=== PATIENT | male | born 1950 | race African-American/Black ===

== ENCOUNTER 2018-08-09 10:52 | Inpatient (IN) | payer OTHER ==
[2018-08-09] VITALS (13 sets, daily range): BP systolic 135–243; BP diastolic 72–133
[~2018-08-09] VITALS: Ht 188 cm; Wt 101.2 kg
[2018-08-09] MEDS ORDERED: POTA20TA4 PO (11:49)
[2018-08-09] MEDS ORDERED: FURO-68 PO (11:50)
[2018-08-09] MEDS ORDERED: CARV25TA PO (11:51)
[2018-08-09] MEDS ORDERED: HYDR100T24 PO (11:52)
[2018-08-09] MEDS ORDERED: CHOL10003 PO (11:54)
[2018-08-09] MEDS ORDERED: ALLO300T PO (11:54)
[2018-08-09] MEDS ORDERED: LOSA100T14 PO (11:54)
[2018-08-09] MEDS ORDERED: ASPI325T8 PO (11:54)
[2018-08-09] MEDS: LABETALOL HCL 200 MG TABLET PO SCH ×2 (12:36→22:27)
[2018-08-09] MEDS: hydrALAZINE 20 MG/ML VIAL. IVP PRN ×2 (12:37→16:56)
[2018-08-09] MEDS ORDERED: HEPARIN 25,000UTS/500ML PREMIX 500 ML IV PRN ×2 (13:15→13:30)
--- NOTE | 2018-08-09 13:21 | PDOC2 ---
CONSULT Date of Consult Date of Consult DATE: 08/09/18 TIME: 13:21 Reason for Consult Reason for Consult: Elevated troponin level Referring Physician Referring Physician: Dr. Langley Identification/Chief Complaint Chief Complaint Chest pain Source Source: Chart review, Patient History of Present Illness Reason for Visit: 68-year-old pleasant -[place] male was initially seen at [facility] ED for left-sided chest heaviness associated with shortness of breath worse with exertion and transfer to [facility] for elevated troponin level. He denied any palpitations or syncope. He denied any previous history of coronary artery disease. He has chronic renal insufficiency and follows with Dr. Joseph. Past Medical History Past Medical History Hypertension Hyperlipidemia Chronic kidney disease Past Surgical History Past Surgical History: No pertinent history Family History Family History Hypertension and hyperlipidemia Social History Social History Patient denied any smoking alcohol or drug use Current Medications Current Medications Current Medications Labetalol HCl (Trandate) 200 mg BID PO Last administered on 08/09/18at 12:36; Start 08/09/18 at 12:00 Hydralazine HCl (Apresoline) 100 mg 1X ONCE PO Last administered on 08/09/18at 12:36; Start 08/09/18 at 12:15; Stop 08/09/18 at 12:20; Status DC Hydralazine HCl (Apresoline Inj) 10 mg PRN Q4HRS PRN IVP ELEVATED BP, SEE COMMENTS Last administered on 08/09/18at 12:37; Start 08/09/18 at 12:15 Nicardipine HCl 50 mg/Sodium Chloride 250 ml @ 25 mls/hr CONT PRN IV SEE I/O RECORD; Start 08/09/18 at 12:15 Heparin Sodium/ Dextrose 500 ml @ 0 mls/hr CONT PRN IV SEE I/O RECORD; Start 08/09/18 at 13:15; Status UNV Active Scripts Active Reported Losartan Potassium 100 Mg Tablet 100 Mg PO DAILY Vitamin D3 (Cholecalciferol (Vitamin D3)) 1,000 Unit Tablet 2,000 Unit PO DAILY Aspirin 325 Mg Tablet 1 Tab PO DAILY Allopurinol 300 Mg Tablet 300 Mg PO DAILY Hydralazine Hcl 100 Mg Tablet 100 Mg PO DAILY PRN Coreg (Carvedilol) 25 Mg Tablet 50 Mg PO DAILY Lasix (Furosemide) 40 Mg Tablet 40 Mg PO DAILY Klor-Con M20 (Potassium Chloride) 20 Meq Tab.er.prt 80 Meq PO DAILY Allergies Allergies: Coded Allergies: No Known Drug Allergies (Unverified , 08/09/18) ROS PSYCHOLOGICAL ROS: No: Hallucinations Eyes: No Loss of vision HEENT: No: Epistaxis Respiratory: YES: Shortness of breath; No: Hemoptysis Cardiovascular: yes Chest Pain Gastrointestinal: No Vomiting, No Diarrhea Genitourinary: No Hematuria Neurological: No Seizures Skin: No Rash Physical Exam General: Alert, Oriented X3 HEENT: Atraumatic, PERRLA Lungs: Other (bilateral basal crepitations) Heart: Regular rate Abdomen: Soft, No tenderness Extremities: Other (2+ RLE, 1+ LLE) Neuro: Normal gait, Normal speech Psych/Mental Status: Mood NL Vitals VITALS Vital Signs Date Time Temp Pulse Resp B/P (MAP) Pulse Ox O2 Delivery O2 Flow Rate FiO2 08/09/18 13:03 95 18 205/105 (138) 98 Nasal Cannula 4.0 08/09/18 12:00 98.8 98.8 Assessment/Plan Assessment/Plan 1. Non-STEMI in a patient with multiple cardiovascular risk factors. Continue heparin infusion per protocol. Plan for cardiac catheterization and possible angioplasty if okay from nephrology standpoint. Risks and benefits were explained and he is agreeable. 2. Congestive heart failure most probably acute on chronic diastolic. Diuretics per nephrology team. Check 2-D echo to assess LV systolic function. Asymmetric lower extremity edema could be secondary to component of underlying venous insufficiency. We will evaluate this as an outpatient. 3. Accelerated hypertension: Resume home medications and change Coreg to labetalol for better blood pressure control. Check renal arterial duplex scan to rule out renovascular hypertension. 4. Chronic kidney disease: Consult nephrology team Thank you for your consultation SHEFALI HU MD Aug 09, 2018 13:21
--- NOTE | 2018-08-09 13:28 | PDOC1 ---
History and Physical Date of Admission Date of Admission DATE: 08/09/18 TIME: 13:24 Identification/Chief Complaint Chief Complaint Chest pain Source Source: Caregiver, Chart review, Patient History of Present Illness History of Present Illness 68-year-old -Chinese male, history of hypertension, dyslipidemia on Coreg atorvastatin Lasix with KCl takes aspirin 325 once a day lisinopril HCTZ 100/12.5 at home, chest pain intermittent left-sided associated with SOA, no diaphoresis no pre syncopal symptoms, maybe lasting minutes.. No identifiable precipitating or alleviating factor. With time, got better. Blood pressure on the high side 200s systolic at [facility]. Transferred here because of N STEMI with troponin of 1.4 peak, blood pressure 245 on nitro drip and heparin drip. Cardiology aware plan for catheter tomorrow History of CK D stage II creat 2.3, follows with Dr. Joseph Hemoglobin 14, WBC 6, platelets 179 Past Medical History Cardiovascular: HTN, Hyperlipidemia Past Surgical History Past Surgical History: No pertinent history Family History Family History: Heart Disease, High Cholestrol, Hypertension Social History Smoke: No ALCOHOL: none Drugs: None Current Medications Current Medications Current Medications Labetalol HCl (Trandate) 200 mg BID PO Last administered on 08/09/18at 12:36; Start 08/09/18 at 12:00 Hydralazine HCl (Apresoline) 100 mg 1X ONCE PO Last administered on 08/09/18at 12:36; Start 08/09/18 at 12:15; Stop 08/09/18 at 12:20; Status DC Hydralazine HCl (Apresoline Inj) 10 mg PRN Q4HRS PRN IVP ELEVATED BP, SEE COMMENTS Last administered on 08/09/18at 12:37; Start 08/09/18 at 12:15 Nicardipine HCl 50 mg/Sodium Chloride 250 ml @ 25 mls/hr CONT PRN IV SEE I/O RECORD; Start 08/09/18 at 12:15 Heparin Sodium/ Dextrose 500 ml @ 0 mls/hr CONT PRN IV SEE I/O RECORD; Start 08/09/18 at 13:15; Status UNV Heparin Sodium/ Dextrose 500 ml @ 0 mls/hr CONT PRN IV SEE I/O RECORD; Start 08/09/18 at 13:30 Heparin Sodium (Porcine) (Heparin Sodium) 2,550 unit PRN Q6HRS PRN IV FOR UFH LEVEL LESS THAN 0.2; Start 08/09/18 at 13:30 Active Scripts Active Reported Losartan Potassium 100 Mg Tablet 100 Mg PO DAILY Vitamin D3 (Cholecalciferol (Vitamin D3)) 1,000 Unit Tablet 2,000 Unit PO DAILY Aspirin 325 Mg Tablet 1 Tab PO DAILY Allopurinol 300 Mg Tablet 300 Mg PO DAILY Hydralazine Hcl 100 Mg Tablet 100 Mg PO DAILY PRN Coreg (Carvedilol) 25 Mg Tablet 50 Mg PO DAILY Lasix (Furosemide) 40 Mg Tablet 40 Mg PO DAILY Klor-Con M20 (Potassium Chloride) 20 Meq Tab.er.prt 80 Meq PO DAILY Allergies Allergies: Coded Allergies: No Known Drug Allergies (Unverified , 08/09/18) ROS Review of System As per history of present illness, the rest of ROS 14 point negative Physical Exam General: Alert, Oriented X3, Cooperative, No acute distress HEENT: Atraumatic, PERRLA, EOMI Lungs: Clear to auscultation, Normal air movement Heart: S1S2, RRR, no thrills, no rubs, no gallops, no murmurs Cardiovascular: S1 Abdomen: Normal bowel sounds, Soft, No tenderness, No hepatosplenomegaly, No masses Male Genitals Exam: normal genitalia, normal prostate Rectal Exam: not examined PELVIC: Nml ext genitalia Extremities: No clubbing, No cyanosis, No edema, Normal pulses, No tenderness/swelling Skin: No rashes, No breakdown, No significant lesion Neuro: Normal gait, Normal speech, Strength at 5/5 X4 ext, Normal tone, Sensation intact, Cranial nerves 3-12 NL, Reflexes 2+ Psych/Mental Status: Mental status NL, Mood NL Vitals Vitals Vital Signs Date Time Temp Pulse Resp B/P (MAP) Pulse Ox O2 Delivery O2 Flow Rate FiO2 08/09/18 13:03 95 18 205/105 (138) 98 Nasal Cannula 4.0 08/09/18 12:00 98.8 98.8 VTE Prophylaxis Ordered VTE Prophylaxis Devices: Yes VTE Pharmacological Prophylaxi: Yes Assessment/Plan Assessment/Plan NSTEMI AK I CK D - creat 2.3 Chest pain Dyslipidemia on a statin Hypertension on meds PLAN: Nothing by mouth post midnight, [facility] tomorrow Cards consult Consult renal regarding the creatinine 2.3 and CK D-follows Dr. Jake Sandoval to reconcile her continue all home meds Stool softener ICU care/CVC care PIERO protocol Discussed with him-full code Discussed with CHIEF NURSE MARC QUIROGA MD Aug 09, 2018 13:28
[2018-08-09] MEDS ORDERED: MORPHINE SULFATE 2 MG/ML VIAL. IV PRN (13:30)
[2018-08-09] MEDS ORDERED: PROCHLORPERAZINE 25 MG SUPP.RECT. PR PRN (13:30)
[2018-08-09] MEDS ORDERED: CALCIUM CARBONATE 500 MG TAB.CHEW PO PRN (13:30)
[2018-08-09] MEDS ORDERED: HEPARIN for IV BOLUS 10,000 UNIT/10 ML VIAL. IV PRN (13:30)
[2018-08-09] MEDS ORDERED: ONDANSETRON PF 4 MG/2 ML VIAL. IV PRN (13:30)
[2018-08-09] MEDS ORDERED: ACETAMINOPHEN 325 MG TABLET. PO PRN (13:30)
[2018-08-09] MEDS ORDERED: MAGNESIUM HYDROXIDE 2,400 MG/30 ML ORAL.SUSP. PO PRN (13:30)
[2018-08-09] MEDS ORDERED: BISACODYL 10 MG SUPP.RECT. PR PRN (13:30)
[2018-08-09] MEDS ORDERED: oxyCODONE IR 5 MG TABLET PO PRN (13:30)
[2018-08-09] MEDS ORDERED: PROCHLORPERAZINE 10 MG/2 ML VIAL. IV PRN (13:30)
--- NOTE | 2018-08-09 19:45 | NUR ---
Patient and educated on Cardia Catheterization--reason needed, procedure, medications before/after, Moderate Sedation, Angioplasty, Rotational Arterectomy, TR band vs Angio-Seal, activity post procedure, diet (NPO after midnight), and S/Sx to look for bleeding. After explanation and all questions answered, patient and verbalized understanding of above. Consents signed for Cardiac Catheterization and possible Percutaneous Transluminal Coronary Angioplasty and Possible Coronary Stent and Possible Rotational Atherectomy, Anesthesia-Moderated Sedation, HIV Antibody Blood Test, and Blood Transfusion; See consents.
[2018-08-09] MEDS: DOCUSATE SODIUM 100 MG CAPSULE. PO SCH (21:00)
[2018-08-10] VITALS (25 sets, daily range): BP systolic 146–194; BP diastolic 66–112
--- NOTE | 2018-08-10 01:20 | NUR ---
UFH drawn at 0030 resulted 0.30; per Heparin protocol (cardiac) no change in dose and repeat UFH in 6HRS. Heparin continued at 11UNITS/KG/MIN and UFH reordered for 0630.
[2018-08-10] MEDS: hydrALAZINE 20 MG/ML VIAL. IVP PRN ×3 (03:11→18:21)
[2018-08-10] MEDS: DOCUSATE SODIUM 100 MG CAPSULE. PO SCH ×2 (08:12→21:15)
[2018-08-10] MEDS: ALLOPURINOL 300 MG TABLET. PO SCH (08:12)
[2018-08-10] MEDS: FUROSEMIDE 40 MG TABLET. PO SCH (08:12)
[2018-08-10] MEDS: CHOLECALCIFEROL (VITAMIN D3) 1,000 UNIT TABLET PO SCH (08:12)
[2018-08-10] MEDS: LABETALOL HCL 200 MG TABLET PO SCH ×2 (08:13→21:16)
[2018-08-10 08:27] LABS: BASO # 0.1 x10^3/uL (0.0-0.2); BASO % 1 % (0-3); EOS # 0.1 x10^3/uL (0.0-0.7); EOS % 1 % (0-3); HEMATOCRIT 37.2 % (39.0-53.0); HEMOGLOBIN 12.2 g/dL (13.0-17.5); LYMPH # 0.6 x10^3/uL (1.0-4.8); LYMPH % 11 % (24-48); MEAN CORPUSCULAR HEMOGLOBIN 29 pg (25-35); MEAN CORPUSCULAR HGB CONC 33 g/dL (31-37); MEAN CORPUSCULAR VOLUME 88 fL (79-100); MONO # 0.6 x10^3/uL (0.0-1.1); MONO % 10 % (0-9); NEUT # 4.6 x10^3uL (1.8-7.7); NEUT % 77 % (31-73); PLATELET COUNT 154 x10^3/uL (140-400); RED BLOOD COUNT 4.24 x10^6/uL (4.30-5.70); RED CELL DISTRIBUTION WIDTH 16.2 % (11.5-14.5)
[2018-08-10 08:42] LABS: PROTHROMBIN TIME PATIENT 13.9 SEC (11.7-14.0)
[2018-08-10] MEDS ORDERED: POTASSIUM CHLORIDE 20 MEQ TABLET.ER. PO SCH (09:00)
[2018-08-10] MEDS ORDERED: CARVEDILOL 50 MG PO SCH (09:00)
--- NOTE | 2018-08-10 09:17 | RAD ---
Examination: RENAL BILAT RENAL DUPLEX CO History: Hypertension Comparison/Correlation: None Findings: Bilateral duplex renal ultrasound exam was performed. Color and spectral Doppler imaging was utilized. Right renal artery flow velocity is 43 cm/s at the middle and distal aspect. The proximal aspect of the right renal artery is not visualized. Resistive index ranges from 0.6, 0.7. Right renal length is 10 cm. Left renal artery flow velocity ranges from 40 cm/s distally to 56 cm/s at the midportion. Proximal left main renal artery was not visualized. Resistive index is 0.6. Left renal length is 10.3 cm. Abdominal aortic flow velocity is 82 cm/s. Right renal artery to aorta flow velocity ratio is 0.5 and left main renal artery to aorta flow velocity ratio is 0.6. These are well within normal range. Impression: No hemodynamic main renal arterial stenosis. Electronically signed by: German Bueno MD (08/10/2018 9:14 AM) [id number]
--- NOTE | 2018-08-10 09:58 | PDOC ---
PROGRESS NOTES Chief Complaint Chief Complaint NSTEMI ALE CK D - creat 2.3 Chest pain Dyslipidemia on a statin Hypertension acute CHF, diastolic History of Present Illness History of Present Illness Mr Roldan is a 68-year-old [place] -[place] male was initially seen at [facility] ED for left-sided chest heaviness associated with shortness of breath worse with exertion and transfer to [facility] for elevated troponin level. He denied any palpitations or syncope. This morning he c/o headache after NTG yesterday and still has some CP. BP has been elevated all night, requiring prn hydralazine Plan: Add short acting nitrate, likely will need imdur Cardiac cath today. Vitals Vitals Vital Signs Date Time Temp Pulse Resp B/P (MAP) Pulse Ox O2 Delivery O2 Flow Rate FiO2 08/10/18 09:00 70 13 166/82 (110) 99 Nasal Cannula 2.0 08/10/18 08:00 98.0 98.0 Physical Exam General: Alert, Oriented X3 Heart: Regular rate Abdomen: Soft, No tenderness Extremities: Other (2+ RLE, 1+ LLE) Skin: No rashes, No breakdown, No significant lesion Labs LABS Laboratory Tests Test 08/09/18 18:05 08/10/18 00:30 08/10/18 07:00 Heparin Anti-Xa Act, Unfractionated 0.57 IU/mL (0.30-0.70) 0.30 IU/mL (0.30-0.70) 0.32 IU/mL (0.30-0.70) Troponin I Quantitative 1.120 ng/mL (0.000-0.055) White Blood Count 6.0 x10^3/uL (4.0-11.0) Red Blood Count 4.24 x10^6/uL (4.30-5.70) Hemoglobin 12.2 g/dL (13.0-17.5) Hematocrit 37.2 % (39.0-53.0) Mean Corpuscular Volume 88 fL (79-100) Mean Corpuscular Hemoglobin 29 pg (25-35) Mean Corpuscular Hemoglobin Concent 33 g/dL (31-37) Red Cell Distribution Width 16.2 % (11.5-14.5) Platelet Count 154 x10^3/uL (140-400) Neutrophils (%) (Auto) 77 % (31-73) Lymphocytes (%) (Auto) 11 % (24-48) Monocytes (%) (Auto) 10 % (0-9) Eosinophils (%) (Auto) 1 % (0-3) Basophils (%) (Auto) 1 % (0-3) Neutrophils # (Auto) 4.6 x10^3uL (1.8-7.7) Lymphocytes # (Auto) 0.6 x10^3/uL (1.0-4.8) Monocytes # (Auto) 0.6 x10^3/uL (0.0-1.1) Eosinophils # (Auto) 0.1 x10^3/uL (0.0-0.7) Basophils # (Auto) 0.1 x10^3/uL (0.0-0.2) Prothrombin Time 13.9 SEC (11.7-14.0) Prothromb Time International Ratio 1.1 (0.8-1.1) Assessment and Plan Assessmemt and Plan Problems Medical Problems: (1) Acute kidney injury superimposed on chronic kidney disease Status: Acute (2) Acute on chronic diastolic CHF (congestive heart failure) Status: Acute (3) Hypertension, accelerated Status: Acute (4) NSTEMI (non-ST elevated myocardial infarction) Status: Acute Comment Review of Relevant I have reviewed the following items ramiro (where applicable) has been applied. Labs Laboratory Tests Test 08/09/18 18:05 08/10/18 00:30 08/10/18 07:00 Heparin Anti-Xa Act, Unfractionated 0.57 IU/mL (0.30-0.70) 0.30 IU/mL (0.30-0.70) 0.32 IU/mL (0.30-0.70) Troponin I Quantitative 1.120 ng/mL (0.000-0.055) White Blood Count 6.0 x10^3/uL (4.0-11.0) Red Blood Count 4.24 x10^6/uL (4.30-5.70) Hemoglobin 12.2 g/dL (13.0-17.5) Hematocrit 37.2 % (39.0-53.0) Mean Corpuscular Volume 88 fL (79-100) Mean Corpuscular Hemoglobin 29 pg (25-35) Mean Corpuscular Hemoglobin Concent 33 g/dL (31-37) Red Cell Distribution Width 16.2 % (11.5-14.5) Platelet Count 154 x10^3/uL (140-400) Neutrophils (%) (Auto) 77 % (31-73) Lymphocytes (%) (Auto) 11 % (24-48) Monocytes (%) (Auto) 10 % (0-9) Eosinophils (%) (Auto) 1 % (0-3) Basophils (%) (Auto) 1 % (0-3) Neutrophils # (Auto) 4.6 x10^3uL (1.8-7.7) Lymphocytes # (Auto) 0.6 x10^3/uL (1.0-4.8) Monocytes # (Auto) 0.6 x10^3/uL (0.0-1.1) Eosinophils # (Auto) 0.1 x10^3/uL (0.0-0.7) Basophils # (Auto) 0.1 x10^3/uL (0.0-0.2) Prothrombin Time 13.9 SEC (11.7-14.0) Prothromb Time International Ratio 1.1 (0.8-1.1) Laboratory Tests Test 08/09/18 18:05 08/10/18 00:30 08/10/18 07:00 Heparin Anti-Xa Act, Unfractionated 0.57 IU/mL (0.30-0.70) 0.30 IU/mL (0.30-0.70) 0.32 IU/mL (0.30-0.70) Troponin I Quantitative 1.120 ng/mL (0.000-0.055) White Blood Count 6.0 x10^3/uL (4.0-11.0) Red Blood Count 4.24 x10^6/uL (4.30-5.70) Hemoglobin 12.2 g/dL (13.0-17.5) Hematocrit 37.2 % (39.0-53.0) Mean Corpuscular Volume 88 fL (79-100) Mean Corpuscular Hemoglobin 29 pg (25-35) Mean Corpuscular Hemoglobin Concent 33 g/dL (31-37) Red Cell Distribution Width 16.2 % (11.5-14.5) Platelet Count 154 x10^3/uL (140-400) Neutrophils (%) (Auto) 77 % (31-73) Lymphocytes (%) (Auto) 11 % (24-48) Monocytes (%) (Auto) 10 % (0-9) Eosinophils (%) (Auto) 1 % (0-3) Basophils (%) (Auto) 1 % (0-3) Neutrophils # (Auto) 4.6 x10^3uL (1.8-7.7) Lymphocytes # (Auto) 0.6 x10^3/uL (1.0-4.8) Monocytes # (Auto) 0.6 x10^3/uL (0.0-1.1) Eosinophils # (Auto) 0.1 x10^3/uL (0.0-0.7) Basophils # (Auto) 0.1 x10^3/uL (0.0-0.2) Prothrombin Time 13.9 SEC (11.7-14.0) Prothromb Time International Ratio 1.1 (0.8-1.1) Medications Current Medications Labetalol HCl (Trandate) 200 mg BID PO Last administered on 08/10/18at 08:13; Start 08/09/18 at 12:00 Hydralazine HCl (Apresoline) 100 mg 1X ONCE PO Last administered on 08/09/18at 12:36; Start 08/09/18 at 12:15; Stop 08/09/18 at 12:20; Status DC Hydralazine HCl (Apresoline Inj) 10 mg PRN Q4HRS PRN IVP ELEVATED BP, SEE COMMENTS Last administered on 08/10/18at 03:11; Start 08/09/18 at 12:15 Nicardipine HCl 50 mg/Sodium Chloride 250 ml @ 25 mls/hr CONT PRN IV SEE I/O RECORD; Start 08/09/18 at 12:15 Heparin Sodium/ Dextrose 500 ml @ 0 mls/hr CONT PRN IV SEE I/O RECORD; Start 08/09/18 at 13:15; Status UNV Heparin Sodium/ Dextrose 500 ml @ 0 mls/hr CONT PRN IV SEE I/O RECORD; Start 08/09/18 at 13:30 Heparin Sodium (Porcine) (Heparin Sodium) 2,550 unit PRN Q6HRS PRN IV FOR UFH LEVEL LESS THAN 0.2; Start 08/09/18 at 13:30 Ondansetron HCl (Zofran) 4 mg PRN Q6HRS PRN IV NAUSEA/VOMITING, 1ST CHOICE IV; Start 08/09/18 at 13:30 Prochlorperazine Edisylate (Compazine) 10 mg PRN Q6HRS PRN IV NAUSEA/VOMITING, 2ND CHOICE IV; Start 08/09/18 at 13:30 Prochlorperazine (Compazine) 25 mg PRN Q12HR PRN ID NAUSEA/VOMITING; Start 08/09/18 at 13:30 Calcium Carbonate/ Glycine (Tums) 500 mg PRN Q3HRS PRN PO UPSET STOMACH; Start 08/09/18 at 13:30 Oxycodone HCl (Roxicodone) 5 mg PRN Q3HRS PRN PO BREAKTHROUGH PAIN; Start 08/09/18 at 13:30 Morphine Sulfate (Morphine Sulfate) 2 mg PRN Q2HR PRN IV PAIN; Start 08/09/18 at 13:30 Acetaminophen (Tylenol) 650 mg PRN Q6HRS PRN PO Headaches, Temp > 101.5F; Sta rt 08/09/18 at 13:30 Docusate Sodium (Colace) 100 mg BID PO Last administered on 08/10/18at 08:12; Start 08/09/18 at 21:00 Magnesium Hydroxide (Milk Of Magnesia) 2,400 mg PRN Q12HR PRN PO CONSTIPATION; Start 08/09/18 at 13:30 Bisacodyl (Dulcolax Supp) 10 mg PRN DAILY PRN ID CONSTIPATION; Start 08/09/18 at 13:30 Allopurinol (Zyloprim) 300 mg DAILY PO Last administered on 08/10/18at 08:12; Start 08/10/18 at 09:00 Vitamin D (Vitamin D3) 2,000 unit DAILY PO Last administered on 08/10/18at 08:12; Start 08/10/18 at 09:00 Furosemide (Lasix) 40 mg DAILY PO Last administered on 08/10/18at 08:12; Start 08/10/18 at 09:00 Potassium Chloride (Klor-Con) 80 meq DAILY PO ; Start 08/10/18 at 09:00; Stop 08/10/18 at 09:00; Status DC Non-Formulary Medication (Carvedilol (Coreg)) 50 mg DAILY PO ; Start 08/10/18 at 09:00; Stop 08/10/18 at 09:00; Status DC Hydralazine HCl (Apresoline) 50 mg BID PO Last administered on 08/10/18at 08:13; Start 08/09/18 at 21:00 Sodium Chloride 1,000 ml @ 100 mls/hr Q10H IV ; Start 08/10/18 at 10:00 Active Scripts Active Reported Losartan Potassium 100 Mg Tablet 100 Mg PO DAILY Vitamin D3 (Cholecalciferol (Vitamin D3)) 1,000 Unit Tablet 2,000 Unit PO DAILY Aspirin 325 Mg Tablet 1 Tab PO DAILY Allopurinol 300 Mg Tablet 300 Mg PO DAILY Hydralazine Hcl 100 Mg Tablet 100 Mg PO DAILY PRN Coreg (Carvedilol) 25 Mg Tablet 50 Mg PO DAILY Lasix (Furosemide) 40 Mg Tablet 40 Mg PO DAILY Klor-Con M20 (Potassium Chloride) 20 Meq Tab.er.prt 80 Meq PO DAILY Vitals/I & O Vital Sign - Last 24 Hours 08/09/18 08/09/18 08/09/18 08/09/18 12:00 12:00 12:36 12:36 Temp 98.8 98.8 Pulse 102 102 102 Resp 18 B/P (MAP) 243/133 (169) 243/133 243/133 Pulse Ox 100 O2 Delivery Nasal Cannula Nasal Cannula O2 Flow Rate 2.0 2.0 08/09/18 08/09/18 08/09/18 08/09/18 12:37 13:03 14:00 15:00 Pulse 102 95 75 81 Resp 18 16 16 B/P (MAP) 243/133 205/105 (138) 135/72 (93) 145/75 (98) Pulse Ox 98 98 98 O2 Delivery Nasal Cannula Nasal Cannula Nasal Cannula O2 Flow Rate 4.0 4.0 4.0 08/09/18 08/09/18 08/09/18 08/09/18 16:00 16:00 16:56 17:00 Pulse 62 79 88 Resp 18 20 B/P (MAP) 151/81 (104) 184/100 167/88 (114) Pulse Ox 99 99 O2 Delivery Nasal Cannula Nasal Cannula Nasal Cannula O2 Flow Rate 4.0 4.0 4.0 08/09/18 08/09/18 08/09/1819 18:00 19:00 20:00 20:00 Temp 98.4 98.4 Pulse 82 86 84 Resp 20 20 20 B/P (MAP) 155/88 (110) 163/79 (107) 164/92 (116) Pulse Ox 97 98 98 O2 Delivery Nasal Cannula Nasal Cannula Nasal Cannula Nasal Cannula O2 Flow Rate 4.0 4.0 4.0 3.0 08/09/18 08/09/18 08/09/18 08/09/18 21:00 22:00 22:27 22:28 Pulse 68 73 77 77 Resp 18 16 B/P (MAP) 162/90 (114) 174/101 (125) 182/98 182/98 Pulse Ox 99 100 O2 Delivery Nasal Cannula Nasal Cannula O2 Flow Rate 3.0 3.0 08/09/18 08/09/18 08/09/18 08/10/18 23:00 23:59 23:59 01:00 Temp 98.6 98.6 Pulse 72 70 60 Resp 18 14 14 B/P (MAP) 172/85 (114) 143/80 (101) 160/80 (106) Pulse Ox 100 100 100 O2 Delivery Nasal Cannula Nasal Cannula Nasal Cannula Nasal Cannula O2 Flow Rate 3.0 3.0 3.0 3.0 08/10/18 08/10/18 08/10/18 08/10/18 02:00 03:00 03:11 03:35 Pulse 67 70 70 70 Resp 14 14 16 B/P (MAP) 160/84 (109) 169/93 (118) 169/93 146/77 (100) Pulse Ox 99 99 99 O2 Delivery Nasal Cannula Nasal Cannula Nasal Cannula O2 Flow Rate 3.0 3.0 2.0 08/10/18 08/10/18 08/10/18 08/10/18 03:47 04:00 05:00 06:00 Temp 98.6 98.6 Pulse 64 66 64 Resp 16 B/P (MAP) 151/77 (101) 162/85 (110) 171/83 (112) Pulse Ox 98 99 100 O2 Delivery Nasal Cannula Nasal Cannula Nasal Cannula Nasal Cannula O2 Flow Rate 2.0 2.0 2.0 2.0 08/10/18 08/10/18 08/10/18 08/10/18 07:00 08:00 08:13 08:13 Temp 98.0 98.0 Pulse 76 72 70 70 Resp 20 24 B/P (MAP) 181/91 (121) 186/99 (128) 186/99 186/99 Pulse Ox 98 97 O2 Delivery Nasal Cannula Nasal Cannula O2 Flow Rate 2.0 2.0 08/10/18 09:00 Pulse 70 Resp 13 B/P (MAP) 166/82 (110) Pulse Ox 99 O2 Delivery Nasal Cannula O2 Flow Rate 2.0 Intake and Output 08/09/18 08/09/18 08/10/18 14:59 22:59 06:59 Intake Total 150 ml 400 ml 1038 ml Output Total 250 ml 700 ml 300 ml Balance -100 ml -300 ml 738 ml TONIE LEWIS MD Aug 10, 2018 09:58
--- NOTE | 2018-08-10 10:02 | PDOC2 ---
CONSULT Date of Consult Date of Consult DATE: 08/10/18 TIME: 09:35 Reason for Consult Reason for Consult: CKD 3 Source Source: Chart review, Patient History of Present Illness Reason for Visit: 68-year-old -[place] male, history of hypertension, on Coreg, Lasix with KCl takes ,lisinopril HCTZ 100/12.5 at home, admitted with chest pain intermittent left-sided associated with SOA,no pre syncopal symptoms lasting minutes.. No identifiable precipitating or alleviating factor. Blood pressure 200s systolic at [facility]. Transferred here because of N STEMI with troponin of 1.4 peak, blood pressure 245 was on nitro drip and heparin drip. Cardiology planning Cardiac cath Cr at [place] 2.3, follows with Dr. Santos Past Medical History Cardiovascular: HTN, Hyperlipidemia Past Surgical History Past Surgical History: No pertinent history Family History Family History: Heart Disease, High Cholestrol, Hypertension Social History No ALCOHOL: none Drugs: None Current Problem List Problem List Problems Medical Problems: (1) Acute kidney injury superimposed on chronic kidney disease Status: Acute (2) Acute on chronic diastolic CHF (congestive heart failure) Status: Acute (3) Hypertension, accelerated Status: Acute (4) NSTEMI (non-ST elevated myocardial infarction) Status: Acute Current Medications Current Medications Current Medications Labetalol HCl (Trandate) 200 mg BID PO Last administered on 08/10/18at 08:13; Start 08/09/18 at 12:00 Hydralazine HCl (Apresoline) 100 mg 1X ONCE PO Last administered on 08/09/18at 12:36; Start 08/09/18 at 12:15; Stop 08/09/18 at 12:20; Status DC Hydralazine HCl (Apresoline Inj) 10 mg PRN Q4HRS PRN IVP ELEVATED BP, SEE COMMENTS Last administered on 08/10/18at 03:11; Start 08/09/18 at 12:15 Nicardipine HCl 50 mg/Sodium Chloride 250 ml @ 25 mls/hr CONT PRN IV SEE I/O RECORD; Start 08/09/18 at 12:15 Heparin Sodium/ Dextrose 500 ml @ 0 mls/hr CONT PRN IV SEE I/O RECORD; Start 08/09/18 at 13:15; Status UNV Heparin Sodium/ Dextrose 500 ml @ 0 mls/hr CONT PRN IV SEE I/O RECORD; Start 08/09/18 at 13:30 Heparin Sodium (Porcine) (Heparin Sodium) 2,550 unit PRN Q6HRS PRN IV FOR UFH LEVEL LESS THAN 0.2; Start 08/09/18 at 13:30 Ondansetron HCl (Zofran) 4 mg PRN Q6HRS PRN IV NAUSEA/VOMITING, 1ST CHOICE IV; Start 08/09/18 at 13:30 Prochlorperazine Edisylate (Compazine) 10 mg PRN Q6HRS PRN IV NAUSEA/VOMITING, 2ND CHOICE IV; Start 08/09/18 at 13:30 Prochlorperazine (Compazine) 25 mg PRN Q12HR PRN FL NAUSEA/VOMITING; Start 08/09/18 at 13:30 Calcium Carbonate/ Glycine (Tums) 500 mg PRN Q3HRS PRN PO UPSET STOMACH; Start 08/09/18 at 13:30 Oxycodone HCl (Roxicodone) 5 mg PRN Q3HRS PRN PO BREAKTHROUGH PAIN; Start 08/09/18 at 13:30 Morphine Sulfate (Morphine Sulfate) 2 mg PRN Q2HR PRN IV PAIN; Start 08/09/18 at 13:30 Acetaminophen (Tylenol) 650 mg PRN Q6HRS PRN PO Headaches, Temp > 101.5F; Start 08/09/18 at 13:30 Docusate Sodium (Colace) 100 mg BID PO Last administered on 08/10/18at 08:12; Start 08/09/18 at 21:00 Magnesium Hydroxide (Milk Of Magnesia) 2,400 mg PRN Q12HR PRN PO CONSTIPATION; Start 08/09/18 at 13:30 Bisacodyl (Dulcolax Supp) 10 mg PRN DAILY PRN FL CONSTIPATION; Start 08/09/18 at 13:30 Allopurinol (Zyloprim) 300 mg DAILY PO Last administered on 08/10/18at 08:12; Start 08/10/18 at 09:00 Vitamin D (Vitamin D3) 2,000 unit DAILY PO Last administered on 08/10/18at 08: 12; Start 08/10/18 at 09:00 Furosemide (Lasix) 40 mg DAILY PO Last administered on 08/10/18at 08:12; Start 08/10/18 at 09:00 Potassium Chloride (Klor-Con) 80 meq DAILY PO ; Start 08/10/18 at 09:00; Stop 08/10/18 at 09:00; Status DC Non-Formulary Medication (Carvedilol (Coreg)) 50 mg DAILY PO ; Start 08/10/18 at 09:00; Stop 08/10/18 at 09:00; Status DC Hydralazine HCl (Apresoline) 50 mg BID PO Last administered on 08/10/18at 08:13; Start 08/09/18 at 21:00 Active Scripts Active Reported Losartan Potassium 100 Mg Tablet 100 Mg PO DAILY Vitamin D3 (Cholecalciferol (Vitamin D3)) 1,000 Unit Tablet 2,000 Unit PO DAILY Aspirin 325 Mg Tablet 1 Tab PO DAILY Allopurinol 300 Mg Tablet 300 Mg PO DAILY Hydralazine Hcl 100 Mg Tablet 100 Mg PO DAILY PRN Coreg (Carvedilol) 25 Mg Tablet 50 Mg PO DAILY Lasix (Furosemide) 40 Mg Tablet 40 Mg PO DAILY Klor-Con M20 (Potassium Chloride) 20 Meq Tab.er.prt 80 Meq PO DAILY Allergies Allergies: Coded Allergies: No Known Drug Allergies (Unverified , 08/09/18) ROS Review of System Per HPI Physical Exam Physical Exam General: No acute distress HEENT: OM Moist Lungs: Clear to auscultation,Non labored Cardiovascular: RRR Abdomen: NT Extremities: No edema, Skin: No rashes, Neuro: Grossly Normal Psych/Mental Status: Mental status NL, Mood NL No Muse Vital Signs Vital Signs Date Time Temp Pulse Resp B/P (MAP) Pulse Ox O2 Delivery O2 Flow Rate FiO2 08/10/18 08:13 70 186/99 08/10/18 06:00 100 Nasal Cannula 2.0 08/10/18 04:00 98.6 16 98.6 Assessment & Plan CKD Stage 3 - baseline Cr 1.5-1.9 , on 03/25/18 1.9 Most Recent 08/09 at [place] was 2.[address] santos Non-STEMI - Plan for cardiac catheterization and possible angioplasty Increased risk of MIKE, weigh the risk and benefit - defer to cardiology Discussed with Pt and IVF for MIKE prophylaxis over night (NS 1ml/Kg/hr 12 hrs prior and post procedure , cautiously as Hx of CHF) Hold Diuretics a day before and after , currently CHF appears to be compensated clinically Discussed last evening with RN Congestive heart failure most probably acute on chronic diastolic. Accelerated hypertension: Cardiology managing Discussed with Pt, and RN Labs Labs Laboratory Tests Test 08/09/18 18:05 08/10/18 00:30 08/10/18 07:00 Heparin Anti-Xa Act, Unfractionated 0.57 IU/mL (0.30-0.70) 0.30 IU/mL (0.30-0.70) 0.32 IU/mL (0.30-0.70) Troponin I Quantitative 1.120 ng/mL (0.000-0.055) White Blood Count 6.0 x10^3/uL (4.0-11.0) Red Blood Count 4.24 x10^6/uL (4.30-5.70) Hemoglobin 12.2 g/dL (13.0-17.5) Hematocrit 37.2 % (39.0-53.0) Mean Corpuscular Volume 88 fL (79-100) Mean Corpuscular Hemoglobin 29 pg (25-35) Mean Corpuscular Hemoglobin Concent 33 g/dL (31-37) Red Cell Distribution Width 16.2 % (11.5-14.5) Platelet Count 154 x10^3/uL (140-400) Neutrophils (%) (Auto) 77 % (31-73) Lymphocytes (%) (Auto) 11 % (24-48) Monocytes (%) (Auto) 10 % (0-9) Eosinophils (%) (Auto) 1 % (0-3) Basophils (%) (Auto) 1 % (0-3) Neutrophils # (Auto) 4.6 x10^3uL (1.8-7.7) Lymphocytes # (Auto) 0.6 x10^3/uL (1.0-4.8) Monocytes # (Auto) 0.6 x10^3/uL (0.0-1.1) Eosinophils # (Auto) 0.1 x10^3/uL (0.0-0.7) Basophils # (Auto) 0.1 x10^3/uL (0.0-0.2) Prothrombin Time 13.9 SEC (11.7-14.0) Prothromb Time International Ratio 1.1 (0.8-1.1) Laboratory Tests Test 08/09/18 18:05 08/10/18 00:30 08/10/18 07:00 Heparin Anti-Xa Act, Unfractionated 0.57 IU/mL (0.30-0.70) 0.30 IU/mL (0.30-0.70) 0.32 IU/mL (0.30-0.70) Troponin I Quantitative 1.120 ng/mL (0.000-0.055) White Blood Count 6.0 x10^3/uL (4.0-11.0) Red Blood Count 4.24 x10^6/uL (4.30-5.70) Hemoglobin 12.2 g/dL (13.0-17.5) Hematocrit 37.2 % (39.0-53.0) Mean Corpuscular Volume 88 fL (79-100) Mean Corpuscular Hemoglobin 29 pg (25-35) Mean Corpuscular Hemoglobin Concent 33 g/dL (31-37) Red Cell Distribution Width 16.2 % (11.5-14.5) Platelet Count 154 x10^3/uL (140-400) Neutrophils (%) (Auto) 77 % (31-73) Lymphocytes (%) (Auto) 11 % (24-48) Monocytes (%) (Auto) 10 % (0-9) Eosinophils (%) (Auto) 1 % (0-3) Basophils (%) (Auto) 1 % (0-3) Neutrophils # (Auto) 4.6 x10^3uL (1.8-7.7) Lymphocytes # (Auto) 0.6 x10^3/uL (1.0-4.8) Monocytes # (Auto) 0.6 x10^3/uL (0.0-1.1) Eosinophils # (Auto) 0.1 x10^3/uL (0.0-0.7) Basophils # (Auto) 0.1 x10^3/uL (0.0-0.2) Prothrombin Time 13.9 SEC (11.7-14.0) Prothromb Time International Ratio 1.1 (0.8-1.1) Review All relevant outside records, renal labs, imaging studies, telemetry/EKG's were reviewed. ANTHONY AGUERO MD Aug 10, 2018 10:02
[2018-08-10] MEDS: IV NORMAL SALINE 1000ML BAG 1,000 ML IV SCH (10:06)
[2018-08-10] MEDS: ISOSORBIDE DINITRATE 10 MG TABLET. PO SCH ×3 (10:15→21:15)
[2018-08-10 10:18] LABS: CALCIUM 8.1 mg/dL (8.5-10.1); CREATININE 2.3 mg/dL (0.7-1.3); GFR 34.5; POTASSIUM 3.6 mmol/L (3.5-5.1)
[2018-08-10] MEDS: LABETALOL 20 MG/4 ML DISP.SYRIN. IVP PRN ×2 (11:06→14:26)
[2018-08-10] MEDS ORDERED: IODIXANOL 320 MG/ML 100 ML VIAL. ONE ×2 (11:40→12:22)
[2018-08-10] MEDS ORDERED: MIDAZOLAM HCL/PF 5 MG/5 ML VIAL. ONE (11:41)
[2018-08-10] MEDS ORDERED: VERAPAMIL 5 MG/2 ML VIAL. ONE (11:41)
[2018-08-10] MEDS ORDERED: HEPARIN for IV BOLUS 10,000 UNIT/10 ML VIAL. ONE (11:41)
[2018-08-10] MEDS ORDERED: fentaNYL PF VIAL 100 MCG/2 ML VIAL ONE (11:41)
[2018-08-10] MEDS ORDERED: NITROGLYCERIN 200 MCG/2 ML SYRINGE FOR CATH/VASC LAB. ONE (11:41)
[2018-08-10] MEDS ORDERED: LIDOCAINE 1% PF 2 ML VIAL. ONE (11:42)
[2018-08-10] MEDS ORDERED: HEPARIN for IV BOLUS 10,000 UNIT/10 ML VIAL. IART ONE (12:00)
[2018-08-10] MEDS ORDERED: NITROGLYCERIN 200 MCG/2 ML SYRINGE FOR CATH/VASC LAB. IART ONE (12:00)
[2018-08-10] MEDS ORDERED: fentaNYL PF VIAL 100 MCG/2 ML VIAL IV ONE (12:00)
[2018-08-10] MEDS ORDERED: VERAPAMIL 5 MG/2 ML VIAL. IART ONE (12:00)
[2018-08-10] MEDS ORDERED: IODIXANOL 320 MG/ML 100 ML VIAL. IART ONE (12:00)
[2018-08-10] MEDS ORDERED: LIDOCAINE 1% PF 2 ML VIAL. INJ ONE (12:00)
[2018-08-10] MEDS ORDERED: BIVALIRUDIN 250 MG VIAL. IV ONE ×2 (12:09→12:15)
[2018-08-10] MEDS ORDERED: CLOPIDOGREL BISULFATE 75 MG TABLET PO ONE (12:30)
[2018-08-10] MEDS ORDERED: MIDAZOLAM HCL/PF 5 MG/5 ML VIAL. IV ONE (12:45)
[2018-08-10] MEDS ORDERED: IV 1/2 NORMAL SALINE 1,000 ML IV SCH (12:50)
--- NOTE | 2018-08-10 12:50 | PDOC ---
MODERATE SEDATION ASSESSMENT RISKS/ALTERNATIVES Risks/Alternatives Risks and alternatives of this type of sedation and procedure discussed with: RISK/ALTERNATIVES: Patient H & P ON CHART H & P H & P on chart and reviewed for co-morbid conditions and appropriate labs. H&P ON CHART: Yes STATUS PREG STATUS ASSESSED: N/A MEDS/ALLERGIES REVIEWED Meds/Allergies Reviewed Medications and Allergies including time and route of recently administered narcotics and sedatives. MEDS/ALLERGIES REVIEWED: Yes ASA RATING ASA RATING: III AIRWAY ASSESSMENT Airway Assessment Airway patency, oral function limitations, presence of caps, crowns, dentures, partials, and ability to extend neck assessed. AIRWAY ASSESSMENT: Yes MALLAMPATI SCORE MALLAMPATI SCORE: II PRE-SEDATION ASSESSMENT PRE-SEDATION ASSESSMENT: Yes SHEFALI HU MD Aug 10, 2018 12:50
[2018-08-10] MEDS ORDERED: NITROGLYCERIN SUBLINGUAL 0.4 MG BOTTLE OF 25. SL PRN (13:00)
--- NOTE | 2018-08-10 13:35 | CARD ---
MR#: [id number] Date of Study: 08/10/2018 Ordering Physician: SHEFALI HU, Referring Physician: MARC QUIROGA Tech: Candi Quirozrachelzaria APPROVED REPORT EXAM: Two-dimensional and M-mode echocardiogram with Doppler and color Doppler. Other Information Quality : GoodHR: 83bpm INDICATION Dyspnea Non STEMI RISK FACTORS Hypertension 2D DIMENSIONS RVDd3.5 (2.9-3.5cm)Left Atrium(2D)4.9 (1.6-4.0cm) IVSd1.6 (0.7-1.1cm)Aortic Root(2D)3.1 (2.0-3.7cm) LVDd5.9 (3.9-5.9cm)LVOT Diameter2.2 (1.8-2.4cm) PWd1.4 (0.7-1.1cm)LVDs4.4 (2.5-4.0cm) FS (%) 25.4 %SV84.3 ml LVEF(%)49.4 (>50%) Aortic Valve AoV Peak Mina.139.4cm/sAoV VTI24.8cm AO Peak GR.7.8mmHgLVOT VTI 15.38cm AO Mean GR.5mmHg Mitral Valve MV E Syzdazsy70.6cm/sMV DECEL [id number] MV A Pibyxclp08.2cm/sE/A Ratio1.7 TDI Lateral E' P. V3.90cm/sMedial E' P. V5.19cm/s E/Lateral E'21.7E/Medial E'16.3 Tricuspid Valve TR P. Eamadsus525kp/sRAP [id number] TR Peak Gr.43mmHg Pulmonary Vein S1 Xvruzrsq79.8cm/sS2 Zvlaqplg14.71cm/s D2 Rdszyinb23.7cm/sPVa fnerordi624teds LEFT VENTRICLE The left ventricle is normal size. There is moderate concentric left ventricular hypertrophy. The sys tolic function is moderately impaired. EF 40% Septal motion consistent with conduction abnormality. T here is otherwise global hypokinesis. Transmitral Doppler flow pattern is Grade II-pseudonormal filli ng dynamics. RIGHT VENTRICLE The right ventricle is mildly dilated. There is normal right ventricular wall thickness. The right ve ntricular systolic function is normal. ATRIA The left atrium size is normal. The right atrium size is normal. The interatrial septum is intact wit h no evidence for an atrial septal defect or patent foramen ovale as noted on 2-D or Doppler imaging. AORTIC VALVE The aortic valve is normal in structure and function. Doppler and Color Flow revealed no significant aortic regurgitation. There is no significant aortic valvular stenosis. MITRAL VALVE The mitral valve is thickened but opens well. There is no evidence of mitral valve prolapse. There is no mitral valve stenosis. Doppler and Color-flow revealed trace mitral regurgitation. TRICUSPID VALVE The tricuspid valve is normal in structure and function. Doppler and Color Flow revealed trace tricus pid regurgitation with an estimated PAP of 46 mmHg. There is no tricuspid valve stenosis. PULMONIC VALVE Doppler and Color Flow revealed trace pulmonic valvular regurgitation. There is no pulmonic valvular stenosis. GREAT VESSELS The aortic root is normal in size. The IVC is dilated and collapses >50% with inspiration. PERICARDIAL EFFUSION There is small left pleural effusion. There is no evidence of significant pericardial effusion. Critical Notification Critical Value: No <Conclusion> The systolic function is moderately impaired. EF 40% Septal motion consistent with conduction abnormality. There is otherwise global hypokinesis. Doppler and Color Flow revealed trace tricuspid regurgitation with an estimated PAP of 46 mmHg. Signed by : Harshal Caraballo, Electronically Approved : 08/10/2018 13:34:45
--- NOTE | 2018-08-10 13:39 | CARD ---
MR#: [id number] Date of Study: 08/10/2018 Ordering Physician: SHEFALI HU, Referring Physician: MARC QUIROGA Tech: LUDIN CRUZ RTR APPROVED REPORT Technologist: LUDIN CRUZ RTR Nurse: Melinda Whittington R.N. Procedure(s) performed: 1. Left heart catheterization and selective coronary angiography via right t ransradial approach 2. Successful PCI/drug eluting stent placement to the left anterior descending artery Moderate sedation: 66 mins Fluoro time: 9.2 mins Dose:97.2 GYCM2 Contrast: 170ml INDICATION The indication(s) include : non-STEMI . [facility] Clinical Frailty Scale [facility] Clinical Frailty Scale: Mildly Frail Heart Failure Heart Failure: No If Yes, Newly Diagnosed: Yes If Yes, HF Type: Diastolic If Yes, NYHA Class: Class III PROCEDURE NARRATIVE After explaining the risks, benefits and alternative options, informed consent was obtained from fareed ent. Patient was brought to the cardiac File Clerk and right wrist was prepped and draped in the usual fashion after confirming a positive modified Rob's test. Arterial access was obtained in the righ t radial artery and a 6 Persian sheath was inserted. 6 Persian Kenneth catheter was used to perform mir ective angiography of the left and right coronary arteries. 6 Persian pigtail catheter was used to ob tain LVEDP and transaortic gradients. Left ventriculography was not performed due to elevated creatin ine level. The following findings were noted. FINDINGS 1. Hemodynamics: Left ventricular end-diastolic pressure of 21 mmHg. No pullback gradient across th e aortic valve. 2. Coronary angiography: a. The left main coronary artery arose from the left sinus of Valsalva, gave rise to the left anteri or descending and left circumflex arteries and did not show any significant stenosis. b. The left anterior descending artery showed 90% stenosis in the proximal to midsegment with aneury smal dilatation just prior to the stenosis. c. The left circumflex artery showed 30% stenosis in the proximal segment of obtuse marginal branch. d. The right coronary artery was a large and dominant vessel arising from the right sinus of Valsalv a that did not show any significant stenosis. INTERVENTION The left main coronary artery was engaged with 6F XB 3.5 guide catheter. The stenosis in the proximal to midsegment of the left anterior descending artery was crossed with a 0.014 inch [place] Pro water g uidewire. This was predilated with a 3.0 x 15 mm trek balloon following which this was successfully t reated with 3.5 x 30 mm resolute rosio drug-eluting stent. Follow-up angiography showed resolution of the stenosis to 0% with MANUELA-3 distal flow. Patient tolerated the procedure well. Hemostasis was achi eved using TR band. There were no immediate complications. MANUELA Flow MANUELA Flow (Pre-Intervention): MANUELA-3 MANUELA Flow (Post-Intervention): MANUELA-3 Conclusion 1. Severe single-vessel coronary artery disease 2. Successful PCI/drug eluting stent placement to the left anterior descending artery Recommendations 1. Aspirin 325 mg daily for one month followed by 81 mg daily 2. Plavix 75 mg daily for preferably one year 3. Cardiovascular risk factor modification Signed by : Shefali Hu, Electronically Approved : 08/10/2018 13:38:58
[2018-08-10 14:29] LABS: ALBUMIN/GLOBULIN RATIO 0.9 (1.0-1.7); CALCIUM 8.2 mg/dL (8.5-10.1); CREATININE 2.3 mg/dL (0.7-1.3); GFR 34.5; MAGNESIUM 1.9 mg/dL (1.8-2.4); PHOSPHORUS 3.5 mg/dL (2.6-4.7); POTASSIUM 3.5 mmol/L (3.5-5.1); TOTAL BILIRUBIN 1.1 mg/dL (0.2-1.0); TOTAL PROTEIN 6.5 g/dL (6.4-8.2)
--- NOTE | 2018-08-10 14:43 | NUR ---
SS following for discharge planning. SS reviewed pt chart. Pt is from home with spouse and is currently on room air. No discharge needs noted at this time. SS will continue to follow for discharge planning.
[2018-08-10] MEDS ORDERED: ATORVASTATIN CALCIUM 20 MG TABLET PO SCH (21:00)
[2018-08-10] MEDS: ACETYLCYSTEINE 20% ORAL SOLN 600 MG/3 ML SYRINGE. PO SCH (21:14)
[2018-08-11] VITALS (11 sets, daily range): BP systolic 121–203; BP diastolic 62–104
[2018-08-11] MEDS: IV NORMAL SALINE 1000ML BAG 1,000 ML IV SCH (00:07)
[2018-08-11] MEDS: hydrALAZINE 20 MG/ML VIAL. IVP PRN ×2 (01:15→05:42)
[2018-08-11] MEDS: LABETALOL 20 MG/4 ML DISP.SYRIN. IVP PRN (04:02)
[2018-08-11] MEDS: LABETALOL HCL 200 MG TABLET PO SCH (07:39)
[2018-08-11] MEDS: DOCUSATE SODIUM 100 MG CAPSULE. PO SCH (07:39)
[2018-08-11] MEDS: CHOLECALCIFEROL (VITAMIN D3) 1,000 UNIT TABLET PO SCH (07:40)
[2018-08-11] MEDS: ALLOPURINOL 300 MG TABLET. PO SCH (07:40)
[2018-08-11] MEDS: ISOSORBIDE DINITRATE 10 MG TABLET. PO SCH (07:40)
[2018-08-11] MEDS: ACETYLCYSTEINE 20% ORAL SOLN 600 MG/3 ML SYRINGE. PO SCH (07:49)
[2018-08-11] MEDS: FUROSEMIDE 40 MG TABLET. PO SCH (07:49)
[2018-08-11] MEDS ORDERED: CLOPIDOGREL BISULFATE 75 MG TABLET PO SCH (08:00)
[2018-08-11] MEDS ORDERED: ASPIRIN ENTERIC COATED 325 MG TABLET.DR. PO SCH (08:00)
--- NOTE | 2018-08-11 08:05 | PDOC ---
PROGRESS NOTES Chief Complaint Chief Complaint NSTEMI ALE CK D - creat 2.3 Chest pain Dyslipidemia on a statin Hypertension acute CHF, diastolic History of Present Illness History of Present Illness Mr Roldan is a 68-year-old pleasant -[place]og[place] male was initially seen at [facility] ED for left-sided chest heaviness associated with shortness of breath worse with exertion and transfer to [facility] for elevated troponin level. He denied any palpitations or syncope. Underwent cardiac cath with LAD disease and had successful PCI to LAD with relief. BP had been somewhat elevated all night, requiring prn hydralazine. After isosorbide it improved. Plan: Will need imdur F/u cardiac recs Vitals Vitals Vital Signs Date Time Temp Pulse Resp B/P (MAP) Pulse Ox O2 Delivery O2 Flow Rate FiO2 08/11/18 07:40 72 203/104 08/11/18 06:10 20 99 Room Air 08/10/18 23:59 98.1 98.1 08/10/18 12:40 2.0 Physical Exam General: Alert, Oriented X3 Heart: Regular rate Abdomen: Soft, No tenderness Extremities: Other (2+ RLE, 1+ LLE) Skin: No rashes, No breakdown, No significant lesion Labs LABS Laboratory Tests Test 08/10/18 13:30 Sodium Level 146 mmol/L (136-145) Potassium Level 3.5 mmol/L (3.5-5.1) Chloride Level 109 mmol/L (98-107) Carbon Dioxide Level 24 mmol/L (21-32) Anion Gap 13 (6-14) Blood Urea Nitrogen 24 mg/dL (8-26) Creatinine 2.3 mg/dL (0.7-1.3) Estimated GFR (Cockcroft-Gault) 34.5 BUN/Creatinine Ratio 10 (6-20) Glucose Level 102 mg/dL (70-99) Calcium Level 8.2 mg/dL (8.5-10.1) Phosphorus Level 3.5 mg/dL (2.6-4.7) Magnesium Level 1.9 mg/dL (1.8-2.4) Total Bilirubin 1.1 mg/dL (0.2-1.0) Aspartate Amino Transf (AST/SGOT) 12 U/L (15-37) Alanine Aminotransferase (ALT/SGPT) 41 U/L (16-63) Alkaline Phosphatase 138 U/L (46-116) Total Protein 6.5 g/dL (6.4-8.2) Albumin 3.0 g/dL (3.4-5.0) Albumin/Globulin Ratio 0.9 (1.0-1.7) Assessment and Plan Assessmemt and Plan Problems Medical Problems: (1) Acute kidney injury superimposed on chronic kidney disease Status: Acute (2) Acute on chronic diastolic CHF (congestive heart failure) Status: Acute (3) Hypertension, accelerated Status: Acute (4) NSTEMI (non-ST elevated myocardial infarction) Status: Acute Comment Review of Relevant I have reviewed the following items ramiro (where applicable) has been applied. Labs Laboratory Tests Test 08/09/18 13:00 08/09/18 18:05 08/10/18 00:30 08/10/18 07:00 Nasal Screen MRSA (PCR) Negative (Negative) Heparin Anti-Xa Act, Unfractionated 0.57 IU/mL (0.30-0.70) 0.30 IU/mL (0.30-0.70) 0.32 IU/mL (0.30-0.70) Troponin I Quantitative 1.120 ng/mL (0.000-0.055) White Blood Count 6.0 x10^3/uL (4.0-11.0) Red Blood Count 4.24 x10^6/uL (4.30-5.70) Hemoglobin 12.2 g/dL (13.0-17.5) Hematocrit 37.2 % (39.0-53.0) Mean Corpuscular Volume 88 fL (79-100) Mean Corpuscular Hemoglobin 29 pg (25-35) Mean Corpuscular Hemoglobin Concent 33 g/dL (31-37) Red Cell Distribution Width 16.2 % (11.5-14.5) Platelet Count 154 x10^3/uL (140-400) Neutrophils (%) (Auto) 77 % (31-73) Lymphocytes (%) (Auto) 11 % (24-48) Monocytes (%) (Auto) 10 % (0-9) Eosinophils (%) (Auto) 1 % (0-3) Basophils (%) (Auto) 1 % (0-3) Neutrophils # (Auto) 4.6 x10^3uL (1.8-7.7) Lymphocytes # (Auto) 0.6 x10^3/uL (1.0-4.8) Monocytes # (Auto) 0.6 x10^3/uL (0.0-1.1) Eosinophils # (Auto) 0.1 x10^3/uL (0.0-0.7) Basophils # (Auto) 0.1 x10^3/uL (0.0-0.2) Prothrombin Time 13.9 SEC (11.7-14.0) Prothromb Time International Ratio 1.1 (0.8-1.1) Sodium Level 146 mmol/L (136-145) Potassium Level 3.6 mmol/L (3.5-5.1) Chloride Level 112 mmol/L (98-107) Carbon Dioxide Level 22 mmol/L (21-32) Anion Gap 12 (6-14) Blood Urea Nitrogen 27 mg/dL (8-26) Creatinine 2.3 mg/dL (0.7-1.3) Estimated GFR (Cockcroft-Gault) 34.5 Glucose Level 97 mg/dL (70-99) Calcium Level 8.1 mg/dL (8.5-10.1) Test 08/10/18 13:30 Sodium Level 146 mmol/L (136-145) Potassium Level 3.5 mmol/L (3.5-5.1) Chloride Level 109 mmol/L (98-107) Carbon Dioxide Level 24 mmol/L (21-32) Anion Gap 13 (6-14) Blood Urea Nitrogen 24 mg/dL (8-26) Creatinine 2.3 mg/dL (0.7-1.3) Estimated GFR (Cockcroft-Gault) 34.5 BUN/Creatinine Ratio 10 (6-20) Glucose Level 102 mg/dL (70-99) Calcium Level 8.2 mg/dL (8.5-10.1) Phosphorus Level 3.5 mg/dL (2.6-4.7) Magnesium Level 1.9 mg/dL (1.8-2.4) Total Bilirubin 1.1 mg/dL (0.2-1.0) Aspartate Amino Transf (AST/SGOT) 12 U/L (15-37) Alanine Aminotransferase (ALT/SGPT) 41 U/L (16-63) Alkaline Phosphatase 138 U/L (46-116) Total Protein 6.5 g/dL (6.4-8.2) Albumin 3.0 g/dL (3.4-5.0) Albumin/Globulin Ratio 0.9 (1.0-1.7) Laboratory Tests Test 08/10/18 13:30 Sodium Level 146 mmol/L (136-145) Potassium Level 3.5 mmol/L (3.5-5.1) Chloride Level 109 mmol/L (98-107) Carbon Dioxide Level 24 mmol/L (21-32) Anion Gap 13 (6-14) Blood Urea Nitrogen 24 mg/dL (8-26) Creatinine 2.3 mg/dL (0.7-1.3) Estimated GFR (Cockcroft-Gault) 34.5 BUN/Creatinine Ratio 10 (6-20) Glucose Level 102 mg/dL (70-99) Calcium Level 8.2 mg/dL (8.5-10.1) Phosphorus Level 3.5 mg/dL (2.6-4.7) Magnesium Level 1.9 mg/dL (1.8-2.4) Total Bilirubin 1.1 mg/dL (0.2-1.0) Aspartate Amino Transf (AST/SGOT) 12 U/L (15-37) Alanine Aminotransferase (ALT/SGPT) 41 U/L (16-63) Alkaline Phosphatase 138 U/L (46-116) Total Protein 6.5 g/dL (6.4-8.2) Albumin 3.0 g/dL (3.4-5.0) Albumin/Globulin Ratio 0.9 (1.0-1.7) Medications Current Medications Labetalol HCl (Trandate) 200 mg BID PO Last administered on 08/11/18at 07:39; Start 08/09/18 at 12:00 Hydralazine HCl (Apresoline) 100 mg 1X ONCE PO Last administered on 08/09/18at 12:36; Start 08/09/18 at 12:15; Stop 08/09/18 at 12:20; Status DC Hydralazine HCl (Apresoline Inj) 10 mg PRN Q4HRS PRN IVP ELEVATED BP, SEE COMMENTS Last administered on 08/11/18at 05:42; Start 08/09/18 at 12:15 Nicardipine HCl 50 mg/Sodium Chloride 250 ml @ 25 mls/hr CONT PRN IV SEE I/O RECORD; Start 08/09/18 at 12:15 Heparin Sodium/ Dextrose 500 ml @ 0 mls/hr CONT PRN IV SEE I/O RECORD; Start 08/09/18 at 13:15; Status UNV Heparin Sodium/ Dextrose 500 ml @ 0 mls/hr CONT PRN IV SEE I/O RECORD; Start 08/09/18 at 13:30 Heparin Sodium (Porcine) (Heparin Sodium) 2,550 unit PRN Q6HRS PRN IV FOR UFH LEVEL LESS THAN 0.2; Start 08/09/18 at 13:30 Ondansetron HCl (Zofran) 4 mg PRN Q6HRS PRN IV NAUSEA/VOMITING, 1ST CHOICE IV; Start 08/09/18 at 13:30 Prochlorperazine Edisylate (Compazine) 10 mg PRN Q6HRS PRN IV NAUSEA/VOMITING, 2ND CHOICE IV; Start 08/09/18 at 13:30 Prochlorperazine (Compazine) 25 mg PRN Q12HR PRN ME NAUSEA/VOMITING; Start 08/09/18 at 13:30 Calcium Carbonate/ Glycine (Tums) 500 mg PRN Q3HRS PRN PO UPSET STOMACH; Start 08/09/18 at 13:30 Oxycodone HCl (Roxicodone) 5 mg PRN Q3HRS PRN PO BREAKTHROUGH PAIN; Start 08/09/18 at 13:30 Morphine Sulfate (Morphine Sulfate) 2 mg PRN Q2HR PRN IV PAIN; Start 08/09/18 at 13:30 Acetaminophen (Tylenol) 650 mg PRN Q6HRS PRN PO Headaches, Temp > 101.5F; Start 08/09/18 at 13:30 Docusate Sodium (Colace) 100 mg BID PO Last administered on 08/11/18at 07:39; Start 08/09/18 at 21:00 Magnesium Hydroxide (Milk Of Magnesia) 2,400 mg PRN Q12HR PRN PO CONSTIPATION; Start 08/09/18 at 13:30 Bisacodyl (Dulcolax Supp) 10 mg PRN DAILY PRN ME CONSTIPATION; Start 08/09/18 at 13:30 Allopurinol (Zyloprim) 300 mg DAILY PO Last administered on 08/11/18at 07:40; Start 08/10/18 at 09:00 Vitamin D (Vitamin D3) 2,000 unit DAILY PO Last administered on 08/11/18at 07:40; Start 08/10/18 at 09:00 Furosemide (Lasix) 40 mg DAILY PO Last administered on 08/10/18at 08:12; Start 08/10/18 at 09:00 Potassium Chloride (Klor-Con) 80 meq DAILY PO ; Start 08/10/18 at 09:00; Stop 08/10/18 at 09:00; Status DC Non-Formulary Medication (Carvedilol (Coreg)) 50 mg DAILY PO ; Start 08/10/18 at 09:00; Stop 08/10/18 at 09:00; Status DC Hydralazine HCl (Apresoline) 50 mg BID PO Last administered on 08/11/18at 07:40; Start 08/09/18 at 21:00 Sodium Chloride 1,000 ml @ 100 mls/hr Q10H IV Last administered on 08/11/18at 00:07; Start 08/10/18 at 10:00 Isosorbide Dinitrate (Isordil) 10 mg TID PO Last administered on 08/11/18at 07:40; Start 08/10/18 at 10:15 Labetalol HCl (Normodyne Iv Push) 10 mg PRN Q2HR PRN IVP HYPERTENSION Last administered on 08/11/18at 04:02; Start 08/10/18 at 11:00 Iodixanol (Visipaque 320) 100 ml STK-MED ONCE .ROUTE ; Start 08/10/18 at 11:40; Stop 08/10/18 at 11:41; Status DC Fentanyl Citrate (Fentanyl 2ml Vial) 100 mcg STK-MED ONCE .ROUTE ; Start 08/10/18 at 11:41; Stop 08/10/18 at 11:42; Status DC Midazolam HCl (Versed) 5 mg STK-MED ONCE .ROUTE ; Start 08/10/18 at 11:41; Stop 08/10/18 at 11:42; Status DC Heparin Sodium (Porcine) (Heparin Sodium) 10,000 unit STK-MED ONCE .ROUTE ; Start 08/10/18 at 11:41; Stop 08/10/18 at 11:42; Status DC Verapamil HCl (Verapamil) 5 mg STK-MED ONCE .ROUTE ; Start 08/10/18 at 11:41; Stop 08/10/18 at 11:42; Status DC Nitroglycerin (Nitroglycerin) 200 mcg STK-MED ONCE .ROUTE ; Start 08/10/18 at 11:41; Stop 08/10/18 at 11:42; Status DC Lidocaine HCl (Xylocaine-Mpf 1% 2ml Vial) 2 ml STK-MED ONCE .ROUTE ; Start 08/10/18 at 11:42; Stop 08/10/18 at 11:43; Status DC Heparin Sodium/ Sodium Chloride 500 ml @ As Directed STK-MED ONCE .ROUTE ; Start 08/10/18 at 11:42; Stop 08/10/18 at 11:43; Status DC Nitroglycerin (Nitroglycerin) 200 mcg 1X ONCE IART Last administered on 08/10/18at 12:40; Start 08/10/18 at 12:00; Stop 08/10/18 at 12:08; Status DC Verapamil HCl (Verapamil) 2.5 mg 1X ONCE IART Last administered on 08/10/18at 12:39; Start 08/10/18 at 12:00; Stop 08/10/18 at 12:08; Status DC Heparin Sodium (Porcine) (Heparin Sodium) 2,500 unit 1X ONCE IART Last administered on 08/10/18at 12:43; Start 08/10/18 at 12:00; Stop 08/10/18 at 12:08; Status DC Heparin Sodium/ Sodium Chloride (HEPARIN for ARTERIAL LINE FLUSH) 1,000 unit 1X ONCE IART Last administered on 08/10/18at 12:39; Start 08/10/18 at 12:00; Stop 08/10/18 at 12:08; Status DC Fentanyl Citrate (Fentanyl 2ml Vial) 100 mcg 1X ONCE IV Last administered on 08/10/18at 12:40; Start 08/10/18 at 12:00; Stop 08/10/18 at 12:08; Status DC Iodixanol (Visipaque 320) 100 ml 1X ONCE IART Last administered on 08/10/18at 12:39; Start 08/10/18 at 12:00; Stop 08/10/18 at 12:08; Status DC Lidocaine HCl (Xylocaine-Mpf 1% 2ml Vial) 2 ml 1X ONCE INJ Last administered on 08/10/18at 12:40; Start 08/10/18 at 12:00; Stop 08/10/18 at 12:08; Status DC Bivalirudin (Angiomax) 250 mg STK-MED ONCE IV ; Start 08/10/18 at 12:09; Stop 08/10/18 at 12:10; Status DC Bivalirudin (Angiomax) 250 mg 1X ONCE IV Last administered on 08/10/18at 12:39; Start 08/10/18 at 12:15; Stop 08/10/18 at 12:21; Status DC Iodixanol (Visipaque 320) 100 ml STK-MED ONCE .ROUTE ; Start 08/10/18 at 12:22; Stop 08/10/18 at 12:23; Status DC Clopidogrel Bisulfate (Plavix) 600 mg 1X ONCE PO Last administered on 08/10/18at 12:44; Start 08/10/18 at 12:30; Stop 08/10/18 at 12:33; Status DC Midazolam HCl (Versed) 5 mg 1X ONCE IV Last administered on 08/10/18at 12:45; Start 08/10/18 at 12:45; Stop 08/10/18 at 12:49; Status DC Sodium Chloride 1,000 ml @ 100 mls/hr Q10H IV Last administered on 08/10/18at 14:26; Start 08/10/18 at 12:50; Stop 08/10/18 at 22:49; Status DC Aspirin (Ecotrin) 325 mg DAILYWBKFT PO Last administered on 08/11/18at 07:40; Start 08/11/18 at 08:00 Clopidogrel Bisulfate (Plavix) 75 mg DAILYWBKFT PO Last administered on 08/11/18at 07:49; Start 08/11/18 at 08:00 Atorvastatin Calcium (Lipitor) 40 mg QHS PO Last administered on 08/10/18at 21:17; Start 08/10/18 at 21:00 Nitroglycerin (Nitrostat) 0.4 mg PRN Q5MIN PRN SL CHEST PAIN; Start 08/10/18 at 13:00 Acetylcysteine (Mucomyst 20% Oral Solution) 600 mg BID PO Last administered on 08/11/18at 07:49; Start 08/10/18 at 21:00; Stop 08/12/18 at 09:01 Active Scripts Active Reported Losartan Potassium 100 Mg Tablet 100 Mg PO DAILY Vitamin D3 (Cholecalciferol (Vitamin D3)) 1,000 Unit Tablet 2,000 Unit PO DAILY Aspirin 325 Mg Tablet 1 Tab PO DAILY Allopurinol 300 Mg Tablet 300 Mg PO DAILY Hydralazine Hcl 100 Mg Tablet 100 Mg PO DAILY PRN Coreg (Carvedilol) 25 Mg Tablet 50 Mg PO DAILY Lasix (Furosemide) 40 Mg Tablet 40 Mg PO DAILY Klor-Con M20 (Potassium Chloride) 20 Meq Tab.er.prt 80 Meq PO DAILY Vitals/I & O Vital Sign - Last 24 Hours 08/10/18 08/10/18 08/10/18 08/10/18 08:13 08:13 09:00 10:00 Pulse 70 70 70 70 Resp 13 15 B/P (MAP) 186/99 186/99 166/82 (110) 189/99 (129) Pulse Ox 99 96 O2 Delivery Nasal Cannula Room Air O2 Flow Rate 2.0 08/10/18 08/10/18 08/10/18 08/10/18 10:05 10:15 11:00 11:06 Pulse 68 69 69 69 Resp 20 B/P (MAP) 189/99 180/91 180/91 (120) 180/91 Pulse Ox 99 O2 Delivery Room Air 08/10/18 08/10/18 08/10/18 08/10/18 12:00 12:34 12:39 12:40 Pulse 72 72 Resp 18 18 B/P (MAP) 183/97 Pulse Ox 98 98 O2 Delivery Room Air Nasal Cannula Nasal Cannula O2 Flow Rate 2.0 2.0 08/10/18 08/10/18 08/10/18 08/10/18 13:00 14:00 14:25 14:26 Pulse 66 68 72 71 Resp 22 22 B/P (MAP) 189/99 (129) 194/106 (135) 193/97 193/97 Pulse Ox 95 97 O2 Delivery Room Air Room Air 08/10/18 08/10/18 08/10/18 08/10/18 15:00 16:00 16:00 17:00 Temp 97.5 97.5 Pulse 68 68 73 Resp 16 15 20 B/P (MAP) 182/90 (120) 174/85 (114) 148/66 (93) Pulse Ox 94 96 97 O2 Delivery Room Air Room Air Room Air Room Air 08/10/18 08/10/18 08/10/18 08/10/18 18:00 18:21 19:00 20:00 Pulse 77 75 82 78 Resp 17 17 13 B/P (MAP) 190/94 (126) 176/79 149/76 (100) 171/84 (113) Pulse Ox 98 98 98 O2 Delivery Room Air Room Air Room Air 08/10/18 08/10/18 08/10/18 08/10/18 20:00 21:00 21:15 21:16 Temp 98.7 98.7 Pulse 74 74 76 Resp 13 B/P (MAP) 188/112 (137) 188/112 188/112 Pulse Ox 98 O2 Delivery Room Air Room Air 08/10/18 08/10/18 08/10/18 08/10/18 21:17 22:00 23:00 23:59 Pulse 74 78 82 Resp 14 14 B/P (MAP) 188/112 160/78 (105) 162/68 (99) Pulse Ox 98 99 O2 Delivery Room Air Room Air Room Air 08/10/18 08/11/18 08/11/18 08/11/18 23:59 01:00 01:15 02:00 Temp 98.1 98.1 Pulse 88 82 71 76 Resp 14 14 16 B/P (MAP) 168/68 (101) 168/70 (102) 164/92 154/68 (96) Pulse Ox 99 99 100 O2 Delivery Room Air Room Air Room Air 08/11/18 08/11/18 08/11/18 08/11/18 03:00 04:00 04:00 04:02 Pulse 71 74 76 Resp 13 13 B/P (MAP) 167/83 (111) 189/83 (118) 169/74 Pulse Ox 96 96 O2 Delivery Room Air Room Air Room Air 08/11/18 08/11/18 08/11/18 08/11/18 05:00 05:42 06:10 07:39 Pulse 71 77 72 72 Resp 20 20 B/P (MAP) 180/90 (120) 199/100 188/87 (120) 203/104 Pulse Ox 99 99 O2 Delivery Room Air Room Air 08/11/18 08/11/18 07:40 07:40 Pulse 72 72 B/P (MAP) 203/104 203/104 Intake and Output 08/10/18 08/10/18 08/11/18 15:00 23:00 07:00 Intake Total 304 ml 800 ml Output Total 725 ml 900 ml Balance 304 ml 75 ml -900 ml TONIE LEWIS MD Aug 11, 2018 08:05
[2018-08-11] MEDS ORDERED: ISOSORBIDE MONONITRATE ER 30 MG TAB.ER.24H PO SCH (11:00)
[2018-08-11] MEDS ORDERED: LABE200T4 PO (11:22)
[2018-08-11] MEDS ORDERED: HYDR100T24 PO (11:22)
[2018-08-11] MEDS ORDERED: ATOR20TA58 PO (11:22)
[2018-08-11] MEDS ORDERED: CLOP75TA PO (11:22)
[2018-08-11] MEDS ORDERED: ISOS30TA4 PO (11:22)
--- NOTE | 2018-08-11 11:28 | PDOC3 ---
Discharge Summary Visit Information Date of Admission: Aug 09, 2018 Date of Discharge: Aug 11, 2018 Admitting Diagnosis: NSTEMI Final Diagnosis Problems Medical Problems: (1) Acute kidney injury superimposed on chronic kidney disease Status: Acute (2) Acute on chronic diastolic CHF (congestive heart failure) Status: Acute (3) Hypertension, accelerated Status: Acute (4) NSTEMI (non-ST elevated myocardial infarction) Status: Acute Brief Hospital Course Allergies Allergies Coded Allergies Type Severity Reaction Last Updated Verified No Known Drug Allergies 08/09/18 No Vital Signs Vital Signs Date Time Temp Pulse Resp B/P (MAP) Pulse Ox O2 Delivery O2 Flow Rate FiO2 08/11/18 10:00 67 15 121/62 (81) 97 Room Air 08/11/18 08:00 97.7 97.7 08/10/18 12:40 2.0 Lab Results Laboratory Tests Test 08/09/18 13:00 08/09/18 18:05 08/10/18 00:30 08/10/18 07:00 Nasal Screen MRSA (PCR) Negative (Negative) Heparin Anti-Xa Act, Unfractionated 0.57 IU/mL (0.30-0.70) 0.30 IU/mL (0.30-0.70) 0.32 IU/mL (0.30-0.70) Troponin I Quantitative 1.120 ng/mL (0.000-0.055) White Blood Count 6.0 x10^3/uL (4.0-11.0) Red Blood Count 4.24 x10^6/uL (4.30-5.70) Hemoglobin 12.2 g/dL (13.0-17.5) Hematocrit 37.2 % (39.0-53.0) Mean Corpuscular Volume 88 fL (79-100) Mean Corpuscular Hemoglobin 29 pg (25-35) Mean Corpuscular Hemoglobin Concent 33 g/dL (31-37) Red Cell Distribution Width 16.2 % (11.5-14.5) Platelet Count 154 x10^3/uL (140-400) Neutrophils (%) (Auto) 77 % (31-73) Lymphocytes (%) (Auto) 11 % (24-48) Monocytes (%) (Auto) 10 % (0-9) Eosinophils (%) (Auto) 1 % (0-3) Basophils (%) (Auto) 1 % (0-3) Neutrophils # (Auto) 4.6 x10^3uL (1.8-7.7) Lymphocytes # (Auto) 0.6 x10^3/uL (1.0-4.8) Monocytes # (Auto) 0.6 x10^3/uL (0.0-1.1) Eosinophils # (Auto) 0.1 x10^3/uL (0.0-0.7) Basophils # (Auto) 0.1 x10^3/uL (0.0-0.2) Prothrombin Time 13.9 SEC (11.7-14.0) Prothromb Time International Ratio 1.1 (0.8-1.1) Sodium Level 146 mmol/L (136-145) Potassium Level 3.6 mmol/L (3.5-5.1) Chloride Level 112 mmol/L (98-107) Carbon Dioxide Level 22 mmol/L (21-32) Anion Gap 12 (6-14) Blood Urea Nitrogen 27 mg/dL (8-26) Creatinine 2.3 mg/dL (0.7-1.3) Estimated GFR (Cockcroft-Gault) 34.5 Glucose Level 97 mg/dL (70-99) Calcium Level 8.1 mg/dL (8.5-10.1) Test 08/10/18 13:30 Sodium Level 146 mmol/L (136-145) Potassium Level 3.5 mmol/L (3.5-5.1) Chloride Level 109 mmol/L (98-107) Carbon Dioxide Level 24 mmol/L (21-32) Anion Gap 13 (6-14) Blood Urea Nitrogen 24 mg/dL (8-26) Creatinine 2.3 mg/dL (0.7-1.3) Estimated GFR (Cockcroft-Gault) 34.5 BUN/Creatinine Ratio 10 (6-20) Glucose Level 102 mg/dL (70-99) Calcium Level 8.2 mg/dL (8.5-10.1) Phosphorus Level 3.5 mg/dL (2.6-4.7) Magnesium Level 1.9 mg/dL (1.8-2.4) Total Bilirubin 1.1 mg/dL (0.2-1.0) Aspartate Amino Transf (AST/SGOT) 12 U/L (15-37) Alanine Aminotransferase (ALT/SGPT) 41 U/L (16-63) Alkaline Phosphatase 138 U/L (46-116) Total Protein 6.5 g/dL (6.4-8.2) Albumin 3.0 g/dL (3.4-5.0) Albumin/Globulin Ratio 0.9 (1.0-1.7) Laboratory Tests Test 08/10/18 13:30 Sodium Level 146 mmol/L (136-145) Potassium Level 3.5 mmol/L (3.5-5.1) Chloride Level 109 mmol/L (98-107) Carbon Dioxide Level 24 mmol/L (21-32) Anion Gap 13 (6-14) Blood Urea Nitrogen 24 mg/dL (8-26) Creatinine 2.3 mg/dL (0.7-1.3) Estimated GFR (Cockcroft-Gault) 34.5 BUN/Creatinine Ratio 10 (6-20) Glucose Level 102 mg/dL (70-99) Calcium Level 8.2 mg/dL (8.5-10.1) Phosphorus Level 3.5 mg/dL (2.6-4.7) Magnesium Level 1.9 mg/dL (1.8-2.4) Total Bilirubin 1.1 mg/dL (0.2-1.0) Aspartate Amino Transf (AST/SGOT) 12 U/L (15-37) Alanine Aminotransferase (ALT/SGPT) 41 U/L (16-63) Alkaline Phosphatase 138 U/L (46-116) Total Protein 6.5 g/dL (6.4-8.2) Albumin 3.0 g/dL (3.4-5.0) Albumin/Globulin Ratio 0.9 (1.0-1.7) Brief Hospital Course Mr Roldan is a 68-year-old pleasant -[place] male was initially seen at [facility] ED for left-sided chest heaviness associated with shortness of breath worse with exertion and transfer to [facility] for elevated troponin level. He denied any palpitations or syncope. Underwent cardiac cath with LAD disease and had successful PCI to LAD with relief. BP had been somewhat elevated all night, requiring prn hydralazine. After isosorbide it improved, changed to labetalol. Held his losartan for ALE on CKD. Will need renal labs in a week, continue holding losartan Plan: Will need imdur F/u cardiac recs Diet and exercise modifications emphasized. NSTEMI ALE CK D - creat 2.3 Chest pain Dyslipidemia on a statin Hypertension acute CHF, diastolic Greater than 30 minutes spent on discharge. Discharge Information Condition at Discharge: Improved Follow Up: Weeks (1-2) Disposition/Orders: D/C to Home Scheduled Allopurinol (Allopurinol) 300 Mg Tablet, 300 MG PO DAILY for gout, (Reported) Entered as Reported by: JORGE HENSON on 08/09/181153 Last Action: Continued on 08/09/181328 by MARC QUIROGA Aspirin (Aspirin) 325 Mg Tablet, 1 TAB PO DAILY for daily, #30 Ref 5 (Reported) Entered as Reported by: JORGE HENSON on 08/09/181153 Last Action: HELD on 08/09/181328 by MARC QUIROGA Atorvastatin Calcium (Atorvastatin Calcium) 20 Mg Tablet, 40 MG PO QHS for CAD/HLD for 30 Days, #60 Ref 2 Can replace with #30 of 40mg tabs Prescribed by: TONIE LEWIS MD on 08/11/18 1122 Cholecalciferol (Vitamin D3) (Vitamin D3) 1,000 Unit Tablet, 2,000 UNIT PO DAILY for vit, (Reported) Entered as Reported by: JORGE HENSON on 08/09/181153 Last Action: Continued on 08/09/181328 by MARC QUIROGA Clopidogrel Bisulfate (Clopidogrel) 75 Mg Tablet, 75 MG PO DAILYWBKFT for CAD for 30 Days, #30 Ref 11 Prescribed by: TONIE LEWIS MD on 08/11/18 1122 Furosemide (Lasix) 40 Mg Tablet, 40 MG PO DAILY for water, (Reported) Entered as Reported by: JORGE HENSON on 08/09/18 115 Last Action: Continued on 08/09/181328 by MARC QUIROGA Isosorbide Mononitrate (Isosorbide Mononitrate Er) 30 Mg Tab.er.24h, 30 MG PO DAILY for HTN/CAD for 30 Days, #30 Ref 2 Prescribed by: TONIE LEWIS MD on 08/11/18 1122 Labetalol Hcl (Labetalol Hcl) 200 Mg Tablet, 200 MG PO BID for HTN for 30 Days, #60 Ref 2 Prescribed by: TONIE LEWIS MD on 08/11/18 1122 Potassium Chloride (Klor-Con M20) 20 Meq Tab.er.prt, 80 MEQ PO DAILY for potassium, (Reported) Entered as Reported by: JORGE HENSON on 08/09/18 1149 Last Action: Continued on 08/09/181328 by MARC QUIROGA Scheduled PRN Hydralazine Hcl (Hydralazine Hcl) 100 Mg Tablet, 100 MG PO TID PRN for HTN for 30 Days, #90 Ref 2 Prescribed by: TONIE LEWIS MD on 08/11/18 1122 Discontinued Medications Carvedilol (Coreg) 25 Mg Tablet, 50 MG PO DAILY for CARDIAC, (Reported) Entered as Reported by: JORGE HENSON on 08/09/18 1151 Last Action: Converted on 08/09/181328 by MARC QUIROGA Losartan Potassium (Losartan Potassium) 100 Mg Tablet, 100 MG PO DAILY for HYPERTENSION, (Reported) Entered as Reported by: JORGE HENSON on 08/09/18 1154 Last Action: HELD on 08/09/181328 by TONIE CALLOWAY MD Aug 11, 2018 11:28
[2018-08-11 12:10] LABS: CALCIUM 8.4 mg/dL (8.5-10.1); CREATININE 2.2 mg/dL (0.7-1.3); GFR 36.3; POTASSIUM 3.7 mmol/L (3.5-5.1)
--- NOTE | 2018-08-11 13:34 | NUR ---
Discharge: Pt discharged home @ 1330 with spouse. IV lines taken out. Pt educated on new home medications and plan of care.
--- NOTE | 2018-08-11 14:12 | PDOC ---
PROGRESS NOTES Subjective Subjective Patient feeling much better with improvement in dyspnea and chest pain. Objective Objective Vital Signs Date Time Temp Pulse Resp B/P (MAP) Pulse Ox O2 Delivery O2 Flow Rate FiO2 08/11/18 12:00 98.0 65 18 174/87 (116) 100 Room Air 98.0 08/10/18 12:40 2.0 Intake and Output 08/11/18 06:59 Intake Total 1104 ml Output Total 1625 ml Balance -521 ml Intake Oral 500 ml IV Total 604 ml Output Urine Total 1625 ml Physical Exam Abdomen: Soft, No tenderness Heart: Regular rate Extremities: Other (2+ RLE, 1+ LLE) General: Alert, Oriented X3 HEENT: Atraumatic, PERRLA Lungs: Other (bilateral basal crepitations) Neuro: Normal gait, Normal speech Psych/Mental Status: Mood NL Skin: No rashes, No breakdown, No significant lesion Assessment Assessment 1. Non-STEMI: Patient was found to have significant stenosis involving left anterior descending artery and underwent successful PCI/stent placement yesterday. He is presently stable and chest pain-free. Continue current medications. 2. 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 Better compensated. 2-D echo showed LVEF 40%. Asymmetric lower extremity edema could be secondary to component of underlying venous insufficiency. We will evaluate this as an outpatient. 3. Accelerated hypertension: Better controlled. Renal arterial duplex scan did not show any significant renal artery stenosis. 4. Chronic kidney disease: Consult nephrology team Follow-up in 1 month. Plan Plan of Care Problems Medical Problems: (1) Acute kidney injury superimposed on chronic kidney disease Status: Acute (2) Acute on chronic diastolic CHF (congestive heart failure) Status: Acute (3) Hypertension, accelerated Status: Acute (4) NSTEMI (non-ST elevated myocardial infarction) Status: Acute Comment Review of Relevant I have reviewed the following items ramiro (where applicable) has been applied. Labs Laboratory Tests Test 08/11/18 11:47 Sodium Level 144 mmol/L (136-145) Potassium Level 3.7 mmol/L (3.5-5.1) Chloride Level 108 mmol/L (98-107) Carbon Dioxide Level 26 mmol/L (21-32) Anion Gap 10 (6-14) Blood Urea Nitrogen 21 mg/dL (8-26) Creatinine 2.2 mg/dL (0.7-1.3) Estimated GFR (Cockcroft-Gault) 36.3 Glucose Level 110 mg/dL (70-99) Calcium Level 8.4 mg/dL (8.5-10.1) Medications Current Medications Acetylcysteine (Mucomyst 20% Oral Solution) 600 mg BID PO Last administered on 08/11/18 07:49; Start 08/10/18 at 21:00; Stop 08/12/18 at 09:01 Aspirin (Ecotrin) 325 mg DAILYWBKFT PO Last administered on 08/11/18at 07:40; Start 08/11/18 at 08:00 Atorvastatin Calcium (Lipitor) 40 mg QHS PO Last administered on 08/10/18at 21:17; Start 08/10/18 at 21:00 Clopidogrel Bisulfate (Plavix) 75 mg DAILYWBKFT PO Last administered on 08/11/18at 07:49; Start 08/11/18 at 08:00 Hydralazine HCl (Apresoline) 100 mg BID PO ; Start 08/11/18 at 21:00 Isosorbide Mononitrate (Imdur) 30 mg DAILY PO ; Start 08/12/18 at 09:00 Isosorbide Mononitrate (Imdur) 60 mg DAILY PO ; Start 08/11/18 at 11:00; Stop 08/11/18 at 11:00; Status DC Vitals/I & O Vital Sign - Last 24 Hours 08/10/18 08/10/18 08/10/18 08/10/18 14:25 14:26 15:00 16:00 Temp 97.5 97.5 Pulse 72 71 68 68 Resp 16 15 B/P (MAP) 193/97 193/97 182/90 (120) 174/85 (114) Pulse Ox 94 96 O2 Delivery Room Air Room Air 08/10/18 08/10/18 08/10/18 08/10/18 16:00 17:00 18:00 18:21 Pulse 73 77 75 Resp 20 17 B/P (MAP) 148/66 (93) 190/94 (126) 176/79 Pulse Ox 97 98 O2 Delivery Room Air Room Air Room Air 08/10/18 08/10/18 08/10/18 08/10/18 19:00 20:00 20:00 21:00 Temp 98.7 98.7 Pulse 82 78 74 Resp 17 13 13 B/P (MAP) 149/76 (100) 171/84 (113) 188/112 (137) Pulse Ox 98 98 98 O2 Delivery Room Air Room Air Room Air Room Air 08/10/18 08/10/18 08/10/18 08/10/18 21:15 21:16 21:17 22:00 Pulse 74 76 74 78 Resp 14 B/P (MAP) 188/112 188/112 188/112 160/78 (105) Pulse Ox 98 O2 Delivery Room Air 08/10/18 08/10/18 08/10/18 08/11/18 23:00 23:59 23:59 01:00 Temp 98.1 98.1 Pulse 82 88 82 Resp 14 14 14 B/P (MAP) 162/68 (99) 168/68 (101) 168/70 (102) Pulse Ox 99 99 99 O2 Delivery Room Air Room Air Room Air Room Air 08/11/18 08/11/18 08/11/18 08/11/18 01:15 02:00 03:00 04:00 Pulse 71 76 71 Resp 16 13 B/P (MAP) 164/92 154/68 (96) 167/83 (111) Pulse Ox 100 96 O2 Delivery Room Air Room Air Room Air 08/11/18 08/11/18 08/11/18 08/11/18 04:00 04:02 05:00 05:42 Pulse 74 76 71 77 Resp 13 20 B/P (MAP) 189/83 (118) 169/74 180/90 (120) 199/100 Pulse Ox 96 99 O2 Delivery Room Air Room Air 08/11/18 08/11/18 08/11/18 08/11/18 06:10 07:00 07:39 07:40 Pulse 72 68 72 72 Resp 20 12 B/P (MAP) 188/87 (120) 199/103 (135) 203/104 203/104 Pulse Ox 99 99 O2 Delivery Room Air Room Air 08/11/18 08/11/18 08/11/18 08/11/18 07:40 08:00 08:00 09:00 Temp 97.7 97.7 Pulse 72 70 72 Resp 20 15 B/P (MAP) 203/104 203/104 (137) 135/70 (91) Pulse Ox 98 98 O2 Delivery Room Air Room Air Room Air 08/11/18 08/11/18 10:00 12:00 Temp 98.0 98.0 Pulse 67 65 Resp 15 18 B/P (MAP) 121/62 (81) 174/87 (116) Pulse Ox 97 100 O2 Delivery Room Air Room Air Intake and Output 08/10/18 08/10/18 08/11/18 14:59 22:59 06:59 Intake Total 304 ml 800 ml Output Total 725 ml 900 ml Balance 304 ml 75 ml -900 ml SHEFALI HU MD Aug 11, 2018 14:12
--- NOTE | 2018-08-11 14:16 | PDOC ---
SUBJECTIVE ROS Feeling good, Dcing home OBJECTIVE Vital Signs Vital Signs Date Time Temp Pulse Resp B/P (MAP) Pulse Ox O2 Delivery O2 Flow Rate FiO2 08/11/18 12:00 98.0 65 18 174/87 (116) 100 Room Air 98.0 08/10/18 12:40 2.0 I & 0 Intake and Output 08/11/18 07:00 Intake Total 1104 ml Output Total 1625 ml Balance -521 ml Intake Oral 500 ml IV Total 604 ml Output Urine Total 1625 ml PHYSICAL EXAM Physical Exam General: No acute distress HEENT: OM Moist Lungs: Clear to auscultation,Non labored Cardiovascular: RRR Abdomen: NT Extremities: No edema, Skin: No rashes, Neuro: Grossly Normal Psych/Mental Status: Mental status NL, Mood NL No Muse DIAGNOSIS/ASSESSMENT Assessment & Plan CKD Stage 3 - baseline Cr 1.5-1.9 , on 03/25/18 1.9 Recent cr 2.3 , s/p PCI 08/[address] santos Non-STEMI - S/P cath Severe single-vessel coronary artery disease Successful PCI/drug eluting stent placement to the left anterior descending artery Follow up labs for MIKE Congestive heart failure most probably acute on chronic diastolic. Accelerated hypertension: Cardiology managing Discussed with Pt, COMMENT/RELEVANT DATA Meds Current Medications Medications (Trade) Dose Ordered Sig/Zoey Start Time Stop Time Status Last Admin Dose Admin Acetaminophen (Tylenol) 650 mg PRN Q6HRS PRN 08/09/18 13:30 Acetylcysteine (Mucomyst 20% Oral Solution) 600 mg BID 08/10/18 21:00 08/12/18 09:01 08/11/18 07:49 600 MG Allopurinol (Zyloprim) 300 mg DAILY 08/10/18 09:00 08/11/18 07:40 300 MG Aspirin (Ecotrin) 325 mg DAILYWBKFT 08/11/18 08:00 08/11/18 07:40 325 MG Atorvastatin Calcium (Lipitor) 40 mg QHS 08/10/18 21:00 08/10/18 21:17 40 MG Bisacodyl (Dulcolax Supp) 10 mg PRN DAILY PRN 08/09/18 13:30 Bivalirudin (Angiomax) 250 mg 1X ONCE 08/10/18 12:15 08/10/18 12:21 DC 08/10/18 12:39 250 MG Calcium Carbonate/ Glycine (Tums) 500 mg PRN Q3HRS PRN 08/09/18 13:30 Clopidogrel Bisulfate (Plavix) 75 mg DAILYWBKFT 08/11/18 08:00 08/11/18 07:49 75 MG Docusate Sodium (Colace) 100 mg BID 08/09/18 21:00 08/11/18 07:39 100 MG Fentanyl Citrate (Fentanyl 2ml Vial) 100 mcg 1X ONCE 08/10/18 12:00 08/10/18 12:08 DC 08/10/18 12:40 75 MCG Furosemide (Lasix) 40 mg DAILY 08/10/18 09:00 08/10/18 08:12 40 MG Heparin Sodium (Porcine) (Heparin Sodium) 2,500 unit 1X ONCE 08/10/18 12:00 08/10/18 12:08 DC 08/10/18 12:43 2,500 UNIT Heparin Sodium/ Dextrose 500 ml @ 0 mls/hr CONT PRN 08/09/18 13:30 Heparin Sodium/ Sodium Chloride (HEPARIN for ARTERIAL LINE FLUSH) 1,000 unit 1X ONCE 08/10/18 12:00 08/10/18 12:08 DC 08/10/18 12:39 1,000 UNIT Hydralazine HCl (Apresoline Inj) 10 mg PRN Q4HRS PRN 08/09/18 12:15 08/11/18 05:42 10 MG Hydralazine HCl (Apresoline) 100 mg BID 08/11/18 21:00 Iodixanol (Visipaque 320) 100 ml STK-MED ONCE 08/10/18 12:22 08/10/18 12:23 DC Isosorbide Dinitrate (Isordil) 10 mg TID 08/10/18 10:15 08/11/18 10:53 DC 08/11/18 07:40 10 MG Isosorbide Mononitrate (Imdur) 30 mg DAILY 08/12/18 09:00 Labetalol HCl (Normodyne Iv Push) 10 mg PRN Q2HR PRN 08/10/18 11:00 08/11/18 04:02 10 MG Labetalol HCl (Trandate) 200 mg BID 08/09/18 12:00 08/11/18 07:39 200 MG Lidocaine HCl (Xylocaine-Mpf 1% 2ml Vial) 2 ml 1X ONCE 08/10/18 12:00 08/10/18 12:08 DC 08/10/18 12:40 1 ML Magnesium Hydroxide (Milk Of Magnesia) 2,400 mg PRN Q12HR PRN 08/09/18 13:30 Midazolam HCl (Versed) 5 mg 1X ONCE 08/10/18 12:45 08/10/18 12:49 DC 08/10/18 12:45 4 MG Morphine Sulfate (Morphine Sulfate) 2 mg PRN Q2HR PRN 08/09/18 13:30 Nicardipine HCl 50 mg/Sodium Chloride 250 ml @ 25 mls/hr CONT PRN 08/09/18 12:15 Nitroglycerin (Nitroglycerin) 200 mcg 1X ONCE 08/10/18 12:00 08/10/18 12:08 DC 08/10/18 12:40 200 MCG Nitroglycerin (Nitrostat) 0.4 mg PRN Q5MIN PRN 08/10/18 13:00 Non-Formulary Medication (Carvedilol (Coreg)) 50 mg DAILY 08/10/18 09:00 08/10/18 09:00 DC Ondansetron HCl (Zofran) 4 mg PRN Q6HRS PRN 08/09/18 13:30 Oxycodone HCl (Roxicodone) 5 mg PRN Q3HRS PRN 08/09/18 13:30 Potassium Chloride (Klor-Con) 80 meq DAILY 08/10/18 09:00 08/10/18 09:00 DC Prochlorperazine (Compazine) 25 mg PRN Q12HR PRN 08/09/18 13:30 Prochlorperazine Edisylate (Compazine) 10 mg PRN Q6HRS PRN 08/09/18 13:30 Sodium Chloride 1,000 ml @ 100 mls/hr Q10H 08/10/18 12:50 08/10/18 22:49 DC 08/10/18 14:26 100 MLS/HR Verapamil HCl (Verapamil) 2.5 mg 1X ONCE 08/10/18 12:00 08/10/18 12:08 DC 08/10/18 12:39 2.5 MG Vitamin D (Vitamin D3) 2,000 unit DAILY 08/10/18 09:00 08/11/18 07:40 2,000 UNIT Lab Laboratory Tests Test 08/11/18 11:47 Sodium Level 144 mmol/L (136-145) Potassium Level 3.7 mmol/L (3.5-5.1) Chloride Level 108 mmol/L (98-107) Carbon Dioxide Level 26 mmol/L (21-32) Anion Gap 10 (6-14) Blood Urea Nitrogen 21 mg/dL (8-26) Creatinine 2.2 mg/dL (0.7-1.3) Estimated GFR (Cockcroft-Gault) 36.3 Glucose Level 110 mg/dL (70-99) Calcium Level 8.4 mg/dL (8.5-10.1) Results All relevant outside records, renal labs, imaging studies, telemetry/EKG's were reviewed. ANTHONY AGUERO MD Aug 11, 2018 14:16
--- NOTE | 2018-08-12 08:06 | PDOC ---
PROGRESS NOTES Chief Complaint Chief Complaint NSTEMI ALE CK D - creat 2.3 Chest pain Dyslipidemia on a statin Hypertension acute CHF, diastolic History of Present Illness History of Present Illness Mr Roldan is a 68-year-old pleasant -[place] male was initially seen at [facility] ED for left-sided chest heaviness associated with shortness of breath worse with exertion and transfer to [facility] for elevated troponin level. He denied any palpitations or syncope. Underwent cardiac cath with LAD disease and had successful PCI to LAD with relief. BP had been somewhat elevated all night, requiring prn hydralazine. After isosorbide it improved. Plan: Will need imdur F/u cardiac recs Vitals Vitals Vital Signs Date Time Temp Pulse Resp B/P (MAP) Pulse Ox O2 Delivery O2 Flow Rate FiO2 08/11/18 12:00 98.0 65 18 174/87 (116) 100 Room Air 98.0 Physical Exam General: Alert, Oriented X3 Heart: Regular rate Abdomen: Soft, No tenderness Extremities: Other (2+ RLE, 1+ LLE) Skin: No rashes, No breakdown, No significant lesion Labs LABS Laboratory Tests Test 08/11/18 11:47 Sodium Level 144 mmol/L (136-145) Potassium Level 3.7 mmol/L (3.5-5.1) Chloride Level 108 mmol/L (98-107) Carbon Dioxide Level 26 mmol/L (21-32) Anion Gap 10 (6-14) Blood Urea Nitrogen 21 mg/dL (8-26) Creatinine 2.2 mg/dL (0.7-1.3) Estimated GFR (Cockcroft-Gault) 36.3 Glucose Level 110 mg/dL (70-99) Calcium Level 8.4 mg/dL (8.5-10.1) Assessment and Plan Assessmemt and Plan Problems Medical Problems: (1) Acute kidney injury superimposed on chronic kidney disease Status: Acute (2) Acute on chronic diastolic CHF (congestive heart failure) Status: Acute (3) Hypertension, accelerated Status: Acute (4) NSTEMI (non-ST elevated myocardial infarction) Status: Acute Comment Review of Relevant I have reviewed the following items ramiro (where applicable) has been applied. Labs Laboratory Tests Test 08/10/18 13:30 08/11/18 11:47 Sodium Level 146 mmol/L (136-145) 144 mmol/L (136-145) Potassium Level 3.5 mmol/L (3.5-5.1) 3.7 mmol/L (3.5-5.1) Chloride Level 109 mmol/L (98-107) 108 mmol/L (98-107) Carbon Dioxide Level 24 mmol/L (21-32) 26 mmol/L (21-32) Anion Gap 13 (6-14) 10 (6-14) Blood Urea Nitrogen 24 mg/dL (8-26) 21 mg/dL (8-26) Creatinine 2.3 mg/dL (0.7-1.3) 2.2 mg/dL (0.7-1.3) Estimated GFR (Cockcroft-Gault) 34.5 36.3 BUN/Creatinine Ratio 10 (6-20) Glucose Level 102 mg/dL (70-99) 110 mg/dL (70-99) Calcium Level 8.2 mg/dL (8.5-10.1) 8.4 mg/dL (8.5-10.1) Phosphorus Level 3.5 mg/dL (2.6-4.7) Magnesium Level 1.9 mg/dL (1.8-2.4) Total Bilirubin 1.1 mg/dL (0.2-1.0) Aspartate Amino Transf (AST/SGOT) 12 U/L (15-37) Alanine Aminotransferase (ALT/SGPT) 41 U/L (16-63) Alkaline Phosphatase 138 U/L (46-116) Total Protein 6.5 g/dL (6.4-8.2) Albumin 3.0 g/dL (3.4-5.0) Albumin/Globulin Ratio 0.9 (1.0-1.7) Laboratory Tests Test 08/11/18 11:47 Sodium Level 144 mmol/L (136-145) Potassium Level 3.7 mmol/L (3.5-5.1) Chloride Level 108 mmol/L (98-107) Carbon Dioxide Level 26 mmol/L (21-32) Anion Gap 10 (6-14) Blood Urea Nitrogen 21 mg/dL (8-26) Creatinine 2.2 mg/dL (0.7-1.3) Estimated GFR (Cockcroft-Gault) 36.3 Glucose Level 110 mg/dL (70-99) Calcium Level 8.4 mg/dL (8.5-10.1) Medications Current Medications Labetalol HCl (Trandate) 200 mg BID PO Last administered on 08/11/18at 07:39; Start 08/09/18 at 12:00 Hydralazine HCl (Apresoline) 100 mg 1X ONCE PO Last administered on 08/09/18at 12:36; Start 08/09/18 at 12:15; Stop 08/09/18 at 12:20; Status DC Hydralazine HCl (Apresoline Inj) 10 mg PRN Q4HRS PRN IVP ELEVATED BP, SEE COMMENTS Last administered on 08/11/18at 05:42; Start 08/09/18 at 12:15 Nicardipine HCl 50 mg/Sodium Chloride 250 ml @ 25 mls/hr CONT PRN IV SEE I/O RECORD; Start 08/09/18 at 12:15 Heparin Sodium/ Dextrose 500 ml @ 0 mls/hr CONT PRN IV SEE I/O RECORD; Start 08/09/18 at 13:15; Status UNV Heparin Sodium/ Dextrose 500 ml @ 0 mls/hr CONT PRN IV SEE I/O RECORD; Start 08/09/18 at 13:30 Heparin Sodium (Porcine) (Heparin Sodium) 2,550 unit PRN Q6HRS PRN IV FOR UFH LEVEL LESS THAN 0.2; Start 08/09/18 at 13:30 Ondansetron HCl (Zofran) 4 mg PRN Q6HRS PRN IV NAUSEA/VOMITING, 1ST CHOICE IV; Start 08/09/18 at 13:30 Prochlorperazine Edisylate (Compazine) 10 mg PRN Q6HRS PRN IV NAUSEA/VOMITING, 2ND CHOICE IV; Start 08/09/18 at 13:30 Prochlorperazine (Compazine) 25 mg PRN Q12HR PRN OR NAUSEA/VOMITING; Start 08/09/18 at 13:30 Calcium Carbonate/ Glycine (Tums) 500 mg PRN Q3HRS PRN PO UPSET STOMACH; Start 08/09/18 at 13:30 Oxycodone HCl (Roxicodone) 5 mg PRN Q3HRS PRN PO BREAKTHROUGH PAIN; Start 08/09/18 at 13:30 Morphine Sulfate (Morphine Sulfate) 2 mg PRN Q2HR PRN IV PAIN; Start 08/09/18 at 13:30 Acetaminophen (Tylenol) 650 mg PRN Q6HRS PRN PO Headaches, Temp > 101.5F; Start 08/09/18 at 13:30 Docusate Sodium (Colace) 100 mg BID PO Last administered on 08/11/18at 07:39; Start 08/09/18 at 21:00 Magnesium Hydroxide (Milk Of Magnesia) 2,400 mg PRN Q12HR PRN PO CONSTIPATION; Start 08/09/18 at 13:30 Bisacodyl (Dulcolax Supp) 10 mg PRN DAILY PRN OR CONSTIPATION; Start 08/09/18 at 13:30 Allopurinol (Zyloprim) 300 mg DAILY PO Last administered on 08/11/18at 07:40; Start 08/10/18 at 09:00 Vitamin D (Vitamin D3) 2,000 unit DAILY PO Last administered on 08/11/18at 07:40; Start 08/10/18 at 09:00 Furosemide (Lasix) 40 mg DAILY PO Last administered on 08/10/18at 08:12; Start 08/10/18 at 09:00 Potassium Chloride (Klor-Con) 80 meq DAILY PO ; Start 08/10/18 at 09:00; Stop 08/10/18 at 09:00; Status DC Non-Formulary Medication (Carvedilol (Coreg)) 50 mg DAILY PO ; Start 08/10/18 at 09:00; Stop 08/10/18 at 09:00; Status DC Hydralazine HCl (Apresoline) 50 mg BID PO Last administered on 08/11/18at 07:40; Start 08/09/18 at 21:00; Stop 08/11/18 at 10:56; Status DC Sodium Chloride 1,000 ml @ 100 mls/hr Q10H IV Last administered on 08/11/18at 00:07; Start 08/10/18 at 10:00 Isosorbide Dinitrate (Isordil) 10 mg TID PO Last administered on 08/11/18at 07:40; Start 08/10/18 at 10:15; Stop 08/11/18 at 10:53; Status DC Labetalol HCl (Normodyne Iv Push) 10 mg PRN Q2HR PRN IVP HYPERTENSION Last administered on 08/11/18at 04:02; Start 08/10/18 at 11:00 Iodixanol (Visipaque 320) 100 ml STK-MED ONCE .ROUTE ; Start 08/10/18 at 11:40; Stop 08/10/18 at 11:41; Status DC Fentanyl Citrate (Fentanyl 2ml Vial) 100 mcg STK-MED ONCE .ROUTE ; Start 08/10/18 at 11:41; Stop 08/10/18 at 11:42; Status DC Midazolam HCl (Versed) 5 mg STK-MED ONCE .ROUTE ; Start 08/10/18 at 11:41; Stop 08/10/18 at 11:42; Status DC Heparin Sodium (Porcine) (Heparin Sodium) 10,000 unit STK-MED ONCE .ROUTE ; Start 08/10/18 at 11:41; Stop 08/10/18 at 11:42; Status DC Verapamil HCl (Verapamil) 5 mg STK-MED ONCE .ROUTE ; Start 08/10/18 at 11:41; Stop 08/10/18 at 11:42; Status DC Nitroglycerin (Nitroglycerin) 200 mcg STK-MED ONCE .ROUTE ; Start 08/10/18 at 11:41; Stop 08/10/18 at 11:42; Status DC Lidocaine HCl (Xylocaine-Mpf 1% 2ml Vial) 2 ml STK-MED ONCE .ROUTE ; Start 08/10/18 at 11:42; Stop 08/10/18 at 11:43; Status DC Heparin Sodium/ Sodium Chloride 500 ml @ As Directed STK-MED ONCE .ROUTE ; Start 08/10/18 at 11:42; Stop 08/10/18 at 11:43; Status DC Nitroglycerin (Nitroglycerin) 200 mcg 1X ONCE IART Last administered on 08/10/18at 12:40; Start 08/10/18 at 12:00; Stop 08/10/18 at 12:08; Status DC Verapamil HCl (Verapamil) 2.5 mg 1X ONCE IART Last administered on 08/10/18at 12:39; Start 08/10/18 at 12:00; Stop 08/10/18 at 12:08; Status DC Heparin Sodium (Porcine) (Heparin Sodium) 2,500 unit 1X ONCE IART Last administered on 08/10/18at 12:43; Start 08/10/18 at 12:00; Stop 08/10/18 at 12:08; Status DC Heparin Sodium/ Sodium Chloride (HEPARIN for ARTERIAL LINE FLUSH) 1,000 unit 1X ONCE IART Last administered on 08/10/18 12:39; Start 08/10/18 at 12:00; Stop 08/10/18 at 12:08; Status DC Fentanyl Citrate (Fentanyl 2ml Vial) 100 mcg 1X ONCE IV Last administered on 08/10/18 12:40; Start 08/10/18 at 12:00; Stop 08/10/18 at 12:08; Status DC Iodixanol (Visipaque 320) 100 ml 1X ONCE IART Last administered on 08/10/18 12:39; Start 08/10/18 at 12:00; Stop 08/10/18 at 12:08; Status DC Lidocaine HCl (Xylocaine-Mpf 1% 2ml Vial) 2 ml 1X ONCE INJ Last administered on 08/10/18 12:40; Start 08/10/18 at 12:00; Stop 08/10/18 at 12:08; Status DC Bivalirudin (Angiomax) 250 mg STK-MED ONCE IV ; Start 08/10/18 at 12:09; Stop 08/10/18 at 12:10; Status DC Bivalirudin (Angiomax) 250 mg 1X ONCE IV Last administered on 08/10/18 12:39; Start 08/10/18 at 12:15; Stop 08/10/18 at 12:21; Status DC Iodixanol (Visipaque 320) 100 ml STK-MED ONCE .ROUTE ; Start 08/10/18 at 12:22; Stop 08/10/18 at 12:23; Status DC Clopidogrel Bisulfate (Plavix) 600 mg 1X ONCE PO Last administered on 08/10/18at 12:44; Start 08/10/18 at 12:30; Stop 08/10/18 at 12:33; Status DC Midazolam HCl (Versed) 5 mg 1X ONCE IV Last administered on 08/10/18at 12:45; Start 08/10/18 at 12:45; Stop 08/10/18 at 12:49; Status DC Sodium Chloride 1,000 ml @ 100 mls/hr Q10H IV Last administered on 08/10/18at 14:26; Start 08/10/18 at 12:50; Stop 08/10/18 at 22:49; Status DC Aspirin (Ecotrin) 325 mg DAILYWBKFT PO Last administered on 08/11/18at 07:40; Start 08/11/18 at 08:00 Clopidogrel Bisulfate (Plavix) 75 mg DAILYWBKFT PO Last administered on 08/11/18at 07:49; Start 08/11/18 at 08:00 Atorvastatin Calcium (Lipitor) 40 mg QHS PO Last administered on 08/10/18at 21:17; Start 08/10/18 at 21:00 Nitroglycerin (Nitrostat) 0.4 mg PRN Q5MIN PRN SL CHEST PAIN; Start 08/10/18 at 13:00 Acetylcysteine (Mucomyst 20% Oral Solution) 600 mg BID PO Last administered on 08/11/18at 07:49; Start 08/10/18 at 21:00; Stop 08/12/18 at 09:01 Isosorbide Mononitrate (Imdur) 60 mg DAILY PO ; Start 08/11/18 at 11:00; Stop 08/11/18 at 11:00; Status DC Isosorbide Mononitrate (Imdur) 30 mg DAILY PO ; Start 08/12/18 at 09:00 Hydralazine HCl (Apresoline) 100 mg BID PO ; Start 08/11/18 at 21:00 Active Scripts Active Labetalol Hcl 200 Mg Tablet 200 Mg PO BID 30 Days Isosorbide Mononitrate Er (Isosorbide Mononitrate) 30 Mg Tab.er.24h 30 Mg PO DAILY 30 Days Atorvastatin Calcium 20 Mg Tablet 40 Mg PO QHS 30 Days Can replace with #30 of 40mg tabs Clopidogrel (Clopidogrel Bisulfate) 75 Mg Tablet 75 Mg PO DAILYWBKFT 30 Days Hydralazine Hcl 100 Mg Tablet 100 Mg PO TID PRN 30 Days Reported Vitamin D3 (Cholecalciferol (Vitamin D3)) 1,000 Unit Tablet 2,000 Unit PO DAILY Aspirin 325 Mg Tablet 1 Tab PO DAILY Allopurinol 300 Mg Tablet 300 Mg PO DAILY Lasix (Furosemide) 40 Mg Tablet 40 Mg PO DAILY Klor-Con M20 (Potassium Chloride) 20 Meq Tab.er.prt 80 Meq PO DAILY Vitals/I & O Vital Sign - Last 24 Hours 08/11/18 08/11/18 08/11/18 09:00 10:00 12:00 Temp 98.0 98.0 Pulse 72 67 65 Resp 15 15 18 B/P (MAP) 135/70 (91) 121/62 (81) 174/87 (116) Pulse Ox 98 97 100 O2 Delivery Room Air Room Air Room Air TONIE LEWIS MD Aug 12, 2018 08:06
[2018-08-12] MEDS ORDERED: ISOSORBIDE MONONITRATE ER 30 MG TAB.ER.24H PO SCH (09:00)
== END 2018-08-11 13:30 | disposition home or self-care (01) | DRG 246 ==
LOC: 1 WEST ICU 11:44
PROVIDERS: ADMIT Internal Medicine; ATTEND Internal Medicine
PROC: 027034Z Dilation of Coronary Artery, One Artery with Drug-eluting Intraluminal Device, Percutaneous Approach (ICD-10-PCS; principal; 2018-08-09)
PROC: 4A023N7 Measurement of Cardiac Sampling and Pressure, Left Heart, Percutaneous Approach (ICD-10-PCS; 2018-08-09)
PROC: B2111ZZ Fluoroscopy of Multiple Coronary Arteries using Low Osmolar Contrast (ICD-10-PCS; 2018-08-09)
DX: I21.4 Non-ST elevation (NSTEMI) myocardial infarction (principal); I50.43 Acute on chronic combined systolic (congestive) and diastolic (congestive) heart failure; N17.9 Acute kidney failure, unspecified; I13.0 Hypertensive heart and chronic kidney disease with heart failure and stage 1 through stage 4 chronic kidney disease, or unspecified chronic kidney disease; N18.3 Chronic kidney disease, stage 3 (moderate); E78.5 Hyperlipidemia, unspecified; I25.10 Atherosclerotic heart disease of native coronary artery without angina pectoris; Z79.82 Long term (current) use of aspirin; Z82.49 Family history of ischemic heart disease and other diseases of the circulatory system; Z79.899 Other long term (current) drug therapy
CPT/HCPCS: 36415; 76770; 80048; 80053; 83735; 84100; 84484; 85025; 85520; 85610; 87641; 92928; 93306; 93458; 99152; 99153; C1725; C1769; C1874; C1887; C1892; J0360; J0583; J1644; J2250; J3010; J3490; J7030; Q9967

== ENCOUNTER 2019-07-30 15:27 | Inpatient (IN) | payer OTHER, MEDICARE ==
[~2019-07-30] VITALS: Ht 182.9 cm; Wt 96.0 kg
[~2019-07-30 15:27] MED LIST: ALLO300T PO; ASPI325T8 PO; ATOR20TA58 PO; CARV25TA PO; CHOL10003 PO; CLOP75TA PO; FURO-68 PO; HYDR100T24 PO; ISOS30TA4 PO; LABE200T4 PO; LOSA100T14 PO; POTA20TA4 PO
[2019-07-30 15:29] VITALS: BP 161/82
[2019-07-30] MEDS ORDERED: ALBUTEROL SULFATE 2.5 MG/3 ML NEBU. NEB PRN (16:30)
[2019-07-30] MEDS ORDERED: guaiFENesin ORAL 200 MG/10 ML LIQUID. PO PRN (16:30)
[2019-07-30] MEDS ORDERED: ONDANSETRON PF 4 MG/2 ML VIAL. IV PRN (16:30)
--- NOTE | 2019-07-30 16:30 | PDOC1 ---
History and Physical Date of Admission Date of Admission DATE: 07/30/19 TIME: 16:30 Identification/Chief Complaint Chief Complaint Chest pain Source Source: Patient History of Present Illness History of Present Illness Mr Roldan is a 68 yo M w/ PMhx CKD, HLD, HTN, CAD s/p LAD stent 2019, dCHF who was initially seen at [facility] ED for left-sided chest heaviness associated with shortness of breath worse with exertion and transfer to [facility] for elevated troponin level and d-dimer. He notes left lateral chest pain which is been ongoing for the past 2 days. Described as an intermittent stabbing sensation, does not radiate, was worse with one cough, but is not reproducible with pressure. Nothing exacerbates or alleviates it. 6-8 out of 10 at the worst. Denies any fever or chills. No increased leg swelling or calf tenderness. No orthopnea or BONDS. Symptoms are different than his prior NSTEMI 07/2018. 24# weight loss in the past 3-4 months, thinks mainly due to dietary change and stopping soda. He notes he had follow-up with Dr. Joseph for his CKD 6 months ago, and he thinks his creatinine at that time was "normal". Labs NA 138, K4.8, BUN 35, CR 2.2, glucose 127, magnesium 2.6, bilirubin 1.3, INR 1, albumin 3, d-dimer 4.67, troponin 0 0.257, WBC 9.7, Hb 11.5, platelets 166. EKG: NSR at 86bpm, NO ST elevation, nonspecific t wave inversion I, aVL, and V6, QRS 90ms, QT/QTc 376/453ms CXR with L>R lung base airspace opacities and trace left pleural effusion or pleural thickening. Called from [place] for transfer to [facility] for further treatment. Past Medical History Cardiovascular: HTN, Hyperlipidemia Past Surgical History Past Surgical History: No pertinent history Family History Family History: Heart Disease, High Cholestrol, Hypertension Social History Smoke: No ALCOHOL: none Drugs: None Current Medications Current Medications Active Scripts Active Labetalol Hcl 200 Mg Tablet 200 Mg PO BID 30 Days Isosorbide Mononitrate Er (Isosorbide Mononitrate) 30 Mg Tab.er.24h 30 Mg PO DAILY 30 Days Atorvastatin Calcium 20 Mg Tablet 40 Mg PO QHS 30 Days Can replace with #30 of 40mg tabs Clopidogrel (Clopidogrel Bisulfate) 75 Mg Tablet 75 Mg PO DAILYWBKFT 30 Days Hydralazine Hcl 100 Mg Tablet 100 Mg PO TID PRN 30 Days Reported Vitamin D3 (Cholecalciferol (Vitamin D3)) 1,000 Unit Tablet 2,000 Unit PO DAILY Aspirin 325 Mg Tablet 1 Tab PO DAILY Allopurinol 300 Mg Tablet 300 Mg PO DAILY Lasix (Furosemide) 40 Mg Tablet 40 Mg PO DAILY Klor-Con M20 (Potassium Chloride) 20 Meq Tab.er.prt 80 Meq PO DAILY Allergies Allergies: Coded Allergies: No Known Drug Allergies (Unverified , 08/09/18) ROS General: YES: Fatigue, Malaise; No: Chills, Night Sweats, Appetite, Other PSYCHOLOGICAL ROS: No: Anxiety, Behavioral Disorder, Concentration difficultie, Decreased libido, Depression, Disorientation, Hallucinations, Hostility, Irritablity, Memory difficulties, Mood Swings, Obsessive thoughts, Physical abuse, Sexual abuse, Sleep disturbances, Suicidal ideation, Other Eyes: No Blurry vision, No Decreased vision, No Double vision, No Dry eyes, No Excessive tearing, No Eye Pain, No Itchy Eyes, No Loss of vision, No Photophobia, No Scotomata, No Uses contacts, No Uses glasses, No Other HEENT: No: Heacaches, Visual Changes, Hearing change, Nasal congestion, Nasal discharge, Oral lesions, Sinus pain, Sore Throat, Epistaxis, Sneezing, Snoring, Tinnitus, Vertigo, Vocal changes, Other ALLERGY AND IMMUNOLOGY: No: Hives, Insect Bite Sensitivity, Itchy/Watery Eyes, Nasal Congestion, Post Nasal Drip, Seasonal Allergies, Other Hematological and Lymphatic: No: Bleeding Problems, Blood Clots, Blood Transfusions, Brusing, Night Sweats, Pallor, Swollen Lymph Nodes, Other ENDOCRINE: No: Breast Changes, Galactorrhea, Hair Pattern Changes, Hot Flashes, Malaise/lethargy, Mood Swings, Palpitations, Polydipsia/polyuria, Skin Changes, Temperature Intolerance, Unexpected Weight Changes, Other Breast: No New/Changing Breast Lumps, No Nipple changes, No Nipple discharge, No Other Respiratory: No: Cough, Hemoptysis, Orthopnea, Pleuritic Pain, Shortness of breath, SOB with excertion, Sputum Changes, Stridor, Tachypnea, Wheezing, Other Cardiovascular: yes Chest Pain; No Palpitations, No Orthopnea, No Paroxysmal Noc. Dyspnea, No Edema, No Lt Headedness, No Other Gastrointestinal: No Nausea, No Vomiting, No Abdominal Pain, No Diarrhea, No Constipation, No Melena, No Hematochezia, No Other Genitourinary: No Dysuria, No Frequency, No Incontinence, No Hematuria, No Retention, No Discharge, No Urgency, No Pain, No Flank Pain, No Other, No , No , No , No , No , No , No Musculoskeletal: No Gait Disturbance, No Joint Pain, No Joint Stiffness, No Joint Swelling, No Muscle Pain, No Muscular Weakness, No Pain In:, No Swelling In:, No Other Neurological: No Behavorial Changes, No Bowel/Bladder ControlChng, No Confusion, No Dizziness, No Gait Disturbance, No Headaches, No Impaired Coord/balance, No Memory Loss, No Numbness/Tingling, No Seizures, No Speech Problems, No Tremors, No Visual Changes, No Weakness, No Other Skin: No Dry Skin, No Eczema, No Hair Changes, No Lumps, No Mole Changes, No Mottling, No Nail Changes, No Pruritus, No Rash, No Skin Lesion Changes, No Other, No Acne Physical Exam General: Alert, Oriented X3, Cooperative, mild distress HEENT: Atraumatic, PERRLA, EOMI, Mucous membr. moist/pink Lungs: Clear to auscultation, Normal air movement Heart: S1S2, RRR, no thrills, no rubs, no gallops, no murmurs Abdomen: Normal bowel sounds, Soft, No tenderness, No hepatosplenomegaly, No masses Rectal Exam: not examined Extremities: No clubbing, No cyanosis, No edema, Normal pulses, No tenderness/swelling Skin: No rashes, No breakdown, No significant lesion Neuro: Normal gait, Normal speech, Strength at 5/5 X4 ext, Normal tone, Sensation intact, Cranial nerves 3-12 NL, Reflexes 2+ Psych/Mental Status: Mental status NL, Mood NL Vitals Vitals Vital Signs Date Time Temp Pulse Resp B/P (MAP) Pulse Ox O2 Delivery O2 Flow Rate FiO2 07/30/19 15:29 98.2 82 18 161/82 (108) 98 Room Air 98.2 Images Images CXR: The heart is not enlarged. Mediastinal and hilar contours are stable. Left greater than right lung base airspace opacities may represent atelectasis or developing consolidation. Trace left pleural effusion or pleural thickening. No pneumothorax. IMPRESSION: 1. Left greater than right lung base airspace opacities may represent atelectasis or developing consolidation. 2. Trace left pleural effusion or pleural thickening VTE Prophylaxis Ordered VTE Prophylaxis Devices: Yes VTE Pharmacological Prophylaxi: Yes Assessment/Plan Assessment/Plan A/P: Elevated troponin - NSTEMI - possibly demand ischemia with ALE, will trend troponins, cont meds. Hold diuretics. Heparin GTT. Consult cardiology ALE CKD - creat 2.2. Will give IVF for vasomotor nephropathy. Consult nephrology Chest pain - elevated troponin and d-dimer. Will start heparin gtt., VQ scan to rule out PE on left. Cardiology consulted Dyslipidemia - cont on statin Hypertension - cont meds, hold diuretics for ALE Chronic CHF, diastolic. Does not appear acute. Will check BNP Unintentional weight loss - 24# weight loss in the past 3-4 months, thinks mainly due to dietary change and stopping soda Abnormal CXR - will consult pulmonology. Check procalcitonin, no sx of pneumonia. Will check for PE, with his decline renal function will opt for VQ scan. FEN - Cardiac diet PPX - Heparin FULL CODE Dispo -inpatient [facility] for 2 midnights Justicifation of Admission Dx: Justifications for Admission: Justification of Admission Dx: Yes WI: Acute NSTEMI TONIE LEWIS MD Jul 30, 2019 16:30
[2019-07-30] MEDS ORDERED: AMLO5TAB10 PO (16:33)
[2019-07-30] MEDS ORDERED: FURO20TA3 PO (16:33)
[2019-07-30] MEDS ORDERED: SPIR25TA5 PO (16:33)
[2019-07-30] MEDS ORDERED: HEPARIN 25,000UTS/250ML PREMIX 250 ML IV PRN (16:45)
[2019-07-30] MEDS ORDERED: HEPARIN for IV BOLUS 10,000 UNIT/10 ML VIAL. IV PRN (16:45)
[2019-07-30] MEDS ORDERED: IV NORMAL SALINE 1000ML BAG 1,000 ML IV ONE (17:15)
[2019-07-30] MEDS: LIDOCAINE (700MG/PATCH) PATCH. TD SCH (17:35)
--- NOTE | 2019-07-30 18:47 | RAD ---
CHEST AP ONLY Clinical Indication: LUNG SCAN, LT SIDED CHEST WALL/RIB PAIN FOR 1 DAY / Spl. Instructions: / History: Comparison: AP chest, earlier same day. Findings: The cardiomediastinal silhouette is normal. Left basilar airspace disease and small left pleural effusion. Airspace disease is worse. Right lung is now clear. There is no pneumothorax. No acute bone abnormality. IMPRESSION: Left basilar airspace disease may be atelectasis or pneumonia, appears worse. Small left pleural effusion. Electronically signed by: Angel Sauceda MD (07/30/2019 6:44 PM) [facility]
--- NOTE | 2019-07-30 18:51 | RAD ---
NUCLEAR MEDICINE PERFUSION ONLY SCAN History: Left rib pain x1 day, elevated d-dimer. Comparison: AP chest, same day. Technique: Perfusion portion performed after intravenous administration of 5.5 mCi Technetium 99m MAA. Multiple projection planar images of the lungs were obtained. Findings: Ventilation imaging is not performed due to aerosolized droplet precautions. Perfusion images demonstrate a large perfusion defect in the left lower lobe. This is a matched defect with the chest radiograph findings. IMPRESSION: Large perfusion defect in the left lower lobe, matched with chest radiograph findings. Interpretation somewhat limited without ventilation images. A triple matched defect in the left lower lobe is considered intermediate probability. If the perfusion defect in the left lower lobe is a mismatched defect the findings would be high probability for pulmonary embolus. Electronically signed by: Angel Sauceda MD (07/30/2019 6:48 PM) [facility]
[2019-07-30 19:25] VITALS: BP 175/86
[2019-07-30] MEDS: ATORVASTATIN CALCIUM 20 MG TABLET PO SCH (20:38)
[2019-07-30] MEDS: LABETALOL HCL 200 MG TABLET PO SCH (20:40)
[2019-07-30] MEDS: PATCH REMOVAL. MC SCH (20:40)
[2019-07-30 22:27] VITALS: BP 179/91
--- NOTE | 2019-07-30 23:59 | CONS ---
DATE OF CONSULTATION: 07/30/2019 REASON FOR CONSULTATION: Elevated troponin. CONSULTING PHYSICIAN: Dr. Lewis Good. HISTORY OF PRESENT ILLNESS: The patient is a pleasant 69-year-old man who comes into the hospital as a transfer from [facility] due to stabbing chest pain. He was previously treated approximately a year ago for coronary artery disease and a non-STEMI. He had a PCI at that time. He reports that this pain is different than prior. He has unfortunately lost approximately 24 pounds due to some dietary changes versus unintentional loss. Nonetheless, he upon arrival here underwent a V/Q scan, which is suggestive of a pulmonary embolus. He denies any lower extremity edema or orthopnea, but does have dyspnea. He has sharp chest pain. PAST MEDICAL HISTORY: 1. Hypertension. 2. Chronic kidney disease. 3. 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 SOCIAL HISTORY: The patient is . Denies any alcohol, tobacco or illicit drug use. CURRENT CARDIOVASCULAR MEDICATIONS: 1. Labetalol. 2. Imdur. 3. Atorvastatin. 4. Plavix. 5. Hydralazine. ALLERGIES: No known drug allergies. REVIEW OF SYSTEMS: Negative for 10 out of 14 systems reviewed, unless otherwise mentioned above in HPI. PHYSICAL EXAMINATION: GENERAL: Alert and oriented x 3, no acute distress. HEAD AND NECK: Unremarkable. CARDIAC: Regular rate and rhythm without murmurs, rubs or gallops. LUNGS: Clear to auscultation bilaterally. ABDOMEN: Soft, nontender, nondistended. EXTREMITIES: No clubbing, cyanosis or edema. NEUROLOGIC: No focal deficits. MUSCULOSKELETAL: No trauma. PSYCHIATRIC: Normal status and mood. SKIN: No rashes. DIAGNOSTIC STUDIES: Hemoglobin 12.2 and platelets 154. Creatinine elevated at 2.2. Troponin elevated at 1.1. V/Q scan suggestive of PE. Echocardiogram performed in 07/2018 revealed an ejection fraction of 40%. EKG is unremarkable. IMPRESSION: 1. Chest pain suggestive of pulmonary embolus with positive D-dimer and [id number] probability V/Q scan. 2. Non-ST elevation myocardial infarction, type 2, likely demand mediated. 3. Coronary artery disease with history of systolic and diastolic dysfunction with ejection fraction of 40%. 4. Chronic kidney disease. RECOMMENDATIONS: 1. Continue heparin drip for presumed PE. 2. Continue management of chronic kidney disease per PCP and Nephrology. 3. Agree with Pulmonary consultation. 4. We will obtain a repeat echocardiogram to determine the ejection fraction. No further cardiovascular testing necessary at this time. Continue home Plavix and anticoagulation in the form of warfarin or Eliquis or Xarelto when getting closer to discharge. Thank you for this consultation. PORFIRIO STUART MD DR: ELIANE/hilaroi JOB#: [id number] / [id number]
--- NOTE | 2019-07-31 00:20 | NUR ---
Pt troponin continued elevated, on heparin md velasquez aware ,will cont poc. will cont to monitor pt status and safety. call light in place.
[2019-07-31 03:01] VITALS: BP 155/87
[2019-07-31] MEDS: HYDROcodone/APAP 5/325MG 1 TAB TABLET PO PRN ×2 (05:37→17:19)
--- NOTE | 2019-07-31 05:46 | NUR ---
pt c/o left side throbbing pain, percocet given. pt sitting on side of bed grimacing. will cont to monitor pt.
[2019-07-31] MEDS ORDERED: BISACODYL 5 MG TABLET.DR. PO PRN (06:15)
[2019-07-31] MEDS: DOCUSATE SODIUM 100 MG CAPSULE. PO SCH ×2 (06:18→09:16)
[2019-07-31] MEDS: POLYETHYLENE GLYCOL 3350 17 GM PACKET. PO SCH ×2 (06:19→09:20)
[2019-07-31 06:59] LABS: HEMATOCRIT 37.4 % (39.0-53.0); HEMOGLOBIN 12.3 g/dL (13.0-17.5); RED BLOOD COUNT 4.6 x10^6/uL (4.30-5.70); RED CELL DISTRIBUTION WIDTH 17.2 % (11.5-14.5); WHITE BLOOD COUNT 11.4 x10^3/uL (4.0-11.0)
[2019-07-31] MEDS ORDERED: HEPARIN for IV BOLUS 10,000 UNIT/10 ML VIAL. IV PRN ×2 (07:00)
[2019-07-31 07:16] LABS: ALBUMIN/GLOBULIN RATIO 0.7 (1.0-1.7); CALCIUM 8.7 mg/dL (8.5-10.1); CREATININE 2.1 mg/dL (0.7-1.3); GFR 38.2; POTASSIUM 4.7 mmol/L (3.5-5.1); TOTAL BILIRUBIN 1.3 mg/dL (0.2-1.0); TOTAL PROTEIN 7.3 g/dL (6.4-8.2)
[2019-07-31 07:45] VITALS: BP 161/96
[2019-07-31] MEDS ORDERED: ASPIRIN 325 MG TABLET PO SCH (09:00)
[2019-07-31] MEDS ORDERED: amLODIPine BESYLATE 5 MG TABLET PO SCH (09:00)
[2019-07-31] MEDS ORDERED: ALLOPURINOL 300 MG TABLET. PO SCH (09:00)
--- NOTE | 2019-07-31 09:02 | PDOC ---
PROGRESS NOTES Chief Complaint Chief Complaint A/P: Elevated troponin - NSTEMI - possibly demand ischemia with ALE, will trend troponins, cont meds. Hold diuretics. Heparin GTT. Consult cardiology ALE CKD - creat 2.2. Will give IVF for vasomotor nephropathy. Consult nephrology Chest pain - elevated troponin and d-dimer. Will start heparin gtt., VQ scan to rule out PE on left. Cardiology consulted Dyslipidemia - cont on statin Hypertension - cont meds, hold diuretics for ALE Chronic CHF, diastolic. Does not appear acute. Will check BNP Unintentional weight loss - 24# weight loss in the past 3-4 months, thinks mainly due to dietary change and stopping soda Abnormal CXR - will consult pulmonology. Check procalcitonin, will treat for community-acquired pneumonia. Given his cardiac disease he is high risk for likely gram-negative pneumonia.. Intermediate for PE on VQ FEN - Cardiac diet PPX - Heparin FULL CODE Dispo -inpatient CVC for 2 midnights History of Present Illness History of Present Illness Mr Roldan is a 68 yo M w/ PMhx CKD, HLD, HTN, CAD s/p LAD stent 2018, dCHF who was initially seen at [facility] ED for left-sided chest heaviness associated with shortness of breath worse with exertion and transfer to [facility] for elevated troponin level and d-dimer. He notes left lateral chest pain which is been ongoing for the past 2 days. Described as an intermittent stabbing sensation, does not radiate, was worse with one cough, but is not reproducible with pressure. Nothing exacerbates or alleviates it. 6-8 out of 10 at the worst. Denies any fever or chills. No increased leg swelling or calf tenderness. No orthopnea or BONDS. Symptoms are different than his prior NSTEMI 07/2018. 24# weight loss in the past 3-4 months, thinks mainly due to dietary change and stopping soda. He notes he had follow-up with Dr. Joseph for his CKD 6 months ago, and he thinks his creatinine at that time was "normal". Labs NA 138, K4.8, BUN 35, CR 2.2, glucose 127, magnesium 2.6, bilirubin 1.3, INR 1, albumin 3, d-dimer 4.67, troponin 0 0.257, WBC 9.7, Hb 11.5, platelets 166. EKG: NSR at 86bpm, NO ST elevation, nonspecific t wave inversion I, aVL, and V6, QRS 90ms, QT/QTc 376/453ms CXR with L>R lung base airspace opacities and trace left pleural effusion or pleural thickening. Called from [place] for transfer to [facility] for further treatment. Transferred to ICU COVID isolation unit due to ordered COVID test. He is still having left-sided chest pain VQ scan reviewed unfortunately ventilation portion was not performed. There was a mismatch defect which could be consistent with PE. I have ordered a CT chest which is not been read by radiologist but looks to have air bronchograms and infiltrate forming in the left lower lobe. He is still hypoxic low-grade temp of 100.2 F. Labs WBC 11.4 Hb 12.3, platelets 198 NA 136, K4.7, BUN 35, CR 2.1, pro calcitonin 1.07, troponin elevated to 0.225, bilirubin 1.3, albumin 3, BNP 494. Plan: Initiate Rocephin and doxycycline for community-acquired pneumonia. Will await radiology read of CT. Continue heparin gtt. Low order lower extremity Doppler venous Vitals Vitals Vital Signs Date Time Temp Pulse Resp B/P (MAP) Pulse Ox O2 Delivery O2 Flow Rate FiO2 07/31/19 07:45 Room Air 07/31/19 07:45 99.5 85 18 161/96 (117) 92 2.0 99.5 Physical Exam General: Alert, Oriented X3, Cooperative, mild distress Abdomen: Normal bowel sounds, Soft, No tenderness, No hepatosplenomegaly, No masses Extremities: No clubbing, No cyanosis, No edema, Normal pulses, No tenderness/swelling Skin: No rashes, No breakdown, No significant lesion Labs LABS Laboratory Tests Test 07/30/19 23:45 07/31/19 06:50 Heparin Anti-Xa Act, Unfractionated 0.20 IU/mL (0.30-0.70) 0.41 IU/mL (0.30-0.70) Troponin I Quantitative 0.215 ng/mL (0.000-0.055) 0.225 ng/mL (0.000-0.055) White Blood Count 11.4 x10^3/uL (4.0-11.0) Red Blood Count 4.60 x10^6/uL (4.30-5.70) Hemoglobin 12.3 g/dL (13.0-17.5) Hematocrit 37.4 % (39.0-53.0) Mean Corpuscular Volume 81 fL (79-100) Mean Corpuscular Hemoglobin 27 pg (25-35) Mean Corpuscular Hemoglobin Concent 33 g/dL (31-37) Red Cell Distribution Width 17.2 % (11.5-14.5) Platelet Count 198 x10^3/uL (140-400) Sodium Level 138 mmol/L (136-145) Potassium Level 4.7 mmol/L (3.5-5.1) Chloride Level 105 mmol/L (98-107) Carbon Dioxide Level 23 mmol/L (21-32) Anion Gap 10 (6-14) Blood Urea Nitrogen 35 mg/dL (8-26) Creatinine 2.1 mg/dL (0.7-1.3) Estimated GFR (Cockcroft-Gault) 38.2 BUN/Creatinine Ratio 17 (6-20) Glucose Level 114 mg/dL (70-99) Calcium Level 8.7 mg/dL (8.5-10.1) Total Bilirubin 1.3 mg/dL (0.2-1.0) Aspartate Amino Transf (AST/SGOT) 30 U/L (15-37) Alanine Aminotransferase (ALT/SGPT) 42 U/L (16-63) Alkaline Phosphatase 182 U/L (46-116) HY-Abh-E-Type Natriuretic Peptide 494 pg/mL (0-124) Total Protein 7.3 g/dL (6.4-8.2) Albumin 3.0 g/dL (3.4-5.0) Albumin/Globulin Ratio 0.7 (1.0-1.7) Procalcitonin 1.07 ng/mL (0.00-0.10) Comment Review of Relevant I have reviewed the following items ramiro (where applicable) has been applied. Labs Laboratory Tests Test 07/30/19 23:45 07/31/19 06:50 Heparin Anti-Xa Act, Unfractionated 0.20 IU/mL (0.30-0.70) 0.41 IU/mL (0.30-0.70) Troponin I Quantitative 0.215 ng/mL (0.000-0.055) 0.225 ng/mL (0.000-0.055) White Blood Count 11.4 x10^3/uL (4.0-11.0) Red Blood Count 4.60 x10^6/uL (4.30-5.70) Hemoglobin 12.3 g/dL (13.0-17.5) Hematocrit 37.4 % (39.0-53.0) Mean Corpuscular Volume 81 fL (79-100) Mean Corpuscular Hemoglobin 27 pg (25-35) Mean Corpuscular Hemoglobin Concent 33 g/dL (31-37) Red Cell Distribution Width 17.2 % (11.5-14.5) Platelet Count 198 x10^3/uL (140-400) Sodium Level 138 mmol/L (136-145) Potassium Level 4.7 mmol/L (3.5-5.1) Chloride Level 105 mmol/L (98-107) Carbon Dioxide Level 23 mmol/L (21-32) Anion Gap 10 (6-14) Blood Urea Nitrogen 35 mg/dL (8-26) Creatinine 2.1 mg/dL (0.7-1.3) Estimated GFR (Cockcroft-Gault) 38.2 BUN/Creatinine Ratio 17 (6-20) Glucose Level 114 mg/dL (70-99) Calcium Level 8.7 mg/dL (8.5-10.1) Total Bilirubin 1.3 mg/dL (0.2-1.0) Aspartate Amino Transf (AST/SGOT) 30 U/L (15-37) Alanine Aminotransferase (ALT/SGPT) 42 U/L (16-63) Alkaline Phosphatase 182 U/L (46-116) RE-Lsa-F-Type Natriuretic Peptide 494 pg/mL (0-124) Total Protein 7.3 g/dL (6.4-8.2) Albumin 3.0 g/dL (3.4-5.0) Albumin/Globulin Ratio 0.7 (1.0-1.7) Procalcitonin 1.07 ng/mL (0.00-0.10) Laboratory Tests Test 07/30/19 23:45 07/31/19 06:50 Heparin Anti-Xa Act, Unfractionated 0.20 IU/mL (0.30-0.70) 0.41 IU/mL (0.30-0.70) Troponin I Quantitative 0.215 ng/mL (0.000-0.055) 0.225 ng/mL (0.000-0.055) White Blood Count 11.4 x10^3/uL (4.0-11.0) Red Blood Count 4.60 x10^6/uL (4.30-5.70) Hemoglobin 12.3 g/dL (13.0-17.5) Hematocrit 37.4 % (39.0-53.0) Mean Corpuscular Volume 81 fL (79-100) Mean Corpuscular Hemoglobin 27 pg (25-35) Mean Corpuscular Hemoglobin Concent 33 g/dL (31-37) Red Cell Distribution Width 17.2 % (11.5-14.5) Platelet Count 198 x10^3/uL (140-400) Sodium Level 138 mmol/L (136-145) Potassium Level 4.7 mmol/L (3.5-5.1) Chloride Level 105 mmol/L (98-107) Carbon Dioxide Level 23 mmol/L (21-32) Anion Gap 10 (6-14) Blood Urea Nitrogen 35 mg/dL (8-26) Creatinine 2.1 mg/dL (0.7-1.3) Estimated GFR (Cockcroft-Gault) 38.2 BUN/Creatinine Ratio 17 (6-20) Glucose Level 114 mg/dL (70-99) Calcium Level 8.7 mg/dL (8.5-10.1) Total Bilirubin 1.3 mg/dL (0.2-1.0) Aspartate Amino Transf (AST/SGOT) 30 U/L (15-37) Alanine Aminotransferase (ALT/SGPT) 42 U/L (16-63) Alkaline Phosphatase 182 U/L (46-116) GW-Xyv-M-Type Natriuretic Peptide 494 pg/mL (0-124) Total Protein 7.3 g/dL (6.4-8.2) Albumin 3.0 g/dL (3.4-5.0) Albumin/Globulin Ratio 0.7 (1.0-1.7) Procalcitonin 1.07 ng/mL (0.00-0.10) Medications Current Medications Ondansetron HCl (Zofran) 4 mg PRN Q4HRS PRN IV NAUSEA/VOMITING; Start 07/30/19 at 16:30 Acetaminophen (Tylenol) 650 mg PRN Q4HRS PRN PO TEMP OVER 100.4F OR MILD PAIN; Start 07/30/19 at 16:30 Albuterol Sulfate (Ventolin Neb Soln) 2.5 mg PRN Q4HRS PRN NEB SHORTNESS OF BREATH; Start 07/30/19 at 16:30 Guaifenesin (Robitussin) 200 mg PRN Q4HRS PRN PO COUGH; Start 07/30/19 at 16:30 Heparin Sodium/ Dextrose 250 ml @ 10 mls/hr CONT PRN IV PER PROTOCOL Last administered on 07/30/19at 17:30; Start 07/30/19 at 16:45; Stop 07/31/19 at 06:53; Status DC Heparin Sodium (Porcine) (Heparin Sodium) 2,400 unit PRN Q6HRS PRN IV FOR UFH LEVEL LESS THAN 0.2; Start 07/30/19 at 16:45; Stop 07/31/19 at 06:53; Status DC Allopurinol (Zyloprim) 100 mg DAILY PO ; Start 07/31/19 at 09:00 Amlodipine Besylate (Norvasc) 5 mg DAILY PO ; Start 07/31/19 at 09:00 Aspirin (Jayant Aspirin) 325 mg DAILY PO ; Start 07/31/19 at 09:00 Atorvastatin Calcium (Lipitor) 40 mg QHS PO Last administered on 07/30/19at 20:38; Start 07/30/19 at 21:00 Vitamin D (Vitamin D3) 2,000 unit DAILY PO ; Start 07/31/19 at 09:00 Clopidogrel Bisulfate (Plavix) 75 mg DAILYWBKFT PO ; Start 07/31/19 at 08:00 Isosorbide Mononitrate (Imdur) 30 mg DAILY PO ; Start 07/31/19 at 09:00 Labetalol HCl (Trandate) 200 mg BID PO Last administered on 07/30/19at 20:40; Start 07/30/19 at 21:00 Hydralazine HCl (Apresoline) 100 mg PRN TID PRN PO HYPERTENSION; Start 07/30/19 at 21:00 Sodium Chloride 1,000 ml @ 125 mls/hr 1X ONCE IV Last administered on 07/30/19at 17:26; Start 07/30/19 at 17:15; Stop 07/31/19 at 01:14; Status DC Lidocaine (Lidoderm) 1 patch DAILY TD Last administered on 07/30/19at 17:35; Start 07/30/19 at 17:15 Miscellaneous (Lidoderm Patch Removal) 1 ea QHS MC ; Start 07/30/19 at 21:00 Acetaminophen/ Hydrocodone Bitart (Lortab 5/325) 1 tab PRN Q6HRS PRN PO MODERATE - SEVERE PAIN Last administered on 07/31/19at 05:37; Start 07/31/19 at 05:30 Docusate Sodium (Colace) 100 mg DAILY PO Last administered on 07/31/19at 06:18; Start 07/31/19 at 06:15 Polyethylene Glycol (miraLAX PACKET) 17 gm DAILY PO Last administered on 07/31/19at 06:19; Start 07/31/19 at 06:15 Bisacodyl (Dulcolax Tab) 5 mg 1X PRN PO CONSTIPATION Last administered on 07/31/19at 06:18; Start 07/31/19 at 06:15 Heparin Sodium/ Dextrose 250 ml @ 0 mls/hr CONT PRN IV PER PROTOCOL; Start 07/31/19 at 07:00 Heparin Sodium (Porcine) (Heparin Sodium) 2,900 unit PRN Q6HRS PRN IV FOR UFH LEVEL LESS THAN 0.2; Start 07/31/19 at 07:00 Heparin Sodium (Porcine) (Heparin Sodium) 1,450 unit PRN Q6HRS PRN IV FOR UFH LEVEL 0.2 - 0.29; Start 07/31/19 at 07:00 Active Scripts Active Labetalol Hcl 200 Mg Tablet 200 Mg PO BID 30 Days Isosorbide Mononitrate Er (Isosorbide Mononitrate) 30 Mg Tab.er.24h 30 Mg PO DAILY 30 Days Atorvastatin Calcium 20 Mg Tablet 40 Mg PO QHS 30 Days Can replace with #30 of 40mg tabs Clopidogrel (Clopidogrel Bisulfate) 75 Mg Tablet 75 Mg PO DAILYWBKFT 30 Days Hydralazine Hcl 100 Mg Tablet 100 Mg PO TID PRN 30 Days Reported Furosemide 20 Mg Tablet 1 Tab PO DAILY Amlodipine Besylate 5 Mg Tablet 5 Mg PO DAILY Spironolactone 25 Mg Tablet 1 Tab PO DAILY Vitamin D3 (Cholecalciferol (Vitamin D3)) 1,000 Unit Tablet 2,000 Unit PO DAILY Aspirin 325 Mg Tablet 1 Tab PO DAILY Allopurinol 300 Mg Tablet 300 Mg PO DAILY Klor-Con M20 (Potassium Chloride) 20 Meq Tab.er.prt 80 Meq PO DAILY Vitals/I & O Vital Sign - Last 24 Hours 07/30/19 07/30/19 07/30/19 07/30/19 15:29 15:29 19:25 20:40 Temp 98.2 100.2 98.2 100.2 Pulse 82 91 91 Resp 18 18 B/P (MAP) 161/82 (108) 175/86 (115) 175/86 Pulse Ox 98 97 O2 Delivery Room Air Room Air Room Air 07/30/19 07/30/19 07/31/19 07/31/19 20:51 22:27 03:01 05:37 Temp 99.2 99.7 99.2 99.7 Pulse 94 86 Resp 20 18 B/P (MAP) 179/91 (120) 155/87 (109) Pulse Ox 97 98 O2 Delivery Room Air Room Air Room Air Room Air 07/31/19 07/31/19 07:45 07:45 Temp 99.5 99.5 Pulse 85 Resp 18 B/P (MAP) 161/96 (117) Pulse Ox 92 O2 Delivery Nasal Cannula Room Air O2 Flow Rate 2.0 Intake and Output 07/30/19 07/30/19 07/31/19 15:00 23:00 07:00 Intake Total 540 ml 300 ml Output Total 300 ml 450 ml Balance 240 ml -150 ml TONIE LEWIS MD Jul 31, 2019 09:01
[2019-07-31] MEDS: CLOPIDOGREL BISULFATE 75 MG TABLET PO SCH (09:14)
[2019-07-31] MEDS: ISOSORBIDE MONONITRATE ER 30 MG TAB.ER.24H PO SCH (09:16)
[2019-07-31] MEDS: LABETALOL HCL 200 MG TABLET PO SCH ×2 (09:17→20:15)
[2019-07-31] MEDS: CHOLECALCIFEROL (VITAMIN D3) 1,000 UNIT TABLET PO SCH (09:19)
[2019-07-31] MEDS: LIDOCAINE (700MG/PATCH) PATCH. TD SCH ×2 (09:20→20:22)
[2019-07-31 11:00] VITALS: BP 152/86
--- NOTE | 2019-07-31 11:05 | RAD ---
EXAM: CT Chest without IV contrast INDICATION: Reason: left lower lobe consolidation / Spl. Instructions: / History: TECHNIQUE: Multi-detector row CT images were acquired from the thoracic inlet through the upper abdomen without the use of IV contrast. Sagittal and coronal images were acquired from the transaxial data. All CT scans performed at this facility utilize dose optimization techniques as appropriate to the exam, including the following: Automated exposure control and adjustment of the mA and/or KV according to patient size (this includes techniques or standardized protocols for targeted exams where dose is indication/reason for exam). COMPARISON: 07/30/2019 and 08/09/2018 chest x-ray. FINDINGS: The absence of IV contrast limits evaluation of soft tissue pathology. CARDIOVASCULAR: Cardiomegaly with tram track like curvilinear density along the course of the LAD coronary artery is present, suggesting a stent. MEDIASTINUM & CALLIE: No adenopathy or masses. LUNGS: There is left lower lobe atelectasis and patchy airspace opacity in the left lower lobe with air bronchograms. Volume loss in the left lung base is consequently present. PLEURAL SPACE: Small left pleural effusion. No pneumothorax. OSSEOUS & SOFT TISSUE: Unremarkable ABDOMEN: The visualized portions of the upper abdomen are unremarkable. IMPRESSION: Left lower lobe atelectasis and a small left pleural effusion with air bronchograms could reflect a pneumonic infiltrate. No definite mediastinal or hilar masses identified. Electronically signed by: Viviana Krause MD (07/31/2019 11:02 AM) [id number]
--- NOTE | 2019-07-31 11:57 | CONS ---
DATE OF CONSULTATION: REQUESTING PHYSICIAN: Hospitalist. REASON FOR CONSULTATION: Chronic kidney disease. HISTORY OF PRESENT ILLNESS: This is a 69-year-old gentleman with history of hypertension, chronic kidney disease, likely stage 3. He follows in our office. He is currently admitted in transfer from [facility] with chest pain. Considerations included non-ST segment elevation myocardial infarction and pulmonary embolus. He is also in the process of rule out for COVID-19 infection. Due to increased level of azotemia, creatinine of 2.2 mg percent, Nephrology evaluation is requested. 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 ALLERGIES: None. MEDICATIONS: Reviewed per medication list. FAMILY HISTORY: Noncontributory. SOCIAL HISTORY: , resides with . REVIEW OF SYSTEMS: Again, the patient presented with chest heaviness and also sharp chest pain. He also has had cough. No orthopnea or dyspnea on exertion. No calf tenderness. PHYSICAL EXAMINATION: GENERAL APPEARANCE: The patient seen from the doorway. He was not examined due to COVID-19 testing. LABORATORY DATA: Sodium 138, potassium 4.7, chloride 105, CO2 of 23, BUN 35, creatinine 2.1, GFR is 38. Hemoglobin 12.3, white count 11.4. IMPRESSION: 1. Chronic kidney disease stage 3 secondary to hypertensive nephrosclerosis. 2. Chest pain -- concern at this time is for pulmonary embolus per V/Q scan. RECOMMENDATIONS: 1. COVID-19 testing is underway. 2. Per Pulmonary Service as relates to probable pulmonary embolus. 3. We will follow level of azotemia with you. If he needs contrast studies, he would be at increased risk for contrast-induced nephrotoxicity. ABDULLAHI HOWARD MD DR: MICHAEL/hilario JOB#: [id number] / [id number]
[2019-07-31] MEDS: cefTRIAXone IV Push 1 GM VIAL. IVP SCH (12:44)
[2019-07-31] MEDS: DOXYCYCLINE HYCLATE 100 MG in IV DEXTROSE 5% 100ML 100 ML IV SCH ×2 (12:45→22:50)
[2019-07-31] MEDS: PANTOPRAZOLE 40 MG TABLET.DR. PO SCH (12:50)
--- NOTE | 2019-07-31 12:59 | CONS ---
DATE OF CONSULTATION: 07/31/2019 REASON FOR CONSULTATION: I was asked to see this 69-year-old gentleman for acute respiratory failure, abnormal chest x-ray. HISTORY OF PRESENT ILLNESS: He has history of smoking cigars 1 or 2 per year. He does not have any history of lung disease. He was admitted with left lower chest pain. He denies fever, chills, shortness of breath, cough, runny nose, nasal congestion, diarrhea or abdominal pain. He does have history of coronary artery disease, status post stent placement last year. He is now in COVID-19 isolation. He is on heparin drip. His pain is slightly better. He has had this pain for the past 2 days. PAST MEDICAL HISTORY: Hypertension; chronic kidney disease; diastolic and systolic CHF, ejection fraction 40%; coronary artery disease, status post stent placement. SOCIAL HISTORY: History of smoking, 1 or 2 cigars per year. ALLERGIES: No known drug allergies. MEDICATIONS: Currently, he is on Rocephin, doxycycline, Imdur, vitamin D, aspirin, heparin drip, allopurinol, Plavix. FAMILY HISTORY: Hypertension. REVIEW OF SYSTEMS: As mentioned as above, other systems otherwise negative. PHYSICAL EXAMINATION: GENERAL: This is an overweight gentleman. VITAL SIGNS: His O2 saturation on 2 liters of oxygen is 94%, respiratory rate 18, heart rate 77, blood pressure 152/86, temperature 99.5, maximum temperature 100.2. HEENT: Normocephalic, atraumatic. Pupils equal, round, reactive to light. Throat is clear. There is shallow oropharynx. Nose is clear. NECK: There is no JVD, lymphadenopathy or thyromegaly. CARDIOVASCULAR: Regular rate and rhythm. PMI is nondisplaced. CHEST: Inspection is normal. LUNGS: Left basilar crackles, dullness at the bases. There is no wheezing. ABDOMEN: Soft. Bowel sounds are good. There is no mass. EXTREMITIES: There is no edema. LYMPHATICS: There is no lymphadenopathy. NEUROLOGIC: Alert and oriented. SKIN: Chronic changes. LABORATORY DATA: I reviewed the following lab data: Chest x-ray shows left lower lobe infiltrate/atelectasis, small pleural effusion. There is air bronchogram. WBC 11.4, hemoglobin 12.3, platelet count 198. Sodium 138, potassium 4.8, chloride 105, CO2 of 23, BUN 35, creatinine 2.1. Troponin 0.215, repeat 0.225. BNP 494. Procalcitonin 1.07. A perfusion scan was done: Large perfusion defect in the left lower lobe area was noted. Interpretation somewhat limited without ventilation images. A triple match defect in the left lower lobe is considered intermediate probability. IMPRESSION: 1. Acute hypoxemic respiratory failure, suspect secondary to pneumonia, which was not able to do V/Q scan since he is in COVID-19 isolation. Only perfusion scan was done, which is intermediate, could be secondary to pneumonia. He also has non-ST elevation myocardial infarction, which likely is a demand mediated. 2. Abnormal chest x-ray and CT of the chest, suspect secondary to pneumonia. 3. Non-ST elevation myocardial infarction type 2, likely demand ischemia. 4. Coronary artery disease, status post stent with systolic and diastolic dysfunction. 5. Chronic kidney disease. 6. Overweight. Suspect obstructive sleep apnea-hypopnea syndrome. 7. Leukocytosis and low-grade fever, suspect secondary to pneumonia. PLAN AND RECOMMENDATIONS: 1. Titrate FiO2 to keep O2 saturation 94%. 2. Follow up COVID-19 results. If negative, start on bronchodilator. 3. Continue heparin drip. We will order lower extremity venous Doppler. 4. Repeat V/Q scan when COVID-19 results are back and negative. 5. Start Protonix for stress ulcer prophylaxis. 6. Agree with echocardiogram. 7. Sleep study as an outpatient. 8. Continue antibiotic. 9. Send urine for legionella and Strep pneumoniae antigen. Thank you very much for allowing me to participate in care of this very nice gentleman. The findings and recommendations were discussed with RN, RT and Dr. Good and the patient. MARTINE STAHL M.D. DR: DANIEL/hilario JOB#: [id number] / [id number]
[2019-07-31] MEDS: HEPARIN 25,000UTS/250ML PREMIX 250 ML IV PRN (13:44)
[2019-07-31 15:00] VITALS: BP 167/89
[2019-07-31] MEDS: hydrALAZINE 25 MG TABLET PO SCH ×2 (15:39→20:14)
[2019-07-31 19:15] VITALS: BP 164/89
[2019-07-31] MEDS: ATORVASTATIN CALCIUM 20 MG TABLET PO SCH (20:14)
[2019-07-31] MEDS: PATCH REMOVAL. MC SCH (20:22)
[2019-07-31 22:00] VITALS: BP 182/93
--- NOTE | 2019-07-31 22:20 | NUR ---
Pt had negative covid test. Talked with Dr. Good and he said to move patient back to CVC. No longer needs isolation. Patient to move to [facility].
--- NOTE | 2019-07-31 23:09 | PDOC ---
CARDIOLOGY PROGRESS NOTE SUBJECTIVE: No new events. Denies any chest pain. COVID negative today OBJECTIVE: Vital Signs/I&O: Vital Signs Date Time Temp Pulse Resp B/P (MAP) Pulse Ox O2 Delivery O2 Flow Rate FiO2 07/31/19 22:00 92 20 182/93 (122) 95 Nasal Cannula 2.0 07/31/19 07:45 99.5 99.5 l I & O 07/30/19 07/30/19 07/31/19 15:00 23:00 07:00 Intake Total 540 ml 300 ml Output Total 300 ml 450 ml Balance 240 ml -150 ml Objective: GEN.: No apparent distress. Alert and oriented. HEENT: Head is normocephalic, atraumatic NECK: Supple. LUNGS: Decreased breath sounds at lower lung base HEART: RRR, S1, S2 present. Peripheral pulses intact ABDOMEN: Soft, nontender. Positive bowel sounds. EXTREMITIES: Without any cyanosis. NEUROLOGIC: Normal speech, normal tone PSYCHIATRIC: Normal affect, normal mood. SKIN: No ulcerations CURRENT MEDICATIONS: Current Medications Medications (Trade) Dose Ordered Sig/Zoey Route PRN Reason Start Time Stop Time Status Last Admin Dose Admin Allopurinol (Zyloprim) 100 mg DAILY PO 07/31/19 09:00 07/31/19 09:18 Amlodipine Besylate (Norvasc) 5 mg DAILY PO 07/31/19 09:00 07/31/19 14:03 DC 07/31/19 09:19 Aspirin (Jayant Aspirin) 325 mg DAILY PO 07/31/19 09:00 07/31/19 14:03 DC 07/31/19 09:15 Vitamin D (Vitamin D3) 2,000 unit DAILY PO 07/31/19 09:00 07/31/19 09:19 Clopidogrel Bisulfate (Plavix) 75 mg DAILYWBKFT PO 07/31/19 08:00 07/31/19 09:14 Isosorbide Mononitrate (Imdur) 30 mg DAILY PO 07/31/19 09:00 07/31/19 09:16 Acetaminophen/ Hydrocodone Bitart (Lortab 5/325) 1 tab PRN Q6HRS PRN PO MODERATE - SEVERE PAIN 07/31/19 05:30 07/31/19 17:19 Docusate Sodium (Colace) 100 mg DAILY PO 07/31/19 06:15 07/31/19 09:16 Polyethylene Glycol (miraLAX PACKET) 17 gm DAILY PO 07/31/19 06:15 07/31/19 09:20 Bisacodyl (Dulcolax Tab) 5 mg 1X PRN PO CONSTIPATION 07/31/19 06:15 07/31/19 06:18 Heparin Sodium/ Dextrose 250 ml @ 0 mls/hr CONT PRN IV PER PROTOCOL 07/31/19 07:00 07/31/19 13:44 Ceftriaxone Sodium (Rocephin) 1 gm Q24H IVP 07/31/19 12:00 07/31/19 12:44 Doxycycline Hyclate 100 mg/ Dextrose 100 ml @ 50 mls/hr Q12HR IV 07/31/19 12:00 07/31/19 22:50 Pantoprazole Sodium (Protonix) 40 mg DAILYAC PO 07/31/19 12:00 07/31/19 12:50 Hydralazine HCl (Apresoline) 25 mg BID PO 07/31/19 14:30 07/31/19 20:14 DIAGNOSTIC TESTING: Labs: Laboratory Tests 07/31/19 06:50 Laboratory Tests Test 07/30/19 23:45 07/31/19 06:50 07/31/19 13:15 Heparin Anti-Xa Act, Unfractionated 0.20 IU/mL (0.30-0.70) L 0.41 IU/mL (0.30-0.70) 0.54 IU/mL (0.30-0.70) White Blood Count 11.4 x10^3/uL (4.0-11.0) H Red Blood Count 4.60 x10^6/uL (4.30-5.70) Hemoglobin 12.3 g/dL (13.0-17.5) L Hematocrit 37.4 % (39.0-53.0) L Mean Corpuscular Volume 81 fL (79-100) Mean Corpuscular Hemoglobin 27 pg (25-35) Mean Corpuscular Hemoglobin Concent 33 g/dL (31-37) Red Cell Distribution Width 17.2 % (11.5-14.5) H Platelet Count 198 x10^3/uL (140-400) Sodium Level 138 mmol/L (136-145) Potassium Level 4.7 mmol/L (3.5-5.1) Chloride Level 105 mmol/L (98-107) Carbon Dioxide Level 23 mmol/L (21-32) Anion Gap 10 (6-14) Blood Urea Nitrogen 35 mg/dL (8-26) H Creatinine 2.1 mg/dL (0.7-1.3) H Estimated GFR (Cockcroft-Gault) 38.2 BUN/Creatinine Ratio 17 (6-20) Glucose Level 114 mg/dL (70-99) H Calcium Level 8.7 mg/dL (8.5-10.1) Total Bilirubin 1.3 mg/dL (0.2-1.0) H Aspartate Amino Transf (AST/SGOT) 30 U/L (15-37) Alkaline Phosphatase 182 U/L (46-116) H Total Protein 7.3 g/dL (6.4-8.2) Albumin 3.0 g/dL (3.4-5.0) L Albumin/Globulin Ratio 0.7 (1.0-1.7) L Procalcitonin 1.07 ng/mL (0.00-0.10) H ASSESSMENT: 1. CAD 2. Systolic and diastolic HF, chronic. 3. CKD 4. PNA PLAN: 1. Continue amlodipine, asa, plavix, atorvastatin. 2. Await final decision from pulmonary regarding anticoagulation. Would only do dual therapy 3. Supportive care. Thanks Justicifation of Admission Dx: Justifications for Admission: Justification of Admission Dx: Yes [place]: Acute NSTEMI PORFIRIO STUART MD Jul 31, 2019 23:09
--- NOTE | 2019-07-31 23:20 | NUR ---
REPORT CALLED TO RITA INGRAM, PT ALERT AND ORIENTED AND UPDATED ON PLAN OF CARE. PT TRANSFERRED TO ROOM 246, ALL PERSONAL BELONGINGS SENT WITH PT.
--- NOTE | 2019-07-31 23:30 | NUR ---
Report received from Alaina RN, pt alert and oriented transferred via bed. Oriented to room staff and poc. Call light in place will cont to monitor pt status and safety.
[2019-08-01 03:28] VITALS: BP 139/90
[2019-08-01] MEDS: HEPARIN 25,000UTS/250ML PREMIX 250 ML IV PRN (04:23)
[2019-08-01 05:17] LABS: HEMATOCRIT 33.8 % (39.0-53.0); HEMOGLOBIN 11.5 g/dL (13.0-17.5); RED BLOOD COUNT 4.16 x10^6/uL (4.30-5.70); RED CELL DISTRIBUTION WIDTH 17.1 % (11.5-14.5); WHITE BLOOD COUNT 9.4 x10^3/uL (4.0-11.0)
[2019-08-01 05:57] LABS: ALBUMIN 2.7 g/dL (3.4-5.0); ALBUMIN/GLOBULIN RATIO 0.8 (1.0-1.7); CALCIUM 8.3 mg/dL (8.5-10.1); CREATININE 2.1 mg/dL (0.7-1.3); GFR 38.2; POTASSIUM 4.6 mmol/L (3.5-5.1); TOTAL BILIRUBIN 1.1 mg/dL (0.2-1.0)
[2019-08-01 07:00] VITALS: BP 177/98
[2019-08-01] MEDS: CHOLECALCIFEROL (VITAMIN D3) 1,000 UNIT TABLET PO SCH (08:08)
[2019-08-01] MEDS: CLOPIDOGREL BISULFATE 75 MG TABLET PO SCH (08:08)
[2019-08-01] MEDS: PANTOPRAZOLE 40 MG TABLET.DR. PO SCH (08:08)
[2019-08-01] MEDS: ASPIRIN CHEWABLE 81 MG TABLET. PO SCH (08:09)
[2019-08-01] MEDS: DOCUSATE SODIUM 100 MG CAPSULE. PO SCH (08:09)
[2019-08-01] MEDS: LABETALOL HCL 200 MG TABLET PO SCH ×2 (08:09→20:13)
[2019-08-01] MEDS: amLODIPine BESYLATE 10 MG TABLET PO SCH (08:10)
[2019-08-01] MEDS: hydrALAZINE 25 MG TABLET PO SCH ×2 (08:10→20:13)
[2019-08-01] MEDS: LIDOCAINE (700MG/PATCH) PATCH. TD SCH (08:11)
[2019-08-01] MEDS: ISOSORBIDE MONONITRATE ER 30 MG TAB.ER.24H PO SCH (08:11)
[2019-08-01] MEDS: POLYETHYLENE GLYCOL 3350 17 GM PACKET. PO SCH (08:11)
[2019-08-01] MEDS: DOXYCYCLINE HYCLATE 100 MG in IV DEXTROSE 5% 100ML 100 ML IV SCH ×2 (08:18→20:14)
[2019-08-01] MEDS ORDERED: ALLOPURINOL 100 MG TABLET. PO SCH (09:00)
[2019-08-01] MEDS: ALLOPURINOL 100 MG TABLET. PO SCH (09:00)
--- NOTE | 2019-08-01 10:04 | PDOC ---
CARDIOLOGY PROGRESS NOTE SUBJECTIVE: No acute events overnight. Denies any current chest pain. Reports that he is feeling better. He has been ambulating to the bathroom with mild difficulty. Reports eating and drinking well. OBJECTIVE: Vital Signs/I&O: Vital Signs Date Time Temp Pulse Resp B/P (MAP) Pulse Ox O2 Delivery O2 Flow Rate FiO2 08/01/19 08:11 86 177/98 08/01/19 07:00 98.8 96 Nasal Cannula 2.0 98.8 07/31/19 22:00 20 I & O 07/31/19 07/31/19 08/01/19 15:00 23:00 07:00 Intake Total 200 ml Output Total 350 ml 550 ml 250 ml Balance -350 ml -550 ml -50 ml Objective: In general he appears to be in mild distress from respiratory issues Head and neck exam is unremarkable Cardiac regular rate and rhythm Lungs with decreased breath sounds bilaterally Abdomen is soft nontender nondistended Extremities no clubbing sinus or edema neurologic no focal deficits 2+ radial pulses. CURRENT MEDICATIONS: Amlodipine, aspirin, atorvastatin, hydralazine, Imdur, heparin drip, Plavix DIAGNOSTIC TESTING: CT scan of the chest, chest x-ray, ventilation perfusion studies reviewed Labs reviewed Labs: Laboratory Tests 08/01/19 05:00 Laboratory Tests Test 07/31/19 13:15 08/01/19 05:00 Heparin Anti-Xa Act, Unfractionated 0.54 IU/mL (0.30-0.70) 0.46 IU/mL (0.30-0.70) White Blood Count 9.4 x10^3/uL (4.0-11.0) Red Blood Count 4.16 x10^6/uL (4.30-5.70) L Hemoglobin 11.5 g/dL (13.0-17.5) L Hematocrit 33.8 % (39.0-53.0) L Mean Corpuscular Volume 81 fL (79-100) Mean Corpuscular Hemoglobin 28 pg (25-35) Mean Corpuscular Hemoglobin Concent 34 g/dL (31-37) Red Cell Distribution Width 17.1 % (11.5-14.5) H Platelet Count 189 x10^3/uL (140-400) Sodium Level 139 mmol/L (136-145) Potassium Level 4.6 mmol/L (3.5-5.1) Chloride Level 105 mmol/L (98-107) Carbon Dioxide Level 23 mmol/L (21-32) Anion Gap 11 (6-14) Blood Urea Nitrogen 39 mg/dL (8-26) H Creatinine 2.1 mg/dL (0.7-1.3) H Estimated GFR (Cockcroft-Gault) 38.2 BUN/Creatinine Ratio 19 (6-20) Glucose Level 114 mg/dL (70-99) H Calcium Level 8.3 mg/dL (8.5-10.1) L Total Bilirubin 1.1 mg/dL (0.2-1.0) H Aspartate Amino Transf (AST/SGOT) 37 U/L (15-37) Alkaline Phosphatase 192 U/L (46-116) H Total Protein 6.0 g/dL (6.4-8.2) L Albumin 2.7 g/dL (3.4-5.0) L Albumin/Globulin Ratio 0.8 (1.0-1.7) L ASSESSMENT: 1. Ischemic cardiomyopathy status post LAD PCI, remotely 2. Acute dyspnea likely secondary to left lower lobe pneumonia 3. Possible pulmonary embolus but less likely based on current evaluation, pulmonary evaluation pending 4. Hypertension 5. Dyslipidemia PLAN: 1. Continue current medical therapy. We will defer heparin therapy to the primary care physician and pulmonary team. I think it is less likely that this is pulmonary embolus. Await DVT studies 2. We will obtain a routine echocardiogram. 3. Supportive care from a cardiac standpoint. We will follow along closely. Justicifation of Admission Dx: Justifications for Admission: Justification of Admission Dx: Yes HI: Acute NSTEMI PORFIRIO STUART MD Aug 01, 2019 10:04
--- NOTE | 2019-08-01 10:37 | PDOC ---
PULMONARY PROGRESS NOTES Subjective denies sob, cough, cp resolved Vitals Vital Signs Date Time Temp Pulse Resp B/P (MAP) Pulse Ox O2 Delivery O2 Flow Rate FiO2 08/01/19 08:11 86 177/98 08/01/19 08:00 Room Air 2.0 08/01/19 07:00 98.8 96 98.8 07/31/19 22:00 20 ROS: No Nausea, No Chest Pain General: Alert, Oriented X4 HEENT: Other (nc at perrl nose throat clear) Lungs: Crackles Cardiovascular: S1, S2 Abdomen: Soft, Non-tender Neuro Exam: Alert Extremities: Other (edema) Skin: Warm Labs Laboratory Tests Test 07/30/19 17:40 07/30/19 23:45 07/31/19 06:50 07/31/19 13:15 Coronavirus (COVID-19)(PCR) Not detected (NOT DETECT.) Heparin Anti-Xa Act, Unfractionated 0.20 IU/mL (0.30-0.70) 0.41 IU/mL (0.30-0.70) 0.54 IU/mL (0.30-0.70) Troponin I Quantitative 0.215 ng/mL (0.000-0.055) 0.225 ng/mL (0.000-0.055) White Blood Count 11.4 x10^3/uL (4.0-11.0) Red Blood Count 4.60 x10^6/uL (4.30-5.70) Hemoglobin 12.3 g/dL (13.0-17.5) Hematocrit 37.4 % (39.0-53.0) Mean Corpuscular Volume 81 fL (79-100) Mean Corpuscular Hemoglobin 27 pg (25-35) Mean Corpuscular Hemoglobin Concent 33 g/dL (31-37) Red Cell Distribution Width 17.2 % (11.5-14.5) Platelet Count 198 x10^3/uL (140-400) Sodium Level 138 mmol/L (136-145) Potassium Level 4.7 mmol/L (3.5-5.1) Chloride Level 105 mmol/L (98-107) Carbon Dioxide Level 23 mmol/L (21-32) Anion Gap 10 (6-14) Blood Urea Nitrogen 35 mg/dL (8-26) Creatinine 2.1 mg/dL (0.7-1.3) Estimated GFR (Cockcroft-Gault) 38.2 BUN/Creatinine Ratio 17 (6-20) Glucose Level 114 mg/dL (70-99) Calcium Level 8.7 mg/dL (8.5-10.1) Total Bilirubin 1.3 mg/dL (0.2-1.0) Aspartate Amino Transf (AST/SGOT) 30 U/L (15-37) Alanine Aminotransferase (ALT/SGPT) 42 U/L (16-63) Alkaline Phosphatase 182 U/L (46-116) ER-Zjt-[id number]-Type Natriuretic Peptide 494 pg/mL (0-124) Total Protein 7.3 g/dL (6.4-8.2) Albumin 3.0 g/dL (3.4-5.0) Albumin/Globulin Ratio 0.7 (1.0-1.7) Procalcitonin 1.07 ng/mL (0.00-0.10) Test 08/01/19 05:00 White Blood Count 9.4 x10^3/uL (4.0-11.0) Red Blood Count 4.16 x10^6/uL (4.30-5.70) Hemoglobin 11.5 g/dL (13.0-17.5) Hematocrit 33.8 % (39.0-53.0) Mean Corpuscular Volume 81 fL (79-100) Mean Corpuscular Hemoglobin 28 pg (25-35) Mean Corpuscular Hemoglobin Concent 34 g/dL (31-37) Red Cell Distribution Width 17.1 % (11.5-14.5) Platelet Count 189 x10^3/uL (140-400) Heparin Anti-Xa Act, Unfractionated 0.46 IU/mL (0.30-0.70) Sodium Level 139 mmol/L (136-145) Potassium Level 4.6 mmol/L (3.5-5.1) Chloride Level 105 mmol/L (98-107) Carbon Dioxide Level 23 mmol/L (21-32) Anion Gap 11 (6-14) Blood Urea Nitrogen 39 mg/dL (8-26) Creatinine 2.1 mg/dL (0.7-1.3) Estimated GFR (Cockcroft-Gault) 38.2 BUN/Creatinine Ratio 19 (6-20) Glucose Level 114 mg/dL (70-99) Calcium Level 8.3 mg/dL (8.5-10.1) Total Bilirubin 1.1 mg/dL (0.2-1.0) Aspartate Amino Transf (AST/SGOT) 37 U/L (15-37) Alanine Aminotransferase (ALT/SGPT) 51 U/L (16-63) Alkaline Phosphatase 192 U/L (46-116) Troponin I Quantitative 0.289 ng/mL (0.000-0.055) Total Protein 6.0 g/dL (6.4-8.2) Albumin 2.7 g/dL (3.4-5.0) Albumin/Globulin Ratio 0.8 (1.0-1.7) Laboratory Tests Test 07/31/19 13:15 08/01/19 05:00 Heparin Anti-Xa Act, Unfractionated 0.54 IU/mL (0.30-0.70) 0.46 IU/mL (0.30-0.70) White Blood Count 9.4 x10^3/uL (4.0-11.0) Red Blood Count 4.16 x10^6/uL (4.30-5.70) Hemoglobin 11.5 g/dL (13.0-17.5) Hematocrit 33.8 % (39.0-53.0) Mean Corpuscular Volume 81 fL (79-100) Mean Corpuscular Hemoglobin 28 pg (25-35) Mean Corpuscular Hemoglobin Concent 34 g/dL (31-37) Red Cell Distribution Width 17.1 % (11.5-14.5) Platelet Count 189 x10^3/uL (140-400) Sodium Level 139 mmol/L (136-145) Potassium Level 4.6 mmol/L (3.5-5.1) Chloride Level 105 mmol/L (98-107) Carbon Dioxide Level 23 mmol/L (21-32) Anion Gap 11 (6-14) Blood Urea Nitrogen 39 mg/dL (8-26) Creatinine 2.1 mg/dL (0.7-1.3) Estimated GFR (Cockcroft-Gault) 38.2 BUN/Creatinine Ratio 19 (-20) Glucose Level 114 mg/dL (70-99) Calcium Level 8.3 mg/dL (8.5-10.1) Total Bilirubin 1.1 mg/dL (0.2-1.0) Aspartate Amino Transf (AST/SGOT) 37 U/L (15-37) Alanine Aminotransferase (ALT/SGPT) 51 U/L (16-63) Alkaline Phosphatase 192 U/L (46-116) Troponin I Quantitative 0.289 ng/mL (0.000-0.055) Total Protein 6.0 g/dL (6.4-8.2) Albumin 2.7 g/dL (3.4-5.0) Albumin/Globulin Ratio 0.8 (1.0-1.7) Medications Active Scripts Medications Dose Route/Sig Max Daily Dose Days Date Category Dose Instructions Furosemide 20 Mg Tablet 1 Tab PO DAILY 07/30/19 Reported Amlodipine Besylate 5 Mg Tablet 5 Mg PO DAILY 07/30/19 Reported Spironolactone 25 Mg Tablet 1 Tab PO DAILY 07/30/19 Reported Labetalol Hcl 200 Mg Tablet 200 Mg PO BID 30 08/11/18 Rx Isosorbide Mononitrate Er (Isosorbide Mononitrate) 30 Mg Tab.er.24h 30 Mg PO DAILY 30 08/11/18 Rx Atorvastatin Calcium 20 Mg Tablet 40 Mg PO QHS 30 08/11/18 Rx Can replace with #30 of 40mg tabs Clopidogrel (Clopidogrel Bisulfate) 75 Mg Tablet 75 Mg PO DAILYWBKFT 30 08/11/18 Rx Hydralazine Hcl 100 Mg Tablet 100 Mg PO TID PRN 30 08/11/18 Rx Vitamin D3 (Cholecalciferol (Vitamin D3)) 1,000 Unit Tablet 2,000 Unit PO DAILY 08/09/18 Reported Aspirin 325 Mg Tablet 1 Tab PO DAILY 08/09/18 Reported Allopurinol 300 Mg Tablet 300 Mg PO DAILY 08/09/18 Reported Klor-Con M20 (Potassium Chloride) 20 Meq Tab.er.prt 80 Meq PO DAILY 08/09/18 Reported Impression . IMPRESSION: 1. Acute hypoxemic respiratory failure, suspect secondary to pneumonia, was not able to do V/Q scan was in [facility]-19 isolation. Only perfusion scan was done, which is intermediate, could be secondary to pneumonia. He also has non-ST elevation myocardial infarction, which likely is a demand mediated. 2. Abnormal chest x-ray and CT of the chest, suspect secondary to pneumonia. 3. Non-ST elevation myocardial infarction type 2, likely demand ischemia. 4. Coronary artery disease, status post stent with systolic and diastolic dysfunction. 5. Chronic kidney disease. 6. Overweight. Suspect obstructive sleep apnea-hypopnea syndrome. 7. Leukocytosis and low-grade fever, suspect secondary to pneumonia. Plan . PLAN AND RECOMMENDATIONS: 1. Titrate FiO2 to keep O2 saturation 94%. 2. COVID-19 neg, start bronchodilator. 3. Continue heparin drip. We will order lower extremity venous Doppler. 4. depends on le venous doppler result, may need Repeat V/Q scan, COVID-19 neg. 5. Protonix for stress ulcer prophylaxis. 6. Agree with echocardiogram. 7. Sleep study as an outpatient. 8. Continue antibiotic. 9. Send urine for legionella and Strep pneumoniae antigen. deb w pt, rn MARTINE STAHL MD Aug 01, 2019 10:37
[2019-08-01 11:00] VITALS: BP 159/98
--- NOTE | 2019-08-01 11:55 | PDOC ---
PROGRESS NOTES Chief Complaint Chief Complaint NSTEMI - possibly demand ischemia with ALE, will trend troponins, cont meds. Hold diuretics. Heparin GTT. Consult cardiology ALE CKD - creat 2.2. Will give IVF for vasomotor nephropathy. Consult nephrology Chest pain - elevated troponin and d-dimer. Will start heparin gtt., VQ scan to rule out PE on left. Cardiology consulted Dyslipidemia - cont on statin Hypertension - cont meds, hold diuretics for ALE Chronic CHF, diastolic. Does not appear acute. Will check BNP Unintentional weight loss - 24# weight loss in the past 3-4 months, thinks ma inly due to dietary change and stopping soda Abnormal CXR - will consult pulmonology. Check procalcitonin, will treat for community-acquired pneumonia. Given his cardiac disease he is high risk for likely gram-negative pneumonia.. Intermediate for PE on VQ History of Present Illness History of Present Illness Mr Roldan is a 68 yo M w/ PMhx CKD, HLD, HTN, CAD s/p LAD stent 2018, dCHF who was initially seen at [facility] ED for left-sided chest heaviness associated with shortness of breath worse with exertion and transfer to [facility] for elevated troponin level and d-dimer. He notes left lateral chest pain which is been ongoing for the past 2 days. Described as an intermittent stabbing sensation, does not radiate, was worse with one cough, but is not reproducible with pressure. Nothing exacerbates or alleviates it. 6-8 out of 10 at the worst. Denies any fever or chills. No increased leg swelling or calf tenderness. No orthopnea or BONDS. Symptoms are different than his prior NSTEMI 07/2018. 24# weight loss in the past 3-4 months, thinks mainly due to dietary change and stopping soda. He notes he had follow-up with Dr. Joseph for his CKD 6 months ago, and he thinks his creatinine at that time was "normal". Labs NA 138, K4.8, BUN 35, CR 2.2, glucose 127, magnesium 2.6, bilirubin 1.3, INR 1, albumin 3, d-dimer 4.67, troponin 0 0.257, WBC 9.7, Hb 11.5, platelets 166. EKG: NSR at 86bpm, NO ST elevation, nonspecific t wave inversion I, aVL, and V6, QRS 90ms, QT/QTc 376/453ms CXR with L>R lung base airspace opacities and trace left pleural effusion or pleural thickening. Called from [place] for transfer to [facility] for further treatment. 07/31 ECHO pending LE , he feels improved, may DC soon Vitals Vitals Vital Signs Date Time Temp Pulse Resp B/P (MAP) Pulse Ox O2 Delivery O2 Flow Rate FiO2 08/01/19 11:00 98.7 85 159/98 (118) 94 Nasal Cannula 2.0 98.7 07/31/19 22:00 20 Physical Exam General: Alert, Oriented X3, Cooperative, mild distress Abdomen: Normal bowel sounds, Soft, No tenderness, No hepatosplenomegaly, No masses Extremities: No clubbing, No cyanosis, No edema, Normal pulses, No tenderness/swelling Skin: No rashes, No breakdown, No significant lesion Labs LABS Laboratory Tests Test 07/31/19 13:15 08/01/19 05:00 Heparin Anti-Xa Act, Unfractionated 0.54 IU/mL (0.30-0.70) 0.46 IU/mL (0.30-0.70) White Blood Count 9.4 x10^3/uL (4.0-11.0) Red Blood Count 4.16 x10^6/uL (4.30-5.70) Hemoglobin 11.5 g/dL (13.0-17.5) Hematocrit 33.8 % (39.0-53.0) Mean Corpuscular Volume 81 fL (79-100) Mean Corpuscular Hemoglobin 28 pg (25-35) Mean Corpuscular Hemoglobin Concent 34 g/dL (31-37) Red Cell Distribution Width 17.1 % (11.5-14.5) Platelet Count 189 x10^3/uL (140-400) Sodium Level 139 mmol/L (136-145) Potassium Level 4.6 mmol/L (3.5-5.1) Chloride Level 105 mmol/L (98-107) Carbon Dioxide Level 23 mmol/L (21-32) Anion Gap 11 (6-14) Blood Urea Nitrogen 39 mg/dL (8-26) Creatinine 2.1 mg/dL (0.7-1.3) Estimated GFR (Cockcroft-Gault) 38.2 BUN/Creatinine Ratio 19 (6-20) Glucose Level 114 mg/dL (70-99) Calcium Level 8.3 mg/dL (8.5-10.1) Total Bilirubin 1.1 mg/dL (0.2-1.0) Aspartate Amino Transf (AST/SGOT) 37 U/L (15-37) Alanine Aminotransferase (ALT/SGPT) 51 U/L (16-63) Alkaline Phosphatase 192 U/L (46-116) Troponin I Quantitative 0.289 ng/mL (0.000-0.055) Total Protein 6.0 g/dL (6.4-8.2) Albumin 2.7 g/dL (3.4-5.0) Albumin/Globulin Ratio 0.8 (1.0-1.7) Comment Review of Relevant I have reviewed the following items ramiro (where applicable) has been applied. Labs Laboratory Tests Test 07/30/19 17:40 07/30/19 23:45 07/31/19 06:50 07/31/19 13:15 Coronavirus (COVID-19)(PCR) Not detected (NOT DETECT.) Heparin Anti-Xa Act, Unfractionated 0.20 IU/mL (0.30-0.70) 0.41 IU/mL (0.30-0.70) 0.54 IU/mL (0.30-0.70) Troponin I Quantitative 0.215 ng/mL (0.000-0.055) 0.225 ng/mL (0.000-0.055) White Blood Count 11.4 x10^3/uL (4.0-11.0) Red Blood Count 4.60 x10^6/uL (4.30-5.70) Hemoglobin 12.3 g/dL (13.0-17.5) Hematocrit 37.4 % (39.0-53.0) Mean Corpuscular Volume 81 fL (79-100) Mean Corpuscular Hemoglobin 27 pg (25-35) Mean Corpuscular Hemoglobin Concent 33 g/dL (31-37) Red Cell Distribution Width 17.2 % (11.5-14.5) Platelet Count 198 x10^3/uL (140-400) Sodium Level 138 mmol/L (136-145) Potassium Level 4.7 mmol/L (3.5-5.1) Chloride Level 105 mmol/L (98-107) Carbon Dioxide Level 23 mmol/L (21-32) Anion Gap 10 (6-14) Blood Urea Nitrogen 35 mg/dL (8-26) Creatinine 2.1 mg/dL (0.7-1.3) Estimated GFR (Cockcroft-Gault) 38.2 BUN/Creatinine Ratio 17 (6-20) Glucose Level 114 mg/dL (70-99) Calcium Level 8.7 mg/dL (8.5-10.1) Total Bilirubin 1.3 mg/dL (0.2-1.0) Aspartate Amino Transf (AST/SGOT) 30 U/L (15-37) Alanine Aminotransferase (ALT/SGPT) 42 U/L (16-63) Alkaline Phosphatase 182 U/L (46-116) FL-Jfn-[id number]-Type Natriuretic Peptide 494 pg/mL (0-124) Total Protein 7.3 g/dL (6.4-8.2) Albumin 3.0 g/dL (3.4-5.0) Albumin/Globulin Ratio 0.7 (1.0-1.7) Procalcitonin 1.07 ng/mL (0.00-0.10) Test 08/01/19 05:00 White Blood Count 9.4 x10^3/uL (4.0-11.0) Red Blood Count 4.16 x10^6/uL (4.30-5.70) Hemoglobin 11.5 g/dL (13.0-17.5) Hematocrit 33.8 % (39.0-53.0) Mean Corpuscular Volume 81 fL (79-100) Mean Corpuscular Hemoglobin 28 pg (25-35) Mean Corpuscular Hemoglobin Concent 34 g/dL (31-37) Red Cell Distribution Width 17.1 % (11.5-14.5) Platelet Count 189 x10^3/uL (140-400) Heparin Anti-Xa Act, Unfractionated 0.46 IU/mL (0.30-0.70) Sodium Level 139 mmol/L (136-145) Potassium Level 4.6 mmol/L (3.5-5.1) Chloride Level 105 mmol/L (98-107) Carbon Dioxide Level 23 mmol/L (21-32) Anion Gap 11 (6-14) Blood Urea Nitrogen 39 mg/dL (8-26) Creatinine 2.1 mg/dL (0.7-1.3) Estimated GFR (Cockcroft-Gault) 38.2 BUN/Creatinine Ratio 19 (6-20) Glucose Level 114 mg/dL (70-99) Calcium Level 8.3 mg/dL (8.5-10.1) Total Bilirubin 1.1 mg/dL (0.2-1.0) Aspartate Amino Transf (AST/SGOT) 37 U/L (15-37) Alanine Aminotransferase (ALT/SGPT) 51 U/L (16-63) Alkaline Phosphatase 192 U/L (46-116) Troponin I Quantitative 0.289 ng/mL (0.000-0.055) Total Protein 6.0 g/dL (6.4-8.2) Albumin 2.7 g/dL (3.4-5.0) Albumin/Globulin Ratio 0.8 (1.0-1.7) Laboratory Tests Test 07/31/19 13:15 08/01/19 05:00 Heparin Anti-Xa Act, Unfractionated 0.54 IU/mL (0.30-0.70) 0.46 IU/mL (0.30-0.70) White Blood Count 9.4 x10^3/uL (4.0-11.0) Red Blood Count 4.16 x10^6/uL (4.30-5.70) Hemoglobin 11.5 g/dL (13.0-17.5) Hematocrit 33.8 % (39.0-53.0) Mean Corpuscular Volume 81 fL (79-100) Mean Corpuscular Hemoglobin 28 pg (25-35) Mean Corpuscular Hemoglobin Concent 34 g/dL (31-37) Red Cell Distribution Width 17.1 % (11.5-14.5) Platelet Count 189 x10^3/uL (140-400) Sodium Level 139 mmol/L (136-145) Potassium Level 4.6 mmol/L (3.5-5.1) Chloride Level 105 mmol/L (98-107) Carbon Dioxide Level 23 mmol/L (21-32) Anion Gap 11 (6-14) Blood Urea Nitrogen 39 mg/dL (8-26) Creatinine 2.1 mg/dL (0.7-1.3) Estimated GFR (Cockcroft-Gault) 38.2 BUN/Creatinine Ratio 19 (6-20) Glucose Level 114 mg/dL (70-99) Calcium Level 8.3 mg/dL (8.5-10.1) Total Bilirubin 1.1 mg/dL (0.2-1.0) Aspartate Amino Transf (AST/SGOT) 37 U/L (15-37) Alanine Aminotransferase (ALT/SGPT) 51 U/L (16-63) Alkaline Phosphatase 192 U/L (46-116) Troponin I Quantitative 0.289 ng/mL (0.000-0.055) Total Protein 6.0 g/dL (6.4-8.2) Albumin 2.7 g/dL (3.4-5.0) Albumin/Globulin Ratio 0.8 (1.0-1.7) Medications Current Medications Ondansetron HCl (Zofran) 4 mg PRN Q4HRS PRN IV NAUSEA/VOMITING; Start 07/30/19 at 16:30 Acetaminophen (Tylenol) 650 mg PRN Q4HRS PRN PO TEMP OVER 100.4F OR MILD PAIN; Start 07/30/19 at 16:30 Albuterol Sulfate (Ventolin Neb Soln) 2.5 mg PRN Q4HRS PRN NEB SHORTNESS OF BREATH; Start 07/30/19 at 16:30 Guaifenesin (Robitussin) 200 mg PRN Q4HRS PRN PO COUGH; Start 07/30/19 at 16:30 Heparin Sodium/ Dextrose 250 ml @ 10 mls/hr CONT PRN IV PER PROTOCOL Last administered on 07/30/19at 17:30; Start 07/30/19 at 16:45; Stop 07/31/19 at 06:53; Status DC Heparin Sodium (Porcine) (Heparin Sodium) 2,400 unit PRN Q6HRS PRN IV FOR UFH LEVEL LESS THAN 0.2; Start 07/30/19 at 16:45; Stop 07/31/19 at 06:53; Status DC Allopurinol (Zyloprim) 100 mg DAILY PO Last administered on 07/31/19at 09:18; Start 07/31/19 at 09:00; Stop 08/01/19 at 08:32; Status DC Amlodipine Besylate (Norvasc) 5 mg DAILY PO Last administered on 07/31/19 09:19; Start 07/31/19 at 09:00; Stop 07/31/19 at 14:03; Status DC Aspirin (Jayant Aspirin) 325 mg DAILY PO Last administered on 07/31/19at 09:15; Start 07/31/19 at 09:00; Stop 07/31/19 at 14:03; Status DC Atorvastatin Calcium (Lipitor) 40 mg QHS PO Last administered on 07/31/19at 20:14; Start 07/30/19 at 21:00 Vitamin D (Vitamin D3) 2,000 unit DAILY PO Last administered on 08/01/19at 08:08; Start 07/31/19 at 09:00 Clopidogrel Bisulfate (Plavix) 75 mg DAILYWBKFT PO Last administered on 08/01/19at 08:08; Start 07/31/19 at 08:00 Isosorbide Mononitrate (Imdur) 30 mg DAILY PO Last administered on 08/01/19at 08:11; Start 07/31/19 at 09:00 Labetalol HCl (Trandate) 200 mg BID PO Last administered on 08/01/19at 08:09; Start 07/30/19 at 21:00 Hydralazine HCl (Apresoline) 100 mg PRN TID PRN PO HYPERTENSION; Start 07/30/19 at 21:00; Stop 07/31/19 at 14:03; Status DC Sodium Chloride 1,000 ml @ 125 mls/hr 1X ONCE IV Last administered on 07/30/19at 17:26; Start 07/30/19 at 17:15; Stop 07/31/19 at 01:14; Status DC Lidocaine (Lidoderm) 1 patch DAILY TD Last administered on 08/01/19at 08:11; Start 07/30/19 at 17:15 Miscellaneous (Lidoderm Patch Removal) 1 ea QHS MC Last administered on 07/31/19at 20:22; Start 07/30/19 at 21:00 Acetaminophen/ Hydrocodone Bitart (Lortab 5/325) 1 tab PRN Q6HRS PRN PO MODERATE - SEVERE PAIN Last administered on 07/31/19at 17:19; Start 07/31/19 at 05:30 Docusate Sodium (Colace) 100 mg DAILY PO Last administered on 08/01/19at 08:09; Start 07/31/19 at 06:15 Polyethylene Glycol (miraLAX PACKET) 17 gm DAILY PO Last administered on 08/01/19at 08:11; Start 07/31/19 at 06:15 Bisacodyl (Dulcolax Tab) 5 mg 1X PRN PO CONSTIPATION Last administered on 07/31/19at 06:18; Start 07/31/19 at 06:15 Heparin Sodium/ Dextrose 250 ml @ 0 mls/hr CONT PRN IV PER PROTOCOL Last administered on 08/01/19at 04:23; Start 07/31/19 at 07:00 Heparin Sodium (Porcine) (Heparin Sodium) 2,900 unit PRN Q6HRS PRN IV FOR UFH LEVEL LESS THAN 0.2; Start 07/31/19 at 07:00 Heparin Sodium (Porcine) (Heparin Sodium) 1,450 unit PRN Q6HRS PRN IV FOR UFH LEVEL 0.2 - 0.29; Start 07/31/19 at 07:00 Ceftriaxone Sodium (Rocephin) 1 gm Q24H IVP Last administered on 07/31/19at 12:44; Start 07/31/19 at 12:00 Doxycycline Hyclate 100 mg/ Dextrose 100 ml @ 50 mls/hr Q12HR IV Last administered on 08/01/19at 08:18; Start 07/31/19 at 12:00 Pantoprazole Sodium (Protonix) 40 mg DAILYAC PO Last administered on 08/01/19at 08:08; Start 07/31/19 at 12:00 Amlodipine Besylate (Norvasc) 10 mg DAILY PO Last administered on 08/01/19at 08:10; Start 08/01/19 at 09:00 Aspirin (Aspirin Chewable) 81 mg DAILYWBKFT PO Last administered on 08/01/19at 08:09; Start 08/01/19 at 08:00 Hydralazine HCl (Apresoline) 25 mg BID PO Last administered on 08/01/19at 08:10; Start 07/31/19 at 14:30 Allopurinol (Zyloprim) 100 mg DAILY PO ; Start 08/01/19 at 09:00; Stop 08/01/19 at 08:37; Status DC Allopurinol (Zyloprim) 100 mg DAILY PO ; Start 08/01/19 at 09:00 Active Scripts Active Labetalol Hcl 200 Mg Tablet 200 Mg PO BID 30 Days Isosorbide Mononitrate Er (Isosorbide Mononitrate) 30 Mg Tab.er.24h 30 Mg PO DAILY 30 Days Atorvastatin Calcium 20 Mg Tablet 40 Mg PO QHS 30 Days Can replace with #30 of 40mg tabs Clopidogrel (Clopidogrel Bisulfate) 75 Mg Tablet 75 Mg PO DAILYWBKFT 30 Days Hydralazine Hcl 100 Mg Tablet 100 Mg PO TID PRN 30 Days Reported Furosemide 20 Mg Tablet 1 Tab PO DAILY Amlodipine Besylate 5 Mg Tablet 5 Mg PO DAILY Spironolactone 25 Mg Tablet 1 Tab PO DAILY Vitamin D3 (Cholecalciferol (Vitamin D3)) 1,000 Unit Tablet 2,000 Unit PO DAILY Aspirin 325 Mg Tablet 1 Tab PO DAILY Allopurinol 300 Mg Tablet 300 Mg PO DAILY Klor-Con M20 (Potassium Chloride) 20 Meq Tab.er.prt 80 Meq PO DAILY Vitals/I & O Vital Sign - Last 24 Hours 07/31/19 07/31/19 07/31/19 07/31/19 15:00 15:39 17:19 19:15 Pulse 78 85 88 Resp 20 18 20 B/P (MAP) 167/89 (115) 167/89 164/89 (114) Pulse Ox 96 96 96 O2 Delivery Nasal Cannula Nasal Cannula Nasal Cannula O2 Flow Rate 2.0 2.0 2.0 07/31/19 07/31/19 07/31/19 07/31/19 20:00 20:14 20:15 22:00 Pulse 92 98 92 Resp 20 B/P (MAP) 194/101 194/101 182/93 (122) Pulse Ox 95 O2 Delivery Room Air Nasal Cannula O2 Flow Rate 2.0 08/01/19 08/01/19 08/01/19 08/01/19 00:50 02:05 02:06 03:28 Temp 99.1 99.1 Pulse 85 B/P (MAP) 139/90 (106) Pulse Ox 97 97 97 O2 Delivery Room Air Nasal Cannula Nasal Cannula Nasal Cannula O2 Flow Rate 2.0 2.0 2.0 08/01/19 08/01/19 08/01/19 08/01/19 07:00 08:00 08:09 08:10 Temp 98.8 98.8 Pulse 86 86 86 B/P (MAP) 177/98 (124) 177/98 177/98 Pulse Ox 96 O2 Delivery Nasal Cannula Room Air O2 Flow Rate 2.0 2.0 08/01/19 08/01/19 08/01/19 08:10 08:11 11:00 Temp 98.7 98.7 Pulse 86 86 85 B/P (MAP) 177/98 177/98 159/98 (118) Pulse Ox 94 O2 Delivery Nasal Cannula O2 Flow Rate 2.0 Intake and Output 07/31/19 07/31/19 08/01/19 15:00 23:00 07:00 Intake Total 200 ml Output Total 350 ml 550 ml 250 ml Balance -350 ml -550 ml -50 ml MARYBETH MORTENSEN MD Aug 01, 2019 11:55
[2019-08-01] MEDS: cefTRIAXone IV Push 1 GM VIAL. IVP SCH (12:18)
[2019-08-01] MEDS ORDERED: ANTI-COAG MONITOR BY PHARMACY. MC PRN (13:30)
--- NOTE | 2019-08-01 14:28 | RAD ---
EXAMINATION: VENOUS LOWER EXT BILATERAL HISTORY: Elevated d-dimer, swelling COMPARISON/CORRELATION: None FINDINGS: Bilateral lower extremity duplex venous ultrasound exam was performed. Grayscale, color Doppler, and spectral Doppler imaging was performed. Compression and augmentation was performed. The right common femoral vein, superficial femoral vein, popliteal vein, and saphenofemoral junction are normal with no evidence of deep venous thrombus. The visualized calf veins are unremarkable. Normal compressibility and augmentation is evident. The left common femoral vein, superficial femoral vein, popliteal vein, and saphenofemoral junction are normal with no evidence of deep venous thrombus. The visualized calf veins are unremarkable. Normal compressibility and augmentation is evident. IMPRESSION: Normal bilateral lower extremity duplex ultrasound exam. No evidence of deep venous thrombus involving the lower extremities. Electronically signed by: German Bueno MD (08/01/2019 2:25 PM) [id number]
[2019-08-01] MEDS ORDERED: ENOXAPARIN 30 MG/0.3 ML SYRINGE. SQ SCH (14:45)
[2019-08-01 14:52] VITALS: BP 130/74
[2019-08-01] MEDS: ENOXAPARIN 40 MG/0.4 ML SYRINGE. SQ SCH (15:04)
[2019-08-01] MEDS: IPRATRPIUM/ALBUTEROL 0.5/2.5MG 3 ML NEBU. NEB SCH ×2 (15:41→19:47)
[2019-08-01 19:10] VITALS: BP 169/83
[2019-08-01] MEDS: ATORVASTATIN CALCIUM 20 MG TABLET PO SCH (20:12)
[2019-08-01] MEDS: LACTOBACILLUS RHAMNOSUS GG 1 CAPSULE. PO SCH (20:13)
[2019-08-01] MEDS: PATCH REMOVAL. MC SCH (20:13)
[2019-08-01] MEDS: ACETAMINOPHEN 325 MG TABLET. PO PRN (20:20)
[2019-08-01 22:28] VITALS: BP 137/69
[2019-08-02] VITALS (8 sets, daily range): BP systolic 104–167; BP diastolic 60–85
[2019-08-02] MEDS: IPRATRPIUM/ALBUTEROL 0.5/2.5MG 3 ML NEBU. NEB SCH ×4 (07:45→20:16)
[2019-08-02] MEDS: LIDOCAINE (700MG/PATCH) PATCH. TD SCH (09:00)
[2019-08-02] MEDS: PANTOPRAZOLE 40 MG TABLET.DR. PO SCH (09:17)
[2019-08-02] MEDS: LABETALOL HCL 200 MG TABLET PO SCH ×2 (09:17→21:13)
[2019-08-02] MEDS: POLYETHYLENE GLYCOL 3350 17 GM PACKET. PO SCH (09:17)
[2019-08-02] MEDS: DOCUSATE SODIUM 100 MG CAPSULE. PO SCH (09:17)
[2019-08-02] MEDS: ISOSORBIDE MONONITRATE ER 30 MG TAB.ER.24H PO SCH (09:18)
[2019-08-02] MEDS: ALLOPURINOL 100 MG TABLET. PO SCH (09:18)
[2019-08-02] MEDS: hydrALAZINE 25 MG TABLET PO SCH ×2 (09:18→21:13)
[2019-08-02] MEDS: CHOLECALCIFEROL (VITAMIN D3) 1,000 UNIT TABLET PO SCH (09:18)
[2019-08-02] MEDS: LACTOBACILLUS RHAMNOSUS GG 1 CAPSULE. PO SCH ×2 (09:18→21:13)
[2019-08-02] MEDS: CLOPIDOGREL BISULFATE 75 MG TABLET PO SCH (09:18)
[2019-08-02] MEDS: amLODIPine BESYLATE 10 MG TABLET PO SCH (09:19)
[2019-08-02] MEDS: ASPIRIN CHEWABLE 81 MG TABLET. PO SCH (09:19)
[2019-08-02] MEDS: DOXYCYCLINE HYCLATE 100 MG in IV DEXTROSE 5% 100ML 100 ML IV SCH ×2 (09:22→21:14)
--- NOTE | 2019-08-02 09:27 | PDOC ---
PROGRESS NOTES Chief Complaint Chief Complaint impression NSTEMI - possibly demand ischemia with ALE, will trend troponins, cont meds. Hold diuretics. Heparin GTT. Consult cardiology ALE CKD - creat 2.2. Will give IVF for vasomotor nephropathy. Consult nephrology Chest pain - elevated troponin and d-dimer. heparin gtt., VQ scan PE on left. Cardiology consulted HX CARDIOMYOPATHY WITH STENTS Severe single-vessel coronary artery disease Successful PCI/drug eluting stent placement to the left anterior descending artery 07/2018 Large perfusion defect in the left lower lobe, matched with chest radiograph findings. Interpretation somewhat limited without ventilation images. A triple matched defect in the left lower lobe is considered intermediate probability Abnormal chest x-ray and CT of the chest, suspect secondary to pneumonia Dyslipidemia - cont on statin Hypertension - cont meds, hold diuretics for ALE Chronic kidney disease stage 3 secondary to hypertensive nephrosclerosis Chronic CHF, diastolic. Does not appear acute. Will check BNP Unintentional weight loss - 24# weight loss in the past 3-4 months, thinks mainly due to dietary change and stopping soda Abnormal CXR - will consult pulmonology. Check procalcitonin, will treat for community-acquired pneumonia. Given his cardiac disease he is high risk for likely gram-negative pneumonia.. Intermediate for PE on VQ plan ADMIT IV DOXY, ROCEPHIN PULM FOLLOWING CARDIOLOGY FOLLOWING proceed with full VQ scan 08/01 40 MIN pt exam, chart review, > 50% of time spent with exam, chart review, pt care coordination History of Present Illness History of Present Illness Mr Roldan is a 68 yo M w/ PMhx CKD, HLD, HTN, CAD s/p LAD stent 2018, dCHF who was initially seen at [facility] for left-sided chest heaviness associated with shortness of breath worse with exertion and transfer to [facility] for elevated troponin level and d-dimer. He notes left lateral chest pain which is been ongoing for the past 2 days. Described as an intermittent stabbing sensation, does not radiate, was worse with one cough, but is not reproducible with pressure. Nothing exacerbates or alleviates it. 6-8 out of 10 at the worst. Denies any fever or chills. No increased leg swelling or calf tenderness. No orthopnea or BONDS. Symptoms are different than his prior NSTEMI 07/2018. 24# weight loss in the past 3-4 months, thinks mainly due to dietary change and stopping soda. He notes he had follow-up with Dr. Joseph for his CKD 6 months ago, and he thinks his creatinine at that time was "normal". Labs NA 138, K4.8, BUN 35, CR 2.2, glucose 127, magnesium 2.6, bilirubin 1.3, INR 1, albumin 3, d-dimer 4.67, troponin 0 0.257, WBC 9.7, Hb 11.5, platelets 166. EKG: NSR at 86bpm, NO ST elevation, nonspecific t wave inversion I, aVL, and V6, QRS 90ms, QT/QTc 376/453ms CXR with L>R lung base airspace opacities and trace left pleural effusion or pleural thickening. Called from [facility] for transfer to [facility] for further treatment. urine for legionella and Strep pneumoniae antigen. 08/01 ECHO pending LE us, he feels improved, Vitals Vitals Vital Signs Date Time Temp Pulse Resp B/P (MAP) Pulse Ox O2 Delivery O2 Flow Rate FiO2 08/02/19 08:00 Room Air 08/02/19 07:47 95 08/02/19 06:15 99.0 89 18 167/85 (112) 99.0 08/01/19 11:00 2.0 Physical Exam Physical Exam Lungs: Crackles Cardiovascular: S1, S2 Abdomen: Soft, Non-tender Neuro Exam: Alert Extremities: Other (edema) Skin: Warm General: Alert, Oriented X3, Cooperative, No acute distress Heart: Regular rate Lungs: Clear, Crackles Abdomen: Normal bowel sounds, Soft, No tenderness, No hepatosplenomegaly, No masses Extremities: No clubbing, No cyanosis, No edema, Normal pulses, No tenderness/swelling Skin: No rashes, No breakdown, No significant lesion Labs LABS Examination: RENAL BILAT RENAL DUPLEX CO History: Hypertension Comparison/Correlation: None Findings: Bilateral duplex renal ultrasound exam was performed. Color and spectral Doppler imaging was utilized. Right renal artery flow velocity is 43 cm/s at the middle and distal aspect. The proximal aspect of the right renal artery is not visualized. Resistive index ranges from 0.6, 0.7. Right renal length is 10 cm. Left renal artery flow velocity ranges from 40 cm/s distally to 56 cm/s at the midportion. Proximal left main renal artery was not visualized. Resistive index is 0.6. Left renal length is 10.3 cm. Abdominal aortic flow velocity is 82 cm/s. Right renal artery to aorta flow velocity ratio is 0.5 and left main renal artery to aorta flow velocity ratio is 0.6. These are well within normal range. Impression: No hemodynamic main renal arterial stenosis. Electronically signed by: German Tariq MD (08/10/2018 9:14 AM) [id number] DICTATED and SIGNED BY: GERMAN TARIQ MD DATE: 08/10/18 0914 APPROVED REPORT Technologist: LUDIN CRUZ RTR Nurse: Melinda Whittington R.N. Procedure(s) performed: 1. Left heart catheterization and selective coronary angiography via right transradial approach 2. Successful PCI/drug eluting stent placement to the left anterior descending artery Moderate sedation: 66 mins Fluoro time: 9.2 mins Dose:97.2 GYCM2 Contrast: 170ml INDICATION The indication(s) include : non-STEMI . [facility] Clinical Frailty Scale [facility] Clinical Frailty Scale: Mildly Frail Heart Failure Heart Failure: No If Yes, Newly Diagnosed: Yes If Yes, HF Type: Diastolic If Yes, NYHA Class: Class III PROCEDURE NARRATIVE After explaining the risks, benefits and alternative options, informed consent was obtained from patient. Patient was brought to the cardiac Team Driver and right wrist was prepped and draped in the usual fashion after confirming a positive modified Rob's test. Arterial access was obtained in the right radial artery and a 6 Andorran sheath was inserted. 6 Andorran Kenneth catheter was used to perform selective angiography of the left and right coronary arteries. 6 Andorran pigtail catheter was used to obtain LVEDP and transaortic gradients. Left ventriculography was not performed due to elevated creatinine level. The following findings were noted. FINDINGS 1. Hemodynamics: Left ventricular end-diastolic pressure of 21 mmHg. No pul lback gradient across the aortic valve. 2. Coronary angiography: a. The left main coronary artery arose from the left sinus of Valsalva, gave rise to the left anterior descending and left circumflex arteries and did not show any significant stenosis. b. The left anterior descending artery showed 90% stenosis in the proximal to midsegment with aneurysmal dilatation just prior to the stenosis. c. The left circumflex artery showed 30% stenosis in the proximal segment of obtuse marginal branch. d. The right coronary artery was a large and dominant vessel arising from the right sinus of Valsalva that did not show any significant stenosis. INTERVENTION The left main coronary artery was engaged with 6F XB 3.5 guide catheter. The stenosis in the proximal to midsegment of the left anterior descending artery was crossed with a 0.014 inch Cokonnect Pro water guidewire. This was predilated wit h a 3.0 x 15 mm trek balloon following which this was successfully treated with 3.5 x 30 mm resolute rosio drug-eluting stent. Follow-up angiography showed resolution of the stenosis to 0% with MANUELA-3 distal flow. Patient tolerated the procedure well. Hemostasis was achieved using TR band. There were no immediate complications. MANUELA Flow MANUELA Flow (Pre-Intervention): MANUELA-3 MANUELA Flow (Post-Intervention): MANUELA-3 Conclusion 1. Severe single-vessel coronary artery disease 2. Successful PCI/drug eluting stent placement to the left anterior descending artery Recommendations 1. Aspirin 325 mg daily for one month followed by 81 mg daily 2. Plavix 75 mg daily for preferably one year 3. Cardiovascular risk factor modification Signed by : Shefali Hu, Electronically Approved : 08/10/2018 13:38:58 DICTATED and SIGNED BY: SHEFALI HU MD DATE: 08/10/18 1338 EXAM: CT Chest without IV contrast INDICATION: Reason: left lower lobe consolidation / Spl. Instructions: / History: TECHNIQUE: Multi-detector row CT images were acquired from the thoracic inlet through the upper abdomen without the use of IV contrast. Sagittal and coronal images were acquired from the transaxial data. All CT scans performed at this facility utilize dose optimization techniques as appropriate to the exam, including the following: Automated exposure control and adjustment of the mA and/or KV according to patient size (this includes techniques or standardized protocols for targeted exams where dose is indication/reason for exam). COMPARISON: 07/30/2019 and 08/09/2018 chest x-ray. FINDINGS: The absence of IV contrast limits evaluation of soft tissue pathology. CARDIOVASCULAR: Cardiomegaly with tram track like curvilinear density along the course of the LAD coronary artery is present, suggesting a stent. MEDIASTINUM & CALLIE: No adenopathy or masses. LUNGS: There is left lower lobe atelectasis and patchy airspace opacity in the left lower lobe with air bronchograms. Volume loss in the left lung base is consequently present. PLEURAL SPACE: Small left pleural effusion. No pneumothorax. OSSEOUS & SOFT TISSUE: Unremarkable ABDOMEN: The visualized portions of the upper abdomen are unremarkable. IMPRESSION: Left lower lobe atelectasis and a small left pleural effusion with air bronchograms could reflect a pneumonic infiltrate. No definite mediastinal or hilar masses identified. Electronically signed by: Viviana Kruase MD (07/31/2019 11:02 AM) [id number] DICTATED and SIGNED BY: VIVIANA KRAUSE MD DATE: 07/31/19 1102 rEASON: Concern for acute PE, chest pain PROCEDURE: PULMONARY PERFUSION IMG PARTIC NUCLEAR MEDICINE PERFUSION ONLY SCAN History: Left rib pain x1 day, elevated d-dimer. Comparison: AP chest, same day. Technique: Perfusion portion performed after intravenous administration of 5.5 mCi Technetium 99m MAA. Multiple projection planar images of the lungs were obtained. Findings: Ventilation imaging is not performed due to aerosolized droplet precautions. Perfusion images demonstrate a large perfusion defect in the left lower lobe. This is a matched defect with the chest radiograph findings. IMPRESSION: Large perfusion defect in the left lower lobe, matched with chest radiograph findings. Interpretation somewhat limited without ventilation images. A triple matched defect in the left lower lobe is considered intermediate probability. If the perfusion defect in the left lower lobe is a mismatched defect the findings would be high probability for pulmonary embolus. Electronically signed by: Bobo Sauceda MD (07/30/2019 6:48 PM) [facility] DICTATED and SIGNED BY: BOBO SAUCEDA MD Comment Review of Relevant I have reviewed the following items ramiro (where applicable) has been applied. Labs Laboratory Tests Test 07/31/19 13:15 08/01/19 05:00 Heparin Anti-Xa Act, Unfractionated 0.54 IU/mL (0.30-0.70) 0.46 IU/mL (0.30-0.70) White Blood Count 9.4 x10^3/uL (4.0-11.0) Red Blood Count 4.16 x10^6/uL (4.30-5.70) Hemoglobin 11.5 g/dL (13.0-17.5) Hematocrit 33.8 % (39.0-53.0) Mean Corpuscular Volume 81 fL (79-100) Mean Corpuscular Hemoglobin 28 pg (25-35) Mean Corpuscular Hemoglobin Concent 34 g/dL (31-37) Red Cell Distribution Width 17.1 % (11.5-14.5) Platelet Count 189 x10^3/uL (140-400) Sodium Level 139 mmol/L (136-145) Potassium Level 4.6 mmol/L (3.5-5.1) Chloride Level 105 mmol/L (98-107) Carbon Dioxide Level 23 mmol/L (21-32) Anion Gap 11 (6-14) Blood Urea Nitrogen 39 mg/dL (8-26) Creatinine 2.1 mg/dL (0.7-1.3) Estimated GFR (Cockcroft-Gault) 38.2 BUN/Creatinine Ratio 19 (6-20) Glucose Level 114 mg/dL (70-99) Calcium Level 8.3 mg/dL (8.5-10.1) Total Bilirubin 1.1 mg/dL (0.2-1.0) Aspartate Amino Transf (AST/SGOT) 37 U/L (15-37) Alanine Aminotransferase (ALT/SGPT) 51 U/L (16-63) Alkaline Phosphatase 192 U/L (46-116) Troponin I Quantitative 0.289 ng/mL (0.000-0.055) Total Protein 6.0 g/dL (6.4-8.2) Albumin 2.7 g/dL (3.4-5.0) Albumin/Globulin Ratio 0.8 (1.0-1.7) Medications Current Medications Ondansetron HCl (Zofran) 4 mg PRN Q4HRS PRN IV NAUSEA/VOMITING; Start 07/30/19 at 16:30 Acetaminophen (Tylenol) 650 mg PRN Q4HRS PRN PO TEMP OVER 100.4F OR MILD PAIN Last administered on 08/01/19at 20:20; Start 07/30/19 at 16:30 Albuterol Sulfate (Ventolin Neb Soln) 2.5 mg PRN Q4HRS PRN NEB SHORTNESS OF BREATH; Start 07/30/19 at 16:30 Guaifenesin (Robitussin) 200 mg PRN Q4HRS PRN PO COUGH; Start 07/30/19 at 16:30 Heparin Sodium/ Dextrose 250 ml @ 10 mls/hr CONT PRN IV PER PROTOCOL Last administered on 07/30/19at 17:30; Start 07/30/19 at 16:45; Stop 07/31/19 at 06 :53; Status DC Heparin Sodium (Porcine) (Heparin Sodium) 2,400 unit PRN Q6HRS PRN IV FOR UFH LEVEL LESS THAN 0.2; Start 07/30/19 at 16:45; Stop 07/31/19 at 06:53; Status DC Allopurinol (Zyloprim) 100 mg DAILY PO Last administered on 07/31/19at 09:18; S tart 07/31/19 at 09:00; Stop 08/01/19 at 08:32; Status DC Amlodipine Besylate (Norvasc) 5 mg DAILY PO Last administered on 07/31/19at 09:19; Start 07/31/19 at 09:00; Stop 07/31/19 at 14:03; Status DC Aspirin (Jayant Aspirin) 325 mg DAILY PO Last administered on 07/31/19at 09:15; Start 07/31/19 at 09:00; Stop 07/31/19 at 14:03; Status DC Atorvastatin Calcium (Lipitor) 40 mg QHS PO Last administered on 08/01/19at 20:12; Start 07/30/19 at 21:00 Vitamin D (Vitamin D3) 2,000 unit DAILY PO Last administered on 08/01/19at 08:08; Start 07/31/19 at 09:00 Clopidogrel Bisulfate (Plavix) 75 mg DAILYWBKFT PO Last administered on 08/01/19at 08:08; Start 07/31/19 at 08:00 Isosorbide Mononitrate (Imdur) 30 mg DAILY PO Last administered on 08/01/19at 08:11; Start 07/31/19 at 09:00 Labetalol HCl (Trandate) 200 mg BID PO Last administered on 08/01/19at 20:13; Start 07/30/19 at 21:00 Hydralazine HCl (Apresoline) 100 mg PRN TID PRN PO HYPERTENSION; Start 07/30/19 at 21:00; Stop 07/31/19 at 14:03; Status DC Sodium Chloride 1,000 ml @ 125 mls/hr 1X ONCE IV Last administered on 07/30/19at 17:26; Start 07/30/19 at 17:15; Stop 07/31/19 at 01:14; Status DC Lidocaine (Lidoderm) 1 patch DAILY TD Last administered on 08/01/19at 08:11; Start 07/30/19 at 17:15 Miscellaneous (Lidoderm Patch Removal) 1 ea QHS MC Last administered on 08/01/19at 20:13; Start 07/30/19 at 21:00 Acetaminophen/ Hydrocodone Bitart (Lortab 5/325) 1 tab PRN Q6HRS PRN PO MODERATE - SEVERE PAIN Last administered on 07/31/19at 17:19; Start 07/31/19 at 05:30 Docusate Sodium (Colace) 100 mg DAILY PO Last administered on 08/01/19at 08:09; Start 07/31/19 at 06:15 Polyethylene Glycol (miraLAX PACKET) 17 gm DAILY PO Last administered on 08/01/19at 08:11; Start 07/31/19 at 06:15 Bisacodyl (Dulcolax Tab) 5 mg 1X PRN PO CONSTIPATION Last administered on 07/31/19at 06:18; Start 07/31/19 at 06:15 Heparin Sodium/ Dextrose 250 ml @ 0 mls/hr CONT PRN IV PER PROTOCOL Last administered on 08/01/19at 04:23; Start 07/31/19 at 07:00; Stop 08/01/19 at 14:53; Status DC Heparin Sodium (Porcine) (Heparin Sodium) 2,900 unit PRN Q6HRS PRN IV FOR UFH LEVEL LESS THAN 0.2; Start 07/31/19 at 07:00; Status Cancel Heparin Sodium (Porcine) (Heparin Sodium) 1,450 unit PRN Q6HRS PRN IV FOR UFH LEVEL 0.2 - 0.29; Start 07/31/19 at 07:00; Status Cancel Ceftriaxone Sodium (Rocephin) 1 gm Q24H IVP Last administered on 08/01/19at 12:18; Start 07/31/19 at 12:00 Doxycycline Hyclate 100 mg/ Dextrose 100 ml @ 50 mls/hr Q12HR IV Last administered on 08/01/19at 20:14; Start 07/31/19 at 12:00 Pantoprazole Sodium (Protonix) 40 mg DAILYAC PO Last administered on 08/01/19at 08:08; Start 07/31/19 at 12:00 Amlodipine Besylate (Norvasc) 10 mg DAILY PO Last administered on 08/01/19at 08:10; Start 08/01/19 at 09:00 Aspirin (Aspirin Chewable) 81 mg DAILYWBKFT PO Last administered on 08/01/19at 08:09; Start 08/01/19 at 08:00 Hydralazine HCl (Apresoline) 25 mg BID PO Last administered on 08/01/19at 20:13; Start 07/31/19 at 14:30 Allopurinol (Zyloprim) 100 mg DAILY PO ; Start 08/01/19 at 09:00; Stop 08/01/19 at 08:37; Status DC Allopurinol (Zyloprim) 100 mg DAILY PO Last administered on 08/01/19at 09:00; Start 08/01/19 at 09:00 Lactobacillus Rhamnosus (Culturelle) 1 cap BID PO Last administered on 08/01/19at 20:13; Start 08/01/19 at 21:00 Albuterol/ Ipratropium (Duoneb) 3 ml RTQID NEB Last administered on 08/02/19at 07:45; Start 08/01/19 at 16:00 Info (Anti-Coagulation Monitoring By Pharmacy) 1 each PRN DAILY PRN MC SEE COMMENTS Last administered on 08/01/19at 13:23; Start 08/01/19 at 13:30; Stop 08/01/19 at 14:53; Status DC Enoxaparin Sodium (Lovenox 30mg Syringe) 30 mg Q24H SQ ; Start 08/01/19 at 14:45; Status UNV Enoxaparin Sodium (Lovenox 40mg Syringe) 40 mg Q24H SQ Last administered on 08/01/19at 15:04; Start 08/01/19 at 15:00 Active Scripts Active Labetalol Hcl 200 Mg Tablet 200 Mg PO BID 30 Days Isosorbide Mononitrate Er (Isosorbide Mononitrate) 30 Mg Tab.er.24h 30 Mg PO DAILY 30 Days Atorvastatin Calcium 20 Mg Tablet 40 Mg PO QHS 30 Days Can replace with #30 of 40mg tabs Clopidogrel (Clopidogrel Bisulfate) 75 Mg Tablet 75 Mg PO DAILYWBKFT 30 Days Hydralazine Hcl 100 Mg Tablet 100 Mg PO TID PRN 30 Days Reported Furosemide 20 Mg Tablet 1 Tab PO DAILY Amlodipine Besylate 5 Mg Tablet 5 Mg PO DAILY Spironolactone 25 Mg Tablet 1 Tab PO DAILY Vitamin D3 (Cholecalciferol (Vitamin D3)) 1,000 Unit Tablet 2,000 Unit PO DAILY Aspirin 325 Mg Tablet 1 Tab PO DAILY Allopurinol 300 Mg Tablet 300 Mg PO DAILY Klor-Con M20 (Potassium Chloride) 20 Meq Tab.er.prt 80 Meq PO DAILY Vitals/I & O Vital Sign - Last 24 Hours 08/01/19 08/01/19 08/01/19 08/01/19 11:00 14:52 15:42 19:10 Temp 98.7 98.6 99.1 98.7 98.6 99.1 Pulse 85 77 88 B/P (MAP) 159/98 (118) 130/74 (92) 169/83 (111) Pulse Ox 94 91 90 O2 Delivery Nasal Cannula Room Air Room Air Room Air O2 Flow Rate 2.0 08/01/19 08/01/19 08/01/19 08/01/19 19:48 20:00 20:13 20:13 Pulse 88 88 B/P (MAP) 169/83 169/83 O2 Delivery Room Air Room Air 08/01/19 08/02/19 08/02/19 08/02/19 22:28 02:27 06:15 07:47 Temp 98.8 99.7 99.0 98.8 99.7 99.0 Pulse 80 86 89 Resp 18 B/P (MAP) 137/69 (91) 145/77 (99) 167/85 (112) Pulse Ox 93 92 91 95 O2 Delivery Room Air Room Air Room Air Room Air 08/02/19 08:00 O2 Delivery Room Air Intake and Output 08/01/19 08/01/19 08/02/19 15:00 23:00 07:00 Intake Total 600 ml 350 ml 350 ml Output Total 700 ml Balance -100 ml 350 ml 350 ml TIAN HART MD Aug 02, 2019 09:27
--- NOTE | 2019-08-02 10:52 | PDOC ---
MILAGRO PEREZ OCHOA 08/02/19 1052: CARDIO Progress Notes Date and Time Date of Service 08/02/19 Time of Evaluation 1020 Subjective Subjective: Other (SOA improved ) Vitals Vitals Vital Signs Date Time Temp Pulse Resp B/P (MAP) Pulse Ox O2 Delivery O2 Flow Rate FiO2 08/02/19 09:19 89 167/85 08/02/19 08:00 Room Air 08/02/19 07:47 95 08/02/19 06:15 99.0 18 99.0 08/01/19 11:00 2.0 Weight Weight [ ] Input and Output Intake and Output Intake and Output 08/02/19 07:00 Intake Total 1300 ml Output Total 700 ml Balance 600 ml Intake Oral 1200 ml IV Total 100 ml Output Urine Total 700 ml Physical Exam HEENT: Neck Supple W Full Motion Chest: Symmetric LUNGS: Clear to Auscultation Heart: S1S2, RRR Abdomen: Soft N/T Extremities: No Edema Neurology: alert, oriented, follow commands Assessment Assessment 1. Acute respiratory failure secondary to PNA. Cannot rule out PE. VQ scan with intermediate, high probability for PE. LE US negative for DVT 2. NSTEMI; highest 0.28. Most probably type II, demand ischemia in setting of above. 3. CAD; s/p PCI/TAMMY to the LAD (08/05) 4. 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 Repeat echo pending . Appears compensated 5. Accelerated hypertension; remains mildly elevated 6. Dyslipidemia 7. CKD; Cr stable per review Recommendations Increase hydralazine for better BP control Continue secondary prevention; ASA/plavix, statin, BB, imdur. We will defer AC therapy to the primary care physician and pulmonary team. If patient discharge on AC, may discontinue ASA and continue Plavix. Supportive care from a cardiac standpoint. Justicifation of Admission Dx: Justifications for Admission: Justification of Admission Dx: Yes ND: Acute NSTEMI SHEFALI HU MD 08/02/19 1629: CARDIO Progress Notes Assessment Assessment Patient seen and examined. Agree with FISH FARMER's assessment and plan. Non-STEMI most probably demand ischemia. CAD status clinically stable overall. 2D echo showed normal LV systolic function without any wall motion abnormalities. Continue current medical regimen. ANAMILAGRO OCHOA Aug 02, 2019 10:52 SHEFALI HU MD Aug 02, 2019 16:29
[2019-08-02] MEDS ORDERED: hydrALAZINE 25 MG TABLET PO ONE (11:00)
[2019-08-02 11:01] LABS: BASO % 1 % (0-3); EOS # 0.1 x10^3/uL (0.0-0.7); EOS % 1 % (0-3); HEMATOCRIT 34.8 % (39.0-53.0); HEMOGLOBIN 11.5 g/dL (13.0-17.5); LYMPH # 0.5 x10^3/uL (1.0-4.8); LYMPH % 6 % (24-48); MEAN CORPUSCULAR HEMOGLOBIN 27 pg (25-35); MEAN CORPUSCULAR HGB CONC 33 g/dL (31-37); MEAN CORPUSCULAR VOLUME 81 fL (79-100); MONO # 1.1 x10^3/uL (0.0-1.1); MONO % 12 % (0-9); NEUT # 7.5 x10^3/uL (1.8-7.7); NEUT % 81 % (31-73); PLATELET COUNT 207 x10^3/uL (140-400); RED BLOOD COUNT 4.31 x10^6/uL (4.30-5.70); RED CELL DISTRIBUTION WIDTH 16.9 % (11.5-14.5); WHITE BLOOD COUNT 9.2 x10^3/uL (4.0-11.0)
[2019-08-02 11:19] LABS: ALBUMIN 2.5 g/dL (3.4-5.0); ALBUMIN/GLOBULIN RATIO 0.7 (1.0-1.7); CALCIUM 8.5 mg/dL (8.5-10.1); CREATININE 2.3 mg/dL (0.7-1.3); GFR 34.4; POTASSIUM 4.3 mmol/L (3.5-5.1); TOTAL BILIRUBIN 0.9 mg/dL (0.2-1.0); TOTAL PROTEIN 6.1 g/dL (6.4-8.2)
[2019-08-02] MEDS: cefTRIAXone IV Push 1 GM VIAL. IVP SCH (11:31)
--- NOTE | 2019-08-02 12:32 | CARD ---
MR#: [id number] Date of Study: 08/02/2019 Ordering Physician: PORFIRIO CARABALLO, Referring Physician: PORFIRIO CARABALLO, Tech: Candi Lyman APPROVED REPORT EXAM: Two-dimensional and M-mode echocardiogram with Doppler and color Doppler. Other Information Quality : AverageHR: 87bpm INDICATION Cardiac Disease: CAD Non STEMI Surgery/Intervention LAD stent 2019 RISK FACTORS Hypertension Hyperlipidemia 2D DIMENSIONS Left Atrium(2D)3.6 (1.6-4.0cm)IVSd1.2 (0.7-1.1cm) Aortic Root(2D)3.2 (2.0-3.7cm)LVDd5.3 (3.9-5.9cm) LVOT Diameter2.0 (1.8-2.4cm)PWd1.1 (0.7-1.1cm) LVDs3.9 (2.5-4.0cm)FS (%) 26.9 % SV70.7 mlLVEF(%)52.0 (>50%) Aortic Valve AoV Peak Mina.182.1cm/sAoV VTI25.1cm AO Peak GR.13.3mmHgLVOT Peak Mina.116.4cm/s LVOT VTI 18.53cmAO Mean GR.7mmHg CHILO (VMAX)1.65xu9BTV (VTI)2.37cm2 Pulmonary Valve PV Peak Kvegdkdt193.8cm/sPV Peak Grad.5mmHg Tricuspid Valve TR P. Pwxasfok487nx/sRAP BIGJNPHD8lyYl TR Peak Gr.11lcAzHTGP65zxGf Pulmonary Vein S1 Dochanqe45.3cm/sD2 Hcpisnfw51.4cm/s PVa [id number] LEFT VENTRICLE The left ventricle is normal size. There is mild concentric left ventricular hypertrophy. The left ve ntricular systolic function is normal and the ejection fraction is within normal range. The Ejection Fraction is 55-60%. There is normal LV segmental wall motion. Transmitral Doppler flow pattern is Gra de I-abnormal relaxation pattern. RIGHT VENTRICLE The right ventricle is normal size. There is normal right ventricular wall thickness. The right ventr icular systolic function is normal. ATRIA The left atrium size is normal. The right atrium size is normal. The interatrial septum is intact wit h no evidence for an atrial septal defect or patent foramen ovale as noted on 2-D or Doppler imaging. AORTIC VALVE Not well visualized. Doppler and Color Flow revealed no significant aortic regurgitation. There is no significant aortic valvular stenosis. MITRAL VALVE The mitral valve is calcified with restricted posterior leaflet motion. There is no evidence of shelton l valve prolapse. There is no mitral valve stenosis. Doppler and Color-flow revealed trace mitral reg urgitation. TRICUSPID VALVE The tricuspid valve is normal in structure and function. Doppler and Color Flow revealed trace tricus pid regurgitation with an estimated PAP of 45 mmHg. There is no tricuspid valve stenosis. PULMONIC VALVE The pulmonic valve is not well visualized. Doppler and Color Flow revealed trace to mild pulmonic oscar vular regurgitation. There is no pulmonic valvular stenosis. GREAT VESSELS The aortic root is normal in size. The IVC is normal in size and collapses >50% with inspiration. PERICARDIAL EFFUSION There is no evidence of significant pericardial effusion. Critical Notification Critical Value: No <Conclusion> The left ventricular systolic function is normal and the ejection fraction is within normal range. Th e Ejection Fraction is 55-60%. There is normal LV segmental wall motion. Doppler and Color Flow revealed trace tricuspid regurgitation with an estimated PAP of 45 mmHg. Signed by : Porfirio Caraballo, Electronically Approved : 08/02/2019 12:32:31
--- NOTE | 2019-08-02 12:38 | NUR ---
SS following for discharge planning. SS reviewed pt chart and discussed with pt RN. Pt is from home with spouse and is currently on room air. Pt on IV Doxycycline and Rocephin. SS will continue to follow for discharge planning.
--- NOTE | 2019-08-02 12:44 | PDOC ---
SUBJECTIVE ROS No complaints this am OBJECTIVE Vital Signs Vital Signs Date Time Temp Pulse Resp B/P (MAP) Pulse Ox O2 Delivery O2 Flow Rate FiO2 08/02/19 12:20 86 114/69 (84) 08/02/19 11:23 95 Room Air 08/02/19 11:00 98.4 18 98.4 08/01/19 11:00 2.0 I & 0 Intake and Output 08/02/19 07:00 Intake Total 1300 ml Output Total 700 ml Balance 600 ml Intake Oral 1200 ml IV Total 100 ml Output Urine Total 700 ml PHYSICAL EXAM Physical Exam GENERAL: , no acute distress. HEEN om moist CARDIAC: Regular rate and rhythm LUNGS: Clear to auscultation bilaterally. ABDOMEN: Soft, nontender, EXTREMITIES: No clubbing, cyanosis or edema. NEUROLOGIC: No focal deficits. PSYCHIATRIC: Normal status and mood. SKIN: No rashes No tavera DIAGNOSIS/ASSESSMENT Assessment & Plan CKD stage 3- baseline Cr 2.1-2.3- at least since 2018 Prior labs unknown to me, follows with Dr. Joseph 2x year as OP Stable renal function and E-Lytes Acute respiratory failure secondary to PNA. Cannot rule out PE. VQ scan with in termediate, high probability for PE. 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 Accelerated hypertension; card managing COMMENT/RELEVANT DATA Meds Current Medications Medications (Trade) Dose Ordered Sig/Zoey Start Time Stop Time Status Last Admin Dose Admin Acetaminophen (Tylenol) 650 mg PRN Q4HRS PRN 07/30/19 16:30 08/01/19 20:20 650 MG Acetaminophen/ Hydrocodone Bitart (Lortab 5/325) 1 tab PRN Q6HRS PRN 07/31/19 05:30 07/31/19 17:19 1 TAB Albuterol Sulfate (Ventolin Neb Soln) 2.5 mg PRN Q4HRS PRN 07/30/19 16:30 Albuterol/ Ipratropium (Duoneb) 3 ml RTQID 08/01/19 16:00 08/02/19 11:22 3 ML Allopurinol (Zyloprim) 100 mg DAILY 08/01/19 09:00 08/02/19 09:18 100 MG Amlodipine Besylate (Norvasc) 10 mg DAILY 08/01/19 09:00 08/02/19 09:19 10 MG Aspirin (Aspirin Chewable) 81 mg DAILYWBKFT 08/01/19 08:00 08/02/19 09:19 81 MG Aspirin (Jayant Aspirin) 325 mg DAILY 07/31/19 09:00 07/31/19 14:03 DC 07/31/19 09:15 325 MG Atorvastatin Calcium (Lipitor) 40 mg QHS 07/30/19 21:00 08/01/19 20:12 40 MG Bisacodyl (Dulcolax Tab) 5 mg 1X PRN 07/31/19 06:15 07/31/19 06:18 5 MG Ceftriaxone Sodium (Rocephin) 1 gm Q24H 07/31/19 12:00 08/02/19 11:31 1 GM Clopidogrel Bisulfate (Plavix) 75 mg DAILYWBKFT 07/31/19 08:00 08/02/19 09:18 75 MG Docusate Sodium (Colace) 100 mg DAILY 07/31/19 06:15 08/02/19 09:17 100 MG Doxycycline Hyclate 100 mg/ Dextrose 100 ml @ 50 mls/hr Q12HR 07/31/19 12:00 08/02/19 09:22 50 MLS/HR Enoxaparin Sodium (Lovenox 30mg Syringe) 30 mg Q24H 08/01/19 14:45 UNV Enoxaparin Sodium (Lovenox 40mg Syringe) 40 mg Q24H 08/01/19 15:00 08/01/19 15:04 40 MG Guaifenesin (Robitussin) 200 mg PRN Q4HRS PRN 07/30/19 16:30 Heparin Sodium (Porcine) (Heparin Sodium) 1,450 unit PRN Q6HRS PRN 07/31/19 07:00 Cancel Heparin Sodium/ Dextrose 250 ml @ 0 mls/hr CONT PRN 07/31/19 07:00 08/01/19 14:53 DC 08/01/19 04:23 15.4 MLS/HR Hydralazine HCl (Apresoline) 25 mg 1X ONCE 08/02/19 11:00 08/02/19 11:01 DC 08/02/19 11:31 25 MG Info (Anti-Coagulation Monitoring By Pharmacy) 1 each PRN DAILY PRN 08/01/19 13:30 08/01/19 14:53 DC 08/01/19 13:23 1 EACH Isosorbide Mononitrate (Imdur) 30 mg DAILY 07/31/19 09:00 08/02/19 09:18 30 MG Labetalol HCl (Trandate) 200 mg BID 07/30/19 21:00 08/02/19 09:17 200 MG Lactobacillus Rhamnosus (Culturelle) 1 cap BID 08/01/19 21:00 08/02/19 09:18 1 CAP Lidocaine (Lidoderm) 1 patch DAILY 07/30/19 17:15 08/01/19 08:11 1 PATCH Miscellaneous (Lidoderm Patch Removal) 1 ea QHS 07/30/19 21:00 08/01/19 20:13 1 EA Ondansetron HCl (Zofran) 4 mg PRN Q4HRS PRN 07/30/19 16:30 Pantoprazole Sodium (Protonix) 40 mg DAILYAC 07/31/19 12:00 08/02/19 09:17 40 MG Polyethylene Glycol (miraLAX PACKET) 17 gm DAILY 07/31/19 06:15 08/02/19 09:17 17 GM Sodium Chloride 1,000 ml @ 125 mls/hr 1X ONCE 07/30/19 17:15 07/31/19 01:14 DC 07/30/19 17:26 125 MLS/HR Vitamin D (Vitamin D3) 2,000 unit DAILY 07/31/19 09:00 08/02/19 09:18 2,000 UNIT Lab Laboratory Tests Test 08/02/19 10:30 White Blood Count 9.2 x10^3/uL (4.0-11.0) Red Blood Count 4.31 x10^6/uL (4.30-5.70) Hemoglobin 11.5 g/dL (13.0-17.5) Hematocrit 34.8 % (39.0-53.0) Mean Corpuscular Volume 81 fL (79-100) Mean Corpuscular Hemoglobin 27 pg (25-35) Mean Corpuscular Hemoglobin Concent 33 g/dL (31-37) Red Cell Distribution Width 16.9 % (11.5-14.5) Platelet Count 207 x10^3/uL (140-400) Neutrophils (%) (Auto) 81 % (31-73) Lymphocytes (%) (Auto) 6 % (24-48) Monocytes (%) (Auto) 12 % (0-9) Eosinophils (%) (Auto) 1 % (0-3) Basophils (%) (Auto) 1 % (0-3) Neutrophils # (Auto) 7.5 x10^3/uL (1.8-7.7) Lymphocytes # (Auto) 0.5 x10^3/uL (1.0-4.8) Monocytes # (Auto) 1.1 x10^3/uL (0.0-1.1) Eosinophils # (Auto) 0.1 x10^3/uL (0.0-0.7) Basophils # (Auto) 0.0 x10^3/uL (0.0-0.2) Prothrombin Time 14.0 SEC (11.7-14.0) Prothromb Time International Ratio 1.1 (0.8-1.1) Sodium Level 139 mmol/L (136-145) Potassium Level 4.3 mmol/L (3.5-5.1) Chloride Level 105 mmol/L (98-107) Carbon Dioxide Level 23 mmol/L (21-32) Anion Gap 11 (6-14) Blood Urea Nitrogen 39 mg/dL (8-26) Creatinine 2.3 mg/dL (0.7-1.3) Estimated GFR (Cockcroft-Gault) 34.4 BUN/Creatinine Ratio 17 (6-20) Glucose Level 113 mg/dL (70-99) Calcium Level 8.5 mg/dL (8.5-10.1) Total Bilirubin 0.9 mg/dL (0.2-1.0) Aspartate Amino Transf (AST/SGOT) 47 U/L (15-37) Alanine Aminotransferase (ALT/SGPT) 63 U/L (16-63) Alkaline Phosphatase 223 U/L (46-116) Total Protein 6.1 g/dL (6.4-8.2) Albumin 2.5 g/dL (3.4-5.0) Albumin/Globulin Ratio 0.7 (1.0-1.7) Results All relevant outside records, renal labs, imaging studies, telemetry/EKG's were reviewed. Justicifation of Admission Dx: Justifications for Admission: Justification of Admission Dx: Yes AK: Acute NSTEMI ANTHONY AGUERO MD Aug 02, 2019 12:44
--- NOTE | 2019-08-02 14:09 | PDOC ---
PULMONARY PROGRESS NOTES Subjective denies sob, cough, cp resolved Vitals Vital Signs Date Time Temp Pulse Resp B/P (MAP) Pulse Ox O2 Delivery O2 Flow Rate FiO2 08/02/19 12:20 86 114/69 (84) 08/02/19 11:23 95 Room Air 08/02/19 11:00 98.4 18 98.4 08/01/19 11:00 2.0 ROS: No Nausea, No Chest Pain General: Alert, Oriented X4 HEENT: Other (nc at perrl nose throat clear) Lungs: Clear Cardiovascular: S1, S2 Abdomen: Soft, Non-tender Neuro Exam: Alert Extremities: Other (edema) Skin: Warm Labs Laboratory Tests Test 08/01/19 05:00 08/02/19 10:30 White Blood Count 9.4 x10^3/uL (4.0-11.0) 9.2 x10^3/uL (4.0-11.0) Red Blood Count 4.16 x10^6/uL (4.30-5.70) 4.31 x10^6/uL (4.30-5.70) Hemoglobin 11.5 g/dL (13.0-17.5) 11.5 g/dL (13.0-17.5) Hematocrit 33.8 % (39.0-53.0) 34.8 % (39.0-53.0) Mean Corpuscular Volume 81 fL (79-100) 81 fL (79-100) Mean Corpuscular Hemoglobin 28 pg (25-35) 27 pg (25-35) Mean Corpuscular Hemoglobin Concent 34 g/dL (31-37) 33 g/dL (31-37) Red Cell Distribution Width 17.1 % (11.5-14.5) 16.9 % (11.5-14.5) Platelet Count 189 x10^3/uL (140-400) 207 x10^3/uL (140-400) Heparin Anti-Xa Act, Unfractionated 0.46 IU/mL (0.30-0.70) Sodium Level 139 mmol/L (136-145) 139 mmol/L (136-145) Potassium Level 4.6 mmol/L (3.5-5.1) 4.3 mmol/L (3.5-5.1) Chloride Level 105 mmol/L (98-107) 105 mmol/L (98-107) Carbon Dioxide Level 23 mmol/L (21-32) 23 mmol/L (21-32) Anion Gap 11 (6-14) 11 (6-14) Blood Urea Nitrogen 39 mg/dL (8-26) 39 mg/dL (8-26) Creatinine 2.1 mg/dL (0.7-1.3) 2.3 mg/dL (0.7-1.3) Estimated GFR (Cockcroft-Gault) 38.2 34.4 BUN/Creatinine Ratio 19 (6-20) 17 (6-20) Glucose Level 114 mg/dL (70-99) 113 mg/dL (70-99) Calcium Level 8.3 mg/dL (8.5-10.1) 8.5 mg/dL (8.5-10.1) Total Bilirubin 1.1 mg/dL (0.2-1.0) 0.9 mg/dL (0.2-1.0) Aspartate Amino Transf (AST/SGOT) 37 U/L (15-37) 47 U/L (15-37) Alanine Aminotransferase (ALT/SGPT) 51 U/L (16-63) 63 U/L (16-63) Alkaline Phosphatase 192 U/L (46-116) 223 U/L (46-116) Troponin I Quantitative 0.289 ng/mL (0.000-0.055) Total Protein 6.0 g/dL (6.4-8.2) 6.1 g/dL (6.4-8.2) Albumin 2.7 g/dL (3.4-5.0) 2.5 g/dL (3.4-5.0) Albumin/Globulin Ratio 0.8 (1.0-1.7) 0.7 (1.0-1.7) Neutrophils (%) (Auto) 81 % (31-73) Lymphocytes (%) (Auto) 6 % (24-48) Monocytes (%) (Auto) 12 % (0-9) Eosinophils (%) (Auto) 1 % (0-3) Basophils (%) (Auto) 1 % (0-3) Neutrophils # (Auto) 7.5 x10^3/uL (1.8-7.7) Lymphocytes # (Auto) 0.5 x10^3/uL (1.0-4.8) Monocytes # (Auto) 1.1 x10^3/uL (0.0-1.1) Eosinophils # (Auto) 0.1 x10^3/uL (0.0-0.7) Basophils # (Auto) 0.0 x10^3/uL (0.0-0.2) Prothrombin Time 14.0 SEC (11.7-14.0) Prothromb Time International Ratio 1.1 (0.8-1.1) Laboratory Tests Test 08/02/19 10:30 White Blood Count 9.2 x10^3/uL (4.0-11.0) Red Blood Count 4.31 x10^6/uL (4.30-5.70) Hemoglobin 11.5 g/dL (13.0-17.5) Hematocrit 34.8 % (39.0-53.0) Mean Corpuscular Volume 81 fL (79-100) Mean Corpuscular Hemoglobin 27 pg (25-35) Mean Corpuscular Hemoglobin Concent 33 g/dL (31-37) Red Cell Distribution Width 16.9 % (11.5-14.5) Platelet Count 207 x10^3/uL (140-400) Neutrophils (%) (Auto) 81 % (31-73) Lymphocytes (%) (Auto) 6 % (24-48) Monocytes (%) (Auto) 12 % (0-9) Eosinophils (%) (Auto) 1 % (0-3) Basophils (%) (Auto) 1 % (0-3) Neutrophils # (Auto) 7.5 x10^3/uL (1.8-7.7) Lymphocytes # (Auto) 0.5 x10^3/uL (1.0-4.8) Monocytes # (Auto) 1.1 x10^3/uL (0.0-1.1) Eosinophils # (Auto) 0.1 x10^3/uL (0.0-0.7) Basophils # (Auto) 0.0 x10^3/uL (0.0-0.2) Prothrombin Time 14.0 SEC (11.7-14.0) Prothromb Time International Ratio 1.1 (0.8-1.1) Sodium Level 139 mmol/L (136-145) Potassium Level 4.3 mmol/L (3.5-5.1) Chloride Level 105 mmol/L (98-107) Carbon Dioxide Level 23 mmol/L (21-32) Anion Gap 11 (6-14) Blood Urea Nitrogen 39 mg/dL (8-26) Creatinine 2.3 mg/dL (0.7-1.3) Estimated GFR (Cockcroft-Gault) 34.4 BUN/Creatinine Ratio 17 (6-20) Glucose Level 113 mg/dL (70-99) Calcium Level 8.5 mg/dL (8.5-10.1) Total Bilirubin 0.9 mg/dL (0.2-1.0) Aspartate Amino Transf (AST/SGOT) 47 U/L (15-37) Alanine Aminotransferase (ALT/SGPT) 63 U/L (16-63) Alkaline Phosphatase 223 U/L (46-116) Total Protein 6.1 g/dL (6.4-8.2) Albumin 2.5 g/dL (3.4-5.0) Albumin/Globulin Ratio 0.7 (1.0-1.7) Medications Active Scripts Medications Dose Route/Sig Max Daily Dose Days Date Category Dose Instructions Furosemide 20 Mg Tablet 1 Tab PO DAILY 07/30/19 Reported Amlodipine Besylate 5 Mg Tablet 5 Mg PO DAILY 07/30/19 Reported Spironolactone 25 Mg Tablet 1 Tab PO DAILY 07/30/19 Reported Labetalol Hcl 200 Mg Tablet 200 Mg PO BID 30 08/11/18 Rx Isosorbide Mononitrate Er (Isosorbide Mononitrate) 30 Mg Tab.er.24h 30 Mg PO DAILY 08/11/18 Rx Atorvastatin Calcium 20 Mg Tablet 40 Mg PO QHS 08/11/18 Rx Can replace with #30 of 40mg tabs Clopidogrel (Clopidogrel Bisulfate) 75 Mg Tablet 75 Mg PO DAILYWBKFT 30 08/11/18 Rx Hydralazine Hcl 100 Mg Tablet 100 Mg PO TID PRN 30 08/11/18 Rx Vitamin D3 (Cholecalciferol (Vitamin D3)) 1,000 Unit Tablet 2,000 Unit PO DAILY 08/09/18 Reported Aspirin 325 Mg Tablet 1 Tab PO DAILY 08/09/18 Reported Allopurinol 300 Mg Tablet 300 Mg PO DAILY 08/09/18 Reported Klor-Con M20 (Potassium Chloride) 20 Meq Tab.er.prt 80 Meq PO DAILY 08/09/18 Reported Impression . IMPRESSION: 1. Acute hypoxemic respiratory failure, secondary to pneumonia, was not able to do V/Q scan was in COVID-19 isolation. Only perfusion scan was done, which is intermediate, could be secondary to pneumonia. He also has non-ST elevation myocardial infarction, which likely is a demand mediated. 2. Abnormal chest x-ray and CT of the chest, secondary to pneumonia. 3. Non-ST elevation myocardial infarction type 2, likely demand ischemia. 4. Coronary artery disease, status post stent with systolic and diastolic dysfunction. 5. Chronic kidney disease. 6. Overweight. Suspect obstructive sleep apnea-hypopnea syndrome. 7. Leukocytosis and low-grade fever, suspect secondary to pneumonia. Plan . PLAN AND RECOMMENDATIONS: 1. Titrate FiO2 to keep O2 saturation 94%. 2. d/w radiology . cannot exclude PE based on perfusion scan and will proceed with full VQ scan 3. neg venous Doppler. 4. cardiology rec 5. Lovenpx 40 mg sc 7. Sleep study as an outpatient. 8. Continue antibiotic. 9. Send urine for legionella and Strep pneumoniae antigen. discussed w pt, rn ESTEVAN CAN MD Aug 02, 2019 14:09
[2019-08-02] MEDS: ENOXAPARIN 40 MG/0.4 ML SYRINGE. SQ SCH (15:44)
[2019-08-02] MEDS: PATCH REMOVAL. MC SCH (21:00)
[2019-08-02] MEDS: ATORVASTATIN CALCIUM 20 MG TABLET PO SCH (21:13)
--- NOTE | 2019-08-02 22:33 | NUR ---
50 mg Hydralazine ordered at bedtime. Patient wishes to just take 25mg.
[2019-08-03 02:37] VITALS: BP 147/74
[2019-08-03 05:28] LABS: ALBUMIN 2.4 g/dL (3.4-5.0); CALCIUM 8.4 mg/dL (8.5-10.1); CREATININE 2.4 mg/dL (0.7-1.3); GFR 32.7; PHOSPHORUS 3.3 mg/dL (2.6-4.7); POTASSIUM 4.5 mmol/L (3.5-5.1)
[2019-08-03 07:00] VITALS: BP 132/80
[2019-08-03] MEDS: IPRATRPIUM/ALBUTEROL 0.5/2.5MG 3 ML NEBU. NEB SCH ×3 (07:31→15:01)
[2019-08-03] MEDS: ALLOPURINOL 100 MG TABLET. PO SCH (08:15)
[2019-08-03] MEDS: LIDOCAINE (700MG/PATCH) PATCH. TD SCH (08:15)
[2019-08-03] MEDS: POLYETHYLENE GLYCOL 3350 17 GM PACKET. PO SCH (08:15)
[2019-08-03] MEDS: DOCUSATE SODIUM 100 MG CAPSULE. PO SCH (08:16)
[2019-08-03] MEDS: PANTOPRAZOLE 40 MG TABLET.DR. PO SCH (08:16)
[2019-08-03] MEDS: CLOPIDOGREL BISULFATE 75 MG TABLET PO SCH (08:16)
[2019-08-03] MEDS: CHOLECALCIFEROL (VITAMIN D3) 1,000 UNIT TABLET PO SCH (08:16)
[2019-08-03] MEDS: LACTOBACILLUS RHAMNOSUS GG 1 CAPSULE. PO SCH (08:19)
[2019-08-03] MEDS: amLODIPine BESYLATE 10 MG TABLET PO SCH (08:19)
[2019-08-03] MEDS: hydrALAZINE 25 MG TABLET PO SCH (08:20)
[2019-08-03] MEDS: ISOSORBIDE MONONITRATE ER 30 MG TAB.ER.24H PO SCH (08:20)
[2019-08-03] MEDS: ASPIRIN CHEWABLE 81 MG TABLET. PO SCH (08:20)
[2019-08-03] MEDS: LABETALOL HCL 200 MG TABLET PO SCH (08:21)
[2019-08-03] MEDS: ACETAMINOPHEN 325 MG TABLET. PO PRN (08:27)
[2019-08-03] MEDS: DOXYCYCLINE HYCLATE 100 MG in IV DEXTROSE 5% 100ML 100 ML IV SCH (09:08)
--- NOTE | 2019-08-03 09:29 | PDOC ---
SUBJECTIVE ROS No complaints this am OBJECTIVE Vital Signs Vital Signs Date Time Temp Pulse Resp B/P (MAP) Pulse Ox O2 Delivery O2 Flow Rate FiO2 08/03/19 08:21 87 147/74 08/03/19 07:33 96 Room Air 08/03/19 07:00 98.9 18 98.9 I & 0 Intake and Output 08/03/19 07:00 Intake Total 1220 ml Output Total 500 ml Balance 720 ml Intake Oral 1120 ml IV Total 100 ml Output Urine Total 500 ml PHYSICAL EXAM Physical Exam GENERAL: , no acute distress. HEEN om moist CARDIAC: Regular rate and rhythm LUNGS: Clear to auscultation bilaterally. ABDOMEN: Soft, nontender, EXTREMITIES: No clubbing, cyanosis or edema. NEUROLOGIC: No focal deficits. PSYCHIATRIC: Normal status and mood. SKIN: No rashes No tavera DIAGNOSIS/ASSESSMENT Assessment & Plan CKD stage 3- baseline Cr 2.1-2.3- at least since 2018 Prior labs unknown to me, follows with Dr. Joseph 2x year as OP Stable renal function and E-Lytes , Gentle Hydration, monitor Acute respiratory failure secondary to PNA. Cannot rule out PE. VQ scan with intermediate, high probability for PE. 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 Accelerated hypertension; card managing COMMENT/RELEVANT DATA Meds Current Medications Medications (Trade) Dose Ordered Sig/Zoey Start Time Stop Time Status Last Admin Dose Admin Acetaminophen (Tylenol) 650 mg PRN Q4HRS PRN 07/30/19 16:30 08/03/19 08:27 650 MG Acetaminophen/ Hydrocodone Bitart (Lortab 5/325) 1 tab PRN Q6HRS PRN 07/31/19 05:30 07/31/19 17:19 1 TAB Albuterol Sulfate (Ventolin Neb Soln) 2.5 mg PRN Q4HRS PRN 07/30/19 16:30 Albuterol/ Ipratropium (Duoneb) 3 ml RTQID 08/01/19 16:00 08/03/19 07:31 3 ML Allopurinol (Zyloprim) 100 mg DAILY 08/01/19 09:00 08/03/19 08:15 100 MG Amlodipine Besylate (Norvasc) 10 mg DAILY 08/01/19 09:00 08/03/19 08:19 10 MG Aspirin (Aspirin Chewable) 81 mg DAILYWBKFT 08/01/19 08:00 08/03/19 08:20 81 MG Aspirin (Jayant Aspirin) 325 mg DAILY 07/31/19 09:00 07/31/19 14:03 DC 07/31/19 09:15 325 MG Atorvastatin Calcium (Lipitor) 40 mg QHS 07/30/19 21:00 08/02/19 21:13 40 MG Bisacodyl (Dulcolax Tab) 5 mg 1X PRN 07/31/19 06:15 07/31/19 06:18 5 MG Ceftriaxone Sodium (Rocephin) 1 gm Q24H 07/31/19 12:00 08/02/19 11:31 1 GM Clopidogrel Bisulfate (Plavix) 75 mg DAILYWBKFT 07/31/19 08:00 08/03/19 08:16 75 MG Docusate Sodium (Colace) 100 mg DAILY 07/31/19 06:15 08/03/19 08:16 100 MG Doxycycline Hyclate 100 mg/ Dextrose 100 ml @ 50 mls/hr Q12HR 07/31/19 12:00 08/03/19 09:08 50 MLS/HR Enoxaparin Sodium (Lovenox 30mg Syringe) 30 mg Q24H 08/01/19 14:45 UNV Enoxaparin Sodium (Lovenox 40mg Syringe) 40 mg Q24H 08/01/19 15:00 08/02/19 15:44 40 MG Guaifenesin (Robitussin) 200 mg PRN Q4HRS PRN 07/30/19 16:30 Heparin Sodium (Porcine) (Heparin Sodium) 1,450 unit PRN Q6HRS PRN 07/31/19 07:00 Cancel Heparin Sodium/ Dextrose 250 ml @ 0 mls/hr CONT PRN 07/31/19 07:00 08/01/19 14:53 DC 08/01/19 04:23 15.4 MLS/HR Hydralazine HCl (Apresoline) 25 mg 1X ONCE 08/02/19 11:00 08/02/19 11:01 DC 08/02/19 11:31 25 MG Info (Anti-Coagulation Monitoring By Pharmacy) 1 each PRN DAILY PRN 08/01/19 13:30 08/01/19 14:53 DC 08/01/19 13:23 1 EACH Isosorbide Mononitrate (Imdur) 30 mg DAILY 07/31/19 09:00 08/03/19 08:20 30 MG Labetalol HCl (Trandate) 200 mg BID 07/30/19 21:00 08/03/19 08:21 200 MG Lactobacillus Rhamnosus (Culturelle) 1 cap BID 08/01/19 21:00 08/03/19 08:19 1 CAP Lidocaine (Lidoderm) 1 patch DAILY 07/30/19 17:15 08/03/19 08:15 1 PATCH Miscellaneous (Lidoderm Patch Removal) 1 ea QHS 07/30/19 21:00 08/02/19 21:00 1 EA Ondansetron HCl (Zofran) 4 mg PRN Q4HRS PRN 07/30/19 16:30 Pantoprazole Sodium (Protonix) 40 mg DAILYAC 07/31/19 12:00 08/03/19 08:16 40 MG Polyethylene Glycol (miraLAX PACKET) 17 gm DAILY 07/31/19 06:15 08/03/19 08:15 17 GM Sodium Chloride 1,000 ml @ 125 mls/hr 1X ONCE 07/30/19 17:15 07/31/19 01:14 DC 07/30/19 17:26 125 MLS/HR Vitamin D (Vitamin D3) 2,000 unit DAILY 07/31/19 09:00 08/03/19 08:16 2,000 UNIT Lab Laboratory Tests Test 08/02/19 10:30 08/03/19 04:08 White Blood Count 9.2 x10^3/uL (4.0-11.0) Red Blood Count 4.31 x10^6/uL (4.30-5.70) Hemoglobin 11.5 g/dL (13.0-17.5) Hematocrit 34.8 % (39.0-53.0) Mean Corpuscular Volume 81 fL (79-100) Mean Corpuscular Hemoglobin 27 pg (25-35) Mean Corpuscular Hemoglobin Concent 33 g/dL (31-37) Red Cell Distribution Width 16.9 % (11.5-14.5) Platelet Count 207 x10^3/uL (140-400) Neutrophils (%) (Auto) 81 % (31-73) Lymphocytes (%) (Auto) 6 % (24-48) Monocytes (%) (Auto) 12 % (0-9) Eosinophils (%) (Auto) 1 % (0-3) Basophils (%) (Auto) 1 % (0-3) Neutrophils # (Auto) 7.5 x10^3/uL (1.8-7.7) Lymphocytes # (Auto) 0.5 x10^3/uL (1.0-4.8) Monocytes # (Auto) 1.1 x10^3/uL (0.0-1.1) Eosinophils # (Auto) 0.1 x10^3/uL (0.0-0.7) Basophils # (Auto) 0.0 x10^3/uL (0.0-0.2) Prothrombin Time 14.0 SEC (11.7-14.0) Prothromb Time International Ratio 1.1 (0.8-1.1) Sodium Level 139 mmol/L (136-145) 140 mmol/L (136-145) Potassium Level 4.3 mmol/L (3.5-5.1) 4.5 mmol/L (3.5-5.1) Chloride Level 105 mmol/L (98-107) 106 mmol/L (98-107) Carbon Dioxide Level 23 mmol/L (21-32) 21 mmol/L (21-32) Anion Gap 11 (6-14) 13 (6-14) Blood Urea Nitrogen 39 mg/dL (8-26) 41 mg/dL (8-26) Creatinine 2.3 mg/dL (0.7-1.3) 2.4 mg/dL (0.7-1.3) Estimated GFR (Cockcroft-Gault) 34.4 32.7 BUN/Creatinine Ratio 17 (6-20) Glucose Level 113 mg/dL (70-99) 89 mg/dL (70-99) Calcium Level 8.5 mg/dL (8.5-10.1) 8.4 mg/dL (8.5-10.1) Total Bilirubin 0.9 mg/dL (0.2-1.0) Aspartate Amino Transf (AST/SGOT) 47 U/L (15-37) Alanine Aminotransferase (ALT/SGPT) 63 U/L (16-63) Alkaline Phosphatase 223 U/L (46-116) Total Protein 6.1 g/dL (6.4-8.2) Albumin 2.5 g/dL (3.4-5.0) 2.4 g/dL (3.4-5.0) Albumin/Globulin Ratio 0.7 (1.0-1.7) Phosphorus Level 3.3 mg/dL (2.6-4.7) Results All relevant outside records, renal labs, imaging studies, telemetry/EKG's were reviewed. Justicifation of Admission Dx: Justifications for Admission: Justification of Admission Dx: Yes ID: Acute NSTEMI ANTHONY AGUERO MD Aug 03, 2019 09:29
--- NOTE | 2019-08-03 09:40 | PDOC ---
ALCON HARRINGTON SKY DIVER 08/03/19 0940: CARDIO Progress Notes Date and Time Date of Service 08/03/2019 Time of Evaluation 0840 Subjective Subjective: No Chest Pain, No shortness of breath, No Palpitations, Other (ambulatory without difficulty) Vitals Vitals Vital Signs Date Time Temp Pulse Resp B/P (MAP) Pulse Ox O2 Delivery O2 Flow Rate FiO2 08/03/19 08:21 87 147/74 08/03/19 07:33 96 Room Air 08/03/19 07:00 98.9 18 98.9 Weight Weight [ ] Input and Output Intake and Output Intake and Output 08/03/19 06:59 Intake Total 1220 ml Output Total 500 ml Balance 720 ml Intake Oral 1120 ml IV Total 100 ml Output Urine Total 500 ml Laboratory Labs Laboratory Tests Test 08/02/19 10:30 08/03/19 04:08 White Blood Count 9.2 x10^3/uL (4.0-11.0) Red Blood Count 4.31 x10^6/uL (4.30-5.70) Hemoglobin 11.5 g/dL (13.0-17.5) Hematocrit 34.8 % (39.0-53.0) Mean Corpuscular Volume 81 fL (79-100) Mean Corpuscular Hemoglobin 27 pg (25-35) Mean Corpuscular Hemoglobin Concent 33 g/dL (31-37) Red Cell Distribution Width 16.9 % (11.5-14.5) Platelet Count 207 x10^3/uL (140-400) Neutrophils (%) (Auto) 81 % (31-73) Lymphocytes (%) (Auto) 6 % (24-48) Monocytes (%) (Auto) 12 % (0-9) Eosinophils (%) (Auto) 1 % (0-3) Basophils (%) (Auto) 1 % (0-3) Neutrophils # (Auto) 7.5 x10^3/uL (1.8-7.7) Lymphocytes # (Auto) 0.5 x10^3/uL (1.0-4.8) Monocytes # (Auto) 1.1 x10^3/uL (0.0-1.1) Eosinophils # (Auto) 0.1 x10^3/uL (0.0-0.7) Basophils # (Auto) 0.0 x10^3/uL (0.0-0.2) Prothrombin Time 14.0 SEC (11.7-14.0) Prothromb Time International Ratio 1.1 (0.8-1.1) Sodium Level 139 mmol/L (136-145) 140 mmol/L (136-145) Potassium Level 4.3 mmol/L (3.5-5.1) 4.5 mmol/L (3.5-5.1) Chloride Level 105 mmol/L (98-107) 106 mmol/L (98-107) Carbon Dioxide Level 23 mmol/L (21-32) 21 mmol/L (21-32) Anion Gap 11 (6-14) 13 (6-14) Blood Urea Nitrogen 39 mg/dL (8-26) 41 mg/dL (8-26) Creatinine 2.3 mg/dL (0.7-1.3) 2.4 mg/dL (0.7-1.3) Estimated GFR (Cockcroft-Gault) 34.4 32.7 BUN/Creatinine Ratio 17 (6-20) Glucose Level 113 mg/dL (70-99) 89 mg/dL (70-99) Calcium Level 8.5 mg/dL (8.5-10.1) 8.4 mg/dL (8.5-10.1) Total Bilirubin 0.9 mg/dL (0.2-1.0) Aspartate Amino Transf (AST/SGOT) 47 U/L (15-37) Alanine Aminotransferase (ALT/SGPT) 63 U/L (16-63) Alkaline Phosphatase 223 U/L (46-116) Total Protein 6.1 g/dL (6.4-8.2) Albumin 2.5 g/dL (3.4-5.0) 2.4 g/dL (3.4-5.0) Albumin/Globulin Ratio 0.7 (1.0-1.7) Phosphorus Level 3.3 mg/dL (2.6-4.7) Physical Exam HEENT: Neck Supple W Full Motion Chest: Symmetric LUNGS: Clear to Auscultation Heart: S1S2, RRR (SR) Abdomen: Soft N/T Extremities: No Edema Neurology: alert, oriented, follow commands Assessment Assessment 1. Acute respiratory failure secondary to PNA: ruling out PE, full V/Q scheduled tomorrow 2. NSTEMI; highest 0.28. suspect demand mediated type 2 due to above 3. CAD; s/p PCI/TAMMY to the LAD (07/2018), clinically stable 4. Chronic diastolic CHF with prior ICM: EF recovered 55% with normal WM. Compensated 5. Accelerated hypertension; controlled 6. Dyslipidemia 7. CKD 3-4; Cr within his baseline Recommendations 1. Continue current BP regimen with addition of hydralazine 2. Continue secondary prevention; ASA/plavix, statin, BB, imdur. 3. We will defer AC therapy to the primary care physician and pulmonary team. If patient discharge on AC, may discontinue ASA and continue Plavix. 4. Supportive care Justicifation of Admission Dx: Justifications for Admission: Justification of Admission Dx: Yes ME: Acute NSTEMI SHEFALI HU MD 08/03/19 2016: CARDIO Progress Notes Assessment Assessment Patient seen and examined. Agree with [employer] OPERATOR's assessment and plan. Non-STEMI most probably demand ischemia. CAD status clinically stable overall. 2D echo showed normal LV systolic function without any wall motion abnormalities. BP better controlled Plan ischemic evaluation as outpatient ALCON HARRINGTON APRN Aug 03, 2019 09:40 SHEFALI HU MD Aug 03, 2019 20:16
--- NOTE | 2019-08-03 10:23 | PDOC ---
PROGRESS NOTES Chief Complaint Chief Complaint impression NSTEMI - possibly demand ischemia with ALE, will trend troponins, cont meds. Hold diuretics. Heparin GTT. Consult cardiology ALE CKD - creat 2.2. Will give IVF for vasomotor nephropathy. Consult nephrology Chest pain - elevated troponin and d-dimer. heparin gtt., VQ scan PE on left. Cardiology consulted HX CARDIOMYOPATHY WITH STENTS Severe single-vessel coronary artery disease Successful PCI/drug eluting stent placement to the left anterior descending artery 07/2018 Large perfusion defect in the left lower lobe, matched with chest radiograph findings. Interpretation somewhat limited without ventilation images. A triple matched defect in the left lower lobe is considered intermediate probability Abnormal chest x-ray and CT of the chest, suspect secondary to pneumonia Dyslipidemia - cont on statin Hypertension - cont meds, hold diuretics for ALE Chronic kidney disease stage 3 secondary to hypertensive nephrosclerosis Chronic CHF, diastolic. Does not appear acute. Will check BNP Unintentional weight loss - 24# weight loss in the past 3-4 months, thinks mainly due to dietary change and stopping soda Abnormal CXR - will consult pulmonology. Check procalcitonin, will treat for community-acquired pneumonia. Given his cardiac disease he is high risk for likely gram-negative pneumonia.. Intermediate for PE on VQ plan Continue with broad-spectrum antibiotic PULM FOLLOWING awaiting for VQ scan to be done CARDIOLOGY FOLLOWING recommendations are as follows: Recommendations 1. Continue current BP regimen with addition of hydralazine 2. Continue secondary prevention; ASA/plavix, statin, BB, imdur. 3. We will defer AC therapy to the primary care physician and pulmonary team. If patient discharge on AC, may discontinue ASA and continue Plavix. 4. Supportive care History of Present Illness History of Present Illness Mr Roldan is a 68 yo M w/ PMhx CKD, HLD, HTN, CAD s/p LAD stent 2018, dCHF who was initially seen at [facility] for left-sided chest heaviness associated with shortness of breath worse with exertion and transfer to [facility] for elevated troponin level and d-dimer. He notes left lateral chest pain which is been ongoing for the past 2 days. Described as an intermittent stabbing sensation, does not radiate, was worse with one cough, but is not reproducible with pressure. Nothing exacerbates or alleviates it. 6-8 out of 10 at the worst. Denies any fever or chills. No increased leg swelling or calf tenderness. No orthopnea or BONDS. Symptoms are different than his prior NSTEMI 07/2018. 24# weight loss in the past 3-4 months, thinks mainly due to dietary change and stopping soda. He notes he had follow-up with Dr. Joseph for his CKD 6 months ago, and he thinks his creatinine at that time was "normal". Labs NA 138, K4.8, BUN 35, CR 2.2, glucose 127, magnesium 2.6, bilirubin 1.3, INR 1, albumin 3, d-dimer 4.67, troponin 0 0.257, WBC 9.7, Hb 11.5, platelets 166. EKG: NSR at 86bpm, NO ST elevation, nonspecific t wave inversion I, aVL, and V6, QRS 90ms, QT/QTc 376/453ms CXR with L>R lung base airspace opacities and trace left pleural effusion or pleural thickening. Called from [facility] for transfer to [facility] for further treatment. urine for legionella and Strep pneumoniae antigen. 08/01 ECHO pending LE , he feels improved, 08/02 No acute events reported overnight, case discussed with nursing staff patient in no acute distress no complaints during my visit Vitals Vitals Vital Signs Date Time Temp Pulse Resp B/P (MAP) Pulse Ox O2 Delivery O2 Flow Rate FiO2 08/03/19 08:21 87 147/74 08/03/19 08:00 Room Air 08/03/19 07:33 96 08/03/19 07:00 98.9 18 98.9 Physical Exam Physical Exam Lungs: Crackles Cardiovascular: S1, S2 Abdomen: Soft, Non-tender Neuro Exam: Alert Extremities: Other (edema) Skin: Warm General: Alert, Oriented X3, Cooperative, No acute distress Heart: Regular rate Lungs: Clear, Crackles Abdomen: Normal bowel sounds, Soft, No tenderness, No hepatosplenomegaly, No masses Extremities: No clubbing, No cyanosis, No edema, Normal pulses, No tenderness/swelling Skin: No rashes, No breakdown, No significant lesion Labs LABS Laboratory Tests Test 08/02/19 10:30 08/03/19 04:08 White Blood Count 9.2 x10^3/uL (4.0-11.0) Red Blood Count 4.31 x10^6/uL (4.30-5.70) Hemoglobin 11.5 g/dL (13.0-17.5) Hematocrit 34.8 % (39.0-53.0) Mean Corpuscular Volume 81 fL (79-100) Mean Corpuscular Hemoglobin 27 pg (25-35) Mean Corpuscular Hemoglobin Concent 33 g/dL (31-37) Red Cell Distribution Width 16.9 % (11.5-14.5) Platelet Count 207 x10^3/uL (140-400) Neutrophils (%) (Auto) 81 % (31-73) Lymphocytes (%) (Auto) 6 % (24-48) Monocytes (%) (Auto) 12 % (0-9) Eosinophils (%) (Auto) 1 % (0-3) Basophils (%) (Auto) 1 % (0-3) Neutrophils # (Auto) 7.5 x10^3/uL (1.8-7.7) Lymphocytes # (Auto) 0.5 x10^3/uL (1.0-4.8) Monocytes # (Auto) 1.1 x10^3/uL (0.0-1.1) Eosinophils # (Auto) 0.1 x10^3/uL (0.0-0.7) Basophils # (Auto) 0.0 x10^3/uL (0.0-0.2) Prothrombin Time 14.0 SEC (11.7-14.0) Prothromb Time International Ratio 1.1 (0.8-1.1) Sodium Level 139 mmol/L (136-145) 140 mmol/L (136-145) Potassium Level 4.3 mmol/L (3.5-5.1) 4.5 mmol/L (3.5-5.1) Chloride Level 105 mmol/L (98-107) 106 mmol/L (98-107) Carbon Dioxide Level 23 mmol/L (21-32) 21 mmol/L (21-32) Anion Gap 11 (6-14) 13 (6-14) Blood Urea Nitrogen 39 mg/dL (8-26) 41 mg/dL (8-26) Creatinine 2.3 mg/dL (0.7-1.3) 2.4 mg/dL (0.7-1.3) Estimated GFR (Cockcroft-Gault) 34.4 32.7 BUN/Creatinine Ratio 17 (6-20) Glucose Level 113 mg/dL (70-99) 89 mg/dL (70-99) Calcium Level 8.5 mg/dL (8.5-10.1) 8.4 mg/dL (8.5-10.1) Total Bilirubin 0.9 mg/dL (0.2-1.0) Aspartate Amino Transf (AST/SGOT) 47 U/L (15-37) Alanine Aminotransferase (ALT/SGPT) 63 U/L (16-63) Alkaline Phosphatase 223 U/L (46-116) Total Protein 6.1 g/dL (6.4-8.2) Albumin 2.5 g/dL (3.4-5.0) 2.4 g/dL (3.4-5.0) Albumin/Globulin Ratio 0.7 (1.0-1.7) Phosphorus Level 3.3 mg/dL (2.6-4.7) Comment Review of Relevant I have reviewed the following items ramiro (where applicable) has been applied. Labs Laboratory Tests Test 08/02/19 10:30 08/03/19 04:08 White Blood Count 9.2 x10^3/uL (4.0-11.0) Red Blood Count 4.31 x10^6/uL (4.30-5.70) Hemoglobin 11.5 g/dL (13.0-17.5) Hematocrit 34.8 % (39.0-53.0) Mean Corpuscular Volume 81 fL (79-100) Mean Corpuscular Hemoglobin 27 pg (25-35) Mean Corpuscular Hemoglobin Concent 33 g/dL (31-37) Red Cell Distribution Width 16.9 % (11.5-14.5) Platelet Count 207 x10^3/uL (140-400) Neutrophils (%) (Auto) 81 % (31-73) Lymphocytes (%) (Auto) 6 % (24-48) Monocytes (%) (Auto) 12 % (0-9) Eosinophils (%) (Auto) 1 % (0-3) Basophils (%) (Auto) 1 % (0-3) Neutrophils # (Auto) 7.5 x10^3/uL (1.8-7.7) Lymphocytes # (Auto) 0.5 x10^3/uL (1.0-4.8) Monocytes # (Auto) 1.1 x10^3/uL (0.0-1.1) Eosinophils # (Auto) 0.1 x10^3/uL (0.0-0.7) Basophils # (Auto) 0.0 x10^3/uL (0.0-0.2) Prothrombin Time 14.0 SEC (11.7-14.0) Prothromb Time International Ratio 1.1 (0.8-1.1) Sodium Level 139 mmol/L (136-145) 140 mmol/L (136-145) Potassium Level 4.3 mmol/L (3.5-5.1) 4.5 mmol/L (3.5-5.1) Chloride Level 105 mmol/L (98-107) 106 mmol/L (98-107) Carbon Dioxide Level 23 mmol/L (21-32) 21 mmol/L (21-32) Anion Gap 11 (6-14) 13 (6-14) Blood Urea Nitrogen 39 mg/dL (8-26) 41 mg/dL (8-26) Creatinine 2.3 mg/dL (0.7-1.3) 2.4 mg/dL (0.7-1.3) Estimated GFR (Cockcroft-Gault) 34.4 32.7 BUN/Creatinine Ratio 17 (6-20) Glucose Level 113 mg/dL (70-99) 89 mg/dL (70-99) Calcium Level 8.5 mg/dL (8.5-10.1) 8.4 mg/dL (8.5-10.1) Total Bilirubin 0.9 mg/dL (0.2-1.0) Aspartate Amino Transf (AST/SGOT) 47 U/L (15-37) Alanine Aminotransferase (ALT/SGPT) 63 U/L (16-63) Alkaline Phosphatase 223 U/L (46-116) Total Protein 6.1 g/dL (6.4-8.2) Albumin 2.5 g/dL (3.4-5.0) 2.4 g/dL (3.4-5.0) Albumin/Globulin Ratio 0.7 (1.0-1.7) Phosphorus Level 3.3 mg/dL (2.6-4.7) Laboratory Tests Test 08/02/19 10:30 08/03/19 04:08 White Blood Count 9.2 x10^3/uL (4.0-11.0) Red Blood Count 4.31 x10^6/uL (4.30-5.70) Hemoglobin 11.5 g/dL (13.0-17.5) Hematocrit 34.8 % (39.0-53.0) Mean Corpuscular Volume 81 fL (79-100) Mean Corpuscular Hemoglobin 27 pg (25-35) Mean Corpuscular Hemoglobin Concent 33 g/dL (31-37) Red Cell Distribution Width 16.9 % (11.5-14.5) Platelet Count 207 x10^3/uL (140-400) Neutrophils (%) (Auto) 81 % (31-73) Lymphocytes (%) (Auto) 6 % (24-48) Monocytes (%) (Auto) 12 % (0-9) Eosinophils (%) (Auto) 1 % (0-3) Basophils (%) (Auto) 1 % (0-3) Neutrophils # (Auto) 7.5 x10^3/uL (1.8-7.7) Lymphocytes # (Auto) 0.5 x10^3/uL (1.0-4.8) Monocytes # (Auto) 1.1 x10^3/uL (0.0-1.1) Eosinophils # (Auto) 0.1 x10^3/uL (0.0-0.7) Basophils # (Auto) 0.0 x10^3/uL (0.0-0.2) Prothrombin Time 14.0 SEC (11.7-14.0) Prothromb Time International Ratio 1.1 (0.8-1.1) Sodium Level 139 mmol/L (136-145) 140 mmol/L (136-145) Potassium Level 4.3 mmol/L (3.5-5.1) 4.5 mmol/L (3.5-5.1) Chloride Level 105 mmol/L (98-107) 106 mmol/L (98-107) Carbon Dioxide Level 23 mmol/L (21-32) 21 mmol/L (21-32) Anion Gap 11 (6-14) 13 (6-14) Blood Urea Nitrogen 39 mg/dL (8-26) 41 mg/dL (8-26) Creatinine 2.3 mg/dL (0.7-1.3) 2.4 mg/dL (0.7-1.3) Estimated GFR (Cockcroft-Gault) 34.4 32.7 BUN/Creatinine Ratio 17 (6-20) Glucose Level 113 mg/dL (70-99) 89 mg/dL (70-99) Calcium Level 8.5 mg/dL (8.5-10.1) 8.4 mg/dL (8.5-10.1) Total Bilirubin 0.9 mg/dL (0.2-1.0) Aspartate Amino Transf (AST/SGOT) 47 U/L (15-37) Alanine Aminotransferase (ALT/SGPT) 63 U/L (16-63) Alkaline Phosphatase 223 U/L (46-116) Total Protein 6.1 g/dL (6.4-8.2) Albumin 2.5 g/dL (3.4-5.0) 2.4 g/dL (3.4-5.0) Albumin/Globulin Ratio 0.7 (1.0-1.7) Phosphorus Level 3.3 mg/dL (2.6-4.7) Medications Current Medications Ondansetron HCl (Zofran) 4 mg PRN Q4HRS PRN IV NAUSEA/VOMITING; Start 07/30/19 at 16:30 Acetaminophen (Tylenol) 650 mg PRN Q4HRS PRN PO TEMP OVER 100.4F OR MILD PAIN Last administered on 08/03/19at 08:27; Start 07/30/19 at 16:30 Albuterol Sulfate (Ventolin Neb Soln) 2.5 mg PRN Q4HRS PRN NEB SHORTNESS OF BR EATH; Start 07/30/19 at 16:30 Guaifenesin (Robitussin) 200 mg PRN Q4HRS PRN PO COUGH; Start 07/30/19 at 16:30 Heparin Sodium/ Dextrose 250 ml @ 10 mls/hr CONT PRN IV PER PROTOCOL Last administered on 07/30/19at 17:30; Start 07/30/19 at 16:45; Stop 07/31/19 at 06:53; Status DC Heparin Sodium (Porcine) (Heparin Sodium) 2,400 unit PRN Q6HRS PRN IV FOR UFH LEVEL LESS THAN 0.2; Start 07/30/19 at 16:45; Stop 07/31/19 at 06:53; Status DC Allopurinol (Zyloprim) 100 mg DAILY PO Last administered on 07/31/19at 09:18; Start 07/31/19 at 09:00; Stop 08/01/19 at 08:32; Status DC Amlodipine Besylate (Norvasc) 5 mg DAILY PO Last administered on 07/31/19at 09:19; Start 07/31/19 at 09:00; Stop 07/31/19 at 14:03; Status DC Aspirin (Jayant Aspirin) 325 mg DAILY PO Last administered on 07/31/19at 09:15; Start 07/31/19 at 09:00; Stop 07/31/19 at 14:03; Status DC Atorvastatin Calcium (Lipitor) 40 mg QHS PO Last administered on 08/02/19at 21:13; Start 07/30/19 at 21:00 Vitamin D (Vitamin D3) 2,000 unit DAILY PO Last administered on 08/03/19at 08:16; Start 07/31/19 at 09:00 Clopidogrel Bisulfate (Plavix) 75 mg DAILYWBKFT PO Last administered on 0at 08:16; Start 07/31/19 at 08:00 Isosorbide Mononitrate (Imdur) 30 mg DAILY PO Last administered on 08/03/19at 08:20; Start 07/31/19 at 09:00 Labetalol HCl (Trandate) 200 mg BID PO Last administered on 08/03/19at 08:21; Start 07/30/19 at 21:00 Hydralazine HCl (Apresoline) 100 mg PRN TID PRN PO HYPERTENSION; Start 07/30/19 at 21:00; Stop 07/31/19 at 14:03; Status DC Sodium Chloride 1,000 ml @ 125 mls/hr 1X ONCE IV Last administered on 07/30/19at 17:26; Start 07/30/19 at 17:15; Stop 07/31/19 at 01:14; Status DC Lidocaine (Lidoderm) 1 patch DAILY TD Last administered on 08/03/19at 08:15; Start 07/30/19 at 17:15 Miscellaneous (Lidoderm Patch Removal) 1 ea QHS MC Last administered on 08/02/19at 21:00; Start 07/30/19 at 21:00 Acetaminophen/ Hydrocodone Bitart (Lortab 5/325) 1 tab PRN Q6HRS PRN PO MODERATE - SEVERE PAIN Last administered on 07/31/19 17:19; Start 07/31/19 at 05:30 Docusate Sodium (Colace) 100 mg DAILY PO Last administered on 08/03/19 08:16; Start 07/31/19 at 06:15 Polyethylene Glycol (miraLAX PACKET) 17 gm DAILY PO Last administered on 08/03/19 08:15; Start 07/31/19 at 06:15 Bisacodyl (Dulcolax Tab) 5 mg 1X PRN PO CONSTIPATION Last administered on 07/31/19 06:18; Start 07/31/19 at 06:15 Heparin Sodium/ Dextrose 250 ml @ 0 mls/hr CONT PRN IV PER PROTOCOL Last administered on 08/01/19at 04:23; Start 07/31/19 at 07:00; Stop 08/01/19 at 14:53; Status DC Heparin Sodium (Porcine) (Heparin Sodium) 2,900 unit PRN Q6HRS PRN IV FOR UFH LEVEL LESS THAN 0.2; Start 07/31/19 at 07:00; Status Cancel Heparin Sodium (Porcine) (Heparin Sodium) 1,450 unit PRN Q6HRS PRN IV FOR UFH LEVEL 0.2 - 0.29; Start 07/31/19 at 07:00; Status Cancel Ceftriaxone Sodium (Rocephin) 1 gm Q24H IVP Last administered on 08/02/19at 11:31; Start 07/31/19 at 12:00 Doxycycline Hyclate 100 mg/ Dextrose 100 ml @ 50 mls/hr Q12HR IV Last administered on 08/03/19at 09:08; Start 07/31/19 at 12:00 Pantoprazole Sodium (Protonix) 40 mg DAILYAC PO Last administered on 08/03/19at 08:16; Start 07/31/19 at 12:00 Amlodipine Besylate (Norvasc) 10 mg DAILY PO Last administered on 08/03/19at 08:19; Start 08/01/19 at 09:00 Aspirin (Aspirin Chewable) 81 mg DAILYWBKFT PO Last administered on 08/03/19at 08:20; Start 08/01/19 at 08:00 Hydralazine HCl (Apresoline) 25 mg BID PO Last administered on 08/02/19at 09:18; Start 07/31/19 at 14:30; Stop 08/02/19 at 10:52; Status DC Allopurinol (Zyloprim) 100 mg DAILY PO ; Start 08/01/19 at 09:00; Stop 08/01/19 at 08:37; Status DC Allopurinol (Zyloprim) 100 mg DAILY PO Last administered on 08/03/19at 08:15; Start 08/01/19 at 09:00 Lactobacillus Rhamnosus (Culturelle) 1 cap BID PO Last administered on 08/03/19at 08:19; Start 08/01/19 at 21:00 Albuterol/ Ipratropium (Duoneb) 3 ml RTQID NEB Last administered on 08/03/19at 07:31; Start 08/01/19 at 16:00 Info (Anti-Coagulation Monitoring By Pharmacy) 1 each PRN DAILY PRN MC SEE COMMENTS Last administered on 08/01/19at 13:23; Start 08/01/19 at 13:30; Stop 08/01/19 at 14:53; Status DC Enoxaparin Sodium (Lovenox 30mg Syringe) 30 mg Q24H SQ ; Start 08/01/19 at 14:45; Status UNV Enoxaparin Sodium (Lovenox 40mg Syringe) 40 mg Q24H SQ Last administered on 08/02/19at 15:44; Start 08/01/19 at 15:00 Hydralazine HCl (Apresoline) 50 mg BID PO Last administered on 08/03/19at 08:20; Start 08/02/19 at 21:00 Hydralazine HCl (Apresoline) 25 mg 1X ONCE PO Last administered on 08/02/19at 11:31; Start 08/02/19 at 11:00; Stop 08/02/19 at 11:01; Status DC Active Scripts Active Labetalol Hcl 200 Mg Tablet 200 Mg PO BID 30 Days Isosorbide Mononitrate Er (Isosorbide Mononitrate) 30 Mg Tab.er.24h 30 Mg PO DAILY 30 Days Atorvastatin Calcium 20 Mg Tablet 40 Mg PO QHS 30 Days Can replace with #30 of 40mg tabs Clopidogrel (Clopidogrel Bisulfate) 75 Mg Tablet 75 Mg PO DAILYWBKFT 30 Days Hydralazine Hcl 100 Mg Tablet 100 Mg PO TID PRN 30 Days Reported Furosemide 20 Mg Tablet 1 Tab PO DAILY Amlodipine Besylate 5 Mg Tablet 5 Mg PO DAILY Spironolactone 25 Mg Tablet 1 Tab PO DAILY Vitamin D3 (Cholecalciferol (Vitamin D3)) 1,000 Unit Tablet 2,000 Unit PO DAILY Aspirin 325 Mg Tablet 1 Tab PO DAILY Allopurinol 300 Mg Tablet 300 Mg PO DAILY Klor-Con M20 (Potassium Chloride) 20 Meq Tab.er.prt 80 Meq PO DAILY Vitals/I & O Vital Sign - Last 24 Hours 08/02/19 08/02/19 08/02/19 08/02/19 11:00 11:23 11:31 11:45 Temp 98.4 98.4 Pulse 93 93 85 Resp 18 B/P (MAP) 149/82 (104) 149/82 104/60 (75) Pulse Ox 93 95 O2 Delivery Room Air Room Air 08/02/19 08/02/19 08/02/19 08/02/19 12:20 15:00 15:58 19:14 Temp 98.7 99.1 98.7 99.1 Pulse 86 91 102 Resp 18 18 B/P (MAP) 114/69 (84) 130/67 (88) 156/80 (105) Pulse Ox 92 90 O2 Delivery Room Air Room Air Room Air 08/02/19 08/02/19 08/02/19 08/02/19 20:00 20:17 21:13 21:13 Pulse 102 102 B/P (MAP) 156/80 156/80 Pulse Ox 95 O2 Delivery Room Air Room Air 08/02/19 08/03/19 08/03/19 08/03/19 22:46 02:37 07:00 07:33 Temp 99.4 98.8 98.9 99.4 98.8 98.9 Pulse 84 87 87 Resp 18 18 18 B/P (MAP) 129/66 (87) 147/74 (98) 132/80 (97) Pulse Ox 93 93 93 96 O2 Delivery Room Air Room Air Room Air Room Air 08/03/19 08/03/19 08/03/1908/02/20 08:00 08:19 08:20 08:20 Pulse 87 87 87 B/P (MAP) 147/74 147/74 147/74 O2 Delivery Room Air 08/03/19 08:21 Pulse 87 B/P (MAP) 147/74 Intake and Output 08/02/19 08/02/19 08/03/19 15:00 23:00 07:00 Intake Total 420 ml 0 ml 800 ml Output Total 500 ml Balance -80 ml 0 ml 800 ml LORI CROWE MD Aug 03, 2019 10:23
[2019-08-03] MEDS ORDERED: IV NORMAL SALINE 1000ML BAG 1,000 ML IV ONE (10:30)
--- NOTE | 2019-08-03 10:49 | NUR ---
SW following. Discussed with RN, pt from home, anticipate discharge home tomorrow (08/04/2019).
[2019-08-03 11:00] VITALS: BP 107/56
--- NOTE | 2019-08-03 11:44 | PDOC ---
PULMONARY PROGRESS NOTES Subjective denies sob, cough, cp resolved Vitals Vital Signs Date Time Temp Pulse Resp B/P (MAP) Pulse Ox O2 Delivery O2 Flow Rate FiO2 08/03/19 11:00 98.4 88 18 107/56 (73) 91 Room Air 98.4 ROS: No Nausea, No Chest Pain General: Alert, Oriented X4 HEENT: Other (nc at perrl nose throat clear) Lungs: Crackles Cardiovascular: S1, S2 Abdomen: Soft, Non-tender Neuro Exam: Alert Extremities: Other (edema) Skin: Warm Labs Laboratory Tests Test 08/02/19 10:30 08/03/19 04:08 White Blood Count 9.2 x10^3/uL (4.0-11.0) Red Blood Count 4.31 x10^6/uL (4.30-5.70) Hemoglobin 11.5 g/dL (13.0-17.5) Hematocrit 34.8 % (39.0-53.0) Mean Corpuscular Volume 81 fL (79-100) Mean Corpuscular Hemoglobin 27 pg (25-35) Mean Corpuscular Hemoglobin Concent 33 g/dL (31-37) Red Cell Distribution Width 16.9 % (11.5-14.5) Platelet Count 207 x10^3/uL (140-400) Neutrophils (%) (Auto) 81 % (31-73) Lymphocytes (%) (Auto) 6 % (24-48) Monocytes (%) (Auto) 12 % (0-9) Eosinophils (%) (Auto) 1 % (0-3) Basophils (%) (Auto) 1 % (0-3) Neutrophils # (Auto) 7.5 x10^3/uL (1.8-7.7) Lymphocytes # (Auto) 0.5 x10^3/uL (1.0-4.8) Monocytes # (Auto) 1.1 x10^3/uL (0.0-1.1) Eosinophils # (Auto) 0.1 x10^3/uL (0.0-0.7) Basophils # (Auto) 0.0 x10^3/uL (0.0-0.2) Prothrombin Time 14.0 SEC (11.7-14.0) Prothromb Time International Ratio 1.1 (0.8-1.1) Sodium Level 139 mmol/L (136-145) 140 mmol/L (136-145) Potassium Level 4.3 mmol/L (3.5-5.1) 4.5 mmol/L (3.5-5.1) Chloride Level 105 mmol/L (98-107) 106 mmol/L (98-107) Carbon Dioxide Level 23 mmol/L (21-32) 21 mmol/L (21-32) Anion Gap 11 (6-14) 13 (6-14) Blood Urea Nitrogen 39 mg/dL (8-26) 41 mg/dL (8-26) Creatinine 2.3 mg/dL (0.7-1.3) 2.4 mg/dL (0.7-1.3) Estimated GFR (Cockcroft-Gault) 34.4 32.7 BUN/Creatinine Ratio 17 (6-20) Glucose Level 113 mg/dL (70-99) 89 mg/dL (70-99) Calcium Level 8.5 mg/dL (8.5-10.1) 8.4 mg/dL (8.5-10.1) Total Bilirubin 0.9 mg/dL (0.2-1.0) Aspartate Amino Transf (AST/SGOT) 47 U/L (15-37) Alanine Aminotransferase (ALT/SGPT) 63 U/L (16-63) Alkaline Phosphatase 223 U/L (46-116) Total Protein 6.1 g/dL (6.4-8.2) Albumin 2.5 g/dL (3.4-5.0) 2.4 g/dL (3.4-5.0) Albumin/Globulin Ratio 0.7 (1.0-1.7) Phosphorus Level 3.3 mg/dL (2.6-4.7) Laboratory Tests Test 08/03/19 04:08 Sodium Level 140 mmol/L (136-145) Potassium Level 4.5 mmol/L (3.5-5.1) Chloride Level 106 mmol/L (98-107) Carbon Dioxide Level 21 mmol/L (21-32) Anion Gap 13 (6-14) Blood Urea Nitrogen 41 mg/dL (8-26) Creatinine 2.4 mg/dL (0.7-1.3) Estimated GFR (Cockcroft-Gault) 32.7 Glucose Level 89 mg/dL (70-99) Calcium Level 8.4 mg/dL (8.5-10.1) Phosphorus Level 3.3 mg/dL (2.6-4.7) Albumin 2.4 g/dL (3.4-5.0) Medications Active Scripts Medications Dose Route/Sig Max Daily Dose Days Date Category Dose Instructions Furosemide 20 Mg Tablet 1 Tab PO DAILY 07/30/19 Reported Amlodipine Besylate 5 Mg Tablet 5 Mg PO DAILY 07/30/19 Reported Spironolactone 25 Mg Tablet 1 Tab PO DAILY 07/30/19 Reported Labetalol Hcl 200 Mg Tablet 200 Mg PO BID 30 08/11/18 Rx Isosorbide Mononitrate Er (Isosorbide Mononitrate) 30 Mg Tab.er.24h 30 Mg PO DAILY 30 08/11/18 Rx Atorvastatin Calcium 20 Mg Tablet 40 Mg PO QHS 30 08/11/18 Rx Can replace with #30 of 40mg tabs Clopidogrel (Clopidogrel Bisulfate) 75 Mg Tablet 75 Mg PO DAILYWBKFT 30 08/11/18 Rx Hydralazine Hcl 100 Mg Tablet 100 Mg PO TID PRN 30 08/11/18 Rx Vitamin D3 (Cholecalciferol (Vitamin D3)) 1,000 Unit Tablet 2,000 Unit PO DAILY 08/09/18 Reported Aspirin 325 Mg Tablet 1 Tab PO DAILY 08/09/18 Reported Allopurinol 300 Mg Tablet 300 Mg PO DAILY 08/09/18 Reported Klor-Con M20 (Potassium Chloride) 20 Meq Tab.er.prt 80 Meq PO DAILY 08/09/18 Reported Impression . IMPRESSION: 1. Acute hypoxemic respiratory failure, secondary to pneumonia, was not able to do V/Q scan was in COVID-19 isolation. Only perfusion scan was done, which is intermediate, could be secondary to pneumonia. He also has non-ST elevation myocardial infarction, which likely is a demand mediated. 2. Abnormal chest x-ray and CT of the chest, secondary to pneumonia.LLL 3. Non-ST elevation myocardial infarction type 2, likely demand ischemia. 4. Coronary artery disease, status post stent with systolic and diastolic dysfunction. 5. Chronic kidney disease. 6. Overweight. Suspect obstructive sleep apnea-hypopnea syndrome. 7. Leukocytosis and low-grade fever, suspect secondary to pneumonia. Plan . PLAN AND RECOMMENDATIONS: 1. Titrate FiO2 to keep O2 saturation 94%. 2. d/w radiology . cannot exclude PE based on perfusion scan and will proceed with full VQ scan. Perfusion scan has Large perfusion defect in the left lower lobe, matched with chest radiograph findings. Interpretation somewhat limited without ventilation images. A triple matched defect in the left lower lobe is considered intermediate probability . Clinically doubt PE. awaiting full VQ scan in am 3. neg venous Doppler. 4. cardiology rec 5. Lovenpx 40 mg sc 7. Sleep study as an outpatient. 8. Continue antibiotic. 9. Send urine for legionella and Strep pneumoniae antigen. discussed w pt, rn ESTEVAN CAN MD Aug 03, 2019 11:44
[2019-08-03] MEDS: cefTRIAXone IV Push 1 GM VIAL. IVP SCH (12:25)
[2019-08-03 15:00] VITALS: BP 138/73
[2019-08-03] MEDS ORDERED: POTA20TA4 PO (15:56)
[2019-08-03] MEDS ORDERED: HYDR-2868 PO (15:56)
[2019-08-03] MEDS ORDERED: AMLO10TA8 PO (15:56)
[2019-08-03] MEDS ORDERED: LACT1CAP19 PO (15:56)
[2019-08-03] MEDS ORDERED: DOXY100T PO (15:57)
--- NOTE | 2019-08-03 16:14 | PDOC3 ---
Discharge Summary Visit Information Date of Admission: Jul 30, 2019 Date of Discharge: Aug 03, 2019 Admitting Diagnosis Comment: Elevated troponin - NSTEMI - possibly demand ischemia with ALE, will trend troponins, cont meds. Hold diuretics. Heparin GTT. Consult cardiology ALE CKD - creat 2.2. Will give IVF for vasomotor nephropathy. Consult nephrology Chest pain - elevated troponin and d-dimer. Will start heparin gtt., VQ scan to rule out PE on left. Cardiology consulted Dyslipidemia - cont on statin Hypertension - cont meds, hold diuretics for ALE Chronic CHF, diastolic. Does not appear acute. Will check BNP Unintentional weight loss - 24# weight loss in the past 3-4 months, thinks mainly due to dietary change and stopping soda Abnormal CXR Final Diagnosis NSTEMI - possibly demand ischemia with ALE, ALE CKD - creat 2.2. stable creatinine Chest pain - elevated troponin and d-dimer. heparin gtt., VQ scan PE on left suggested and intermediate probability HX CARDIOMYOPATHY WITH STENTS Severe single-vessel coronary artery disease Successful PCI/drug eluting stent placement to the left anterior descending artery 07/2018 Large perfusion defect in the left lower lobe, matched with chest radiograph findings. Interpretation somewhat limited without ventilation images. A triple matched defect in the left lower lobe is considered intermediate probability Abnormal chest x-ray and CT of the chest, suspect secondary to pneumonia Dyslipidemia - Hypertension - melvin harshalaixa yeung Chronic kidney disease stage 3 secondary to hypertensive nephrosclerosis Chronic CHF, diastolic. Unintentional weight loss - 24# weight loss in the past 3-4 months, thinks mainly due to dietary change and stopping soda Abnormal CXR - will treat for community-acquired pneumonia. Given his cardiac disease he is high risk for likely gram-negative pneumonia. Brief Hospital Course Allergies Allergies Coded Allergies Type Severity Reaction Last Updated Verified No Known Drug Allergies 08/09/18 No Vital Signs Vital Signs Date Time Temp Pulse Resp B/P (MAP) Pulse Ox O2 Delivery O2 Flow Rate FiO2 08/03/19 15:02 96 Room Air 08/03/19 11:00 98.4 88 18 107/56 (73) 98.4 Lab Results Laboratory Tests Test 08/02/19 10:30 08/03/19 04:08 White Blood Count 9.2 x10^3/uL (4.0-11.0) Red Blood Count 4.31 x10^6/uL (4.30-5.70) Hemoglobin 11.5 g/dL (13.0-17.5) Hematocrit 34.8 % (39.0-53.0) Mean Corpuscular Volume 81 fL (79-100) Mean Corpuscular Hemoglobin 27 pg (25-35) Mean Corpuscular Hemoglobin Concent 33 g/dL (31-37) Red Cell Distribution Width 16.9 % (11.5-14.5) Platelet Count 207 x10^3/uL (140-400) Neutrophils (%) (Auto) 81 % (31-73) Lymphocytes (%) (Auto) 6 % (24-48) Monocytes (%) (Auto) 12 % (0-9) Eosinophils (%) (Auto) 1 % (0-3) Basophils (%) (Auto) 1 % (0-3) Neutrophils # (Auto) 7.5 x10^3/uL (1.8-7.7) Lymphocytes # (Auto) 0.5 x10^3/uL (1.0-4.8) Monocytes # (Auto) 1.1 x10^3/uL (0.0-1.1) Eosinophils # (Auto) 0.1 x10^3/uL (0.0-0.7) Basophils # (Auto) 0.0 x10^3/uL (0.0-0.2) Prothrombin Time 14.0 SEC (11.7-14.0) Prothromb Time International Ratio 1.1 (0.8-1.1) Sodium Level 139 mmol/L (136-145) 140 mmol/L (136-145) Potassium Level 4.3 mmol/L (3.5-5.1) 4.5 mmol/L (3.5-5.1) Chloride Level 105 mmol/L (98-107) 106 mmol/L (98-107) Carbon Dioxide Level 23 mmol/L (21-32) 21 mmol/L (21-32) Anion Gap 11 (6-14) 13 (6-14) Blood Urea Nitrogen 39 mg/dL (8-26) 41 mg/dL (8-26) Creatinine 2.3 mg/dL (0.7-1.3) 2.4 mg/dL (0.7-1.3) Estimated GFR (Cockcroft-Gault) 34.4 32.7 BUN/Creatinine Ratio 17 (6-20) Glucose Level 113 mg/dL (70-99) 89 mg/dL (70-99) Calcium Level 8.5 mg/dL (8.5-10.1) 8.4 mg/dL (8.5-10.1) Total Bilirubin 0.9 mg/dL (0.2-1.0) Aspartate Amino Transf (AST/SGOT) 47 U/L (15-37) Alanine Aminotransferase (ALT/SGPT) 63 U/L (16-63) Alkaline Phosphatase 223 U/L (46-116) Total Protein 6.1 g/dL (6.4-8.2) Albumin 2.5 g/dL (3.4-5.0) 2.4 g/dL (3.4-5.0) Albumin/Globulin Ratio 0.7 (1.0-1.7) D-Dimer (Rolanda) 3.94 ug/mlFEU (0.00-0.50) Phosphorus Level 3.3 mg/dL (2.6-4.7) Laboratory Tests Test 08/03/19 04:08 D-Dimer (Rolanda) 3.94 ug/mlFEU (0.00-0.50) Sodium Level 140 mmol/L (136-145) Potassium Level 4.5 mmol/L (3.5-5.1) Chloride Level 106 mmol/L (98-107) Carbon Dioxide Level 21 mmol/L (21-32) Anion Gap 13 (6-14) Blood Urea Nitrogen 41 mg/dL (8-26) Creatinine 2.4 mg/dL (0.7-1.3) Estimated GFR (Cockcroft-Gault) 32.7 Glucose Level 89 mg/dL (70-99) Calcium Level 8.4 mg/dL (8.5-10.1) Phosphorus Level 3.3 mg/dL (2.6-4.7) Albumin 2.4 g/dL (3.4-5.0) Brief Hospital Course Mr Roldan is a 68 yo M w/ PMhx CKD, HLD, HTN, CAD s/p LAD stent 2019, dCHF who was initially seen at [facility] for left-sided chest heaviness associated with shortness of breath worse with exertion and transfer to [facility] for elevated troponin level and d-dimer. He notes left lateral chest pain which is been ongoing for the past 2 days. Described as an intermittent stabbing sensation, does not radiate, was worse with one cough, but is not reproducible with pressure. Nothing exacerbates or alleviates it. 6-8 out of 10 at the worst. Denies any fever or chills. No increased leg swelling or calf tenderness. No orthopnea or BONDS. Symptoms are different than his prior NSTEMI 07/2018. 24# weight loss in the past 3-4 months, thinks mainly due to dietary change and stopping soda. He notes he had follow-up with Dr. Joseph for his CKD 6 months ago, and he thinks his creatinine at that time was "normal". Labs NA 138, K4.8, BUN 35, CR 2.2, glucose 127, magnesium 2.6, bilirubin 1.3, INR 1, albumin 3, d-dimer 4.67, troponin 0 0.257, WBC 9.7, Hb 11.5, platelets 166. EKG: NSR at 86bpm, NO ST elevation, nonspecific t wave inversion I, aVL, and V6, QRS 90ms, QT/QTc 376/453ms CXR with L>R lung base airspace opacities and trace left pleural effusion or pleural thickening. Called from [place] for transfer to [facility] for further treatment. urine for legionella and Strep pneumoniae antigen. 08/01 ECHO pending [facility], he feels improved, 08/02 No acute events reported overnight, case discussed with nursing staff patient in no acute distress no complaints during my visit Patient suspicion for PE are low in light of the results of his doppler and also from his ECHO, no evidence of rightheart strain pattern was found. Patient could not get a repat V/Q scn and he was deemed appropriate for discharge with instructions to finish a course of antibiotics at home with Dr. yakelin villatoro. Patient was not going to be anticoagulated given the very low suspicion for pulmonary embolism. Signs and symptoms of alarm and when to seek medical at tention were discussed with the patient prior to discharge call center consultant recommendations were greatly appreciated. Changes to her medications included decreasing the dosage of hydralazine and also discontinuing spironolactone and the high doses of potassium given his renal dysfunction. The patient will continue with Lasix moving forward in order to maintain a negative balance hopefully. Mr. Roldan is a 69 old male who presented with the above mentioned diagnosis and shortness of breath. He was evaluated by cardiology nephrology and pulmonology, Assessment Assessment IMAGING REPORT Signed PATIENT: YADI ROLDAN ACCOUNT: [id number] : 1950 LOCATION: [address] [place] [address] AGE: 69 SEX: M EXAM STATUS: ADM IN ORD. PHYSICIAN: TONIE LEWIS MD REASON: LUNG SCAN, LT SIDED CHEST WALL/RIB PAIN FOR 1 DAY PROCEDURE: CHEST AP ONLY CHEST AP ONLY Clinical Indication: LUNG SCAN, LT SIDED CHEST WALL/RIB PAIN FOR 1 DAY / Spl. Instructions: / History: Comparison: AP chest, earlier same day. Findings: The cardiomediastinal silhouette is normal. Left basilar airspace disease and small left pleural effusion. Airspace disease is worse. Right lung is now clear. There is no pneumothorax. No acute bone abnormality. IMPRESSION: Left basilar airspace disease may be atelectasis or pneumonia, appears worse. Small left pleural effusion. IMAGING REPORT Signed PATIENT: YADI ROLDAN ACCOUNT: [id number] : 1950 LOCATION: [address] [place] [address] AGE: 69 SEX: M EXAM STATUS: ADM IN ORD. PHYSICIAN: TONIE LEWIS MD REASON: left lower lobe consolidation PROCEDURE: CT CHEST WO CONTRAST EXAM: CT Chest without IV contrast INDICATION: Reason: left lower lobe consolidation / Spl. Instructions: / History: TECHNIQUE: Multi-detector row CT images were acquired from the thoracic inlet through the upper abdomen without the use of IV contrast. Sagittal and coronal images were acquired from the transaxial data. All CT scans performed at this facility utilize dose optimization techniques as appropriate to the exam, including the following: Automated exposure control and adjustment of the mA and/or KV according to patient size (this includes techniques or standardized protocols for targeted exams where dose is indication/reason for exam). COMPARISON: 07/30/2019 and 08/09/2018 chest x-ray. FINDINGS: The absence of IV contrast limits evaluation of soft tissue pathology. CARDIOVASCULAR: Cardiomegaly with tram track like curvilinear density along the course of the LAD coronary artery is present, suggesting a stent. MEDIASTINUM & CALLIE: No adenopathy or masses. LUNGS: There is left lower lobe atelectasis and patchy airspace opacity in the left lower lobe with air bronchograms. Volume loss in the left lung base is consequently present. PLEURAL SPACE: Small left pleural effusion. No pneumothorax. OSSEOUS & SOFT TISSUE: Unremarkable ABDOMEN: The visualized portions of the upper abdomen are unremarkable. IMPRESSION: Left lower lobe atelectasis and a small left pleural effusion with air bronchograms could reflect a pneumonic infiltrate. No definite mediastinal or hilar masses identified. Electronically signed by: Viviana Krause MD (07/31/2019 11:02 AM) [id number] IMAGING REPORT Signed PATIENT: YADI ROLDAN ACCOUNT: [id number] : 1950 LOCATION: [address] [place] [address] AGE: 69 SEX: M EXAM STATUS: ADM IN ORD. PHYSICIAN: TONIE LEWIS MD REASON: Concern for DVT,thromboembolism PROCEDURE: VENOUS LOWER EXT BILATERAL EXAMINATION: VENOUS LOWER EXT BILATERAL HISTORY: Elevated d-dimer, swelling COMPARISON/CORRELATION: None FINDINGS: Bilateral lower extremity duplex venous ultrasound exam was performed. Grayscale, color Doppler, and spectral Doppler imaging was performed. Compression and augmentation was performed. The right common femoral vein, superficial femoral vein, popliteal vein, and saphenofemoral junction are normal with no evidence of deep venous thrombus. The visualized calf veins are unremarkable. Normal compressibility and augmentation is evident. The left common femoral vein, superficial femoral vein, popliteal vein, and saphenofemoral junction are normal with no evidence of deep venous thrombus. The visualized calf veins are unremarkable. Normal compressibility and augmentation is evident. IMPRESSION: Normal bilateral lower extremity duplex ultrasound exam. No evidence of deep venous thrombus involving the lower extremities. Electronically signed by: German Bueno MD (08/01/2019 2:25 PM) [id number] Discharge Information Condition at Discharge: Improved Follow Up: Weeks Disposition/Orders: D/C to Home Scheduled Allopurinol (Allopurinol) 300 Mg Tablet, 300 MG PO DAILY for gout, (Reported) Entered as Reported by: JORGE HENSON on 08/09/18 1154 Last Action: Continued on 07/30/191643 by TONIE LEWIS MD Amlodipine Besylate (Amlodipine Besylate) 10 Mg Tablet, 10 MG PO DAILY for HTN for 30 Days, #30 Prescribed by: LORI CROWE MD on 08/03/19 1556 Aspirin (Aspirin) 325 Mg Tablet, 1 TAB PO DAILY for daily, #30 Ref 5 (Reported) Entered as Reported by: JORGE HENSON on 08/09/18 115 Last Action: Continued on 07/30/191643 by TONIE LEWIS MD Atorvastatin Calcium (Atorvastatin Calcium) 20 Mg Tablet, 40 MG PO QHS for CAD/HLD for 30 Days, #60 Ref 2 Can replace with #30 of 40mg tabs Prescribed by: TONIE LEWIS MD on 08/11/18 112 Last Action: Continued on 07/30/191643 by TONIE LEWIS MD Cholecalciferol (Vitamin D3) (Vitamin D3) 1,000 Unit Tablet, 2,000 UNIT PO DAILY for vit, (Reported) Entered as Reported by: JORGE HENSON on 08/09/18 1154 Last Action: Continued on 07/30/191643 by TONIE LEWIS MD Clopidogrel Bisulfate (Clopidogrel) 75 Mg Tablet, 75 MG PO DAILYWBKFT for CAD for 30 Days, #30 Ref 11 Prescribed by: TONIE LEWIS MD on 08/11/182 Last Action: Continued on 07/30/191643 by TONIE LEWIS MD Doxycycline Hyclate (Doxycycline Hyclate) 100 Mg Tablet, 1 TAB PO BID for pneumonia for 3 Days, #6 Prescribed by: LORI CROWE MD on 08/03/19 1557 Furosemide (Furosemide) 20 Mg Tablet, 1 TAB PO DAILY for , #90 Ref 1 (Reported) Entered as Reported by: HARSHAD HERNANDEZ RN on 07/30/191632 Last Action: New Order on 07/30/191632 by HARSHAD HERNANDEZ RN Hydralazine Hcl (Hydralazine Hcl) 25 Mg Tablet, 50 MG PO BID for htn for 30 Days, #120 Prescribed by: LORI CROWE MD on 08/03/19 1556 Isosorbide Mononitrate (Isosorbide Mononitrate Er) 30 Mg Tab.er.24h, 30 MG PO DAILY for HTN/CAD for 30 Days, #30 Ref 2 Prescribed by: TONIE LEWIS MD on 08/11/181121 Last Action: Continued on 07/30/191643 by TONIE LEWIS MD Labetalol Hcl (Labetalol Hcl) 200 Mg Tablet, 200 MG PO BID for HTN for 30 Days, #60 Ref 2 Prescribed by: TONIE LEWIS MD on 08/11/181121 Last Action: Continued on 07/30/191643 by TONIE LEWIS MD Lactobacillus Rhamnosus Gg (Culturelle) 1 Each Cap.sprink, 1 CAP PO BID for probiotic for 30 Days, #60 Prescribed by: LORI CROWE MD on 08/03/19 1556 Potassium Chloride (Klor-Con M20) 20 Meq Tab.er.prt, 20 MEQ PO DAILY for potassium for 30 Days, #30 Prescribed by: LORI CROWE MD on 08/03/19 1556 Discontinued Medications Amlodipine Besylate (Amlodipine Besylate) 5 Mg Tablet, 5 MG PO DAILY for , (Reported) Entered as Reported by: HARSHAD HERNANDEZ RN on 07/30/191632 Last Action: Continued on 07/30/191643 by TONIE LEWIS MD Hydralazine Hcl (Hydralazine Hcl) 100 Mg Tablet, 100 MG PO TID PRN for HTN for 30 Days, #90 Ref 2 Prescribed by: TONIE LEWIS MD on 08/11/181121 Last Action: Converted on 07/30/191643 by TONIE LEWIS MD Spironolactone (Spironolactone) 25 Mg Tablet, 1 TAB PO DAILY for , #90 Ref 1 (Reported) Entered as Reported by: HARSHAD HERNANDEZ RN on 07/30/191632 Last Action: New Order on 07/30/191632 by HARSHAD HERNANDEZ RN Justicifation of Admission Dx: Justifications for Admission: Justification of Admission Dx: Yes AK: Acute NSTEMI LORI CROWE MD Aug 03, 2019 16:14
--- NOTE | 2019-08-03 16:45 | NUR ---
DISCHARGED PATIENT TO HOME. DISCHARGE INSTRUCTIONS GIVEN AND PATIENT VERBALIZED UNDERSTANDING. PIV AND HEART MONITOR REMOVED. ESCORTED PATIENT OFF UNIT WHEELCHAIR INTO A PRIVATE VEHICLE.
== END 2019-08-03 16:45 | disposition home or self-care (01) | DRG 177 ==
LOC: 2 SOUTH 15:27 → 1 WEST ICU 07-31 07:45 → 2 SOUTH 07-31 23:53
PROVIDERS: ADMIT Internal Medicine; ATTEND Internal Medicine
DX: J15.6 Pneumonia due to other Gram-negative bacteria (principal); I21.A1 Myocardial infarction type 2; J96.01 Acute respiratory failure with hypoxia; N17.0 Acute kidney failure with tubular necrosis; I13.0 Hypertensive heart and chronic kidney disease with heart failure and stage 1 through stage 4 chronic kidney disease, or unspecified chronic kidney disease; N18.4 Chronic kidney disease, stage 4 (severe); I50.42 Chronic combined systolic (congestive) and diastolic (congestive) heart failure; J15.9 Unspecified bacterial pneumonia; E66.3 Overweight; I25.10 Atherosclerotic heart disease of native coronary artery without angina pectoris; E78.5 Hyperlipidemia, unspecified; I25.5 Ischemic cardiomyopathy; Z20.828 Contact with and (suspected) exposure to other viral communicable diseases; Z82.49 Family history of ischemic heart disease and other diseases of the circulatory system; I25.2 Old myocardial infarction; Z87.891 Personal history of nicotine dependence; Z68.28 Body mass index [BMI] 28.0-28.9, adult; Z95.5 Presence of coronary angioplasty implant and graft
CPT/HCPCS: 36415; 71045; 71250; 78580; 80053; 80069; 83880; 84145; 84484; 85025; 85027; 85379; 85520; 85610; 87449; 93306; 93970; 94640; 94760; 99285; A9540; J0696; J1644; J1650; J3490; J7030; J7060; G0378; U0003-CS

== ENCOUNTER 2020-06-12 16:33 | Inpatient (IN) | payer OTHER, MEDICARE ==
[~2020-06-12] VITALS: Ht 182.9 cm; Wt 86.5 kg
[~2020-06-12 16:33] MED LIST changes: +AMLO-186 PO; +AMLO-187 PO; +DOXY100T PO; +FURO20TA3 PO; +HYDR-2868 PO; -ISOS30TA4 PO; +ISOS30TA68 PO; +LACT1CAP19 PO; +SPIR25TA5 PO
[2020-06-12 17:30] LABS: BASO # 0.1 x10^3/uL (0.0-0.2); BASO % 2 % (0-3); EOS % 1 % (0-3); HEMATOCRIT 25.2 % (39.0-53.0); HEMOGLOBIN 7.8 g/dL (13.0-17.5); LYMPH # 1.1 x10^3/uL (1.0-4.8); LYMPH % 22 % (24-48); MEAN CORPUSCULAR HEMOGLOBIN 21 pg (25-35); MEAN CORPUSCULAR HGB CONC 31 g/dL (31-37); MEAN CORPUSCULAR VOLUME 68 fL (79-100); MONO # 0.6 x10^3/uL (0.0-1.1); MONO % 12 % (0-9); NEUT % 63 % (31-73); PLATELET COUNT 200 x10^3/uL (140-400); RED CELL DISTRIBUTION WIDTH 23.8 % (11.5-14.5); WHITE BLOOD COUNT 4.8 x10^3/uL (4.0-11.0)
[2020-06-12 17:41] LABS: CALCIUM 8.4 mg/dL (8.5-10.1); CREATININE 2.3 mg/dL (0.7-1.3); GFR 34.3; POTASSIUM 3.8 mmol/L (3.5-5.1)
[2020-06-12 17:47] LABS: ALBUMIN 3.5 g/dL (3.4-5.0); ALBUMIN/GLOBULIN RATIO 1.3 (1.0-1.7); TOTAL BILIRUBIN 1.3 mg/dL (0.2-1.0); TOTAL PROTEIN 6.2 g/dL (6.4-8.2)
[2020-06-12] MEDS ORDERED: hydrALAZINE 20 MG/ML VIAL. IVP ONE (18:00)
--- NOTE | 2020-06-12 18:00 | PHYS DOC ---
Past Medical History Past Medical History: Hypertension, Other Additional Past Medical Histor: CKD,SLEEP APNEA Past Surgical History: Other Additional Past Surgical Histo: COLOSTOMY WITH TAKEDOWN Smoking Status: Former Smoker Alcohol Use: None Adult General Chief Complaint Chief Complaint: SHORTNESS OF BREATH HPI HPI Patient is a 70 year old male with a known past medical history which includes hypertension, chronic kidney disease and chronic carcinoma status post resection last surgery in January last year presenting the emergency department for concern for shortness of breath. Patient was sent from his doctor's office after he has been having a week of worsening shortness of breath. Patient states he is having worsening shortness of breath primarily when he walks but also notes shortness of breath when he lays down at night and cough in the morning not productive of any sputum. Patient has a known history of anemia status post his prior surgeries and concern for worsening anemia here as well. Currently denies any chest pain, dizziness, lightheadedness, nausea or vomiting. Does note that he had worsening bilateral lower extremity swelling as well. Review of Systems Review of Systems Constitutional: Denies fever or chills [] Eyes: Denies change in visual acuity, redness, or eye pain [] HENT: Denies nasal congestion or sore throat [] Respiratory: Denies cough or shortness of breath [] Cardiovascular: No additional information not addressed in HPI [] GI: Denies abdominal pain, nausea, vomiting, bloody stools or diarrhea [] : Denies dysuria or hematuria [] Musculoskeletal: Denies back pain or joint pain [] Integument: Denies rash or skin lesions [] Neurologic: Denies headache, focal weakness or sensory changes [] Endocrine: Denies polyuria or polydipsia [] All other systems were reviewed and found to be within normal limits, except as documented in this note. Current Medications Current Medications Current Medications Medications (Trade) Dose Ordered Sig/Zoey Start Time Stop Time Status Last Admin Dose Admin Hydralazine HCl (Apresoline Inj) 10 mg 1X ONCE 06/12/20 18:00 06/12/20 18:01 DC Allergies Allergies Allergies Coded Allergies Type Severity Reaction Last Updated Verified No Known Drug Allergies 08/09/18 No Physical Exam Physical Exam Constitutional: Well developed, well nourished, no acute distress, non-toxic appearance. [] HENT: Normocephalic, atraumatic, bilateral external ears normal, oropharynx moist, no oral exudates, nose normal. [] Eyes: PERRLA, EOMI, conjunctiva normal, no discharge. [] Neck: Normal range of motion, no tenderness, supple, no stridor. [] Cardiovascular:Heart rate regular rhythm, no murmur [] Lungs & Thorax: Moderate crackles in bilateral lower lung bases Abdomen: Bowel sounds normal, soft, no tenderness, no masses, no pulsatile masses. [] Skin: Warm, dry, no erythema, no rash. [] Back: No tenderness, no CVA tenderness. [] Extremities: No tenderness, no cyanosis, no clubbing, ROM intact, significant 2+ bilateral lower extremity edema Neurologic: Alert and oriented X 3, normal motor function, normal sensory function, no focal deficits noted. [] Psychologic: Affect normal, judgement normal, mood normal. [] Current Patient Data Vital Signs Vital Signs Date Time Temp Pulse Resp B/P (MAP) Pulse Ox O2 Delivery O2 Flow Rate FiO2 06/12/20 16:40 98.9 94 20 232/119 (156) 94 Room Air 98.9 Lab Values Laboratory Tests Test 06/12/20 17:20 White Blood Count 4.8 x10^3/uL (4.0-11.0) Red Blood Count 3.70 x10^6/uL (4.30-5.70) L Hemoglobin 7.8 g/dL (13.0-17.5) L Hematocrit 25.2 % (39.0-53.0) L Mean Corpuscular Volume 68 fL (79-100) L Mean Corpuscular Hemoglobin 21 pg (25-35) L Mean Corpuscular Hemoglobin Concent 31 g/dL (31-37) Red Cell Distribution Width 23.8 % (11.5-14.5) H Platelet Count 200 x10^3/uL (140-400) Neutrophils (%) (Auto) 63 % (31-73) Lymphocytes (%) (Auto) 22 % (24-48) L Monocytes (%) (Auto) 12 % (0-9) H Eosinophils (%) (Auto) 1 % (0-3) Basophils (%) (Auto) 2 % (0-3) Neutrophils # (Auto) 3.0 x10^3/uL (1.8-7.7) Lymphocytes # (Auto) 1.1 x10^3/uL (1.0-4.8) Monocytes # (Auto) 0.6 x10^3/uL (0.0-1.1) Eosinophils # (Auto) 0.0 x10^3/uL (0.0-0.7) Basophils # (Auto) 0.1 x10^3/uL (0.0-0.2) Platelet Estimate Pending Sodium Level 148 mmol/L (136-145) H Potassium Level 3.8 mmol/L (3.5-5.1) Chloride Level 114 mmol/L (98-107) H Carbon Dioxide Level 19 mmol/L (21-32) L Anion Gap 15 (6-14) H Blood Urea Nitrogen 31 mg/dL (8-26) H Creatinine 2.3 mg/dL (0.7-1.3) H Estimated GFR (Cockcroft-Gault) 34.3 BUN/Creatinine Ratio 13 (6-20) Glucose Level 102 mg/dL (70-99) H Calcium Level 8.4 mg/dL (8.5-10.1) L Total Bilirubin 1.3 mg/dL (0.2-1.0) H Aspartate Amino Transferase (AST) 23 U/L (15-37) Alanine Aminotransferase (ALT) 58 U/L (16-63) Alkaline Phosphatase 214 U/L (46-116) H Creatine Kinase 176 U/L (39-308) Troponin I Quantitative 0.927 ng/mL (0.000-0.055) HM-Ahg-D-Type Natriuretic Peptide 13283 pg/mL (0-124) H Total Protein 6.2 g/dL (6.4-8.2) L Albumin 3.5 g/dL (3.4-5.0) Albumin/Globulin Ratio 1.3 (1.0-1.7) Laboratory Tests 06/12/20 17:20 Laboratory Tests 06/12/20 17:20 EKG EKG [] Radiology/Procedures Radiology/Procedures [] Course & Med Decision Making Course & Med Decision Making Pertinent Labs and Imaging studies reviewed. (See chart for details) 70-year-old male presenting the emergency department for onset of worsening shortness of breath progressive over 1 week and based on the history is most consistent with acute CHF exacerbation or other volume overload. Patient surgical history there is also concern for acute anemia secondary to leak. Will initiate work-up with blood work and a chest x-ray to determine volume status and presence of CHF exacerbation and worsening CKD. 18:05 -blood work demonstrating acute elevation of BNP suggestive of acute CHF exacerbation with notable edema on chest x-ray. Troponin is also noted to be elevated at 0.9 but patient noted to have a carley at 1.1 this is possible to be secondary to renal failure. At this time will provide Lasix and plan to admit the patient to the telemetry unit will discuss need to start heparin for possible NSTEMI Dragon Disclaimer Dragon Disclaimer This electronic medical record was generated, in whole or in part, using a voice recognition dictation system. Departure Departure Impression: Primary Impression: Acute on chronic diastolic CHF (congestive heart failure) Additional Impression: Elevated troponin Disposition: ADMITTED INPATIENT Condition: GOOD Referrals: LATASHA SCOTT MD (PCP) Problem Qualifiers NANCY OTERO MD Jun 12, 2020 18:00
--- NOTE | 2020-06-12 18:04 | RAD ---
XR CHEST 1V History: Shortness of breath Comparison: 07/30/2019 Technique: Portable AP chest radiograph. Findings: The lungs are adequately inflated. There are patchy bilateral lower lobe predominant opacities. Cardi ac silhouette is enlarged. Small bilateral pleural effusions. No pneumothorax. Calcification of the a kenji. Osseous structures and soft tissues are unremarkable. Impression: 1. Enlarged cardiac silhouette, bilateral effusions and bilateral airspace disease likely represents CHF exacerbation. Superimposed infectious process cannot be excluded. Electronically signed by: Reagan Alvarez MD (06/12/2020 6:01 PM) [facility] [place]
[2020-06-12] MEDS ORDERED: MORPHINE SULFATE 4 MG/ML VIAL. IV PRN (18:15)
[2020-06-12] MEDS ORDERED: FUROSEMIDE 40 MG/4 ML VIAL. IVP ONE (18:15)
[2020-06-12] MEDS ORDERED: ONDANSETRON PF 4 MG/2 ML VIAL. IV PRN (18:15)
[2020-06-12] MEDS ORDERED: hydrALAZINE 20 MG/ML VIAL. IVP PRN ×2 (18:30→19:30)
--- NOTE | 2020-06-12 19:21 | EKG ---
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
--- NOTE | 2020-06-12 19:25 | PDOC1 ---
History and Physical Date of Admission Date of Admission DATE: 06/12/20 TIME: 19:05 Identification/Chief Complaint Chief Complaint Shortness of breath Source Source: Caregiver, Chart review, Patient History of Present Illness History of Present Illness Patient is a 70-year-old male past medical history NSTEMI, colon cancer s/p resection, who presents to the ED with complaints of worsening shortness of breath over the past week. States his shortness of breath is worse when he lays down and with exertion. He also reports associated bilateral lower extremity edema. Patient states he was previously prescribed Lasix after his left heart cath, but appears to be surprised by his diagnosis of diastolic CHF and admittedly does not take his Lasix. Labs on admission showed troponin 0.927 and BNP 16,125. CXR showed enlarged cardiac silhouette, bilateral effusions and bilateral airspace disease likely representing CHF exacerbation. He received 80 mg Lasix IV and currently breathing on room air at the time my evaluation. Will admit patient for further medical management. Past Medical History Past Medical History Colon cancer, HTN, CKD, sleep apnea Cardiovascular: HTN, Hyperlipidemia Past Surgical History Past Surgical History Colostomy with takedown Family History Family History: Heart Disease, High Cholestrol, Hypertension Social History Smoke: Quit ALCOHOL: none Drugs: None Current Problem List Problem List Problems Medical Problems: (1) Acute on chronic diastolic CHF (congestive heart failure) Status: Acute Current Medications Current Medications Current Medications Hydralazine HCl (Apresoline Inj) 10 mg 1X ONCE IVP Last administered on 06/12/20at 18:14; Start 06/12/20 at 18:00; Stop 06/12/20 at 18:01; Status DC Furosemide (Lasix) 80 mg 1X ONCE IVP Last administered on 06/12/20at 18:14; Start 06/12/20 at 18:15; Stop 06/12/20 at 18:16; Status DC Ondansetron HCl (Zofran) 4 mg PRN Q8HRS PRN IV NAUSEA/VOMITING; Start 06/12/20 at 18:15; Stop 06/13/20 at 18:14 Morphine Sulfate (Morphine Sulfate) 4 mg PRN Q2HR PRN IV PAIN; Start 06/12/20 at 18:15; Stop 06/13/20 at 18:14 Amlodipine Besylate (Norvasc) 10 mg DAILY PO ; Start 06/13/20 at 09:00 Aspirin (Jayant Aspirin) 325 mg DAILY PO ; Start 06/13/20 at 09:00 Atorvastatin Calcium (Lipitor) 40 mg QHS PO ; Start 06/12/20 at 21:00 Clopidogrel Bisulfate (Plavix) 75 mg DAILYWBKFT PO ; Start 06/13/20 at 08:00 Furosemide (Lasix) 20 mg DAILY PO ; Start 06/13/20 at 09:00 Hydralazine HCl (Apresoline) 50 mg BID PO ; Start 06/12/20 at 21:00 Isosorbide Mononitrate (Imdur) 30 mg DAILY PO ; Start 06/13/20 at 09:00 Labetalol HCl (Trandate) 200 mg BID PO ; Start 06/12/20 at 21:00 Potassium Chloride (Klor-Con) 20 meq DAILY PO ; Start 06/13/20 at 09:00 Hydralazine HCl (Apresoline Inj) 10 mg PRN Q2HRS PRN IVP HYPERTENSION; Start 06/12/20 at 18:30 Active Scripts Active Doxycycline Hyclate 100 Mg Tablet 1 Tab PO BID 3 Days Culturelle (Lactobacillus Rhamnosus Gg) 1 Each Cap.sprink 1 Cap PO BID 30 Days Hydralazine Hcl 25 Mg Tablet 50 Mg PO BID 30 Days Amlodipine Besylate 10 Mg Tablet 10 Mg PO DAILY 30 Days Klor-Con M20 (Potassium Chloride) 20 Meq Tab.er.prt 20 Meq PO DAILY 30 Days Labetalol Hcl 200 Mg Tablet 200 Mg PO BID 30 Days Isosorbide Mononitrate Er (Isosorbide Mononitrate) 30 Mg Tab.er.24h 30 Mg PO DAILY 30 Days Atorvastatin Calcium 20 Mg Tablet 40 Mg PO QHS 30 Days Can replace with #30 of 40mg tabs Clopidogrel (Clopidogrel Bisulfate) 75 Mg Tablet 75 Mg PO DAILYWBKFT 30 Days Reported Furosemide 20 Mg Tablet 1 Tab PO DAILY Vitamin D3 (Cholecalciferol (Vitamin D3)) 1,000 Unit Tablet 2,000 Unit PO DAILY Aspirin 325 Mg Tablet 1 Tab PO DAILY Allopurinol 300 Mg Tablet 300 Mg PO DAILY Allergies Allergies: Coded Allergies: No Known Drug Allergies (Unverified , 08/09/18) ROS Review of System GENERAL: No history of weight change, weakness or fevers. SKIN: No bruising, hair changes or rashes. EYES: No blurred, double or loss of vision. NOSE AND THROAT: No history of nosebleeds, hoarseness or sore throat. HEART: Denies chest pain, denies palpitations. LUNGS: Shortness of breath. Denies cough, hemoptysis, wheezing. GASTROINTESTINAL: Denies nausea, vomiting, abdominal pain. GENITOURINARY: Denies dysuria, frequency, urgency, hematuria. NEUROLOGIC: Denies history of numbness, tingling, tremor or weakness. PSYCHIATRIC: Denies anxiety, denies depression. ENDOCRINE: No history of heat or cold intolerance, polyuria or polydipsia. EXTREMITIES: Bilateral lower extremity swelling. Denies muscle weakness, joint pain, pain on walking or stiffness. Physical Exam Physical Exam General: Alert, Oriented X3, Cooperative, No acute distress HEENT: PERRLA, EOMI Lungs: Bibasilar Rales, Normal air movement Heart: RRR, no murmurs Cardiovascular: S1, S2 Abdomen: Normal bowel sounds, Soft, No tenderness Extremities: +2 bilateral lower extremity edema. No clubbing, No cyanosis Skin: No rashes, No significant lesion Neuro: Normal speech, Normal tone, Sensation intact Psych/Mental Status: Mental status NL, Mood NL Vitals Vitals Vital Signs Date Time Temp Pulse Resp B/P (MAP) Pulse Ox O2 Delivery O2 Flow Rate FiO2 06/12/20 18:14 95 204/123 06/12/20 16:40 98.9 20 94 Room Air 98.9 Labs Labs Laboratory Tests Test 06/12/20 17:20 White Blood Count 4.8 x10^3/uL (4.0-11.0) Red Blood Count 3.70 x10^6/uL (4.30-5.70) Hemoglobin 7.8 g/dL (13.0-17.5) Hematocrit 25.2 % (39.0-53.0) Mean Corpuscular Volume 68 fL (79-100) Mean Corpuscular Hemoglobin 21 pg (25-35) Mean Corpuscular Hemoglobin Concent 31 g/dL (31-37) Red Cell Distribution Width 23.8 % (11.5-14.5) Platelet Count 200 x10^3/uL (140-400) Neutrophils (%) (Auto) 63 % (31-73) Lymphocytes (%) (Auto) 22 % (24-48) Monocytes (%) (Auto) 12 % (0-9) Eosinophils (%) (Auto) 1 % (0-3) Basophils (%) (Auto) 2 % (0-3) Neutrophils # (Auto) 3.0 x10^3/uL (1.8-7.7) Lymphocytes # (Auto) 1.1 x10^3/uL (1.0-4.8) Monocytes # (Auto) 0.6 x10^3/uL (0.0-1.1) Eosinophils # (Auto) 0.0 x10^3/uL (0.0-0.7) Basophils # (Auto) 0.1 x10^3/uL (0.0-0.2) Sodium Level 148 mmol/L (136-145) Potassium Level 3.8 mmol/L (3.5-5.1) Chloride Level 114 mmol/L (98-107) Carbon Dioxide Level 19 mmol/L (21-32) Anion Gap 15 (6-14) Blood Urea Nitrogen 31 mg/dL (8-26) Creatinine 2.3 mg/dL (0.7-1.3) Estimated GFR (Cockcroft-Gault) 34.3 BUN/Creatinine Ratio 13 (6-20) Glucose Level 102 mg/dL (70-99) Calcium Level 8.4 mg/dL (8.5-10.1) Total Bilirubin 1.3 mg/dL (0.2-1.0) Aspartate Amino Transf (AST/SGOT) 23 U/L (15-37) Alanine Aminotransferase (ALT/SGPT) 58 U/L (16-63) Alkaline Phosphatase 214 U/L (46-116) Creatine Kinase 176 U/L (39-308) Troponin I Quantitative 0.927 ng/mL (0.000-0.055) RH-Xsz-N-Type Natriuretic Peptide 01382 pg/mL (0-124) Total Protein 6.2 g/dL (6.4-8.2) Albumin 3.5 g/dL (3.4-5.0) Albumin/Globulin Ratio 1.3 (1.0-1.7) Laboratory Tests Test 06/12/20 17:20 White Blood Count 4.8 x10^3/uL (4.0-11.0) Red Blood Count 3.70 x10^6/uL (4.30-5.70) Hemoglobin 7.8 g/dL (13.0-17.5) Hematocrit 25.2 % (39.0-53.0) Mean Corpuscular Volume 68 fL (79-100) Mean Corpuscular Hemoglobin 21 pg (25-35) Mean Corpuscular Hemoglobin Concent 31 g/dL (31-37) Red Cell Distribution Width 23.8 % (11.5-14.5) Platelet Count 200 x10^3/uL (140-400) Neutrophils (%) (Auto) 63 % (31-73) Lymphocytes (%) (Auto) 22 % (24-48) Monocytes (%) (Auto) 12 % (0-9) Eosinophils (%) (Auto) 1 % (0-3) Basophils (%) (Auto) 2 % (0-3) Neutrophils # (Auto) 3.0 x10^3/uL (1.8-7.7) Lymphocytes # (Auto) 1.1 x10^3/uL (1.0-4.8) Monocytes # (Auto) 0.6 x10^3/uL (0.0-1.1) Eosinophils # (Auto) 0.0 x10^3/uL (0.0-0.7) Basophils # (Auto) 0.1 x10^3/uL (0.0-0.2) Sodium Level 148 mmol/L (136-145) Potassium Level 3.8 mmol/L (3.5-5.1) Chloride Level 114 mmol/L (98-107) Carbon Dioxide Level 19 mmol/L (21-32) Anion Gap 15 (6-14) Blood Urea Nitrogen 31 mg/dL (8-26) Creatinine 2.3 mg/dL (0.7-1.3) Estimated GFR (Cockcroft-Gault) 34.3 BUN/Creatinine Ratio 13 (6-20) Glucose Level 102 mg/dL (70-99) Calcium Level 8.4 mg/dL (8.5-10.1) Total Bilirubin 1.3 mg/dL (0.2-1.0) Aspartate Amino Transf (AST/SGOT) 23 U/L (15-37) Alanine Aminotransferase (ALT/SGPT) 58 U/L (16-63) Alkaline Phosphatase 214 U/L (46-116) Creatine Kinase 176 U/L (39-308) Troponin I Quantitative 0.927 ng/mL (0.000-0.055) SU-Jrg-T-Type Natriuretic Peptide 50005 pg/mL (0-124) Total Protein 6.2 g/dL (6.4-8.2) Albumin 3.5 g/dL (3.4-5.0) Albumin/Globulin Ratio 1.3 (1.0-1.7) Images Images PORTABLE CHEST 1V XR CHEST 1V History: Shortness of breath Comparison: 07/30/2019 Technique: Portable AP chest radiograph. Findings: The lungs are adequately inflated. There are patchy bilateral lower lobe predominant opacities. Cardiac silhouette is enlarged. Small bilateral pleural effusions. No pneumothorax. Calcification of the aorta. Osseous structures and soft tissues are unremarkable. Impression: 1. Enlarged cardiac silhouette, bilateral effusions and bilateral airspace disease likely represents CHF exacerbation. Superimposed infectious process cannot be excluded. VTE Prophylaxis Ordered VTE Prophylaxis Devices: No VTE Pharmacological Prophylaxi: Yes Assessment/Plan Assessment/Plan Acute diastolic CHF Hypertensive urgency Hypernatremia CKD Plan: Consultation placed to cardiology Echocardiogram obtained 08/02/2019 showed EF 55-60%, PAP 45 mmHg, normal left ventricular segmental wall motion Will obtain limited echocardiogram. IV Lasix 20 mg daily Daily I's & O's and daily weights Continue to trend troponins Resume home medications FEN - Cardiac diet PPX - Lovenox FULL CODE Dispo - inpatient for above; patient named his as surrogate decision-maker. Advance Care Planning: Total time spent odof-bu-cnxo with patient greater than 17 minutes in discussion with goals of care, comfort care, end-of-life care, pain management, code status. Justifications for Admission Other Justification ALIX LI MD Jun 12, 2020 19:25
[2020-06-12] MEDS ORDERED: BISACODYL 10 MG SUPP.RECT. PR PRN (19:30)
[2020-06-12] MEDS ORDERED: ONDANSETRON PF 4 MG/2 ML VIAL. IVP PRN (19:30)
[2020-06-12] MEDS ORDERED: CALCIUM CARBONATE 500 MG TAB.CHEW PO PRN (19:30)
[2020-06-12] MEDS ORDERED: ACETAMINOPHEN 325 MG TABLET. PO PRN (19:30)
[2020-06-12] MEDS ORDERED: MAGNESIUM HYDROXIDE 2,400 MG/30 ML ORAL.SUSP. PO PRN (19:30)
[2020-06-12] MEDS ORDERED: MORPHINE SULFATE 2 MG/ML VIAL. IV PRN (19:30)
[2020-06-12] MEDS ORDERED: ZOLPIDEM 5 MG TABLET. PO PRN (19:30)
[2020-06-12] MEDS ORDERED: MAG HYDROX/ALUMINUM HYD/SIMETH 30 ML ORAL.SUSP PO PRN (19:30)
[2020-06-12 20:07] LABS: PLT ESTIMATE ADEQUATE (ADEQUATE)
[2020-06-12 20:08] LABS: ANISOCYTOSIS MOD; HYPOCHROMIA MARKED; MICROCYTOSIS MOD; SCHISTOCYTES OCC; TARGET CELLS FEW
[2020-06-12 20:10] VITALS: BP 216/122
[2020-06-12 20:25] LABS: INFLUENZA A PATIENT NEGATIVE (NEGATIVE); INFLUENZA B PATIENT NEGATIVE (NEGATIVE)
[2020-06-12] MEDS: ATORVASTATIN CALCIUM 20 MG TABLET PO SCH (20:52)
[2020-06-12] MEDS ORDERED: LABETALOL HCL 200 MG TABLET PO SCH (21:00)
[2020-06-12] MEDS ORDERED: hydrALAZINE 25 MG TABLET PO SCH (21:00)
[2020-06-12] MEDS ORDERED: FERR-36 PO (21:17)
[2020-06-12] MEDS ORDERED: HYDR100T24 PO (21:17)
[2020-06-12] MEDS ORDERED: POTA20TA84 PO (21:17)
[2020-06-12] MEDS ORDERED: LABE100T5 PO (21:17)
[2020-06-12] MEDS ORDERED: ASPI-886 PO (21:22)
--- NOTE | 2020-06-12 21:38 | EKG ---
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
[2020-06-12] MEDS ORDERED: HEPARIN for IV BOLUS 10,000 UNIT/10 ML VIAL. IV PRN (22:00)
[2020-06-12] MEDS: LABETALOL HCL 100 MG TABLET. PO SCH (22:00)
[2020-06-12] MEDS: HEPARIN 25,000UTS/250ML PREMIX 250 ML IV PRN (22:09)
[2020-06-12] MEDS ORDERED: ANTI-COAG MONITOR BY PHARMACY. MC PRN (22:15)
[2020-06-12 23:00] VITALS: BP 131/57
[2020-06-13] VITALS (8 sets, daily range): BP systolic 149–208; BP diastolic 69–108
--- NOTE | 2020-06-13 02:58 | NUR ---
Patient arrived to unit at approx 2009 on 06/12/20 accompanied by ED RN. Patient resting comfortably on RA, no complaints of pain at this time. Reviewed home meds and medical history with patient. Patient has recieved his COVID vaccine (Stylefie, 2nd dose Mar). Patient states that he has been short of breath and noticed swelling in bilateral lower extremities. Oriented patient to unit, bed in low locked position, call light in reach, reminded patient to call for assistance before ambulating. Will continue to monitor.
[2020-06-13 04:31] LABS: BASO # 0.1 x10^3/uL (0.0-0.2); BASO % 2 % (0-3); EOS # 0.1 x10^3/uL (0.0-0.7); EOS % 2 % (0-3); HEMATOCRIT 24.1 % (39.0-53.0); HEMOGLOBIN 7.5 g/dL (13.0-17.5); LYMPH # 0.7 x10^3/uL (1.0-4.8); LYMPH % 14 % (24-48); MEAN CORPUSCULAR HEMOGLOBIN 21 pg (25-35); MEAN CORPUSCULAR HGB CONC 31 g/dL (31-37); MEAN CORPUSCULAR VOLUME 68 fL (79-100); MONO # 0.7 x10^3/uL (0.0-1.1); MONO % 14 % (0-9); NEUT # 3.3 x10^3/uL (1.8-7.7); NEUT % 69 % (31-73); PLATELET COUNT 177 x10^3/uL (140-400); RED BLOOD COUNT 3.56 x10^6/uL (4.30-5.70); RED CELL DISTRIBUTION WIDTH 24.1 % (11.5-14.5); WHITE BLOOD COUNT 4.8 x10^3/uL (4.0-11.0)
[2020-06-13 04:39] LABS: CALCIUM 7.9 mg/dL (8.5-10.1); CREATININE 2.2 mg/dL (0.7-1.3); GFR 36.1; POTASSIUM 3.2 mmol/L (3.5-5.1)
[2020-06-13] MEDS ORDERED: POTASSIUM CHLORIDE 20 MEQ TABLET.ER. PO ONE (07:00)
--- NOTE | 2020-06-13 07:05 | PDOC ---
[employer] PROGRESS NOTE Date of Service DOS: DATE: 06/13/20 TIME: 06:56 Chief Complaint Chief Complaint A/P: Acute diastolic CHF - IV lasix. Daily weights, strict I/O. On BB, not on AC/ARB due to CKD, on imdur and hydralazine, ASA, statin. Cardiology consulted. Tele monitoring. Hypertensive urgency - hydralazine prn Hypernatremia CKD Hypokalemia Elevated troponin - likely demand ischemia from acute CHF CAD s/p LAD stent 2018 Colon cancer s/p resection Plan: Consultation placed to cardiology Echocardiogram obtained 08/02/2019 showed EF 55-60%, PAP 45 mmHg, normal left ventricular segmental wall motion Will obtain limited echocardiogram. IV Lasix 20 mg daily Daily I's & O's and daily weights Continue to trend troponins Resume home medications FEN - Cardiac diet PPX - Lovenox FULL CODE Dispo - inpatient for above; patient named his as surrogate decision-maker. History of Present Illness History of Present Illness Mr Roldan is a 70 yo M w/ PMhx CKD, HLD, HTN, CAD s/p LAD stent 2018, dCHF, colon cancer s/p resection, who presents to the ED with complaints of worsening shortness of breath over the past week. States his shortness of breath is worse when he lays down and with exertion. He also reports associated bilateral lower extremity edema. Patient states he was previously prescribed Lasix after his left heart cath, but appears to be surprised by his diagnosis of diastolic CHF and admittedly does not take his Lasix, only as needed. Labs on admission showed troponin 0.927 and BNP 16,125. CXR showed enlarged cardiac silhouette, bilateral effusions and bilateral airspace disease likely representing CHF exacerbation. Afebrile. Seen on CV ICU. He received 80 mg Lasix IV and felt a little relief after diuresis overnight. Troponin peaked > 1, now 0.9. Still on heparin GTT. Still feeling short of breath and swollen, but improved. Notes his weight recently changed from 200# to 217#, he thought this was diet related. Vitals/I&O Vitals/I&O: Vital Signs Date Time Temp Pulse Resp B/P (MAP) Pulse Ox O2 Delivery O2 Flow Rate FiO2 06/13/20 04:30 77 204/89 06/13/20 02:47 98.1 16 99 Room Air 98.1 I & O 06/12/20 06/12/20 06/13/20 15:00 23:00 07:00 Intake Total 200 ml 300 ml Output Total 2325 ml 2050 ml Balance -2125 ml -1750 ml Physical Exam General: Alert, Oriented X3, Cooperative, mild distress Heart: Regular rate, Normal S1, Normal S2 Lungs: Crackles Extremities: Other (2+ edema) Labs Labs: Laboratory Tests Test 06/12/20 17:20 06/12/20 19:59 06/12/20 21:05 06/13/20 04:15 White Blood Count 4.8 x10^3/uL (4.0-11.0) 4.8 x10^3/uL (4.0-11.0) Red Blood Count 3.70 x10^6/uL (4.30-5.70) 3.56 x10^6/uL (4.30-5.70) Hemoglobin 7.8 g/dL (13.0-17.5) 7.5 g/dL (13.0-17.5) Hematocrit 25.2 % (39.0-53.0) 24.1 % (39.0-53.0) Mean Corpuscular Volume 68 fL (79-100) 68 fL (79-100) Mean Corpuscular Hemoglobin 21 pg (25-35) 21 pg (25-35) Mean Corpuscular Hemoglobin Concent 31 g/dL (31-37) 31 g/dL (31-37) Red Cell Distribution Width 23.8 % (11.5-14.5) 24.1 % (11.5-14.5) Platelet Count 200 x10^3/uL (140-400) 177 x10^3/uL (140-400) Neutrophils (%) (Auto) 63 % (31-73) 69 % (31-73) Lymphocytes (%) (Auto) 22 % (24-48) 14 % (24-48) Monocytes (%) (Auto) 12 % (0-9) 14 % (0-9) Eosinophils (%) (Auto) 1 % (0-3) 2 % (0-3) Basophils (%) (Auto) 2 % (0-3) 2 % (0-3) Neutrophils # (Auto) 3.0 x10^3/uL (1.8-7.7) 3.3 x10^3/uL (1.8-7.7) Lymphocytes # (Auto) 1.1 x10^3/uL (1.0-4.8) 0.7 x10^3/uL (1.0-4.8) Monocytes # (Auto) 0.6 x10^3/uL (0.0-1.1) 0.7 x10^3/uL (0.0-1.1) Eosinophils # (Auto) 0.0 x10^3/uL (0.0-0.7) 0.1 x10^3/uL (0.0-0.7) Basophils # (Auto) 0.1 x10^3/uL (0.0-0.2) 0.1 x10^3/uL (0.0-0.2) Platelet Estimate Adequate (ADEQUATE) Hypochromasia Marked Anisocytosis Mod Microcytosis Mod Target Cells Few Schistocytes Occ Sodium Level 148 mmol/L (136-145) 150 mmol/L (136-145) Potassium Level 3.8 mmol/L (3.5-5.1) 3.2 mmol/L (3.5-5.1) Chloride Level 114 mmol/L (98-107) 113 mmol/L (98-107) Carbon Dioxide Level 19 mmol/L (21-32) 22 mmol/L (21-32) Anion Gap 15 (6-14) 15 (6-14) Blood Urea Nitrogen 31 mg/dL (8-26) 29 mg/dL (8-26) Creatinine 2.3 mg/dL (0.7-1.3) 2.2 mg/dL (0.7-1.3) Estimated GFR (Cockcroft-Gault) 34.3 36.1 BUN/Creatinine Ratio 13 (6-20) Glucose Level 102 mg/dL (70-99) 83 mg/dL (70-99) Calcium Level 8.4 mg/dL (8.5-10.1) 7.9 mg/dL (8.5-10.1) Total Bilirubin 1.3 mg/dL (0.2-1.0) Aspartate Amino Transf (AST/SGOT) 23 U/L (15-37) Alanine Aminotransferase (ALT/SGPT) 58 U/L (16-63) Alkaline Phosphatase 214 U/L (46-116) Creatine Kinase 176 U/L (39-308) Troponin I Quantitative 0.927 ng/mL (0.000-0.055) 1.038 ng/mL (0.000-0.055) 0.929 ng/mL (0.000-0.055) DP-Txd-M-Type Natriuretic Peptide 70484 pg/mL (0-124) Total Protein 6.2 g/dL (6.4-8.2) Albumin 3.5 g/dL (3.4-5.0) Albumin/Globulin Ratio 1.3 (1.0-1.7) Influenza Type A Antigen Negative (NEGATIVE) Influenza Type B Antigen Negative (NEGATIVE) Heparin Anti-Xa Act, Unfractionated 0.14 IU/mL (0.30-0.70) Procalcitonin < 0.10 ng/mL (0.00-0.10) Assessment and Plan Assessmemt and Plan Problems Medical Problems: (1) Acute on chronic diastolic CHF (congestive heart failure) Status: Acute Comment Review of Relevant I have reviewed the following items ramiro (where applicable) has been applied. Medications: Current Medications Medications (Trade) Dose Ordered Sig/Zoey Route PRN Reason Start Time Stop Time Status Last Admin Dose Admin Hydralazine HCl (Apresoline Inj) 10 mg 1X ONCE IVP 06/12/20 18:00 06/12/20 18:01 DC 06/12/20 18:14 Furosemide (Lasix) 80 mg 1X ONCE IVP 06/12/20 18:15 06/12/20 18:16 DC 06/12/20 18:14 Atorvastatin Calcium (Lipitor) 40 mg QHS PO 06/12/20 21:00 06/12/20 20:52 Hydralazine HCl (Apresoline) 50 mg BID PO 06/12/20 21:00 06/12/20 21:31 DC 06/12/20 20:52 Labetalol HCl (Trandate) 200 mg BID PO 06/12/20 21:00 06/12/20 21:31 DC 06/12/20 20:53 Hydralazine HCl (Apresoline Inj) 10 mg PRN Q4HRS PRN IVP ELEVATED BP, SEE COMMENTS 06/12/20 19:30 06/13/20 04:30 Heparin Sodium/ Dextrose 250 ml @ 0 mls/hr CONT PRN IV PER PROTOCOL 06/12/20 22:00 06/12/20 22:09 Heparin Sodium (Porcine) (Heparin Sodium) 2,250 unit PRN Q6HRS PRN IV FOR UFH LEVEL LESS THAN 0.2 06/12/20 22:00 06/13/20 05:00 Info (Anti-Coagulation Monitoring By Pharmacy) 1 each PRN DAILY PRN MC SEE COMMENTS 06/12/20 22:15 06/13/20 00:54 Justifications for Admission Other Justification Diastolic CHF exacerbation TONIE LEWIS MD Jun 13, 2020 07:05
[2020-06-13] MEDS ORDERED: CLOPIDOGREL BISULFATE 75 MG TABLET PO SCH (08:00)
[2020-06-13] MEDS ORDERED: FUROSEMIDE 40 MG/4 ML VIAL. IVP ONE (08:45)
[2020-06-13] MEDS: FERROUS SULFATE 325 MG TABLET. PO SCH (08:55)
[2020-06-13] MEDS: ASPIRIN CHEWABLE 81 MG TABLET. PO SCH (08:55)
[2020-06-13] MEDS ORDERED: FUROSEMIDE 20 MG TABLET PO SCH (09:00)
[2020-06-13] MEDS ORDERED: ISOSORBIDE MONONITRATE ER 30 MG TAB.ER.24H PO SCH (09:00)
[2020-06-13] MEDS ORDERED: ASPIRIN 325 MG TABLET PO SCH (09:00)
[2020-06-13] MEDS ORDERED: ENOXAPARIN 40 MG/0.4 ML SYRINGE. SQ SCH (09:00)
[2020-06-13] MEDS: LABETALOL HCL 100 MG TABLET. PO SCH ×2 (09:25→20:52)
[2020-06-13] MEDS: POTASSIUM CHLORIDE 20 MEQ TABLET.ER. PO SCH (09:25)
--- NOTE | 2020-06-13 10:58 | PDOC2 ---
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 Good SOURCE Source: Chart review, Patient HISTORY OF PRESENT ILLNESS HISTORY OF PRESENT ILLNESS This is a 70 yo male who presented secondary to shortness of breath for the last week or so. Has progressively worsened. Associated with bilateral LE edema. Blood pressure significantly elevated upon arrival. CXR shows CHF. Troponin noted to be elevated, although patient denies any chest pain, dizziness, d iaphoresis, or nausea/vomiting. Feels better s/p IV diuresis. PAST MEDICAL HISTORY Cardiovascular: CAD, CHF, HTN, Hyperlipidemia Pulmonary: Other (ROBBIE ) Endocrine: Diabetes PAST SURGICAL HISTORY Past Surgical History: Colectomy FAMILY HISTORY Family History: Diabetes, Hypertension SOCIAL HISTORY Smoke: No ALCOHOL: none Drugs: None Lives: with Family CURRENT MEDICATIONS CURRENT MEDICATIONS Current Medications Medications (Trade) Dose Ordered Sig/Zoey Route PRN Reason Start Time Stop Time Status Last Admin Dose Admin Hydralazine HCl (Apresoline Inj) 10 mg 1X ONCE IVP 06/12/20 18:00 06/12/20 18:01 DC 06/12/20 18:14 Furosemide (Lasix) 80 mg 1X ONCE IVP 06/12/20 18:15 06/12/20 18:16 DC 06/12/20 18:14 Atorvastatin Calcium (Lipitor) 40 mg QHS PO 06/12/20 21:00 06/12/20 20:52 Hydralazine HCl (Apresoline) 50 mg BID PO 06/12/20 21:00 06/12/20 21:31 DC 06/12/20 20:52 Labetalol HCl (Trandate) 200 mg BID PO 06/12/20 21:00 06/12/20 21:31 DC 06/12/20 20:53 Potassium Chloride (Klor-Con) 20 meq DAILY PO 06/13/20 09:00 06/13/20 09:25 Hydralazine HCl (Apresoline Inj) 10 mg PRN Q4HRS PRN IVP ELEVATED BP, SEE COMMENTS 06/12/20 19:30 06/13/20 04:30 Aspirin (Aspirin Chewable) 81 mg DAILYWBKFT PO 06/13/20 08:00 06/13/20 08:55 Hydralazine HCl (Apresoline) 100 mg TID PO 06/12/20 22:00 06/13/20 09:26 Labetalol HCl (Trandate) 100 mg BID PO 06/12/20 22:00 06/13/20 09:25 Ferrous Sulfate (Feosol) 325 mg DAILYWBKFT PO 06/13/20 08:00 06/13/20 08:55 Heparin Sodium/ Dextrose 250 ml @ 0 mls/hr CONT PRN IV PER PROTOCOL 06/12/20 22:00 06/12/20 22:09 Heparin Sodium (Porcine) (Heparin Sodium) 2,250 unit PRN Q6HRS PRN IV FOR UFH LEVEL LESS THAN 0.2 06/12/20 22:00 06/13/20 05:00 Info (Anti-Coagulation Monitoring By Pharmacy) 1 each PRN DAILY PRN MC SEE COMMENTS 06/12/20 22:15 06/13/20 00:54 Potassium Chloride (Klor-Con) 40 meq 1X ONCE PO 06/13/20 07:00 06/13/20 07:03 DC 06/13/20 08:55 Furosemide (Lasix) 40 mg 1X ONCE IVP 06/13/20 08:45 06/13/20 08:50 DC 06/13/20 09:26 ALLERGIES ALLERGIES: Coded Allergies: No Known Drug Allergies (Unverified , 08/09/18) ROS Review of System 14 point ROS conducted with pertinent positives noted above in HPI PHYSICAL EXAM General: Alert, Oriented X3, Cooperative, No acute distress HEENT: Atraumatic Lungs: Clear to auscultation, Other (diminished bases) Heart: Regular rate Abdomen: Soft, No tenderness Extremities: Other (2+ bilateral LE edema ) Neuro: Normal speech, Sensation intact Psych/Mental Status: Mental status NL, Mood NL MUSCULOSKELETAL: Osteoarthritic changes both hands VITALS/I&O VITALS/I&O: Vital Signs Date Time Temp Pulse Resp B/P (MAP) Pulse Ox O2 Delivery O2 Flow Rate FiO2 06/13/20 09:26 80 149/81 06/13/20 07:02 97.9 18 99 Room Air 97.9 I & O 06/12/20 06/12/20 06/13/20 15:00 23:00 07:00 Intake Total 200 ml 300 ml Output Total 2325 ml 2050 ml Balance -2125 ml -1750 ml LABS Lab: Laboratory Tests Test 06/12/20 17:20 06/12/20 19:59 06/12/20 21:05 06/13/20 04:15 White Blood Count 4.8 x10^3/uL (4.0-11.0) 4.8 x10^3/uL (4.0-11.0) Red Blood Count 3.70 x10^6/uL (4.30-5.70) L 3.56 x10^6/uL (4.30-5.70) L Hemoglobin 7.8 g/dL (13.0-17.5) L 7.5 g/dL (13.0-17.5) L Hematocrit 25.2 % (39.0-53.0) L 24.1 % (39.0-53.0) L Mean Corpuscular Volume 68 fL (79-100) L 68 fL (79-100) L Mean Corpuscular Hemoglobin 21 pg (25-35) L 21 pg (25-35) L Mean Corpuscular Hemoglobin Concent 31 g/dL (31-37) 31 g/dL (31-37) Red Cell Distribution Width 23.8 % (11.5-14.5) H 24.1 % (11.5-14.5) H Platelet Count 200 x10^3/uL (140-400) 177 x10^3/uL (140-400) Neutrophils (%) (Auto) 63 % (31-73) 69 % (31-73) Lymphocytes (%) (Auto) 22 % (24-48) L 14 % (24-48) L Monocytes (%) (Auto) 12 % (0-9) H 14 % (0-9) H Eosinophils (%) (Auto) 1 % (0-3) 2 % (0-3) Basophils (%) (Auto) 2 % (0-3) 2 % (0-3) Neutrophils # (Auto) 3.0 x10^3/uL (1.8-7.7) 3.3 x10^3/uL (1.8-7.7) Lymphocytes # (Auto) 1.1 x10^3/uL (1.0-4.8) 0.7 x10^3/uL (1.0-4.8) L Monocytes # (Auto) 0.6 x10^3/uL (0.0-1.1) 0.7 x10^3/uL (0.0-1.1) Eosinophils # (Auto) 0.0 x10^3/uL (0.0-0.7) 0.1 x10^3/uL (0.0-0.7) Basophils # (Auto) 0.1 x10^3/uL (0.0-0.2) 0.1 x10^3/uL (0.0-0.2) Platelet Estimate Adequate (ADEQUATE) Hypochromasia Marked Anisocytosis Mod Microcytosis Mod Target Cells Few Schistocytes Occ Sodium Level 148 mmol/L (136-145) H 150 mmol/L (136-145) H Potassium Level 3.8 mmol/L (3.5-5.1) 3.2 mmol/L (3.5-5.1) L Chloride Level 114 mmol/L (98-107) H 113 mmol/L (98-107) H Carbon Dioxide Level 19 mmol/L (21-32) L 22 mmol/L (21-32) Anion Gap 15 (6-14) H 15 (6-14) H Blood Urea Nitrogen 31 mg/dL (8-26) H 29 mg/dL (8-26) H Creatinine 2.3 mg/dL (0.7-1.3) H 2.2 mg/dL (0.7-1.3) H Estimated GFR (Cockcroft-Gault) 34.3 36.1 BUN/Creatinine Ratio 13 (6-20) Glucose Level 102 mg/dL (70-99) H 83 mg/dL (70-99) Calcium Level 8.4 mg/dL (8.5-10.1) L 7.9 mg/dL (8.5-10.1) L Total Bilirubin 1.3 mg/dL (0.2-1.0) H Aspartate Amino Transferase (AST) 23 U/L (15-37) Alanine Aminotransferase (ALT) 58 U/L (16-63) Alkaline Phosphatase 214 U/L (46-116) H Creatine Kinase 176 U/L (39-308) Troponin I Quantitative 0.927 ng/mL (0.000-0.055) 1.038 ng/mL (0.000-0.055) 0.929 ng/mL (0.000-0.055) BR-Wnb-U-Type Natriuretic Peptide 34655 pg/mL (0-124) H Total Protein 6.2 g/dL (6.4-8.2) L Albumin 3.5 g/dL (3.4-5.0) Albumin/Globulin Ratio 1.3 (1.0-1.7) Influenza Type A Antigen Negative (NEGATIVE) Influenza Type B Antigen Negative (NEGATIVE) Heparin Anti-Xa Act, Unfractionated 0.14 IU/mL (0.30-0.70) L Magnesium Level 1.9 mg/dL (1.8-2.4) Iron Level 13 ug/dL (65-175) L Total Iron Binding Capacity 263 ug/dL (250-450) Iron Saturation 5 % (15-34) L Procalcitonin < 0.10 ng/mL (0.00-0.10) Laboratory Tests 06/12/20 17:20 06/13/20 04:15 Laboratory Tests 06/12/20 17:20 06/13/20 04:15 ECHOCARDIOGRAM ECHOCARDIOGRAM <Conclusion> The left ventricular systolic function is normal and the ejection fraction is within normal range. The Ejection Fraction is 55-60%. There is normal LV segmental wall motion. Doppler and Color Flow revealed trace tricuspid regurgitation with an estimated PAP of 45 mmHg. DATE: 08/02/19 1106 HEART CATH HEART CATH Conclusion 1. Severe single-vessel coronary artery disease 2. Successful PCI/drug eluting stent placement to the left anterior descending artery Recommendations 1. Aspirin 325 mg daily for one month followed by 81 mg daily 2. Plavix 75 mg daily for preferably one year 3. Cardiovascular risk factor modification DATE: 08/10/18 1338 ASSESSMENT/PLAN ASSESSMENT/PLAN 1. Acute on chronic combined systolic/diastolic CHF 2. Hypertensive urgency; remains labile 3. NSTEMI; peak 1. possibly type II, demand ischemia. on heparin gtt. CP free 4. CAD; s/p PCI/TAMMY to the LAD (08/05) 5. H/o ischemic cardiomyopathy; LVEF previously 40%. Most recent echo 08/06 with LV recovery with EF 55-60% 6. Dyslipidemia 7. CKD; Cr stable per review 8. Anemia Recommendations Echo as ordered Diuresis with close monitoring of renal function Continue heparin gtt for now BP control. 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 Acute on chronic diastolic heart failure probably precipitated by uncontrolled hypertension. Continue diuresis with close monitoring of renal function Non-STEMI most probably demand ischemia Due to his history of coronary disease, we will plan for outpatient ischemic evaluation Continue heparin infusion for 24 hours Telemetry did not show any significant arrhythmias so far Thank you for your consultation MILAGRO PEREZ APRN Jun 13, 2020 10:58 SHEFALI HU MD Jun 13, 2020 15:33
[2020-06-13 11:16] LABS: CHOLESTEROL/HDL RATIO 1.8
--- NOTE | 2020-06-13 11:21 | PDOC2 ---
CONSULT Date of Consult Date of Consult DATE: 06/13/20 TIME: 11:14 Reason for Consult Reason for Consult: RENAL FAILURE Referring Physician Referring Physician: GUILLERMO Identification/Chief Complaint Chief Complaint SOB Source Source: Chart review, Patient History of Present Illness Reason for Visit: THIS IS A 70 YR OLD WITH SOB AND ORTHOPNEA WELL INCREASING LE EDEMA. DX WITH CHF. CARDIOLOGY EVAL ONGOING. HAS HX OF D CHF. LAST EF IN DEC 2019 WAS 55%. HAS NOT BEEN TAKING HIS LASIX REGULARLY. HAS CR OF 2.3. HAS CKD STAGE 3B WITH CR OF 2.0-2.3 RANGE LAST SEVERAL YEARS. HAS BEEN DR HOWARD IN OP RENAL CLINIC. HAS HAD RENAL BX IN THE PAST SHOWING NEPHROSCLEROSIS AND HE HAS ISOLATED PROTEINURIA. HIS CKD IS DUE TO HTN. NO OTHER HX. NO NEPHROTOXIN EXPOSURE NOTED Past Medical History Cardiovascular: CAD, CHF, HTN, Hyperlipidemia Pulmonary: Other (ROBBIE ) Renal/: Chronic renal insuff Endocrine: Diabetes Past Surgical History Past Surgical History: Colectomy Family History Family History: Heart Disease, High Cholestrol, Hypertension Social History Quit ALCOHOL: none Drugs: None Lives: with Family Current Problem List Problem List Problems Medical Problems: (1) Acute on chronic diastolic CHF (congestive heart failure) Status: Acute Current Medications Current Medications Current Medications Hydralazine HCl (Apresoline Inj) 10 mg 1X ONCE IVP Last administered on 06/12/20at 18:14; Start 06/12/20 at 18:00; Stop 06/12/20 at 18:01; Status DC Furosemide (Lasix) 80 mg 1X ONCE IVP Last administered on 06/12/20at 18:14; Start 06/12/20 at 18:15; Stop 06/12/20 at 18:16; Status DC Ondansetron HCl (Zofran) 4 mg PRN Q8HRS PRN IV NAUSEA/VOMITING; Start 06/12/20 at 18:15; Stop 06/12/20 at 21:34; Status DC Morphine Sulfate (Morphine Sulfate) 4 mg PRN Q2HR PRN IV PAIN; Start 06/12/20 at 18:15; Stop 06/13/20 at 18:14 Amlodipine Besylate (Norvasc) 10 mg DAILY PO ; Start 06/13/20 at 09:00; Stop 06/12/20 at 21:31; Status DC Aspirin (Jayant Aspirin) 325 mg DAILY PO ; Start 06/13/20 at 09:00; Stop 06/12/20 at 21:31; Status DC Atorvastatin Calcium (Lipitor) 40 mg QHS PO Last administered on 06/12/20at 20:52; Start 06/12/20 at 21:00 Clopidogrel Bisulfate (Plavix) 75 mg DAILYWBKFT PO ; Start 06/13/20 at 08:00; Stop 06/12/20 at 21:31; Status DC Furosemide (Lasix) 20 mg DAILY PO ; Start 06/13/20 at 09:00; Status Hold Hydralazine HCl (Apresoline) 50 mg BID PO Last administered on 06/12/20at 20:52; Start 06/12/20 at 21:00; Stop 06/12/20 at 21:31; Status DC Isosorbide Mononitrate (Imdur) 30 mg DAILY PO ; Start 06/13/20 at 09:00; Stop 06/12/20 at 21:31; Status DC Labetalol HCl (Trandate) 200 mg BID PO Last administered on 06/12/20at 20:53; Start 06/12/20 at 21:00; Stop 06/12/20 at 21:31; Status DC Potassium Chloride (Klor-Con) 20 meq DAILY PO Last administered on 06/13/20at 09:25; Start 06/13/20 at 09:00 Hydralazine HCl (Apresoline Inj) 10 mg PRN Q2HRS PRN IVP HYPERTENSION; Start 06/12/20 at 18:30 Ondansetron HCl (Zofran) 4 mg PRN Q6HRS PRN IVP NAUSEA/VOMITING; Start 06/12/20 at 19:30 Al Hydroxide/Mg Hydroxide (Mylanta Plus Xs) 30 ml PRN Q3HRS PRN PO HEARTBURN / GAS; Start 06/12/20 at 19:30; Stop 06/12/20 at 21:33; Status DC Calcium Carbonate/ Glycine (Tums) 500 mg PRN Q3HRS PRN PO UPSET STOMACH; Start 06/12/20 at 19:30 Zolpidem Tartrate (Ambien) 5 mg PRN QHS PRN PO INSOMNIA, MAY REPEAT IN 1HR; S tart 06/12/20 at 19:30 Morphine Sulfate (Morphine Sulfate) 2 mg PRN Q1HR PRN IV PAIN; Start 06/12/20 at 19:30 Acetaminophen (Tylenol) 650 mg PRN Q6HRS PRN PO Headaches, Temp > 101.5F; Start 06/12/20 at 19:30 Magnesium Hydroxide (Milk Of Magnesia) 2,400 mg PRN Q12HR PRN PO CONSTIPATION; Start 06/12/20 at 19:30; Stop 06/12/20 at 21:34; Status DC Bisacodyl (Dulcolax Supp) 10 mg PRN DAILY PRN [place] CONSTIPATION; Start 06/12/20 at 19:30 Enoxaparin Sodium (Lovenox 40mg Syringe) 40 mg Q24H SQ ; Start 06/13/20 at 09:00; Stop 06/12/20 at 22:01; Status DC Hydralazine HCl (Apresoline Inj) 10 mg PRN Q4HRS PRN IVP ELEVATED BP, SEE COMMENTS Last administered on 06/13/20at 04:30; Start 06/12/20 at 19:30 Aspirin (Aspirin Chewable) 81 mg DAILYWBKFT PO Last administered on 06/13/20at 08:55; Start 06/13/20 at 08:00 Hydralazine HCl (Apresoline) 100 mg TID PO Last administered on 06/13/20at 09:26; Start 06/12/20 at 22:00 Labetalol HCl (Trandate) 100 mg BID PO Last administered on 06/13/20at 09:25; Start 06/12/20 at 22:00 Ferrous Sulfate (Feosol) 325 mg DAILYWBKFT PO Last administered on 06/13/20at 08:55; Start 06/13/20 at 08:00 Heparin Sodium/ Dextrose 250 ml @ 0 mls/hr CONT PRN IV PER PROTOCOL Last administered on 06/12/20at 22:09; Start 06/12/20 at 22:00 Heparin Sodium (Porcine) (Heparin Sodium) 2,250 unit PRN Q6HRS PRN IV FOR UFH LEVEL LESS THAN 0.2 Last administered on 06/13/20at 05:00; Start 06/12/20 at 22:00 Info (Anti-Coagulation Monitoring By Pharmacy) 1 each PRN DAILY PRN MC SEE COMMENTS Last administered on 06/13/20at 00:54; Start 06/12/20 at 22:15 Potassium Chloride (Klor-Con) 40 meq 1X ONCE PO Last administered on 06/13/20at 08:55; Start 06/13/20 at 07:00; Stop 06/13/20 at 07:03; Status DC Furosemide (Lasix) 40 mg 1X ONCE IVP Last administered on 06/13/20at 09:26; Start 06/13/20 at 08:45; Stop 06/13/20 at 08:50; Status DC Active Scripts Active Atorvastatin Calcium 20 Mg Tablet 40 Mg PO QHS 30 Days Can replace with #30 of 40mg tabs Reported Aspirin Ec (Aspirin) 81 Mg Tablet.dr 81 Mg PO DAILY Iron (Ferrous Sulfate) 325 Mg Tablet 325 Mg PO DAILY Hydralazine Hcl 100 Mg Tablet 1 Tab PO TID K-Tab ER (Potassium Chloride) 20 Meq Tablet.er 20 Meq PO DAILY Labetalol Hcl 100 Mg Tablet 1 Tab PO BID Vitamin D3 (Cholecalciferol (Vitamin D3)) 1,000 Unit Tablet 2,000 Unit PO DAILY Allergies Allergies: Coded Allergies: No Known Drug Allergies (Unverified , 08/09/18) ROS General: YES: Fatigue, Malaise, Appetite PSYCHOLOGICAL ROS: YES: Anxiety Eyes: Yes Decreased vision HEENT: YES: Heacaches Respiratory: YES: Cough, Orthopnea, Shortness of breath, SOB with excertion Cardiovascular: yes Orthopnea, yes Edema Gastrointestinal: Yes Constipation Genitourinary: YES Frequency Musculoskeletal: Yes Muscular Weakness Skin: Yes Dry Skin Physical Exam General: Alert, Oriented X3, Cooperative, No acute distress HEENT: Atraumatic Lungs: Other (DECREASED AT BASES) Heart: Regular rate Abdomen: Normal bowel sounds, Soft, No tenderness Skin: No breakdown Neuro: Normal speech Psych/Mental Status: Mental status NL, Mood NL MUSCULOSKELETAL: No joint tenderness, Other (2+ EDEMA) Vitals VITALS Vital Signs Date Time Temp Pulse Resp B/P (MAP) Pulse Ox O2 Delivery O2 Flow Rate FiO2 06/13/20 09:26 80 149/81 06/13/20 08:00 Room Air 06/13/20 07:02 97.9 18 99 97.9 Labs Labs Laboratory Tests Test 06/12/20 17:20 06/12/20 19:59 06/12/20 21:05 06/13/20 04:15 White Blood Count 4.8 x10^3/uL (4.0-11.0) 4.8 x10^3/uL (4.0-11.0) Red Blood Count 3.70 x10^6/uL (4.30-5.70) 3.56 x10^6/uL (4.30-5.70) Hemoglobin 7.8 g/dL (13.0-17.5) 7.5 g/dL (13.0-17.5) Hematocrit 25.2 % (39.0-53.0) 24.1 % (39.0-53.0) Mean Corpuscular Volume 68 fL (79-100) 68 fL (79-100) Mean Corpuscular Hemoglobin 21 pg (25-35) 21 pg (25-35) Mean Corpuscular Hemoglobin Concent 31 g/dL (31-37) 31 g/dL (31-37) Red Cell Distribution Width 23.8 % (11.5-14.5) 24.1 % (11.5-14.5) Platelet Count 200 x10^3/uL (140-400) 177 x10^3/uL (140-400) Neutrophils (%) (Auto) 63 % (31-73) 69 % (31-73) Lymphocytes (%) (Auto) 22 % (24-48) 14 % (24-48) Monocytes (%) (Auto) 12 % (0-9) 14 % (0-9) Eosinophils (%) (Auto) 1 % (0-3) 2 % (0-3) Basophils (%) (Auto) 2 % (0-3) 2 % (0-3) Neutrophils # (Auto) 3.0 x10^3/uL (1.8-7.7) 3.3 x10^3/uL (1.8-7.7) Lymphocytes # (Auto) 1.1 x10^3/uL (1.0-4.8) 0.7 x10^3/uL (1.0-4.8) Monocytes # (Auto) 0.6 x10^3/uL (0.0-1.1) 0.7 x10^3/uL (0.0-1.1) Eosinophils # (Auto) 0.0 x10^3/uL (0.0-0.7) 0.1 x10^3/uL (0.0-0.7) Basophils # (Auto) 0.1 x10^3/uL (0.0-0.2) 0.1 x10^3/uL (0.0-0.2) Platelet Estimate Adequate (ADEQUATE) Hypochromasia Marked Anisocytosis Mod Microcytosis Mod Target Cells Few Schistocytes Occ Sodium Level 148 mmol/L (136-145) 150 mmol/L (136-145) Potassium Level 3.8 mmol/L (3.5-5.1) 3.2 mmol/L (3.5-5.1) Chloride Level 114 mmol/L (98-107) 113 mmol/L (98-107) Carbon Dioxide Level 19 mmol/L (21-32) 22 mmol/L (21-32) Anion Gap 15 (6-14) 15 (6-14) Blood Urea Nitrogen 31 mg/dL (8-26) 29 mg/dL (8-26) Creatinine 2.3 mg/dL (0.7-1.3) 2.2 mg/dL (0.7-1.3) Estimated GFR (Cockcroft-Gault) 34.3 36.1 BUN/Creatinine Ratio 13 (6-20) Glucose Level 102 mg/dL (70-99) 83 mg/dL (70-99) Calcium Level 8.4 mg/dL (8.5-10.1) 7.9 mg/dL (8.5-10.1) Total Bilirubin 1.3 mg/dL (0.2-1.0) Aspartate Amino Transf (AST/SGOT) 23 U/L (15-37) Alanine Aminotransferase (ALT/SGPT) 58 U/L (16-63) Alkaline Phosphatase 214 U/L (46-116) Creatine Kinase 176 U/L (39-308) Troponin I Quantitative 0.927 ng/mL (0.000-0.055) 1.038 ng/mL (0.000-0.055) 0.929 ng/mL (0.000-0.055) QM-Xjd-F-Type Natriuretic Peptide 00092 pg/mL (0-124) Total Protein 6.2 g/dL (6.4-8.2) Albumin 3.5 g/dL (3.4-5.0) Albumin/Globulin Ratio 1.3 (1.0-1.7) Influenza Type A Antigen Negative (NEGATIVE) Influenza Type B Antigen Negative (NEGATIVE) Heparin Anti-Xa Act, Unfractionated 0.14 IU/mL (0.30-0.70) Magnesium Level 1.9 mg/dL (1.8-2.4) Iron Level 13 ug/dL (65-175) Total Iron Binding Capacity 263 ug/dL (250-450) Iron Saturation 5 % (15-34) Procalcitonin < 0.10 ng/mL (0.00-0.10) Laboratory Tests Test 06/12/20 17:20 06/12/20 19:59 06/12/20 21:05 06/13/20 04:15 White Blood Count 4.8 x10^3/uL (4.0-11.0) 4.8 x10^3/uL (4.0-11.0) Red Blood Count 3.70 x10^6/uL (4.30-5.70) 3.56 x10^6/uL (4.30-5.70) Hemoglobin 7.8 g/dL (13.0-17.5) 7.5 g/dL (13.0-17.5) Hematocrit 25.2 % (39.0-53.0) 24.1 % (39.0-53.0) Mean Corpuscular Volume 68 fL (79-100) 68 fL (79-100) Mean Corpuscular Hemoglobin 21 pg (25-35) 21 pg (25-35) Mean Corpuscular Hemoglobin Concent 31 g/dL (31-37) 31 g/dL (31-37) Red Cell Distribution Width 23.8 % (11.5-14.5) 24.1 % (11.5-14.5) Platelet Count 200 x10^3/uL (140-400) 177 x10^3/uL (140-400) Neutrophils (%) (Auto) 63 % (31-73) 69 % (31-73) Lymphocytes (%) (Auto) 22 % (24-48) 14 % (24-48) Monocytes (%) (Auto) 12 % (0-9) 14 % (0-9) Eosinophils (%) (Auto) 1 % (0-3) 2 % (0-3) Basophils (%) (Auto) 2 % (0-3) 2 % (0-3) Neutrophils # (Auto) 3.0 x10^3/uL (1.8-7.7) 3.3 x10^3/uL (1.8-7.7) Lymphocytes # (Auto) 1.1 x10^3/uL (1.0-4.8) 0.7 x10^3/uL (1.0-4.8) Monocytes # (Auto) 0.6 x10^3/uL (0.0-1.1) 0.7 x10^3/uL (0.0-1.1) Eosinophils # (Auto) 0.0 x10^3/uL (0.0-0.7) 0.1 x10^3/uL (0.0-0.7) Basophils # (Auto) 0.1 x10^3/uL (0.0-0.2) 0.1 x10^3/uL (0.0-0.2) Platelet Estimate Adequate (ADEQUATE) Hypochromasia Marked Anisocytosis Mod Microcytosis Mod Target Cells Few Schistocytes Occ Sodium Level 148 mmol/L (136-145) 150 mmol/L (136-145) Potassium Level 3.8 mmol/L (3.5-5.1) 3.2 mmol/L (3.5-5.1) Chloride Level 114 mmol/L (98-107) 113 mmol/L (98-107) Carbon Dioxide Level 19 mmol/L (21-32) 22 mmol/L (21-32) Anion Gap 15 (6-14) 15 (6-14) Blood Urea Nitrogen 31 mg/dL (8-26) 29 mg/dL (8-26) Creatinine 2.3 mg/dL (0.7-1.3) 2.2 mg/dL (0.7-1.3) Estimated GFR (Cockcroft-Gault) 34.3 36.1 BUN/Creatinine Ratio 13 (6-20) Glucose Level 102 mg/dL (70-99) 83 mg/dL (70-99) Calcium Level 8.4 mg/dL (8.5-10.1) 7.9 mg/dL (8.5-10.1) Total Bilirubin 1.3 mg/dL (0.2-1.0) Aspartate Amino Transf (AST/SGOT) 23 U/L (15-37) Alanine Aminotransferase (ALT/SGPT) 58 U/L (16-63) Alkaline Phosphatase 214 U/L (46-116) Creatine Kinase 176 U/L (39-308) Troponin I Quantitative 0.927 ng/mL (0.000-0.055) 1.038 ng/mL (0.000-0.055) 0.929 ng/mL (0.000-0.055) SZ-Fhi-Q-Type Natriuretic Peptide 99963 pg/mL (0-124) Total Protein 6.2 g/dL (6.4-8.2) Albumin 3.5 g/dL (3.4-5.0) Albumin/Globulin Ratio 1.3 (1.0-1.7) Influenza Type A Antigen Negative (NEGATIVE) Influenza Type B Antigen Negative (NEGATIVE) Heparin Anti-Xa Act, Unfractionated 0.14 IU/mL (0.30-0.70) Magnesium Level 1.9 mg/dL (1.8-2.4) Iron Level 13 ug/dL (65-175) Total Iron Binding Capacity 263 ug/dL (250-450) Iron Saturation 5 % (15-34) Procalcitonin < 0.10 ng/mL (0.00-0.10) Images Images XR CHEST 1V History: Shortness of breath Comparison: 07/30/2019 Technique: Portable AP chest radiograph. Findings: The lungs are adequately inflated. There are patchy bilateral lower lobe predominant opacities. Cardiac silhouette is enlarged. Small bilateral pleural effusions. No pneumothorax. Calcification of the aorta. Osseous structures and soft tissues are unremarkable. Impression: 1. Enlarged cardiac silhouette, bilateral effusions and bilateral airspace disease likely represents CHF exacerbation. Superimposed infectious process cannot be excluded. Electronically signed by: Reagan Alvarez MD (06/12/2020 6:01 PM) [facility] Assessment/Plan Assessment/Plan IMP CKD STAGE 3B-CR STABLE AT 2.3 CHF-PROB DIASTOLIC HTN RELATED NEPHROSCLEROSIS HYPOKALEMIA ANEMIA NON COMPLIANCE HX OF HTN NSTEMI PLAN DIURESIS ENC COMPLIANCE CHECK IRON STORES REPLACE K CARDIOLOGY EVAL AND TX WILL FOLLOW MAHI FREEMAN MD Jun 13, 2020 11:21
[2020-06-13] MEDS: FUROSEMIDE 40 MG TABLET. PO SCH ×2 (12:00→15:37)
--- NOTE | 2020-06-13 14:35 | NUR ---
SS following for discharge planning. SS reviewed pt chart and discussed with pt RN. Pt is from home with spouse and is currently on room air. COVID19 negative. Pt on Heparin drip. Cardiology and Nephrology following. SS will continue to follow for discharge planning.
[2020-06-13] MEDS: ISOSORBIDE MONONITRATE ER 30 MG TAB.ER.24H PO SCH (15:36)
--- NOTE | 2020-06-13 16:00 | NUR ---
Patient had 8 run of vtach on monitor, Dr. Good on unit & notified. Will continue to monitor.
[2020-06-13] MEDS: HEPARIN 25,000UTS/250ML PREMIX 250 ML IV PRN (17:44)
[2020-06-13] MEDS: ATORVASTATIN CALCIUM 20 MG TABLET PO SCH (20:52)
[2020-06-14 02:58] VITALS: BP 163/86
[2020-06-14 06:18] VITALS: BP 174/86
[2020-06-14 07:09] LABS: CALCIUM 8.2 mg/dL (8.5-10.1); CREATININE 2.3 mg/dL (0.7-1.3); GFR 34.3; MAGNESIUM 1.9 mg/dL (1.8-2.4); PHOSPHORUS 3.7 mg/dL (2.6-4.7); POTASSIUM 3.2 mmol/L (3.5-5.1)
[2020-06-14 07:19] LABS: HEMATOCRIT 24.5 % (39.0-53.0); HEMOGLOBIN 7.6 g/dL (13.0-17.5); RED BLOOD COUNT 3.66 x10^6/uL (4.30-5.70); RED CELL DISTRIBUTION WIDTH 24.2 % (11.5-14.5); WHITE BLOOD COUNT 4.5 x10^3/uL (4.0-11.0)
[2020-06-14] MEDS: FUROSEMIDE 40 MG TABLET. PO SCH (07:51)
[2020-06-14] MEDS: FERROUS SULFATE 325 MG TABLET. PO SCH (07:51)
[2020-06-14] MEDS: ASPIRIN CHEWABLE 81 MG TABLET. PO SCH (07:51)
[2020-06-14] MEDS: POTASSIUM CHLORIDE 20 MEQ TABLET.ER. PO SCH (07:51)
[2020-06-14] MEDS: ISOSORBIDE MONONITRATE ER 30 MG TAB.ER.24H PO SCH (07:52)
[2020-06-14] MEDS: LABETALOL HCL 100 MG TABLET. PO SCH (07:53)
[2020-06-14] MEDS ORDERED: POTASSIUM BICARB 20 MEQ EFFERVESCENT TABLET. PO ONE (09:00)
--- NOTE | 2020-06-14 09:09 | PDOC ---
[employer] PROGRESS NOTE Date of Service DOS: DATE: 06/14/20 TIME: 08:58 Chief Complaint Chief Complaint A/P: Acute diastolic CHF - IV lasix. Daily weights, strict I/O. On BB, not on AC/ARB due to CKD, on imdur and hydralazine, ASA, statin. Cardiology consulted. Tele monitoring. Hypertensive urgency - hydralazine prn Hypernatremia CKD Hypokalemia Elevated troponin - likely demand ischemia from acute CHF CAD s/p LAD stent 2018 Colon cancer s/p resection Plan: Consultation placed to cardiology Echocardiogram obtained 08/02/2019 showed EF 55-60%, PAP 45 mmHg, normal left ventricular segmental wall motion Will obtain limited echocardiogram. IV Lasix 20 mg daily Daily I's & O's and daily weights Continue to trend troponins Resume home medications FEN - Cardiac diet PPX - Lovenox FULL CODE Dispo - inpatient for above; patient named his as surrogate decision-maker. History of Present Illness History of Present Illness Mr Roldan is a 70 yo M w/ PMhx CKD, HLD, HTN, CAD s/p LAD stent 2018, dCHF, colon cancer s/p resection, who presents to the ED with complaints of worsening shortness of breath over the past week. States his shortness of breath is worse when he lays down and with exertion. He also reports associated bilateral lower extremity edema. Patient states he was previously prescribed Lasix after his left heart cath, but appears to be surprised by his diagnosis of diastolic CHF and admittedly does not take his Lasix, only as needed. Labs on admission showed troponin 0.927 and BNP 16,125. CXR showed enlarged cardiac silhouette, bilateral effusions and bilateral airspace disease likely representing CHF exacerbation. 06/13: Afebrile. Seen on CV ICU. He received 80 mg Lasix IV and felt a little relief after diuresis overnight. Troponin peaked > 1, now 0.9. Still on heparin GTT. Still feeling short of breath and swollen, but improved. Notes his weight recently changed from 200# to 217#, he thought this was diet related. Diuresed 4.3L on 06/13 and 3.9L last 24 hours. He is feeling much better today. Weight to 86.5kg. BP has been up systolic in 200s, though this was before his morning meds. Vitals/I&O Vitals/I&O: Vital Signs Date Time Temp Pulse Resp B/P (MAP) Pulse Ox O2 Delivery O2 Flow Rate FiO2 06/14/20 07:53 79 204/102 06/14/20 06:18 97.9 16 100 Room Air 97.9 I & O 06/13/20 06/13/20 06/14/20 15:00 23:00 07:00 Intake Total 450 ml 450 ml Output Total 1250 ml 1575 ml 1075 ml Balance -1250 ml -1125 ml -625 ml Physical Exam General: Alert, Oriented X3, Cooperative, No acute distress Heart: Regular rate Lungs: Crackles Abdomen: Soft, No tenderness Extremities: Other (2+ bilateral LE edema ) Skin: No breakdown Labs Labs: Laboratory Tests Test 06/13/20 11:05 06/13/20 18:30 06/14/20 01:15 06/14/20 06:00 Heparin Anti-Xa Act, Unfractionated 0.68 IU/mL (0.30-0.70) 0.51 IU/mL (0.30-0.70) 0.37 IU/mL (0.30-0.70) White Blood Count 4.5 x10^3/uL (4.0-11.0) Red Blood Count 3.66 x10^6/uL (4.30-5.70) Hemoglobin 7.6 g/dL (13.0-17.5) Hematocrit 24.5 % (39.0-53.0) Mean Corpuscular Volume 67 fL (79-100) Mean Corpuscular Hemoglobin 21 pg (25-35) Mean Corpuscular Hemoglobin Concent 31 g/dL (31-37) Red Cell Distribution Width 24.2 % (11.5-14.5) Platelet Count 192 x10^3/uL (140-400) Sodium Level 148 mmol/L (136-145) Potassium Level 3.2 mmol/L (3.5-5.1) Chloride Level 112 mmol/L (98-107) Carbon Dioxide Level 24 mmol/L (21-32) Anion Gap 12 (6-14) Blood Urea Nitrogen 28 mg/dL (8-26) Creatinine 2.3 mg/dL (0.7-1.3) Estimated GFR (Cockcroft-Gault) 34.3 Glucose Level 83 mg/dL (70-99) Calcium Level 8.2 mg/dL (8.5-10.1) Phosphorus Level 3.7 mg/dL (2.6-4.7) Magnesium Level 1.9 mg/dL (1.8-2.4) Iron Level 12 ug/dL (65-175) Total Iron Binding Capacity 249 ug/dL (250-450) Iron Saturation 5 % (15-34) Assessment and Plan Assessmemt and Plan Problems Medical Problems: (1) Acute on chronic diastolic CHF (congestive heart failure) Status: Acute Comment Review of Relevant I have reviewed the following items ramiro (where applicable) has been applied. Medications: Current Medications Medications (Trade) Dose Ordered Sig/Zoey Route PRN Reason Start Time Stop Time Status Last Admin Dose Admin Potassium Chloride (Klor-Con) 20 meq DAILY PO 06/13/20 09:00 06/14/20 07:51 Furosemide (Lasix) 40 mg [id number] PO 06/13/20 12:00 06/14/20 07:51 Isosorbide Mononitrate (Imdur) 30 mg DAILY PO 06/13/20 15:00 06/14/20 07:52 Justifications for Admission Other Justification Diastolic CHF exacerbation TONIE LEWIS MD Jun 14, 2020 09:09
[2020-06-14] MEDS ORDERED: FURO40TA4 PO (09:12)
[2020-06-14] MEDS ORDERED: ISOS30TA68 PO (09:12)
[2020-06-14] MEDS ORDERED: POTA20TA84 PO (09:12)
[2020-06-14 10:57] VITALS: BP 150/75
--- NOTE | 2020-06-14 11:11 | PDOC ---
MILAGRO PEREZ SHIFT PRODUCTION SUPERVISOR 06/14/20 1111: CARDIO Progress Notes Date and Time Date of Service 06/14/20 Time of Evaluation 1100 Subjective Subjective: No Chest Pain, No shortness of breath, No Palpitations Vitals Vitals Vital Signs Date Time Temp Pulse Resp B/P (MAP) Pulse Ox O2 Delivery O2 Flow Rate FiO2 06/14/20 10:57 98.6 80 16 150/75 (100) 100 Room Air 98.6 Weight Weight [ ] Input and Output Intake and Output Intake and Output 06/14/20 07:00 Intake Total 900 ml Output Total 3900 ml Balance -3000 ml Intake Oral 900 ml Output Urine Total 3900 ml Laboratory Labs Laboratory Tests Test 06/13/20 18:30 06/14/20 01:15 06/14/20 06:00 Heparin Anti-Xa Act, Unfractionated 0.51 IU/mL (0.30-0.70) 0.37 IU/mL (0.30-0.70) White Blood Count 4.5 x10^3/uL (4.0-11.0) Red Blood Count 3.66 x10^6/uL (4.30-5.70) Hemoglobin 7.6 g/dL (13.0-17.5) Hematocrit 24.5 % (39.0-53.0) Mean Corpuscular Volume 67 fL (79-100) Mean Corpuscular Hemoglobin 21 pg (25-35) Mean Corpuscular Hemoglobin Concent 31 g/dL (31-37) Red Cell Distribution Width 24.2 % (11.5-14.5) Platelet Count 192 x10^3/uL (140-400) Sodium Level 148 mmol/L (136-145) Potassium Level 3.2 mmol/L (3.5-5.1) Chloride Level 112 mmol/L (98-107) Carbon Dioxide Level 24 mmol/L (21-32) Anion Gap 12 (6-14) Blood Urea Nitrogen 28 mg/dL (8-26) Creatinine 2.3 mg/dL (0.7-1.3) Estimated GFR (Cockcroft-Gault) 34.3 Glucose Level 83 mg/dL (70-99) Calcium Level 8.2 mg/dL (8.5-10.1) Phosphorus Level 3.7 mg/dL (2.6-4.7) Magnesium Level 1.9 mg/dL (1.8-2.4) Iron Level 12 ug/dL (65-175) Total Iron Binding Capacity 249 ug/dL (250-450) Iron Saturation 5 % (15-34) Physical Exam HEENT: Neck Supple W Full Motion Chest: Symmetric LUNGS: Clear to Auscultation Heart: RRR Abdomen: Soft N/T Extremities: Other (1+ bilateral LE edema ) Neurology: alert, oriented, follow commands Assessment Assessment 1. Acute on chronic combined systolic/diastolic CHF; better compensated following IV diuresis 2. Hypertensive urgency; labile this am 3. NSTEMI; peak 1. possibly type II, demand ischemia. on heparin gtt. CP free 4. CAD; s/p PCI/TAMMY to the LAD (08/05) 5. H/o ischemic cardiomyopathy; LVEF previously 40%. Most recent echo 08/06 with LV recovery with EF 55-60% 6. Dyslipidemia 7. CKD; Cr stable per review 8. Anemia Recommendations Echo as ordered Lasix therapy Home BP monitoring Secondary prevention Outpatient ischemic evaluation as arranged Follow up in our office with Dr. Ayala Supportive care Justicifation of Admission Dx: Justifications for Admission: Justification of Admission Dx: Yes NH: Acute NSTEMI SHEFALI AYALA MD 06/15/20 1312: CARDIO Progress Notes Assessment Assessment Patient seen and examined 06/14/2020. Agree with INSTRUMENT REPAIRER HELPER's assessment and plan. Acute on chronic diastolic heart failure probably precipitated by uncontrolled hypertension -better compensated after diuresis. Non-STEMI most probably demand ischemia Due to his history of coronary disease, we will plan for outpatient ischemic evaluation Telemetry did not show any significant arrhythmias so far Follow-up as scheduled MILAGRO PEREZ APRN Jun 14, 2020 11:11 SHEFALI AYALA MD Jun 15, 2020 13:12
--- NOTE | 2020-06-14 12:44 | PDOC ---
Renal-Progress Notes Subjective Notes Notes SOME SOB History of Present Illness Hx of present illness STABLE Vitals Vitals Vital Signs Date Time Temp Pulse Resp B/P (MAP) Pulse Ox O2 Delivery O2 Flow Rate FiO2 06/14/20 10:57 98.6 80 16 150/75 (100) 100 Room Air 98.6 Weight Weight [ ] I.O. Intake and Output Intake and Output 06/14/20 07:00 Intake Total 900 ml Output Total 3900 ml Balance -3000 ml Intake Oral 900 ml Output Urine Total 3900 ml Labs Labs Laboratory Tests Test 06/13/20 18:30 06/14/20 01:15 06/14/20 06:00 Heparin Anti-Xa Act, Unfractionated 0.51 IU/mL (0.30-0.70) 0.37 IU/mL (0.30-0.70) White Blood Count 4.5 x10^3/uL (4.0-11.0) Red Blood Count 3.66 x10^6/uL (4.30-5.70) Hemoglobin 7.6 g/dL (13.0-17.5) Hematocrit 24.5 % (39.0-53.0) Mean Corpuscular Volume 67 fL (79-100) Mean Corpuscular Hemoglobin 21 pg (25-35) Mean Corpuscular Hemoglobin Concent 31 g/dL (31-37) Red Cell Distribution Width 24.2 % (11.5-14.5) Platelet Count 192 x10^3/uL (140-400) Sodium Level 148 mmol/L (136-145) Potassium Level 3.2 mmol/L (3.5-5.1) Chloride Level 112 mmol/L (98-107) Carbon Dioxide Level 24 mmol/L (21-32) Anion Gap 12 (6-14) Blood Urea Nitrogen 28 mg/dL (8-26) Creatinine 2.3 mg/dL (0.7-1.3) Estimated GFR (Cockcroft-Gault) 34.3 Glucose Level 83 mg/dL (70-99) Calcium Level 8.2 mg/dL (8.5-10.1) Phosphorus Level 3.7 mg/dL (2.6-4.7) Magnesium Level 1.9 mg/dL (1.8-2.4) Iron Level 12 ug/dL (65-175) Total Iron Binding Capacity 249 ug/dL (250-450) Iron Saturation 5 % (15-34) Review of Systems Constitutional: yes: alert, oriented Ears/Nose/Throat: Yes: no symptom reported Eyes: Yes: no symptom reported Pulmonary: Yes dyspnea Cardiovascular: Yes edema Gastrointestional: Yes: no symptom reported Genitourinary: Yes: no symptom reported Skin: Yes no symptom reported Psychiatric/Neurological: Yes: no symptom reported Endocrine: Yes: no symptom reported Physical Exam General Appearance: no apparent distress Skin: warm Respiratory: decreased breath sounds Heart: S1S2 Abdomen: soft, bowel sounds present Genitourinary: bladder flat Extremities: pulses present, edema Neurology: alert Assessment Assessment IMP CKD STAGE 3B-CR STABLE AT 2.3 CHF-PROB DIASTOLIC HTN RELATED NEPHROSCLEROSIS HYPOKALEMIA ANEMIA IRON DEFICIENCY NON COMPLIANCE HX OF HTN NSTEMI PLAN DIURESIS ENC COMPLIANCE REPLACE K CARDIOLOGY EVAL AND TX WILL FOLLOW MAHI FREEMAN MD Jun 14, 2020 12:43
[2020-06-14 13:46] VITALS: BP 157/80
--- NOTE | 2020-06-14 14:00 | NUR ---
SS following up with discharge planning. SS reviewed pt chart and discussed with pt RN. Pt is currently on room air. COVID19 negative. Pt having ECHO today. Discharge order on the chart for home with self care.
[2020-06-14] MEDS ORDERED: FUROSEMIDE 20 MG/2 ML VIAL. IVP ONE (14:15)
--- NOTE | 2020-06-14 15:36 | NUR ---
Discharge Note: YADI CHRISTIAN SCKAITU Discharge instructions and discharge home medications reviewed with Patient and a copy given. All questions have been answered and understanding verbalized.
--- NOTE | 2020-06-14 16:04 | CARD ---
MR#: [id number] Date of Study: 06/14/2020 Ordering Physician: ALIX LI, Referring Physician: ALIX LI, Tech: Ivana Miller RDCS APPROVED REPORT EXAM: Two-dimensional and M-mode echocardiogram with Doppler and color Doppler. Other Information Quality : Good INDICATION Peripheral Edema 2D DIMENSIONS RVDd3.6 (2.9-3.5cm)Left Atrium(2D)4.7 (1.6-4.0cm) IVSd1.9 (0.7-1.1cm)Aortic Root(2D)3.0 (2.0-3.7cm) LVDd6.5 (3.9-5.9cm)LVOT Diameter2.1 (1.8-2.4cm) PWd1.3 (0.7-1.1cm)LVDs5.2 (2.5-4.0cm) FS (%) 19.1 %SV82.3 ml LVEF(%)38.5 (>50%) Aortic Valve AoV Peak Mina.190.3cm/sAoV VTI30.5cm AO Peak GR.14.5mmHgLVOT Peak Mina.112.3cm/s AO Mean GR.8mmHgAVA (VMAX)1.97cm2 CHILO (VTI)2.40bx6RA P 1/2 Dswk3669oc Mitral Valve MV E Oqdihdyd804.0cm/sMV DECEL MJFP054fu MV A Etgjrsyy02.5cm/sE/A Ratio1.2 Tricuspid Valve TR P. Yhxwouix543mo/sRAP SPWSAYME2auWx TR Peak Gr.24bgIoQZVS17ucLs Pulmonary Vein S1 Xeyzvdwn88.9cm/sD2 Kvynatti00.4cm/s LEFT VENTRICLE The Left Ventricle is mildly dilated. There is moderate concentric left ventricular hypertrophy. Left ventricle systolic function is moderately impaired. The Ejection Fraction is 30-35%. There is mild g lobal hypokinesis of the left ventricle. Transmitral Doppler flow pattern is Grade II-pseudonormal fi lling dynamics. RIGHT VENTRICLE The right ventricle is mildly dilated. The right ventricular systolic function is normal. ATRIA The left atrium is mildly dilated. The right atrium size is normal. The interatrial septum is intact with no evidence for an atrial septal defect or patent foramen ovale as noted on 2-D or Doppler imagi ng. AORTIC VALVE The aortic valve is calcified but opens well. Doppler and Color Flow revealed trace aortic regurgitat ion. There is no significant aortic valvular stenosis. MITRAL VALVE The mitral valve is calcified but opens well. Mitral annular calcification is mild. There is no evide nce of mitral valve prolapse. There is no mitral valve stenosis. Doppler and Color-flow revealed mild to moderate mitral regurgitation. TRICUSPID VALVE The tricuspid valve is normal in structure and function. Doppler and Color Flow revealed mild to mode rate tricuspid regurgitation. There is moderate pulmonary hypertension. The PA pressure was estimated at 56 mmHg. There is no tricuspid valve stenosis. PULMONIC VALVE The pulmonary valve is normal in structure and function. Doppler and Color Flow revealed mild pulmoni c valvular regurgitation. There is no pulmonic valvular stenosis. GREAT VESSELS The aortic root is normal in size. The ascending aorta is normal in size. The IVC is normal in size a nd collapses >50% with inspiration. PERICARDIAL EFFUSION There is no evidence of significant pericardial effusion. Critical Notification Critical Value: No <Conclusion> Left ventricle systolic function is moderately impaired. The Ejection Fraction is 30-35%. Transmitral Doppler flow pattern is Grade II-pseudonormal filling dynamics. Mild to moderate mitral regurgitation. Mild to moderate tricuspid regurgitation. There is moderate pulmonary hypertension. The PA pressure was estimated at 56 mmHg. There is no evidence of significant pericardial effusion. Signed by : Nasir Ayala, Electronically Approved : 06/14/2020 16:04:40
--- NOTE | 2020-06-14 21:15 | PDOC3 ---
Discharge Summary Visit Information Date of Admission: Jun 12, 2020 Date of Discharge: Jun 14, 2020 Admitting Diagnosis: Acute systolic and diastolic CHF Final Diagnosis Problems Medical Problems: (1) Acute on chronic diastolic CHF (congestive heart failure) Status: Acute Brief Hospital Course Allergies Allergies Coded Allergies Type Severity Reaction Last Updated Verified No Known Drug Allergies 08/09/18 No Vital Signs Vital Signs Date Time Temp Pulse Resp B/P (MAP) Pulse Ox O2 Delivery O2 Flow Rate FiO2 06/14/20 13:46 86 157/80 06/14/20 10:57 98.6 16 100 Room Air 98.6 Lab Results Laboratory Tests Test 06/13/20 04:15 06/13/20 11:05 06/13/20 18:30 06/14/20 01:15 White Blood Count 4.8 x10^3/uL (4.0-11.0) Red Blood Count 3.56 x10^6/uL (4.30-5.70) Hemoglobin 7.5 g/dL (13.0-17.5) Hematocrit 24.1 % (39.0-53.0) Mean Corpuscular Volume 68 fL (79-100) Mean Corpuscular Hemoglobin 21 pg (25-35) Mean Corpuscular Hemoglobin Concent 31 g/dL (31-37) Red Cell Distribution Width 24.1 % (11.5-14.5) Platelet Count 177 x10^3/uL (140-400) Neutrophils (%) (Auto) 69 % (31-73) Lymphocytes (%) (Auto) 14 % (24-48) Monocytes (%) (Auto) 14 % (0-9) Eosinophils (%) (Auto) 2 % (0-3) Basophils (%) (Auto) 2 % (0-3) Neutrophils # (Auto) 3.3 x10^3/uL (1.8-7.7) Lymphocytes # (Auto) 0.7 x10^3/uL (1.0-4.8) Monocytes # (Auto) 0.7 x10^3/uL (0.0-1.1) Eosinophils # (Auto) 0.1 x10^3/uL (0.0-0.7) Basophils # (Auto) 0.1 x10^3/uL (0.0-0.2) Heparin Anti-Xa Act, Unfractionated 0.14 IU/mL (0.30-0.70) 0.68 IU/mL (0.30-0.70) 0.51 IU/mL (0.30-0.70) 0.37 IU/mL (0.30-0.70) Sodium Level 150 mmol/L (136-145) Potassium Level 3.2 mmol/L (3.5-5.1) Chloride Level 113 mmol/L (98-107) Carbon Dioxide Level 22 mmol/L (21-32) Anion Gap 15 (6-14) Blood Urea Nitrogen 29 mg/dL (8-26) Creatinine 2.2 mg/dL (0.7-1.3) Estimated GFR (Cockcroft-Gault) 36.1 Glucose Level 83 mg/dL (70-99) Calcium Level 7.9 mg/dL (8.5-10.1) Magnesium Level 1.9 mg/dL (1.8-2.4) Iron Level 13 ug/dL (65-175) Total Iron Binding Capacity 263 ug/dL (250-450) Iron Saturation 5 % (15-34) Troponin I Quantitative 0.929 ng/mL (0.000-0.055) Triglycerides Level 30 mg/dL (0-150) Cholesterol Level 95 mg/dL (0-200) LDL Cholesterol, Calculated 35 mg/dL (0-100) VLDL Cholesterol, Calculated 6 mg/dL (0-40) Non-HDL Cholesterol Calculated 41 mg/dL (0-129) HDL Cholesterol 54 mg/dL (40-60) Cholesterol/HDL Ratio 1.8 Procalcitonin < 0.10 ng/mL (0.00-0.10) Test 06/14/20 06:00 White Blood Count 4.5 x10^3/uL (4.0-11.0) Red Blood Count 3.66 x10^6/uL (4.30-5.70) Hemoglobin 7.6 g/dL (13.0-17.5) Hematocrit 24.5 % (39.0-53.0) Mean Corpuscular Volume 67 fL (79-100) Mean Corpuscular Hemoglobin 21 pg (25-35) Mean Corpuscular Hemoglobin Concent 31 g/dL (31-37) Red Cell Distribution Width 24.2 % (11.5-14.5) Platelet Count 192 x10^3/uL (140-400) Sodium Level 148 mmol/L (136-145) Potassium Level 3.2 mmol/L (3.5-5.1) Chloride Level 112 mmol/L (98-107) Carbon Dioxide Level 24 mmol/L (21-32) Anion Gap 12 (6-14) Blood Urea Nitrogen 28 mg/dL (8-26) Creatinine 2.3 mg/dL (0.7-1.3) Estimated GFR (Cockcroft-Gault) 34.3 Glucose Level 83 mg/dL (70-99) Calcium Level 8.2 mg/dL (8.5-10.1) Phosphorus Level 3.7 mg/dL (2.6-4.7) Magnesium Level 1.9 mg/dL (1.8-2.4) Iron Level 12 ug/dL (65-175) Total Iron Binding Capacity 249 ug/dL (250-450) Iron Saturation 5 % (15-34) Laboratory Tests Test 06/14/20 01:15 06/14/20 06:00 Heparin Anti-Xa Act, Unfractionated 0.37 IU/mL (0.30-0.70) White Blood Count 4.5 x10^3/uL (4.0-11.0) Red Blood Count 3.66 x10^6/uL (4.30-5.70) Hemoglobin 7.6 g/dL (13.0-17.5) Hematocrit 24.5 % (39.0-53.0) Mean Corpuscular Volume 67 fL (79-100) Mean Corpuscular Hemoglobin 21 pg (25-35) Mean Corpuscular Hemoglobin Concent 31 g/dL (31-37) Red Cell Distribution Width 24.2 % (11.5-14.5) Platelet Count 192 x10^3/uL (140-400) Sodium Level 148 mmol/L (136-145) Potassium Level 3.2 mmol/L (3.5-5.1) Chloride Level 112 mmol/L (98-107) Carbon Dioxide Level 24 mmol/L (21-32) Anion Gap 12 (6-14) Blood Urea Nitrogen 28 mg/dL (8-26) Creatinine 2.3 mg/dL (0.7-1.3) Estimated GFR (Cockcroft-Gault) 34.3 Glucose Level 83 mg/dL (70-99) Calcium Level 8.2 mg/dL (8.5-10.1) Phosphorus Level 3.7 mg/dL (2.6-4.7) Magnesium Level 1.9 mg/dL (1.8-2.4) Iron Level 12 ug/dL (65-175) Total Iron Binding Capacity 249 ug/dL (250-450) Iron Saturation 5 % (15-34) Brief Hospital Course Mr Roldan is a 70 yo M w/ PMhx CKD, HLD, HTN, CAD s/p LAD stent 2018, dCHF, colon cancer s/p resection, who presents to the ED with complaints of worsening shortness of breath over the past week. States his shortness of breath is worse when he lays down and with exertion. He also reports associated bilateral lower extremity edema. Patient states he was previously prescribed Lasix after his left heart cath, but appears to be surprised by his diagnosis of diastolic CHF and admittedly does not take his Lasix, only as needed. Labs on admission showed troponin 0.927 and BNP 16,125. CXR showed enlarged cardiac silhouette, bilateral effusions and bilateral airspace disease likely representing CHF exacerbation. 06/13: Afebrile. Seen on CV ICU. He received 80 mg Lasix IV and felt a little relief after diuresis overnight. Troponin peaked > 1, now 0.9. Still on heparin GTT. Still feeling short of breath and swollen, but improved. Notes his weight recently changed from 200# to 217#, he thought this was diet related. Diuresed 4.3L on 06/13 and 3.9L last 24 hours. He is feeling much better today. Weight to 86.5kg. BP has been up systolic in 200s, though this was before his morning meds, improved within 30 minutes of meds. Symptomatically improved since admission Echo 06/14/2020 Left ventricle systolic function is moderately impaired. The Ejection Fraction is 30-35%. Transmitral Doppler flow pattern is Grade II-pseudonormal filling dynamics. Mild to moderate mitral regurgitation. Mild to moderate tricuspid regurgitation. There is moderate pulmonary hypertension. The PA pressure was estimated at 56 mmHg. There is no evidence of significant pericardial effusion. Consults: Cardiology, nephrology Problem list: Acute combined systolic and diastolic CHF - IV lasix. Daily weights, strict I/O. On BB, not on AC/ARB due to CKD, on imdur and hydralazine, ASA, statin. Cardiology consulted. Tele monitoring. EF reduced from 1 year ago. Given the reduction in EF he has plan for outpatient ischemic evaluation and f/u with cardiology and med optimization. Hypertensive urgency - hydralazine prn Hypernatremia - improved, likely due to dietary indiscretion CKD - f/u outpatient with Dr. Joseph Hypokalemia - improved, has double dose of potassium for outpatient Elevated troponin - likely demand ischemia from acute CHF CAD s/p LAD stent 2018 Colon cancer s/p resection Greater than 30 minutes spent on d/c Discharge Information Condition at Discharge: Improved Follow Up: Weeks (1) Disposition/Orders: D/C to Home Scheduled Aspirin (Aspirin Ec) 81 Mg Tablet., 81 MG PO DAILY for , (Reported) Entered as Reported by: DUNIA ALMANZA RN on 06/12/202121 Last Action: New Order on 06/12/202121 by DUNIA ALMANZA RN Atorvastatin Calcium (Atorvastatin Calcium) 20 Mg Tablet, 40 MG PO QHS for CAD/HLD for 30 Days, #60 Ref 2 Can replace with #30 of 40mg tabs Prescribed by: TONIE LEWIS MD on 08/11/181121 Last Action: Continued on 06/12/201825 by ALIX LI MD Cholecalciferol (Vitamin D3) (Vitamin D3) 1,000 Unit Tablet, 2,000 UNIT PO DAILY for vit, (Reported) Entered as Reported by: JORGE HENSON on 08/09/18 1154 Last Action: Reviewed on 06/12/202114 by DUNIA ALMANZA RN Ferrous Sulfate (Iron) 325 Mg Tablet, 325 MG PO DAILY for , (Reported) Entered as Reported by: DUNIA ALMANZA RN on 06/12/202116 Last Action: New Order on 06/12/202116 by DUNIA ALMANZA RN Furosemide (Furosemide) 40 Mg Tablet, 40 MG PO BID94 for CHF for 30 Days, #60 Prescribed by: TONIE LEWIS MD on 06/14/20 0912 Hydralazine Hcl (Hydralazine Hcl) 100 Mg Tablet, 1 TAB PO TID for , (Reported) Entered as Reported by: DUNIA ALMANZA RN on 06/12/202116 Last Action: New Order on 06/12/202116 by DUNIA ALMANZA RN Isosorbide Mononitrate (Isosorbide Mononitrate Er) 30 Mg Tab.er.24h, 30 MG PO DAILY for CHF for 30 Days, #30 Ref 2 Prescribed by: TONIE LEWIS MD on 06/14/20 0912 Labetalol Hcl (Labetalol Hcl) 100 Mg Tablet, 1 TAB PO BID for , (Reported) Entered as Reported by: DUNIA ALMANZA RN on 06/12/202116 Last Action: New Order on 06/12/202116 by DUNIA ALMANZA RN Potassium Chloride (K-Tab ER) 20 Meq Tablet.er, 20 MEQ PO BID for Hypokalemia for 30 Days, #60 Prescribed by: TONIE LEWIS MD on 06/14/20 0912 Justicifation of Admission Dx: Justifications for Admission: Justification of Admission Dx: Yes [place]: Acute NSTEMI TONIE LEWIS MD Jun 14, 2020 21:15
== END 2020-06-14 15:15 | disposition home or self-care (01) | DRG 280 ==
LOC: ER 16:33 → ED HOLD 18:03 → CVICU 19:50
PROVIDERS: ADMIT Family Medicine; ATTEND Family Medicine
DX: I13.0 Hypertensive heart and chronic kidney disease with heart failure and stage 1 through stage 4 chronic kidney disease, or unspecified chronic kidney disease (principal); I50.43 Acute on chronic combined systolic (congestive) and diastolic (congestive) heart failure; I21.A1 Myocardial infarction type 2; E87.0 Hyperosmolality and hypernatremia; I16.0 Hypertensive urgency; D64.9 Anemia, unspecified; E11.22 Type 2 diabetes mellitus with diabetic chronic kidney disease; E61.1 Iron deficiency; E78.5 Hyperlipidemia, unspecified; E87.6 Hypokalemia; I08.1 Rheumatic disorders of both mitral and tricuspid valves; I25.10 Atherosclerotic heart disease of native coronary artery without angina pectoris; I25.2 Old myocardial infarction; I25.5 Ischemic cardiomyopathy; I27.20 Pulmonary hypertension, unspecified; I70.0 Atherosclerosis of aorta; N18.32 Chronic kidney disease, stage 3b; Z82.49 Family history of ischemic heart disease and other diseases of the circulatory system; Z83.3 Family history of diabetes mellitus; Z85.038 Personal history of other malignant neoplasm of large intestine; Z87.891 Personal history of nicotine dependence; Z91.19 Patient's noncompliance with other medical treatment and regimen; Z95.5 Presence of coronary angioplasty implant and graft; Z20.822 Contact with and (suspected) exposure to COVID-19
CPT/HCPCS: 36415; 71045; 80048; 80053; 80061; 82550; 83540; 83550; 83735; 83880; 84100; 84145; 84484; 85025; 85027; 85520; 87804; 93005; 93306; 96374; 96375; 99285; J0360; J1644; J1940; U0003; U0005; G0378

== ENCOUNTER → 2020-06-23 | Outpatient (CLI) | payer OTHER, MEDICARE ==
[2020-06-14 13:46] VITALS: BP 157/80
[~2020-06-23] MED LIST changes: +ASPI-886 PO; +FERR-36 PO; +FURO40TA4 PO; +LABE100T5 PO; +POTA20TA84 PO
--- NOTE | 2020-06-27 11:53 | CARD ---
MR#: [id number] Date of Study: 06/23/2020 Ordering Physician: SHEFALI HU, Referring Physician: SHEFALI HU Tech: Estefany Bronson [facility] APPROVED REPORT EXAM: Two-dimensional and M-mode echocardiogram with Doppler and color Doppler. Other Information Quality : GoodHR: 75bpm Rhythm : NSR INDICATION Cardiomyopathy RISK FACTORS Hypertension Hyperlipidemia 2D DIMENSIONS RVDd4.2 (2.9-3.5cm)Left Atrium(2D)5.1 (1.6-4.0cm) IVSd1.5 (0.7-1.1cm)Aortic Root(2D)3.3 (2.0-3.7cm) LVDd6.5 (3.9-5.9cm)LVOT Diameter2.4 (1.8-2.4cm) PWd1.5 (0.7-1.1cm)LVDs5.1 (2.5-4.0cm) FS (%) 22.1 %SV94.6 ml LVEF(%)43.7 (>50%) Aortic Valve AoV Peak Mina.148.1cm/sAoV VTI29.6cm AO Peak GR.8.8mmHgLVOT Peak Mina.93.1cm/s AO Mean GR.5mmHgAVA (VMAX)2.87cm2 Mitral Valve MV E Sgvwrxzo16.3cm/sMV DECEL RWHI455yt MV A Cpetddhk36.4cm/sE/A Ratio1.4 Pulmonary Valve PV Peak Tiikdafv224.7cm/s Tricuspid Valve TR P. Qvxpyaxz692px/sTR Peak Gr.40mmHg Pulmonary Vein S1 Ecitczys66.4cm/sD2 Gdkchlhs88.8cm/s PVa tnqtpbxz903fgaf LEFT VENTRICLE The Left Ventricle is moderately dilated. There is moderate concentric left ventricular hypertrophy. The ejection fraction is severely impaired. Estimated ejection fraction 25-30%. Moderate global hypok inesis. Transmitral Doppler flow pattern is Grade II-pseudonormal filling dynamics. RIGHT VENTRICLE The right ventricle is normal size. There is normal right ventricular wall thickness. The right ventr icular systolic function is normal. ATRIA The left atrium is mild to moderately dilated. The right atrium size is normal. The interatrial septu m is intact with no evidence for an atrial septal defect or patent foramen ovale as noted on 2-D or D oppler imaging. AORTIC VALVE The aortic valve is normal in structure and function. Doppler and Color Flow revealed trace to mild a ortic regurgitation. There is no significant aortic valvular stenosis. MITRAL VALVE Posterior leaflet is restricted. There is no evidence of mitral valve prolapse. There is no mitral va lve stenosis. Doppler and Color-flow revealed mild mitral regurgitation. TRICUSPID VALVE The tricuspid valve is normal in structure and function. Doppler and Color Flow revealed mild tricusp id regurgitation. Estimated PAP 33 mmHg. There is no tricuspid valve stenosis. PULMONIC VALVE Doppler and Color Flow revealed mild pulmonic valvular regurgitation. There is no pulmonic valvular s tenosis. GREAT VESSELS The aortic root is normal in size. The ascending aorta is normal in size. The IVC is normal in size a nd collapses >50% with inspiration. PERICARDIAL EFFUSION There is no evidence of significant pericardial effusion. Critical Notification Critical Value: No <Conclusion> The ejection fraction is severely impaired. Estimated ejection fraction 25-30%. Moderate global hypokinesis. The Left Ventricle is moderately dilated. Doppler and Color-flow revealed mild mitral regurgitation. Signed by : Harshal Caraballo, Electronically Approved : 06/27/2020 11:52:49
== END ==
LOC: ECHO 10:02
PROVIDERS: ATTEND Internal Medicine Cardiovascular Disease
DX: I08.8 Other rheumatic multiple valve diseases (principal)
CPT/HCPCS: 93306

== ENCOUNTER → 2021-01-25 | Outpatient (CLI) | payer OTHER ==
[~2021-01-25] MED LIST changes: +POTA-121 PO; -POTA20TA4 PO
--- NOTE | 2021-01-25 16:27 | CARD ---
MR#: [id number] Date of Study: 01/25/2021 Ordering Physician: SHEFALI HU, Referring Physician: SHEFALI HU, Tech: Candi Lyman, [facility] APPROVED REPORT EXAM: Two-dimensional and M-mode echocardiogram with Doppler and color Doppler. Other Information HR: 74bpm INDICATION Cardiomyopathy RISK FACTORS Hypertension 2D DIMENSIONS RVDd4.8 (2.9-3.5cm)Left Atrium(2D)4.2 (1.6-4.0cm) IVSd3.0 (0.7-1.1cm)Aortic Root(2D)3.3 (2.0-3.7cm) LVDd3.4 (3.9-5.9cm)LVOT Diameter2.1 (1.8-2.4cm) PWd1.3 (0.7-1.1cm)LVDs4.0 (2.5-4.0cm) FS (%) 16.2 %SV21.0 ml LVEF(%)43.2 (>50%) Aortic Valve AoV Peak Mina.150.1cm/sAoV VTI23.0cm AO Peak GR.9.0mmHgLVOT Peak Mina.103.8cm/s LVOT VTI 18.78cmAO Mean GR.5mmHg CHILO (VMAX)1.51cd8ZWK (VTI)2.91cm2 Mitral Valve MV E Xoszdwmk54.7cm/sMV DECEL IBHY981vd MV A Lxplxlxh01.8cm/sMV E Mean Gr.2mmHg MV MHQ76hpY/A Ratio0.4 MVA (PHT)3.99cm2 TDI E/Lateral E'7.8E/Medial E'11.5 Pulmonary Valve PV Peak Znfmgxwy34.0cm/sPV Peak Grad.2mmHg Tricuspid Valve TR P. Jseynniq349yt/sRAP FMFCFLLD4lqKn TR Peak Gr.14zcSdKKDF69rmAi Pulmonary Vein S1 Tfaumoyx96.6cm/sD2 Fezjupjw03.9cm/s PVa lfnczyjy907tsfn LEFT VENTRICLE The left ventricle is normal size. There is severe concentric left ventricular hypertrophy. The systo lic function is moderately to severely impaired. The Ejection Fraction is 30-35%. There is global hyp okinesis of the left ventricle with moderate to severe inferior wall hypokinesis. Transmitral Doppler flow pattern is Grade I-abnormal relaxation pattern. RIGHT VENTRICLE The right ventricle is normal size. There is normal right ventricular wall thickness. The right ventr icular systolic function is normal. ATRIA The left atrium size is normal. The right atrium size is normal. The interatrial septum is intact wit h no evidence for an atrial septal defect or patent foramen ovale as noted on 2-D or Doppler imaging. AORTIC VALVE The aortic valve is normal in structure and function. Doppler and Color Flow revealed no significant aortic regurgitation. There is no significant aortic valvular stenosis. Calculated aortic valve area is 3.03 cm2 with maximum pressure gradient of 11 mmHg and mean pressure gradient of 5 mmHg. MITRAL VALVE The mitral valve is normal in structure and function. There is no evidence of mitral valve prolapse. There is no mitral valve stenosis. Doppler and Color-flow revealed trace mitral regurgitation. TRICUSPID VALVE The tricuspid valve is normal in structure and function. Doppler and Color Flow revealed trace tricus pid regurgitation with an estimated PAP of 38 mmHg. There is no tricuspid valve stenosis. PULMONIC VALVE Doppler and Color Flow revealed trace to mild pulmonic valvular regurgitation. There is no pulmonic v alvular stenosis. GREAT VESSELS The aortic root is normal in size. The IVC is normal in size and collapses >50% with inspiration. PERICARDIAL EFFUSION There is no evidence of significant pericardial effusion. Critical Notification Critical Value: No <Conclusion> The systolic function is moderately to severely impaired. The Ejection Fraction is 30-35%. There is severe concentric left ventricular hypertrophy. There is global hypokinesis of the left ventricle with moderate to severe inferior wall hypokinesis. Signed by : Harshal Caraballo, Electronically Approved : 01/25/2021 16:26:51
== END ==
LOC: ECHO 12:31
PROVIDERS: ATTEND Internal Medicine Cardiovascular Disease
DX: I37.1 Nonrheumatic pulmonary valve insufficiency (principal); I51.2 Rupture of papillary muscle, not elsewhere classified; I25.5 Ischemic cardiomyopathy
CPT/HCPCS: 93306

== ENCOUNTER 2021-02-26 09:12 | Observation (INO) | payer OTHER, MEDICARE ==
[~2021-02-26] VITALS: Ht 195.6 cm; Wt 92.0 kg
[2021-02-26] VITALS (7 sets, daily range): BP systolic 127–180; BP diastolic 68–96
[~2021-02-26 09:12] MED LIST changes: +HYDROmorphone 2 MG/ML INJ. IVP PRN; +IV RINGERS,LACTATED 1000ML 1,000 ML IV SCH; +LIDOCAINE 2%/EPI 1:100,000 20 ML VIAL. ONE; +MORPHINE SULFATE 2 MG/ML INJ. IVP PRN; +PROCHLORPERAZINE 10 MG/2 ML VIAL. IVP PRN; +fentaNYL PF VIAL 100 MCG/2 ML VIAL IVP PRN
[2021-02-26] MEDS: ceFAZolin SODIUM 1 GM in IV NORMAL SALINE 100ML 100 ML IRR ONE ×2 (09:30→11:25)
[2021-02-26] MEDS ORDERED: ONDA-85 PO (09:32)
[2021-02-26] MEDS ORDERED: LOSA1TAB22 PO (09:32)
[2021-02-26] MEDS ORDERED: FURO40TA4 PO (09:32)
[2021-02-26] MEDS ORDERED: PROC10TA57 PO (09:32)
[2021-02-26] MEDS ORDERED: DEXA4TAB63 PO (09:32)
[2021-02-26] MEDS ORDERED: MIDAZOLAM HCL/PF 2 MG/2 ML VIAL. ONE (09:59)
[2021-02-26] MEDS ORDERED: KETAMINE HCL IN NACL, ISO-OSM 50 MG/5 ML SYRINGE ONE (09:59)
[2021-02-26] MEDS ORDERED: fentaNYL PF VIAL 250 MCG/5 ML VIAL ONE (09:59)
[2021-02-26 10:07] LABS: HEMOGLOBIN 10.9 g/dL (13.0-17.5); RED BLOOD COUNT 3.77 x10^6/uL (4.30-5.70); RED CELL DISTRIBUTION WIDTH 19.7 % (11.5-14.5); WHITE BLOOD COUNT 2.2 x10^3/uL (4.0-11.0)
[2021-02-26 10:27] LABS: PROTHROMBIN TIME PATIENT 12.3 SEC (11.7-14.0)
[2021-02-26 10:33] LABS: CALCIUM 6.9 mg/dL (8.5-10.1); CREATININE 1.6 mg/dL (0.7-1.3); GFR 52.1; POTASSIUM 3.7 mmol/L (3.5-5.1)
[2021-02-26] MEDS ORDERED: LIDOCAINE 2%/EPI 1:100,000 20 ML VIAL. INJ ONE (11:00)
[2021-02-26] MEDS ORDERED: PROCHLORPERAZINE 10 MG/2 ML VIAL. ONE (12:00)
[2021-02-26] MEDS ORDERED: PROPOFOL 10 MG/ML (20ML) VIAL. IV ONE (12:02)
[2021-02-26] MEDS ORDERED: 0.9 % SODIUM CHLORIDE 20 ML VIAL. IJ ONE (12:03)
--- NOTE | 2021-02-26 12:46 | EKG ---
[facility] [address] [place] [address] Test Date: 2021-02-26 Test Time: 09:53:53 Pat Name: YADI CHRISTIAN Department: Room: Gender: [employer]: : 1950 Requested By: SHEFALI AYALA Order Number: [id number] Reading MD: Shefali Ayala Measurements Intervals [place] Rate: 72 P: 56 AL: 162 QRS: -4 QRSD: 90 T: 116 QT: 412 QTc: 453 Interpretive Statements SINUS RHYTHM LEFTWARD AXIS T ABNORMALITY IN ANTEROLATERAL LEADS ABNORMAL ECG Electronically Signed On 03-01-2021 8:09:45 GYPSUM CALCINER by Shefali Ayala
--- NOTE | 2021-02-26 12:59 | CARD ---
MR#: [id number] Date of Study: 02/26/2021 Ordering Physician: SHEFALI AYALA, Referring Physician: SHEFALI AYALA, Tech: APPROVED REPORT EXAM Implantation of Biotronik automatic implantable cardioverter defibrillator with defibrillation thresh olds measurement at the time of implantation SEDATION ADMINISTERED BY ANESTHESIA FLUORO TIME: 3.0 MIN DOSE: 12.6 GYCM2 INDICATIONS Primary prevention of sudden cardiac in a patient with chronic systolic heart failure, ischemic cardiomyopathy with LVEF 30 to 35% despite optimal medical therapy PROCEDURE After explaining the risks, benefits, and alternative options, informed consent was obtained from the patient. The patient was brought to the cardiac catheterization lab and the left chest and shoulder were prepp ed and draped in the usual fashion. IV conscious sedation was used throughout procedure with appropriate monitoring and was performed in the presence of a registered nurse who was an independent trained observer other than the physician p erforming the procedure. During this case, Fluoroscopy were used for imaging. Specimen(s) Removed: No Estimated Blood loss: 10 cc's. 30 cc of 2% lidocaine was infiltrated into the skin and subcutaneous tissues for local anesthesia. A n incision was made over the left infraclavicular fossa and using blunt dissection and cautery a pock et was created. Venous access was obtained in the left subclavian vein under fluoroscopic guidance a nd 10 and 7 German sheaths were inserted. A Biotronik bipolar active fixation right ventricular lead with atrial dipole, model Plexa ProMRI DX, serial #[id number] was advanced under fluoroscopic guidance and the tip was positioned in the right ve ntricular apex. The lead was secured into place and was attached to a Biotronik AICD generator model Acticor7 VR-T DX, serial #[id number]. This was placed in the pocket that was subsequently closed in 3 layers. Hemostasis was achieved with the help of D-stat. Ventricular fibrillation was then induced to check the defibrillation threshold. Patient successfull y converted to sinus rhythm with 20 J shock therapy. The right ventricular lead showed a sensing amp litude of 6.8 mV, impedance of 506 ohms and a threshold of 0.6 V. The atrial dipole showed P wave of 6.8 mV. Patient tolerated the procedure well. There were no immediate complications. CONCLUSION Successful implantation of Biotronik automated implantable cardioverter defibrillator for primary pre vention of sudden cardiac in a patient with chronic systolic heart failure/ischemic cardiomyopa thy with LVEF 30 to 35%. Defibrillation thresholds were measured at the time of implantation. Signed by : Shefali Ayala, Electronically Approved : 02/26/2021 12:59:18
--- NOTE | 2021-02-26 13:01 | RAD ---
EXAM: Chest, single view. HISTORY: Pacemaker placement. COMPARISON: None. FINDINGS: A frontal view of the chest is obtained. There is a left-sided cardiac pacemaker defibrilla tor in expected position. There is no pneumothorax. There is a right chest wall port catheter with th e tip overlying expected location of the superior cavoatrial junction. There is suspected left basila r pleural thickening or scarring. The heart is normal in size. There is a coronary artery stent. IMPRESSION: 1. Left-sided cardiac pacemaker defibrillator in expected position. 2. No acute pulmonary finding. Electronically signed by: Monica Moseley MD (02/26/2021 12:59 PM) [id number]
--- NOTE | 2021-02-26 15:23 | NUR ---
report called to NATALY Jean. Pt transferred via wheelchair to inpatient room 670.
[2021-02-27] MEDS ORDERED: ACETAMINOPHEN 325 MG TABLET. PO PRN
[2021-02-27] MEDS ORDERED: LOSARTAN POTASSIUM 50 MG TABLET. PO ONE
[2021-02-27] MEDS ORDERED: hydroCHLOROthiazide 25 MG TABLET PO ONE
[2021-02-27 03:30] VITALS: BP 171/92
[2021-02-27 07:00] VITALS: BP 200/112
[2021-02-27] MEDS ORDERED: ONDANSETRON ODT 4 MG TAB.RAPDIS. PO PRN (08:00)
--- NOTE | 2021-02-27 08:46 | RAD ---
EXAM: Chest, 2 views. HISTORY: Pacemaker placement. COMPARISON: 02/26/2021 FINDINGS: 2 views of the chest are obtained. There is a left-sided cardiac pacemaker distal fibular w ith single lead overlying expected position. There is no pneumothorax. There are trace pleural effusi ons. There is a stable cardiac silhouette. There is a right chest wall port catheter with the tip ove rlying expected location of the superior cavoatrial junction. IMPRESSION: 1. Significantly left cardiac pacemaker defibrillator in expected position. 2. Trace bilateral pleural effusions. Electronically signed by: Monica Moseley MD (02/27/2021 8:44 AM) [id number]
[2021-02-27] MEDS ORDERED: FERROUS SULFATE 325 MG TABLET. PO SCH (09:00)
[2021-02-27] MEDS ORDERED: CHOLECALCIFEROL (VITAMIN D3) 1,000 UNIT TABLET PO SCH (09:00)
[2021-02-27] MEDS ORDERED: DEXAMETHASONE 4 MG TABLET PO SCH (09:00)
[2021-02-27] MEDS ORDERED: POTASSIUM CHLORIDE 20 MEQ TABLET.ER. PO SCH (09:00)
[2021-02-27] MEDS ORDERED: hydroCHLOROthiazide 25 MG TABLET PO SCH (09:00)
[2021-02-27] MEDS ORDERED: ISOSORBIDE MONONITRATE ER 30 MG TAB.ER.24H PO SCH (09:00)
[2021-02-27] MEDS ORDERED: FUROSEMIDE 40 MG TABLET. PO SCH (09:00)
[2021-02-27] MEDS ORDERED: LOSARTAN POTASSIUM 50 MG TABLET. PO SCH (09:00)
[2021-02-27] MEDS ORDERED: ASPIRIN ENTERIC COATED 81 MG TABLET.DR. PO SCH (09:00)
[2021-02-27] MEDS ORDERED: LABETALOL HCL 100 MG TABLET. PO SCH (09:00)
[2021-02-27 11:00] VITALS: BP 155/88
--- NOTE | 2021-02-27 11:21 | PDOC3 ---
Discharge Summary Visit Information Date of Admission: Feb 26, 2021 Date of Discharge: Feb 27, 2021 Admitting Diagnosis Comment: 1. Ischemic cardiomyopathy 2. Chronic combined systolic, diastolic CHF 3. Hypertension 4. CAD 5. Hyperlipidemia 6. CKD Final Diagnosis 1. Ischemic cardiomyopathy 2. Chronic combined systolic, diastolic CHF 3. Hypertension 4. CAD 5. Hyperlipidemia 6. CKD Brief Hospital Course Allergies Allergies Coded Allergies Type Severity Reaction Last Updated Verified No Known Drug Allergies 08/09/18 No Vital Signs Vital Signs Date Time Temp Pulse Resp B/P (MAP) Pulse Ox O2 Delivery O2 Flow Rate FiO2 02/27/21 08:27 86 201/101 02/27/21 07:00 99.3 20 97 Room Air 99.3 02/26/21 16:00 2.0 Lab Results Laboratory Tests Test 02/26/21 09:45 White Blood Count 2.2 x10^3/uL (4.0-11.0) Red Blood Count 3.77 x10^6/uL (4.30-5.70) Hemoglobin 10.9 g/dL (13.0-17.5) Hematocrit 33.0 % (39.0-53.0) Mean Corpuscular Volume 88 fL (79-100) Mean Corpuscular Hemoglobin 29 pg (25-35) Mean Corpuscular Hemoglobin Concent 33 g/dL (31-37) Red Cell Distribution Width 19.7 % (11.5-14.5) Platelet Count 107 x10^3/uL (140-400) Prothrombin Time 12.3 SEC (11.7-14.0) Prothromb Time International Ratio 0.9 (0.8-1.1) Sodium Level 143 mmol/L (136-145) Potassium Level 3.7 mmol/L (3.5-5.1) Chloride Level 110 mmol/L (98-107) Carbon Dioxide Level 26 mmol/L (21-32) Anion Gap 7 (6-14) Blood Urea Nitrogen 27 mg/dL (8-26) Creatinine 1.6 mg/dL (0.7-1.3) Estimated GFR (Cockcroft-Gault) 52.1 Glucose Level 82 mg/dL (70-99) Calcium Level 6.9 mg/dL (8.5-10.1) Brief Hospital Course Mr. Roldan is a 70 old male, with a history of ischemic cardiomyopathy, who presented for automatic implantable cardioverter defibrillator implantation for primary prevention of sudden cardiac . Patient tolerated procedure well and was monitored overnight without complications. Post-operative device check and chest xray within normal limits. Discharge instructions were reviewed. Patient will discharge with Home Health services and follow up in our office as scheduled. Patient seen and examined. Agree with [employer]NAG[employer] OFFICER's assessment and plan. Patient underwent successful AICD implantation for primary prevention of sudden cardiac . Incision looks good. Device check showed normal function. Chest x-ray did not show any pneumothorax. DC home today and follow-up as scheduled. Assessment Assessment Left chest incision well approximated. Steri strips intact. No hematoma present. Neurovascular status intact. Lungs CTA. Discharge Information Condition at Discharge: Stable Follow Up: Weeks Disposition/Orders: D/C to Home Scheduled Aspirin (Aspirin Ec) 81 Mg Tablet.dr, 81 MG PO DAILY for , (Reported) Entered as Reported by: DUNIA ALMANZA RN on 06/12/202121 Last Action: Continued on 02/27/21737 by Tanmay Sawant Atorvastatin Calcium (Atorvastatin Calcium) 20 Mg Tablet, 40 MG PO QHS for CAD/HLD for 30 Days, #60 Ref 2 Can replace with #30 of 40mg tabs Prescribed by: TONIE LEWIS MD on 08/11/18 1122 Last Action: Reviewed on 02/26/21931 by Gloria Orellana Cholecalciferol (Vitamin D3) (Vitamin D3) 1,000 Unit Tablet, 2,000 UNIT PO DAILY for vit, (Reported) Entered as Reported by: JORGE HENSON on 08/09/18 1154 Last Action: Continued on 02/27/21737 by Tanmay Sawant Dexamethasone (Decadron) 4 Mg Tablet, 4 MG PO DAILY for nausea, (Reported) Entered as Reported by: Gloria Orellana on 02/26/21931 Last Action: Continued on 02/27/21737 by Tanmay Sawant Ferrous Sulfate (Iron) 325 Mg Tablet, 325 MG PO DAILY for , (Reported) Entered as Reported by: DUNIA ALMANZA RN on 06/12/202116 Last Taken: Unknown Dose on 02/26/21 Last Action: Continued on 02/27/21737 by Tanmay Sawant Furosemide (Furosemide) 40 Mg Tablet, 1 TAB PO DAILY for diuretic, #30 Ref 5 (Reported) Entered as Reported by: Gloria Orellana on 02/26/21931 Last Action: Continued on 02/27/21737 by Tanmay Sawant Hydralazine Hcl (Hydralazine Hcl) 100 Mg Tablet, 1 TAB PO TID for , (Reported) Entered as Reported by: DUNIA ALMANZA RN on 06/12/202116 Last Taken: Unknown Dose on 02/26/21 Last Action: Converted on 02/27/21737 by Tanmay Sawant Isosorbide Mononitrate (Isosorbide Mononitrate Er) 30 Mg Tab.er.24h, 30 MG PO DAILY for CHF for 30 Days, #30 Ref 2 Prescribed by: TONIE LEWIS MD on 06/14/20911 Last Taken: Unknown Dose on 02/26/21 Last Action: Continued on 02/27/21737 by Tanmay Sawant Labetalol Hcl (Labetalol Hcl) 100 Mg Tablet, 1 TAB PO BID for , (Reported) Entered as Reported by: DUNIA ALMANZA RN on 06/12/202116 Last Taken: Unknown Dose on 02/26/21 Last Action: [facility]ued on 02/27/21737 [facility]/Hydrochlorothiazide (Losartan-Hctz 100-25 Mg Tab) 1 Each Tablet, 1 TAB PO DAILY for blood pressure, #30 Ref 5 (Reported) Entered as Reported by: Gloria Orellana on 02/26/21931 Last Taken: Unknown Dose on 02/26/21 Last Action: Converted on 02/27/21737 by Tanmay Savana Potassium Chloride (K-Tab ER) 20 Meq Tablet.er, 20 MEQ PO BID for Hypokalemia for 30 Days, #60 Prescribed by: TONIE LEWIS MD on 06/14/20911 Last Taken: Unknown Dose on 02/26/21 Last Action: Converted on 02/27/21737 [facility] Prochlorperazine Maleate (Compazine) 10 Mg Tablet, 1 TAB PO Q6HRS for nausea for 30 Days, #120 Ref 0 (Reported) Entered as Reported by: Gloria Orellana on 02/26/21931 Last Action: Converted on 02/27/21737 by Tanmay Savana Scheduled PRN Acetaminophen (Acetaminophen) 325 Mg Tablet, 650 MG PO PRN Q6HRS PRN for MILD PAIN / TEMP > 100.3'F for 30 Days, #30 Ref 0 Prescribed by: MILAGRO PEREZ APRN on 02/27/21 1125 Ondansetron Hcl (Ondansetron Hcl) 8 Mg Tablet, 8 MG PO BID PRN for NAUSEA/VOMITING, (Reported) Entered as Reported by: Gloria Orellana on 02/26/21 0932 Last Action: Converted on 02/27/21 0738 by Tanmay Sawant Patient Instructions Patient Instructions Must know & what to expect after device implant: 1. Your surgical dressing should be removed prior to discharge from the hospital, but allow the steri- strips to fall off naturally. 2. Activity restrictions: DO NOT raise arm above shoulder level, lift anything heavier than a gallon of milk, and no push or pull motions such as vacuuming/lawn mowing, no swinging motions (golf), etc for 4 weeks. 3. It is OK to use a cell phone or other electronic devices just be sure you do not store it in a breast pocket on the side where the device was placed. 4. Device will be interrogated prior to your discharge from the hospital and then every 3 months for defibrillators and every 6 months for pacemakers. You may be asked to have your device checked remotely from home as well, but this will depend on your particular physicians preference. 5. You may remove the arm immobilizer the day after device placement. Wear the arm immobilizer/splint at night (during sleep times) for 2 week to prevent unintended arm movement that can cause lead dislodgement. 6. Do not drive for one week as the task of driving may lead to unintended arm motion that may cause lead dislodgement. The seatbelt will also rub against the incision site & cause irritation. 7. It is our recommendation that you utilize Tylenol at home for pain control. You need to call our office if you are having uncontrollable pain at the incision site. 8. Keep your incision clean and dry. It is OK to shower. DO NOT submerge in bath, pool, or hot tub, until cleared by your doctor, as this could lead to increase risk of infection.. It is OK to use regular soap just do not scrub the incision site. Water spray from shower should not directly hit the incision. Be sure to blot dry not rub. 9. Inspect your incision daily. If you notice any increased redness, swelling, or drainage, or if you start running a fever, call the office immediately. The number is [phone]. 10. For women, if you need to protect against irritation from the bra straps, you can place a piece of gauze over the incision site for cushion. Please be sure to tape it loosely to allow air to the site & remove the gauze when you remove the bra. 11. Be sure to carry your device identification information card in your wallet/purse at all times. 12. It is OK to go through security at the airport with your device, but be sure to let the TSA know prior to proceeding as the security settings change depending on varying factors. Please do whatever is requested by security at that time. 13. Some of the newer devices may be MRI compatible but, currently, the use of these devices is not widespread, so you likely will not be able to have an MRI. Please clarify this with your physician. Special instructions for defibrillator patients: If your device recognizes a rhythm that requires treatment with a shock, you will most likely feel the shock. This is usually not a subtle feeling and it is uncomfortable. Please follow these steps if you receive a shock: Call the office if you receive one shock. Go to the emergency room if you receive two consecutive shocks- please have someone drive you & call 911 if nobody is available- DO NOT drive yourself. Call 911 if you receive more than 2 consecutive shocks. If at any time, you feel lightheaded or dizzy/faint, stop what you are doing & lie down immediately. If you are driving, get to the side of the road quickly, turn your car off & call 911 on your cell phone. DO NOT continue to drive as this may cause an accident that seriously injures yourself &/or others. Call the office at [phone] for any questions or concerns. Justicifation of Admission Dx: Justifications for Admission: Justification of Admission Dx: Yes OR: Acute NSTEMI MILAGRO PEREZ APRN Feb 27, 2021 11:21 SHEFALI HU MD Feb 27, 2021 15:02
[2021-02-27] MEDS ORDERED: ACET325T21 PO (11:25)
[2021-02-27] MEDS ORDERED: PROCHLORPERAZINE 5 MG TABLET. PO SCH (11:30)
--- NOTE | 2021-02-27 11:33 | SNU/HH DC ---
DISCHARGE WITH HOME HEALTH DISCHARGE INFORMATION: Discharge Date: Feb 27, 2021 Condition on Discharge: Stable HOME HEALTH: Face to Face: I certify this patient is under my care and that I, or a nurse practitioner or physician's auction assistant working with me, had a face to face encounter that meets the physician face to face encounter requirements with this patient on []. Medical Complications: CHF, HTN RN For Eval/Treatment: Yes Physical Therapy For: Evalulation/Treatment Occupational Therapy For: Evaluation/Treatment Pt Meets Homebound Status: Poor coordination w/ amb. POST DISCHARGE ORDERS: Activity Instructions for Disc: Activity as tolerated, Other, see below (Do not lift left arm above shoulder level) Weight Bearing Status after Di: No restrictions Bathing Instructions: Shower-keep dressing dry, No Tub Bath until see DIET AFTER DISCHARGE: Cardiac Wound/Incision Care: Other, see below (Keep wound clean and dry. ) CHECKS AFTER DISCHARGE: Checks after discharge: Check blood press - daily, Weigh Yourself Daily TREATMENT/EQUIPMENT ORDERS: Adaptive Equipment Issued: Brace/splint (left arm sling ) CERTIFICATION STATEMENT: Certification Statement: Certification Statement: Based on the above finding, I certify that this patient is confined to the home and needs intermittent mcc care, physical therapy and/or speech therapy, or continues to need occupational therapy.~ This patient is under my care, and I have initiated the establishment of the plan of care.~ This patient will be followed by myself or a community physician who will periodically review the plan of care. Home Meds Active Scripts Acetaminophen (ACETAMINOPHEN) 325 Mg Tablet, 650 MG PO PRN Q6HRS PRN for MILD P AIN / TEMP > 100.3'F for 30 Days, #30 TAB 0 Refills Prov:MILAGRO PEREZ APRN 02/27/21 Isosorbide Mononitrate (ISOSORBIDE MONONITRATE ER) 30 Mg Tab.er.24h, 30 MG PO DAILY for CHF for 30 Days, #30 TAB.SR 2 Refills Prov:TONIE LEWIS MD 06/14/20 Potassium Chloride (K-Tab ER) 20 Meq Tablet.er, 20 MEQ PO BID for Hypokalemia for 30 Days, #60 TAB.SR Prov:TONIE LEWIS MD 06/14/20 Atorvastatin Calcium (ATORVASTATIN CALCIUM) 20 Mg Tablet, 40 MG PO QHS for CAD/HLD for 30 Days, #60 TAB 2 Refills Can replace with #30 of 40mg tabs Prov:TONIE LEWIS MD 08/11/18 Reported Medications Losartan/Hydrochlorothiazide (LOSARTAN-HCTZ 100-25 MG TAB) 1 Each Tablet, 1 TAB PO DAILY for blood pressure, #30 TAB 5 Refills 02/26/21 Dexamethasone (Decadron) 4 Mg Tablet, 4 MG PO DAILY for nausea, TAB 02/26/21 Ondansetron Hcl (ONDANSETRON HCL) 8 Mg Tablet, 8 MG PO BID PRN for NAUSEA/VOMI TING, TAB 02/26/21 Prochlorperazine Maleate (Compazine) 10 Mg Tablet, 1 TAB PO Q6HRS for nausea for 30 Days, #120 TAB 0 Refills 02/26/21 Furosemide (FUROSEMIDE) 40 Mg Tablet, 1 TAB PO DAILY for diuretic, #30 TAB 5 Refills 02/26/21 Aspirin (ASPIRIN EC) 81 Mg Tablet.dr, 81 MG PO DAILY for , TAB.SR 06/12/20 Ferrous Sulfate (IRON) 325 Mg Tablet, 325 MG PO DAILY for , TAB 06/12/20 Hydralazine Hcl (HYDRALAZINE HCL) 100 Mg Tablet, 1 TAB PO TID for 06/12/20 Labetalol Hcl (LABETALOL HCL) 100 Mg Tablet, 1 TAB PO BID for 06/12/20 Cholecalciferol (Vitamin D3) (VITAMIN D3) 1,000 Unit Tablet, 2000 UNIT PO DAILY for vit, TAB 08/09/18 MILAGRO PEREZ APRN Feb 27, 2021 11:32
--- NOTE | 2021-02-27 11:38 | NUR ---
SS following for discharge planning. SS reviewed pt chart and discussed with pt RN. Pt is from home with spouse and is currently on room air. Pt had AICD placement on 02/26/2021. Discharge order on the chart for home with home healthcare. SS met with pt and pt's spouse and discussed discharge planning and home healthcare. Pt and spouse agreeable to home healthcare with no preference of company. Discharge orders and referral sent to [facility], ; fax [phone]. Pt's RN notified.
[2021-02-27 14:00] VITALS: BP 155/88
--- NOTE | 2021-02-27 14:00 | NUR ---
DISCHARGED PATIENT TO HOME. DISCHARGE INSTRUCTIONS GIVEN. PIV AND HEART MONITOR REMOVED. ESCORTED PATIENT OFF UNIT PER WHEELCHAIR INTO A PRIVATE VEHICLE.
== END 2021-02-27 14:00 | disposition home health service (06) ==
LOC: SURG 09:12 → 6 SOUTH 13:15 → UNDOADMOB 15:28 → 6 SOUTH 15:28
PROVIDERS: ADMIT Internal Medicine Cardiovascular Disease; ATTEND Internal Medicine Cardiovascular Disease
DX: I25.5 Ischemic cardiomyopathy (principal); I13.0 Hypertensive heart and chronic kidney disease with heart failure and stage 1 through stage 4 chronic kidney disease, or unspecified chronic kidney disease; I50.42 Chronic combined systolic (congestive) and diastolic (congestive) heart failure; N18.9 Chronic kidney disease, unspecified; I25.10 Atherosclerotic heart disease of native coronary artery without angina pectoris; E78.5 Hyperlipidemia, unspecified
CPT/HCPCS: 33249; 36415; 71045; 71046; 80048; 85027; 85610; 93005; 93640; C1721; G0378; G0379; J0690; J0780; J2250; J2704; J3010; J3490